=== PATIENT | male | born 1955 | race Caucasian/White ===

== ENCOUNTER 2023-10-21 16:23 | Emergency (ER) | payer OTHER, SELFPAY ==
--- NOTE | ~2023-10-21 | CT_ITS ---
EXAMINATION: CT lumbar spine wo con DATE: 10/21/2023 17:58 INDICATION: Low back pain TECHNIQUE: Computed tomography (CT) of the lumbar spine was performed without intravenous contrast. A utomated exposure control and iterative reconstruction technique were employed. The dose-length produ ct was 1575.73 mGy-cm. COMPARISON: None FINDINGS: Chronic appearing likely physiologic mild anterior wedging at T11 and T12. Remaining vertebral body h eights are normal. No acute fracture. Moderate disc height loss with right-sided degenerative endplat e changes at L4-L5. Mild to moderate left-sided predominant disc height loss with left-sided degenera tive endplate changes at L5-S1. Moderate disc height loss at T10-T11 through T12-L1 and mild disc hei ght loss at T12-L1 and L3-L4. Mild bilateral sacroiliac osteoarthritis. Paravertebral soft tissues ar e unremarkable. The following disc levels are specifically discussed: T11-T12: The disc does not extend beyond the endplate margin. There is mild bilateral facet joint ost eoarthritis. There is no neural foraminal stenosis. There is no central canal stenosis. T12-L1: Disc is mildly bulging. There is mild bilateral facet joint osteoarthritis. There is no neura l foraminal stenosis. There is mild central canal stenosis. L1-L2: Disc is mildly bulging. There is mild bilateral facet joint osteoarthritis. There is no neural foraminal stenosis. There is mild central canal stenosis. L2-L3: Disc is bulging. There is mild right and moderate left facet joint osteoarthritis. There is mi ld bilateral neural foraminal stenosis. There is mild central canal stenosis. L3-L4: Disc is bulging. There is mild left and moderate right facet joint osteoarthritis. There is mi ld bilateral neural foraminal stenosis. There is mild central canal stenosis. L4-L5: Disc is bulging. There is mild right and moderate left facet joint osteoarthritis. There is mo derate bilateral neural foraminal stenosis. There is mild to moderate central canal stenosis. L5-S1: Disc is bulging. There is mild right and moderate left facet joint osteoarthritis. And small f ocus of vacuum phenomena at the medial side of the left facet joint, unclear whether this is within a synovial cyst arising from the facet joint or more likely vacuum phenomena within a disc extrusion w hich narrows the left lateral recess and appears to exert mass effect upon the left S1 nerve root. Th ere is mild bilateral neural foraminal stenosis. Endplate osteophytes result in more prominent modera te narrowing of the left extraforaminal space along the course of the exiting left L5 nerve root. The re is mild central canal stenosis. IMPRESSION: 1. Moderate lumbar predominant spondylosis. No acute osseous abnormalities. Reviewed, dictated and finalized at location A.
--- NOTE | ~2023-10-21 | XR_ITS ---
EXAMINATION: XR hip BI 2V w AP pelvis DATE: 10/21/2023 18:05 INDICATION: Increasing low back pain post fall one week prior TECHNIQUE: Anteroposterior view of the pelvis and anteroposterior and frog-leg lateral views of the l eft hip and anteroposterior and frog-leg lateral views of the right hip and were obtained. COMPARISON: None. FINDINGS: Alignment is normal. No fracture. Mild bilateral hip and sacroiliac osteoarthritis. Moderate lower bob mbar spondylosis. Several phleboliths in the pelvis. IMPRESSION: 1. Mild bilateral hip and sacroiliac osteoarthritis. No acute osseous abnormality. Reviewed, dictated and finalized at location A. IMPRESSION: 1. Mild bilateral hip and sacroiliac osteoarthritis. No acute osseous abnormali ty.
[2023-10-21 16:24] VITALS: BP 156/68; PULSE 79; RESP 20; TEMP 36.4; O2SAT 100
--- NOTE | 2023-10-21 17:35 | ED.GENADULT ---
HPI - General Adult General Chief complaint: Back Pain/Injury <Elva Ruiz November, CORPORATE SALES TRAINER - Last Filed: 10/21/23 17:40> Stated complaint: back problems <Elva Ruiz November, CORPORATE SALES TRAINER - Last Filed: 10/21/23 17:40> Time Seen by Provider: 10/21/23 17:35 <Elva Ruiz November, CORPORATE SALES TRAINER - Last Filed: 10/21/23 17:40> Focused HPI: Portillo Lynch is a 68 y/o male who presents with reports of hx of CVA with some residual weakness to his right lower extremity. He states that he constantly rolls his ankle on the right leg and rolled it about a week ago and has been walking different for the past week and now having increased pain to his right hip down his leg that started yesterday He also states that he has numbness down his right leg which is new He states that he tried an oxycodone for pain at home that seemed to help states sitting and walking makes the pain worse. GENERAL: Well-appearing, well-nourished, and in no acute distress. HEAD: Normocephalic, atraumatic. CHEST: Clear to auscultation. ?No respiratory distress. HEART: Regular rate and rhythm.? NEURO: ?Alert and oriented x3. Patient screened in triage and initial orders placed.? ?Additional care and disposition to be based upon?diagnostic testing and treatment. <Elva Ruiz November, - Last Filed: 10/21/23 17:40> Related Data Home medications: Home Medications Medication Instructions Recorded Confirmed tadalafil 5 mg tablet (Cialis) 5 mg PO DAILY 07/18/19 <Elva Ruiz November, CORPORATE SALES TRAINER - Last Filed: 10/21/23 17:40> Allergies/adverse reactions: Allergies Allergy/AdvReac Type Severity Reaction Status Date / Time No Known Allergies Allergy Unverified 02/03/20 09:25 <Elva Ruiz November, - Last Filed: 10/21/23 17:40> Review of Systems Review of Systems: CONSTITUTIONAL: Denies fever SKIN: Denies rash MUSCULOSKELETAL: Reports back pain, joint pain, and myalgia. NEUROLOGIC: Denies new numbness, or weakness. <Heavenly Corona PA-C - Last Filed: 10/21/23 19:04> All systems reviewed & are unremarkable except as noted in HPI and below <Heavenly Corona PA-C - Last Filed: 10/21/23 19:04> PMFSH Past Medical History Medical History: Medical History (Updated 10/21/23 @ 18:57 by Heavenly Corona PA-C) Cerebrovascular disease <Elva BrianaRuth November, CORPORATE SALES TRAINER - Last Filed: 10/21/23 17:40> Family History Family History: Family History (System 02/03/20 @ 09:25 by Roxi Trejo) Other No problems noted. Father No problems noted. Mother Diabetes mellitus Other No problems noted. Father Patient's father is in good health Sibling Patient's sister is in good health Patient's brother is in good health Mother Family history of diabetes mellitus in first degree relative Diabetes mellitus Other Hypertension <Elva Ruiz November, - Last Filed: 10/21/23 17:40> Social History Social History: Social History (System 02/03/20 @ 09:25 by Roxi Trejo) Smoking status: Never smoker Alcohol intake: never <Elva Ruiz November, - Last Filed: 10/21/23 17:40> Exam Narrative: GENERAL: Well-appearing, well-nourished, and in no acute distress. HEAD: Normocephalic, atraumatic. EYES: EOMI. CHEST: Clear to auscultation. No respiratory distress. No wheezes rales or rhonchi HEART: Regular rate and rhythm. No murmur heard. Normal peripheral pulses. BACK: No midline spinal tenderness EXTREMITIES: Normal range of motion. No edema. Strength 5/5 LLE, 4/5 RLE SKIN: Warm, dry, no rash. NEURO: No focal deficits. Alert and oriented x3. PSYCH: Normal mood and affect <Heavenly Corona PA-C - Last Filed: 10/21/23 19:04> Course Course Emergency Course: Patient was updated on his workup and agrees with plan of care. <Heavenly Corona PA-C - Last Filed: 10/21/23 19:04> Vital Signs Vital signs: Vital Signs Temperature 97.6 F 10/21/23 16:24 Pulse Rate 79 10/21/23 16:24 Respiratory Rate 20 10/21/23 16:24 Blood
--- NOTE | 2023-10-21 18:53 | ED.BACK ---
HPI - Back Pain/Injury General Chief Complaint: Back Pain/Injury Stated Complaint: back problems Time Seen by Provider: 10/21/23 17:35 Source: patient Mode of arrival: ambulatory Limitations: no limitations Related Data Home Medications Medication Instructions Recorded Confirmed tadalafil 5 mg tablet (Cialis) 5 mg PO DAILY 07/18/19 Allergies Allergy/AdvReac Type Severity Reaction Status Date / Time No Known Allergies Allergy Unverified 02/03/20 09:25 [facility] Past Medical History Medical History (System 02/03/20 @ 09:25 by Roxi Trejo) Cerebrovascular disease Family History Family History (System 02/03/20 @ 09:25 by Roxi Trejo) Other No problems noted. Father No problems noted. Mother Diabetes mellitus Other No problems noted. Father Patient's father is in good health Sibling Patient's sister is in good health Patient's brother is in good health Mother Family history of diabetes mellitus in first degree relative Diabetes mellitus Other Hypertension Social History Social History (System 02/03/20 @ 09:25 by Roxi Trejo) Smoking status: Never smoker Alcohol intake: never Course Vital Signs Vital signs: Vital Signs Temperature 97.6 F 10/21/23 16:24 Pulse Rate 79 10/21/23 16:24 Respiratory Rate 20 10/21/23 16:24 Blood Pressure 156/68 H 10/21/23 16:24 Pulse Oximetry 100 10/21/23 16:24 Oxygen Delivery Room Air 10/21/23 16:24 Temperature 97.6 F 10/21/23 16:24 Pulse Rate 79 10/21/23 16:24 Respiratory Rate 20 10/21/23 16:24 Blood Pressure 156/68 H 10/21/23 16:24 Pulse Oximetry 100 10/21/23 16:24 Oxygen Delivery Room Air 10/21/23 16:24 Discharge Plan Discharge Prescriptions: No Action tadalafil [Cialis] 5 mg tablet 5 mg PO DAILY Eliquis 5 mg tablet 5 mg PO BID Qty: 60 0RF apixaban [Eliquis] 5 mg tablet See Rx Instructions .ROUTE .COMPLEX Qty: 180 0RF Dose Instruction: TAKE 1 TABLET BY MOUTH TWICE DAILY Rx Instructions: TAKE 1 TABLET BY MOUTH TWICE DAILY atorvastatin 40 mg tablet 40 mg PO DAILY Qty: 90 1RF Eliquis 5 mg tablet 5 mg PO BID Qty: 180 1RF ramipril 1.25 mg capsule See Rx Instructions .ROUTE .COMPLEX Qty: 90 1RF Dose Instruction: TAKE 1 CAPSULE BY MOUTH DAILY Rx Instructions: TAKE 1 CAPSULE BY MOUTH DAILY sertraline 50 mg tablet See Rx Instructions .ROUTE .COMPLEX Qty: 90 1RF Dose Instruction: TAKE 1 TABLET BY MOUTH DAILY Rx Instructions: TAKE 1 TABLET BY MOUTH DAILY Follow-up/Referrals: Da Walls DO [Primary Care Provider] -
== END 2023-10-21 19:22 | disposition home or self-care (01) ==
LOC: ANHED 19:08
PROVIDERS: Emergency Provider Physician Assistant; PCP Family Medicine Sports Medicine
DX: M54.31 Sciatica, right side (principal); I69.841 Monoplegia of lower limb following other cerebrovascular disease affecting right dominant side
CPT/HCPCS: 72131; 73521; 99284

== ENCOUNTER 2023-11-10 13:27 | Outpatient (CLI) | payer OTHER, SELFPAY ==
--- NOTE | ~2023-11-10 | PE_ITS ---
EXAMINATION: PET_PETPSMAST_PT DATE: 11/10/2023 15:39 INDICATION: Malignant neoplasm of the prostate TECHNIQUE: 5.482 mCi of Locametz Ga-68([id number]) was administered i.v. Low dose computed claire ography (CT) images were acquired from the base of the brain to the base of the brain to the proximal thighs for attenuation correction and anatomic localization. Positron emission tomography (PET) imag es were acquired in the same distribution beginning 90 minutes after injection. Images including fuse d PET/CT images were reconstructed in axial, coronal, and sagittal planes. Automated exposure control technique was employed. The dose-length product was 1307.59mGy-cm. COMPARISON: None FINDINGS: Head/neck: Typical pattern of symmetric physiologic increased activity in the lacrimal, parotid and submandibula r glands as well as along the mucosa of the nasal and oral cavities in the glottis. No pathologically enlarged cervical lymphadenopathy or suspicious foci of increased uptake in the visualized head or n eddie. Chest: Calcified nodules in the right middle and left lower lobes along with calcified mediastinal lymph nod es consistent with old granulomatous disease. Mild dependent atelectasis in the bilateral lower lobes . No pleural effusion. Heart size is normal. Atherosclerotic coronary artery calcification is. No per icardial effusion. Thoracic aorta is normal in caliber. No pathologically enlarged or PSMA avid thora cic lymphadenopathy. Abdomen/pelvis/proximal thighs: Physiologic renal accumulation and excretion of activity in the kidneys, bladder and along portions o f ureters. Status post prostatectomy. There are bilateral photopenic low-attenuation cysts at both ki dneys larger on the left measuring 4.5 cm maximal diameter. Normal degree and slightly heterogenous p attern of increased uptake throughout the liver and spleen without radiologic correlate or dominant P SMA avid lesion. The gallbladder, pancreas and bilateral adrenal glands are normal. Moderate uptake s cattered throughout the bowels with typical duodenal and proximal jejunal predominance and without ra diologic correlate, also likely physiologic. There is mild scattered colonic diverticulosis without a djacent comparison to suggest diverticular colitis. Normal appendix. No other abnormal foci of increa sed uptake or pathologically enlarged lymphadenopathy in the abdomen, pelvis or proximal thighs. Musculoskeletal: There are a couple small foci of mild uptake without evident radiologic correlate on CT imaging at th e lesser trochanter with maximal SUV of 2.4 and at the lateral right fifth rib. No other suspicious l ytic, blastic or PSMA avid bone lesions. IMPRESSION: 1. Minimal uptake associated with a couple bone lesions without radiologic correlate at the right les ser trochanter and at the lateral right fifth rib which does raise some suspicion for early osseous m etastatic disease. No other lesions suspicious for recurrent or metastatic disease. Would recommend c ontinued follow-up of PSA levels with repeat imaging as clinically indicated. Reviewed, dictated and finalized at location A. IMPRESSION: 1. Minimal uptake associated with a couple bone lesions without radiologic maddi elate at the right lesser trochanter and at the lateral right fifth rib which d oes raise some suspicion for early osseous metastatic disease. No other lesions suspicious for recurrent or metastatic disease. Would recommend continued foll ow-up of PSA levels with repeat imaging as clinically indicated.
== END 2023-11-10 13:28 | disposition home or self-care (01) ==
PROVIDERS: PCP Family Medicine Sports Medicine; Visit Provider Urology
DX: C61 Malignant neoplasm of prostate (principal)
CPT/HCPCS: 78815; A9596

== ENCOUNTER 2024-08-18 12:50 | Outpatient (CLI) | payer OTHER, SELFPAY ==
--- NOTE | ~2024-08-18 | CT_ITS ---
CLINICAL INDICATION: 69-year-old gentleman with a history of prostate cancer presents with hematuria for CT evaluation.. COMPARISON: Reference is made to a PET/CT dated 11/10/2023. TECHNIQUE: Multiple contiguous axial images of the abdomen and pelvis were performed both prior to an d following the administration of with 100 mL Omnipaque-350 intravenous contrast The dose-length product (DLP) was 1310.26 mGy-cm. Automated exposure control and iterative reconstruction technique were employed. FINDINGS/OBSERVATIONS: Visualized lower thorax: The bilateral lung bases are clear. The heart is of normal size, without pericardial effusion. Liver: The liver is enlarged measuring 20 cm in longitudinal dimension. No abnormal contrast enhancement is appreciated. Gallbladder and biliary system: The gallbladder is decompressed, and otherwise unremarkable. Pancreas: The pancreas enhances homogeneously without ductal dilatation. Spleen: The spleen enhances homogeneously and is not enlarged measuring 8 cm in longitudinal dimension. Kidneys: No renal calculi are identified. Multiple areas of decreased attenuation within the bilateral kidneys (2 on the right and one on the l eft) which do not enhance with intravenous contrast and are most consistent with simple cysts. Within the right kidney, this focus is located within the lateral interpolar region. Within the right kidney, an additional cystic focus is located within the medial portion of the inter polar region. Within the left kidney, an additional cystic focus is located along the medial margin of the lower po le. The remainder of the bilateral kidneys otherwise enhance symmetrically, without hydronephrosis. No large filling defect is identified within the visualized portions of the opacified bilateral urete rs, although examination is limited as the bilateral ureters are not completely opacified in their en tirety. Adrenal glands: Unremarkable. Gastrointestinal tract: Colonic diverticulosis without surrounding inflammatory change. Trace fecal stasis. Appendix: The air-filled appendix is of normal caliber (axial series, images 131 through 154) Vasculature: Unremarkable. No aneurysmal dilatation or significant stenosis. Lymph nodes: No pathologically enlarged or morphologically suspicious lymph nodes within the retroperitoneum or at the root of the mesentery. Pelvic structures: Excreted contrast is opacifying the posterior wall of the bladder, without a posterior abnormality. Inflammatory change is identified within the anterior wall of the bladder, for which cystitis is susp ected. The prostate gland is surgically absent. Body wall and musculoskeletal: Small fat-containing umbilical hernia. Trace degenerative disease within the lower lumbar spine. No acute compression fracture. No lytic or blastic lesions identified. IMPRESSION: Findings within the bladder for which cystitis is suspected. No renal calculi. No bladder calculi. Simple cysts within the bilateral kidneys. Reviewed, dictated and finalized at location A. R HOTEL MANAGER
--- NOTE | ~2024-08-18 | XR_ITS ---
XR abdomen/kub 1V 08/18/2024 13:18 INDICATION: Hematuria TECHNIQUE: KUB COMPARISON: None FINDINGS: Bowel gas pattern is normal. Moderate colonic fecal loading. There is no evidence of free a ir, mass, organomegaly, ascites or obstruction. No abnormal calculi are seen. There are multiple pel vy phleboliths. The bones appear intact. IMPRESSION: 1: No acute abdominal abnormality identified. Reviewed, dictated and finalized at location A. CAL ARTIST
[2024-08-18 13:34] LABS: Estimated Glomerular Filt Rate 55
--- OUTSIDE RECORDS SUMMARY | 2024-08-18 13:38 | XMS_ITS | Encounter Summary ---
Author Organization [facility] Address [address] [place] [address] Care Team Providers Care Oracle Technical Architect Name Role Phone Basilio Mao MD Primary Care Provider [phone] Encounter Details Date Type Department Care Team (Late st Contact Info) Description 05/06/2023 Lab Requisition [facility] [address] [address] Donnie Dyson MD [facility] [address] [place] [id number] Neoplasm of uncertain behavior of skin Social History Tobacco Use Types Packs/Day Years Used Date Smoking Tobacco: Never Alcohol Use Standard Drinks/Week Comments No 0 (1 standard drink = 0.6 oz pur e alcohol) Sex and Gender Information Value Date Recorded Sex Assigned at Not on file Gender Identity Not on file Sexual Orientation Not on file documented as of this encounter Plan of Treatment Not on file documented as of this encounter Procedures Procedure Name Priority Date/Time Associated Diagnosis Comments DERMATOPATHOLOGY Routine 05/06/2023 3:33 AM CDT Neoplasm of uncertain behavior of skin documented in this encounter Results * DERMATOPATHOLOGY (05/06/2023 3:33 AM CDT) Case Report Dermatopathology Report ? Case: [id number] ? Authorizing Provider: ??Donnie Dyson MD ? Collected: ? 05/06/2023 03:33 AM ? Ordering Location: ? [facility] ? Received: ?05/07/2023 11:07 AM ? Pathologist: ? Lorena Vee MD ? Specimen: ?Skin, right cheek ? 3 1:46 PM CDT DERMATOPATHOLOGY LABORATORY Final Diagnosis Specimen A. SKIN, right cheek: ACTINIC KERATOSIS WITH FOLLICULAR EXTENSION (L57.0) 3 1:46 PM T DERMATOPATHOLOGY LABORATORY Clinical History Squamous Cell Carcinoma 3 1:46 PM CDT DERMATOPATHOLOGY LABORATORY Gross Description Specimen A: Received is one formalin filled container labeled with the patient's name and designated right cheek. The specimen consists of a shave biopsy measuring 5x5x1 mm. Jar 0. 3 1:46 PM CDT DERMATOPATHOLOGY LABORATORY Microscopic Description Specimen A. SKIN, right cheek: There is focal parakeratosis. The lower half of the epidermis shows disorderly maturation of keratinocytes with nuclear pleomorphism. 3 1:46 PM CDT DERMATOPATHOLOGY LABORATORY Disclaimer An external and internal positive and negative controls are appropriate for the histochemical, immunohistochemical and immunofluorescence stain(s) in this case (if any), except where stated explicitly. The performance characteristics of the stain(s) cited in this report were developed and its performance characteristic determined by the Dermatopathology Laboratory at [facility], directed by Dr. Lore Vee. These tests need not be, and therefore are not, approved by the [place] Food and Drug Administration. The tests are used for clinical purposes. Billing Codes Specimen Charges Stain Charges 31740 1 3 1:46 PM CDT DERMATOPATHOLOGY LABORATORY Embedded Images 3 1:46 PM CDT DERMATOPATHOLOGY LABORATORY Pathology/Cytolo gy TISSUE SPECIMEN FROM SKIN / Unknown 05/06/2023 3:33 AM CDT 05/07/2023 11:07 AM CDT Donnie Dyson MD LAB - PATHOLOGY/CYTO LOGY ORDERABLES DERMATOPATHOLOGY LABORATORY [facility] - Department of Dermatology [facility] [address] [place] [address], [address] [phone] documented in this encounter Visit Diagnoses Diagnosis Neoplasm of uncertain behavior of skin documented in this encounter Care Teams Oracle Technical Architect Relationship Specialty Start Date End Date Basilio Mao MD [address] [facility] [address] [place] [phone] PCP - General 08/25/16 documented as of this encounter
--- OUTSIDE RECORDS SUMMARY | 2024-08-18 13:39 | XMS_ITS | Clinical Summary ---
Author Organization [facility] Address [address] [place] [address] Phone Care Team Providers Care Dressmaker Garment Fitter Name Role Phone Ilene Paul MD Primary Care Provider [phone] Allergies No known active allergies Medications atorvastatin (LIPITOR) 40 MG Tablet TAKE 1 TABLET BY MOUTH NIGHTLY AT BEDTIME 3 Active omeprazole (PriLOSEC) 20 MG CAPSULE DELAYED RELEASE Take 20 mg by mouth 2 times daily. 3 Active metFORMIN (GLUCOPHAGE) 500 MG Tablet Take 1 tablet by mouth once daily with evening meal to control of diabetes 3 Active Dapagliflozin Propanediol (Farxiga) 10 MG Tablet Take 10 mg by mouth. 3 Active lisinopril-hydro CHLOROthiazide (PRINZIDE, ZESTORETIC) 10-12.5 MG Tablet Take 1 Tablet by mouth 2 times daily. 4 Active Cholecalciferol (Vitamin D3) 1.25 MG (88672 UT) Capsule TAKE 1 CAPSULE BY MOUTH ONCE A WEEK 3 Active Vilazodone HCl 10 MG Tablet TAKE 1 TABLET BY MOUTH ONCE DAILY WITH FOOD 4 Active Ferrous Sulfate (Iron) 325 (65 Fe) MG Tablet Take 325 mg by mouth. 4 Active Active Problems Problem Noted Date Diagnosed Date Spinal stenosis of lumbar re 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 06/19/2023 08/05/2023 HTN (hypertension) 09/22/2022 CVA (cerebral vascular accident) 09/22/2022 DVT (deep venous thrombosis) 09/22/2022 HLD (hyperlipidemia) 09/22/2022 Hemiplegia and hemiparesis f 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 07/28/2022 Malignant neoplasm of prostate 04/12/2021 Gastroesophageal reflux disease without esophagi tis 11/14/2020 Overview (09/26/2022): No date...40 years now Immunizations Immunization Administration Dates Next Due DTAP VACCINE, UNSPECIFIED FORMULATION 11/14/2020 Influenza Vaccine 08/10/2015 Influenza, Seasonal, Injectable, Undefined 07/28 Family History Medical History Relation Name Comments Diabetes Brother Relation Name Status Comments Brother Alive Father Mother Sister Alive Social History Tobacco Use Types Packs/Day Years Used Date Smoking Tobacco: Never Smokeless Tobacco: Never Tobacco Cessation:Counseling Given: Not Answered Alcohol Use Standard Drinks/Week Comments Yes 7 (1 standard drink = 0.6 oz pur e alcohol) Sex and Gender Information Value Date Recorded Sex Assigned at Not on file Legal Sex Male 1:34 PM 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 P[employer]ER Gender Identity Not on file Sexual Orientation Not on file Last Filed Vital Signs Vital Sign Reading Time Taken Comments Blood Pressure 134/68 02/17/2024 7:56 AM CDT Pulse 80 02/17/2024 7:56 AM CDT Temperature 36.6 ??C (97.8 ??F) 02/17/2024 7:56 AM CD T Respiratory Rate 18 02/17/2024 7:56 AM CDT Oxygen Saturation 96% 02/17/2024 7:56 AM CDT Inhaled Oxygen Concentration - - Weight 115.2 kg (253 lb 14.4 oz) 02/17/2024 7:56 AM CDT Height 188 cm (6' 2 ) 02/17/2024 7:56 AM CDT Body Mass Index 32.6 02/17/2024 7:56 AM CDT Plan of Treatment Health Maintenance Due Date Last Done Comments SARS-COV-2 Immunization (#1) 1961 Pneumococcal Immunization (5 0+ years) (1 of 2 - PCV) 1975 Zoster Immunization (1 of 2) 1975 Cologuard 2006 Immunochemical Fecal Occult Blood 2006 PSA Discussion 2011 Respiratory Syncytial Virus (RSV) Immunization (Adult) (1 - Risk 60-74 years 1-dose series) 2016 Influenza Immunization (#1) 2024 08/10/2015 Colonoscopy 08/21/2026 08/21/2016 Colorectal Cancer Screening 08/21/2026 08/21/2016 DTaP/Tdap/Td Immunization Discontinued 11/14/2020 Hepatitis C Virus (HCV) Screening Completed 023 Hepatitis B Immunization Aged Out No longer eligible based on patient's age to complete this topic Meningococcal Immunization (ACWY) Aged Out No longer eligible based on patient's age to complete this topic Rotavirus Immunization Aged Out No lo nger eligible based on patient's age to complete this topic Insurance MEDICARE C [employer] Care Teams Dressmaker Garment Fitter Relationship Specialty Start Date End Date Ilene Paul MD [phone] [address] PCP - General Family Medicine 09/05/22
--- OUTSIDE RECORDS SUMMARY | 2024-08-18 13:39 | XMS_ITS | Clinical Summary ---
Author Organization [facility] Address [address] [place] [address] Care Team Providers Care Food Safety Scientist Name Role Phone Basilio Mao MD Primary Care Provider [phone] Source Comments [facility],non-owned Affiliates and Associated Physician Practices is amultiple site organization consisting of ambulatory clinics and hospital sitesin [place], [place], [place] and [place]. This disclosure is being madepursuant to the Care Everywhere program and may not contain all information available regarding this patient. Last updated 18.[facility] Active Problems Problem Noted Date Diagnosed Date Cerebral infarction 08/10/2015 Immunizations Name Administration Dates Next Due FLU VACCINE TRI IIV3 SPLIT PF IM (FLUVIRIN) 07/21 Family History Medical History Relation Name Comments Diabetes Brother Diabetes Mother Heart Disease Mother Relation Name Status Comments Brother Mother Social History Tobacco Use Types Packs/Day Years Used Date Smoking Tobacco: Never Alcohol Use Standard Drinks/Week Comments No 0 (1 standard drink = 0.6 oz pur e alcohol) Sex and Gender Information Value Date Recorded Sex Assigned at Not on file Gender Identity Not on file Sexual Orientation Not on file Last Filed Vital Signs Vital Sign Reading Time Taken Comments Blood Pressure 142/84 08/15/2015 12:00 PM [facility] Pulse 98 08/15/2015 12:00 PM [facility] Temperature 36.6 ??C (97.8 ??F) 08/15/2015 1 2:00 PM [facility] Respiratory Rate 16 08/15/2015 12:0 0 PM [facility] [employer] Oxygen Saturation 96% 08/15/2015 12: 00 PM [facility] Inhaled Oxygen Concentration - - Weight 106.5 kg (234 lb 11.2 oz) 08/13/2015 9:00 PM [facility] [employer] Height 188 cm (6' 2 ) 08/13/2015 9:00 PM [facility] Body Mass Index 30.13 08/13/2015 9:00 PM [facility] Plan of Treatment Health Maintenance Due Date Last Done Comments COLOGUARD (AGES 45-75) - COL ON CA SCREENING 1956 COLON MONITORING 1956 COLONOSCOPY - COLON CA SCREENING 1956 CT COLONOGRAPHY - COLON CA SCREENING 1956 Colorectal Cancer Screening 1956 FIT - COLON CA SCREENING 1956 FLEX SIG - COLON CA SCREENING 1956 HEPATITIS C SCREENING 08/02/1974 DTAP/TDAP/TD VACCINES (1 - Tdap) 1975 PNEUMOCOCCAL VACCINE 50+ (1 of 1 - PCV) 2006 ZOSTER VACCINE (1 of 2) 2006 LIPID TESTING 08/10/2020 08/10/2015 COVID-19 VACCINE (1 - 2023-2 5 season) 2024 INFLUENZA VACCINE (#1) 2024 08/10/2015 DEPRESSION SCREENING 07/20/2024 MEDICARE AWV ? CALENDAR YEAR 2024 Respiratory Syncytial Virus (RSV) Vaccine Pt: or over 60 yrs (1 - 1-dose 75+ series) 2031 HEPATITIS B VACCINE Aged Out No longe r eligible based on patient's age to complete this topic HIB VACCINE Aged Out No longer eligi ble based on patient's age to complete this topic HPV VACCINE Aged Out No longer eligi ble based on patient's age to complete this topic MENINGOCOCCAL (Group B) VACCINE Aged Out No longer eligible based on patient's age to complete this topic MENINGOCOCCAL VACCINE Aged Out No hina geronimo eligible based on patient's age to complete this topic Procedures Procedure Name Priority Date/Time Associated Diagnosis Comments LIPID PROFILE Routine 08/10/2015 2:39 PM [facility] [employer] from Last 3 Months or Most Recently Relevant to Health Maintenance Results * (ABNORMAL) LIPID PROFILE (08/10/2015 2:39 PM [facility] [employer]) Cholesterol Total 193 <200 mg/dL [facility] HDL 37(L) >40 mg/dL [facility] Comment: ATP III Classification of HDL Cholesterol: ? <40 mg/dL: ??Considered a major risk factor. ? >60 mg/dL: ??Considered a negative risk factor. ? LDL Calculated 86 <100 mg/dL [facility] Comment: ATP III Classification of LDL Cholesterol: ?<100 mg/dL: ??Optimal ? 100 - 129 mg/dL: ??Near Optimal/Above Optimal ? 130 - 159 mg/dL: ??Borderline High ? 160 - 189 mg/dL: ??High ?>190 mg/dL: ??Very High ? Triglycerides 350(H) <150 mg/dL [facility] Comment: ATP III Classification of Triglycerides: ?<150 mg/dL: ??Normal ? 150 - 199 mg/dL: ??Borderline High ? 200 - 400 mg/dL: ??High ?>500 mg/dL: ??Very High Blood specimen (specimen) BLOOD SPECIMEN / Unknown 08/10/2015 2:39 PM [facility] [employer] 08/10/2015 2:42 PM [facility] Ciera Arias MD LAB - CHEMISTRY [facility] Organization Address City/State/ZIP Co de Phone Number [facility] [address] [phone] from Last 3 Months or Most Recently Relevant to Health Maintenance Care Teams Food Safety Scientist Relationship Specialty Start Date End Date Basilio Mao MD [address] [facility] [address] [place] [address] PCP - General 08/25/16
--- OUTSIDE RECORDS SUMMARY | 2024-08-18 13:39 | XMS_ITS | Patient Health Summary ---
Author Organization [facility] Address [address] [place] [id number] Care Team Providers Care Slurry Worker Name Role Phone Basilio Mao MD Primary Care Provider [phone] Note from [facility],non-owned Affiliates and Associated Physician Practices is amultiple site organization consisting of ambulatory clinics and hospital sitesin [place], [place], [place]. This disclosure is being madepursuant to the Care Everywhere program and may not contain all information available regarding this patient. Last updated 18.[facility] Active Problems Problem Noted Date Diagnosed Date Cerebral infarction 08/10/2015 Immunizations * FLU VACCINE TRI IIV3 SPLIT PF IM (FLUVIRIN)(Given 08/10/2015) Social History Tobacco Use Types Packs/Day Years [...] Comments Blood Pressure 142/84 08/15/2015 12:00 PM MANAGER ASSESSMENT Pulse 98 08/15/2015 12:00 PM MANAGER ASSESSMENT Temperature 36.6 ??C (97.8 ??F) 08/15/2015 1 2:00 PM MANAGER ASSESSMENT Respiratory Rate 16 08/15/2015 12:0 0 PM MANAGER ASSESSMENT Oxygen Saturation 96% 08/15/2015 12: 00 PM MANAGER ASSESSMENT Inhaled Oxygen Concentration - - Weight 106.5 kg (234 lb 11.2 oz) 08/13/2015 9:00 PM MANAGER ASSESSMENT Height 188 cm (6' 2 ) 08/13/2015 9:00 PM MANAGER ASSESSMENT Body Mass Index 30.13 08/13/2015 9:00 PM MANAGER ASSESSMENT Procedures * DERMATOPATHOLOGY(Performed 05/06/2023) Performed for Neoplasm of uncertain behavior of skin * PHOSPHORUS BLOOD(Performed 08/15/2015) * MAGNESIUM BLOOD(Performed 08/15/2015) * BASIC METABOLIC PANEL (CALCIUM TOTAL)(Performed 08/15/2015) * CBC W AUTO DIFFERENTIAL(Performed 08/15/2015) * CBC W AUTO DIFFERENTIAL(Performed 08/15/2015) * BASIC METABOLIC PANEL (CALCIUM TOTAL)(Performed 08/14/2015) * MAGNESIUM BLOOD(Performed 08/14/2015) * PHOSPHORUS BLOOD(Performed 08/14/2015) * PHOSPHORUS BLOOD(Performed 08/14/2015) * CBC W AUTO DIFFERENTIAL(Performed 08/14/2015) * CBC W AUTO DIFFERENTIAL(Performed 08/14/2015) * PHOSPHORUS BLOOD(Performed 08/13/2015) * MAGNESIUM BLOOD(Performed 08/13/2015) * PHOSPHORUS BLOOD(Performed 08/13/2015) * MAGNESIUM BLOOD(Performed 08/13/2015) * BASIC METABOLIC PANEL (CALCIUM TOTAL)(Performed 08/13/2015) * CBC W AUTO DIFFERENTIAL(Performed 08/13/2015) * CBC W AUTO DIFFERENTIAL(Performed 08/13/2015) * MRI BRAIN WO CONTRAST(Performed 08/12/2015) * HEMOGLOBIN A1C(Performed 08/12/2015) * BASIC METABOLIC PANEL (CALCIUM TOTAL)(Performed 08/12/2015) * PHOSPHORUS BLOOD(Performed 08/12/2015) * MAGNESIUM BLOOD(Performed 08/12/2015) * CBC W AUTO DIFFERENTIAL(Performed 08/12/2015) * CBC W AUTO DIFFERENTIAL(Performed 08/12/2015) * CT HEAD WO CONTRAST(Performed 08/11/2015) * CT ANGIO BRAIN AND NECK(Performed 08/11/2015) * CT HEAD WO CONTRAST(Performed 08/11/2015) * CK + CKMB PANEL(Performed 08/11/2015) * TROPONIN I(Performed 08/11/2015) * PHOSPHORUS BLOOD(Performed 08/11/2015) * MAGNESIUM BLOOD(Performed 08/11/2015) * BASIC METABOLIC PANEL (CALCIUM TOTAL)(Performed 08/11/2015) * CBC W AUTO DIFFERENTIAL(Performed 08/11/2015) * CBC W AUTO DIFFERENTIAL(Performed 08/11/2015) * DRUG ABUSE PANEL 10-20+ETHANOL URINE NO CONFIRM(Performed 08/10/2015) * URINALYSIS W/MICROSCOPIC NO CULTURE(Performed 08/10/2015) * VAS BILATERAL VENOUS DUPLEX LE(Performed 08/10/2015) * HEMOGLOBIN A1C(Performed 08/10/2015) * CK + CKMB PANEL(Performed 08/10/2015) * TROPONIN I(Performed 08/10/2015) * LIPID PROFILE(Performed 08/10/2015) * HEPATIC FUNCTION PANEL(Performed 08/10/2015) * PHOSPHORUS BLOOD(Performed 08/10/2015) * ECHO COMPLETE(Performed 08/10/2015) * EKG 12-LEAD(Performed 08/10/2015) Results * DERMATOPATHOLOGY (05/06/2023 3:33 AM CDT) Case Report Dermatopathology Report ? Case: [id number] ? Authorizing Provider: ??Donnie Dyson MD ? Collected: ? 05/06/2023 03:33 AM ? [facility] ? Received: ?05/07/2023 11:07 AM ? Pathologist: ? Lorena Vee MD ? Specimen: ?Skin, right cheek ? 3 1:46 PM CDT DERMATOPATHOLOGY LABORATORY Final Diagnosis Specimen A. SKIN, right cheek: ACTINIC KERATOSIS WITH FOLLICULAR EXTENSION (L57.0) 3 1:46 PM CDT DERMATOPATHOLOGY LABORATORY Clinical History Squamous Cell Carcinoma 3 1:46 PM CDT DERMATOPATHOLOGY LABORATORY Gross Description Specimen A: Received is one formalin filled container labeled with the patient's name and designated right cheek. The specimen consists of a shave biopsy measuring 5x5x1 mm. Jar 0. 1:46 PM CDT DERMATOPATHOLOGY LABORATORY Microscopic Description [...] characteristic determined by the Dermatopathology Laboratory at [facility], directed by Dr. Lore Vee. These tests need not be, and therefore are not, approved by the [place] Food and Drug Administration. The tests are used for clinical purposes. Billing Codes Specimen Charges Stain Charges 50352 1 3 1:46 PM CDT DERMATOPATHOLOGY LABORATORY Embedded Images 3 1:46 PM CDT DERMATOPATHOLOGY LABORATORY Pathology/Cytolo gy TISSUE SPECIMEN FROM SKIN / Unknown 05/06/2023 3:33 AM CDT 05/07/2023 11:07 AM CDT Donnie Dyson MD LAB - PATHOLOGY/CYTO LOGY ORDERABLES DERMATOPATHOLOGY LABORATORY [facility] - Department of Dermatology [facility] Medicine [address] [place] [address], [address] [phone] * CBC W AUTO DIFFERENTIAL (08/15/2015 3:28 AM MANAGER ASSESSMENT) Only the most recent of10 resultswithin the time period is included. Blood specimen (specimen) BLOOD SPECIMEN / Unknown 08/15/2015 3:28 AM MANAGER ASSESSMENT Narrative [facility] - 08/15/2015 4:08 AM MANAGER ASSESSMENT The following orders were created for panel order CBC w Differential. Procedure ? Abnormality ? Status ? --------- ? ------ ? CBC WITH DIFFERENTIAL[[id number]] ? Abnormal ?Final result ? Please view results for these tests on the individual orders. Ciera Arias MD LAB - HEMATOLOGY ORD ERABLES Performing Organization Address City/State/[facility] Co de Phone Number [facility] [address] * (ABNORMAL) BASIC METABOLIC PANEL (CALCIUM TOTAL) (08/15/2015 3:28 AM MANAGER ASSESSMENT) Only the most recent of5 resultswithin the time period is included. BUN 19 7 - 26 mg/dL [facility] Creatinine 0.9 0.6 - 1.2 mg/dL [facility] Sodium 142 136 - 145 mmol/L [facility] Potassium 3.9 3.5 - 4.5 mmol/L [facility] Chloride 109(H) 98 - 107 mmol/L [facility] CO2 22 22 - 29 mmol/L [facility] Glucose 109 70 - 115 mg/dL [facility] Calcium 9.0 8.4 - 10.2 mg/dL [facility] Anion Gap 15 8 - 18 [facility] BUN/Creatinine Ratio 21 7 - 23 [facility] Osmolality Calculated 282 270 - 300 mOsm/kg [facility] eGFR >60 >60 mL/min/1.7 3 m2 [facility] Blood specimen (specimen) BLOOD SPECIMEN / Unknown 08/15/2015 3:28 AM MANAGER ASSESSMENT 08/15/2015 4:02 AM MANAGER ASSESSMENT Ciera Arias MD LAB - CHEMISTRY ANGELA CHAVIRA Performing Organization Address [facility] de Phone Number [address] [phone] * PHOSPHORUS BLOOD (08/15/2015 3:28 AM MANAGER ASSESSMENT) Only the most recent of8 resultswithin the time period is included. Phosphorus 4.3 2.3 - 4.7 mg/dL [facility] Blood specimen (specimen) BLOOD SPECIMEN / Unknown 08/15/2015 3:28 AM MANAGER ASSESSMENT 08/15/2015 4:02 AM MANAGER ASSESSMENT Ciera Arias MD LAB - CHEMISTRY ANGELA CHAVIRA Performing Organization Address [facility] de Phone Number [address] [phone] * MAGNESIUM BLOOD (08/15/2015 3:28 AM MANAGER ASSESSMENT) Only the most recent of6 resultswithin the time period is included. Magnesium 2.2 1.6 - 2.6 mg/dL [facility] Blood specimen (specimen) BLOOD SPECIMEN / Unknown 08/15/2015 3:28 AM MANAGER ASSESSMENT 08/15/2015 4:02 AM MANAGER ASSESSMENT Ciera Arias MD LAB - CHEMISTRY ANGELA CHAVIRA Performing Organization Address [facility] de Phone Number [address] [phone] * MRI BRAIN WO CONTRAST (08/12/2015 11:13 AM MANAGER ASSESSMENT) Anatomical Region Laterality Modality Head Other Impressions 08/13/2015 9:26 AM MANAGER ASSESSMENT IMPRESSION: 1. Small volume acute ischemic stroke in the left basis pontis without evidence of hemorrhagic conversion. This report was approved ??by Peter Armstrong ?? on 08/13/2015 7:47 AM . IDr. EDWIN M.D. have personally reviewed and interpreted this examination/study. This report was electronically signed by EDWIN FLYNN M.D. ??on 08/13/2015 9:26 AM . Narrative 08/13/2015 9:26 AM MANAGER ASSESSMENT EXAMINATION: Magnetic resonance imaging (MRI) of the brain without contrast HISTORY: Right-sided weakness TECHNIQUE: MRI of the brain was performed without contrast according to standard protocol. FINDINGS: No prior study is available for comparison. No evidence of acute or chronic hemorrhage is identified. There is a small volume of diffusion restriction in the left aspect of the basis pontis with matching FLAIR hyperintensity, consistent with an acute ischemic stroke. The ventricles are of normal size, shape, and morphology. No mass effect or midline shift is seen. The corpus callosum and sella appear normal. The posterior fossa and craniocervical junction appear normal. Other than mild bilateral maxillary sinus mucosal thickening, the visualized portions of the orbits, paranasal sinuses, and mastoids appear normal. Normal flow voids are demonstrated in the carotid arteries and basilar artery. The calvarium and visualized cervical spine appear normal. Procedure Note Edwin Flynn MD - 10/17/2017 EXAMINATION: Magnetic resonance imaging (MRI) of the brain withoutcontrast HISTORY: Right-sided weakness TECHNIQUE: MRI of the brain was performed without contrast according tostandard protocol. FINDINGS: No prior study is available for comparison. No evidence of acute or chronic hemorrhage is identified. There is a smallvolume of diffusion restriction in the left aspect of the basis pontiswith matching FLAIR hyperintensity, consistent with an acute ischemicstroke. The ventricles are of normal size, shape, and morphology. No mass effect or midline shift is seen. Thecorpus callosum and sella appear normal. The posterior fossa andcraniocervical junction appear normal. Other than mild bilateral maxillary sinus mucosal thickening, thevisualized portions of the orbits, paranasal sinuses, and mastoids appearnormal. Normal flow voids are demonstrated in the carotid arteries andbasilar artery. The calvarium and visualized cervical spine appear normal. IMPRESSION IMPRESSION: 1. Small volume acute ischemic stroke in the left basis pontis withoutevidence of hemorrhagic conversion. This report was approved by Peter Armstrong on 08/13/2015 7:47 AM . I, Dr. YIHUA FLYNN, M.D. have personally reviewed and interpreted thisexamination/study. This report was electronically signed by EDWIN FLYNN M.D. on 08/13/20159:26 AM . Ciera Arias MD MR ORDERABLES * HEMOGLOBIN A1C (08/12/2015 6:30 AM MANAGER ASSESSMENT) Only the most recent of2 resultswithin the time period is included. Hemoglobin A1c 5.7 4.4 - 6.3 % [facility] Estimated Average Glucose 117 mg/dL [facility] Comment: HbA1c Interpretation: Treatment target values recommended by ADA and other clinical organizations should be used to evaluate metabolic control in patients. Treatment Target Values: Normal : < 5.7% Pre-diabetes: 5.7-6.4% Diabetes: Equal to or greater than 6.5% Reference: [place] Diabetes Association Standards of Care in Diabetes -2014 In patients 70 years and older consider HbA1c target range of 7.0-7.5% Reference: ??Diabetes Mellitus in Older People: Position Statement on behalf of the International Association of Gerontology and Geriatrics (IAGG), the Diabetes Working Republican for Older People (EDWPOP), and the International Task Force of Experts in Diabetes. ??Segun Ramsey, et al. J [place] [employer] Association. 2012 Test results diagnostic of diabetes should be repeated for confirmation. The Tosoh G8 assay for the measurement of HbA1c is a National Glycohemoglobin Standardization Program (NGSP)certified method. Results for patients with HbE disease should be interpreted with caution as this hemoglobinopathy has been shown to interfere with the Tosoh G8 assay. Blood specimen (specimen) BLOOD SPECIMEN / Unknown 08/12/2015 6:30 AM MANAGER ASSESSMENT 08/12/2015 6:34 AM MANAGER ASSESSMENT Ciera Arias MD LAB - CHEMISTRY ANGELA [facility] Organization Address City/State/ZIP Co de Phone Number [facility] [address] [phone] * CT HEAD WO CONTRAST (08/11/2015 5:31 PM MANAGER ASSESSMENT) Only the most recent of2 resultswithin the time period is included. Anatomical Region Laterality Modality Head Other Impressions 08/12/2015 6:54 AM MANAGER ASSESSMENT IMPRESSION: 1. No acute intracranial hemorrhage, significant mass effect, or midline shift. Preliminary results reported by Dr. Guardado on at 5:53 PM. This report was electronically signed by MARTÍN ZULUAGA M.D. ??on 08/12/2015 6:54 AM . Narrative 08/12/2015 6:54 AM MANAGER ASSESSMENT EXAMINATION: Computed tomography (CT) of the head without contrast HISTORY: Worsening right-sided weakness and speech difficulty. TECHNIQUE: CT of the head was performed without contrast according to standard protocol. FINDINGS: Comparison is made to prior head CT from 08/11/2015. No acute intra- or extra-axial fluid collections are identified. The ventricles are of normal size, shape, and morphology. The basal cisterns are patent. No mass effect or midline shift is seen. The osorio-white matter differentiation is normal. Mild mucosal thickening in the paranasal sinuses. Otherwise, the visualized portions of the orbits, paranasal sinuses, and mastoids appear normal. No acute fracture is identified. Procedure Note Martín Zuluaga MD - 10/17/2017 EXAMINATION: Computed tomography (CT) of the head without contrast HISTORY: Worsening right-sided weakness and speech difficulty. TECHNIQUE: CT of the head was performed without contrast according tostandard protocol. FINDINGS: Comparison is made to prior head CT from 08/11/2015. No acute intra- or extra-axial fluid collections are identified. Theventricles are of normal size, shape, and morphology. The basal cisternsare patent. No mass effect or midline shift is seen. The osorio-white matterdifferentiation is normal. Mild mucosal thickening in the paranasal sinuses. Otherwise, the visualizedportions of the orbits, paranasal sinuses, and mastoids appear normal. Noacute fracture is identified. IMPRESSION IMPRESSION: 1. No acute intracranial hemorrhage, significant mass effect, or midlineshift. Preliminary results reported by Dr. Guardado on at 5:53 PM. This report was electronically signed by MARTÍN ZULUAGA M.D. on 08/12/20156:54 AM . Ciera Arias MD CT ORDERABLES * CT ANGIO BRAIN AND NECK (08/11/2015 11:25 AM MANAGER ASSESSMENT) Anatomical Region Laterality Modality Head Other Impressions 08/11/2015 12:47 PM MANAGER ASSESSMENT IMPRESSION: 1. No acute intracranial hemorrhage, significant mass effect, or midline shift. 2. No large arterial occlusions or significant stenoses identified in the head or neck. Mild atherosclerosis in the carotid bifurcations and in the cavernous carotid arteries. I, Dr. MARTÍN ZULUAGA M.D. have personally reviewed and interpreted this examination/study. This report was electronically signed by MARTÍN ZULUAGA M.D. ??on 08/11/2015 12:47 PM . Narrative 08/11/2015 12:47 PM MANAGER ASSESSMENT EXAMINATION: Computed tomography (CT) of the head and neck without and with contrast HISTORY: Right-sided weakness, slurred speech, and facial droop. Post TPA administration. TECHNIQUE: CT of the head was performed without contrast according to standard protocol. Then CT angiography of the head and neck was obtained after the uneventful administration of 100 mL Omnipaque 350 intravenous contrast. Three dimensional postprocessing was performed by the technologist and sent to the workstation for review. FINDINGS: Comparison is made with a outside institution head CT 08/10/2015. Non-angiographic findings: No acute intra- or extra-axial fluid collections are identified. The ventricles are of normal size, shape, and morphology. The basilar cisterns are patent. No mass effect or midline shift is seen. The osorio-white matter differentiation is normal. Periventricular white matter hypoattenuation is indicative of chronic small vessel ischemic disease. There is vascular calcification of the carotid siphons. Other than mild mucosal thickening of the bilateral maxillary sinuses, the visualized portions of the orbits, paranasal sinuses, and mastoids appear normal. No acute fracture is identified. Scattered subcentimeter lymph nodes are noted in the neck and upper mediastinum. Calcified lymph nodes noted in the mediastinum suggest prior granulomatous disease. There are moderate degenerative changes of the cervical spine with intervertebral disc space narrowing and uncovertebral arthropathy at C5-C6 and C6-7 levels. Angiographic findings: The visualized aortic arch appears mildly atherosclerotic and coronary artery calcifications are seen. The configuration of the brachiocephalic vessels is typical. The innominate artery and both subclavian arteries appear normal. The common carotid arteries and carotid bifurcations appear mildly atherosclerotic with no significant stenosis. The cervical internal carotid arteries appear normal. The left vertebral artery is dominant. Mild atherosclerosis of the intracranial portion of the left vertebral artery without significant stenosis. Mild streak artifacts limit the evaluation of the left vertebral artery at C5-C6 and C6-7 level. The distal internal carotid arteries appear atherosclerotic and mildly irregular in their cavernous segments with up to mild stenosis. The anterior and middle cerebral arteries appear normal. The basilar artery and posterior cerebral arteries appear normal. No aneurysms or vascular occlusions are identified. Procedure Note Martín Zuluaga MD - 10/17/2017 EXAMINATION: Computed tomography (CT) of the head and neck without andwith contrast HISTORY: Right-sided weakness, slurred speech, and facial droop. Post TPAadministration. TECHNIQUE: CT of the head was performed without contrast according tostandard protocol. Then CT angiography of the head and neck was obtainedafter the uneventful administration of 100 mL Omnipaque 350 intravenouscontrast. Three dimensional postprocessing was performed by the technologist and sent to theworkstation for review. FINDINGS: Comparison is made with a outside institution head CT08/10/2015. Non-angiographic findings: No acute intra- or extra-axial fluid collections are identified. Theventricles are of normal size, shape, and morphology. The basilar cisternsare patent. No mass effect or midline shift is seen. The osorio-white matterdifferentiation is normal. Periventricular white matter hypoattenuation is indicative of chronicsmall vessel ischemic disease. There is vascular calcification of thecarotid siphons. Other than mild mucosal thickening of the bilateralmaxillary sinuses, the visualized portions of the orbits, paranasal sinuses, and mastoids appear normal. No acutefracture is identified. Scattered subcentimeter lymph nodes are noted in the neck and uppermediastinum. Calcified lymph nodes noted in the mediastinum suggest priorgranulomatous disease. There are moderate degenerative changes of thecervical spine with intervertebral disc space narrowing and uncovertebral arthropathy at C5-C6 and C6-7 levels. Angiographic findings: The visualized aortic arch appears mildly atherosclerotic and coronaryartery calcifications are seen. The configuration of the brachiocephalicvessels is typical. The innominate artery and both subclavian arteriesappear normal. The common carotid arteries and carotid bifurcations appear mildly atherosclerotic with nosignificant stenosis. The cervical internal carotid arteries appearnormal. The left vertebral artery is dominant. Mild atherosclerosis of theintracranial portion of the left vertebral artery without significant stenosis. Mild streak artifacts limitthe evaluation of the left vertebral artery at C5-C6 and C6-7 level. The distal internal carotid arteries appear atherosclerotic and mildlyirregular in their cavernous segments with up to mild stenosis. Theanterior and middle cerebral arteries appear normal. The basilar arteryand posterior cerebral arteries appear normal. No aneurysms or vascular occlusions are identified. IMPRESSION IMPRESSION: 1. No acute intracranial hemorrhage, significant mass effect, or midlineshift. 2. No large arterial occlusions or significant stenoses identified in thehead or neck. Mild atherosclerosis in the carotid bifurcations and in thecavernous carotid arteries. I, Dr. MARTÍN ZULUAGA M.D. have personally reviewed and interpreted thisexamination/study. This report was electronically signed by MARTÍN ZULUAGA M.D. on 08/11/201512:47 PM . Ciera Arias MD CT ORDERABLES * TROPONIN I (08/11/2015 12:24 AM MANAGER ASSESSMENT) Only the most recent of2 resultswithin the time period is included. Pathologist [facility] Troponin I <0.010 <0.032 ng/mL [facility] Blood specimen (specimen) BLOOD SPECIMEN / Unknown 08/11/2015 12:24 AM MANAGER ASSESSMENT 08/11/2015 12:27 AM MANAGER ASSESSMENT Ciera Arias MD LAB - CHEMISTRY ANGELA CHAVIRA [facility] Organization Address City/State/ZIP Co de Phone Number [address] [phone] * CK + CKMB PANEL (08/11/2015 12:24 AM MANAGER ASSESSMENT) Only the most recent of2 resultswithin the time period is included. CK Total 51 30 - 200 Units/L [facility] CK-MB 0.8 0.0 - 6.6 ng/mL [facility] Blood specimen (specimen) BLOOD SPECIMEN / Unknown 08/11/2015 12:24 AM MANAGER ASSESSMENT 08/11/2015 12:27 AM MANAGER ASSESSMENT Ciera Arias MD LAB - CHEMISTRY ORDE FAN Performing Organization Address [facility]/ZIP Co de Phone Number [address] [phone] * (ABNORMAL) URINALYSIS W/MICROSCOPIC NO CULTURE (08/10/2015 6:30 PM MANAGER ASSESSMENT) Color UA Yellow Straw, Yellow, Colorless, Light Yellow [facility] Clarity UA Clear Clear [facility] Specific [place] UA 1.012 1.001 - 1.030 [facility] pH UA 6.0 5.0 - 8.0 [facility] Protein UA 70(A) <=20 mg/dL [facility] Glucose UA Negative Negative mg/dL [facility] Ketone UA Negative Negative mg/dL [facility] Bilirubin UA Negative Negative mg/dL [facility] Blood UA Negative Negative [facility] Nitrite UA Negative Negative [facility] Leukocyte Esterase Negative Negative [facility] Urobilinogen UA <2.0 <2.0 mg/dL [facility] RBC UA 14(H) 0 - 8 /HPF [facility] WBC UA 4(H) 0 - 2 /HPF [facility] Squamous Epithelial Cells UA <1 0 - 1 /HPF [facility] Mucus UA Many(A) None /LPF [facility] Urine specimen (specimen) 08/10/2015 6:30 PM MANAGER ASSESSMENT 08/10/2015 6:39 PM MANAGER ASSESSMENT Ciera Arias MD LAB - URINALYSIS ORD ERABLES [address] [phone] * DRUG ABUSE PANEL 10-20+ETHANOL URINE NO CONFIRM (08/10/2015 6:30 PM MANAGER ASSESSMENT) Amphetamines Screen Urine Negative Negative: < 1000 ng/mL [facility] Barbiturates Screen Urine Negative Negative: < 200 ng/mL [facility] Benzodiazepine Screen Urine Negative Negative: < 200 ng/mL [facility] Opiates Urine Negative Negative: < 300 ng/mL [facility] Cocaine Metabolites Urine Negative Negative: < 300 ng/mL [facility] Phencyclidine Screen Urine Negative Negative: < 25 ng/ml [facility] Cannabinoids Screen Urine Negative Negative: <50 ng/mL [facility] Methadone Screen Urine Negative Negative: < 300 ng/mL [facility] Urine specimen (specimen) URINE / Unknown 08/10/2015 6:30 PM MANAGER ASSESSMENT 08/10/2015 6:39 PM MANAGER ASSESSMENT Narrative [facility] - 08/10/2015 6:53 PM MANAGER ASSESSMENT The Urine Toxicology Screening Panel does not screen for Propoxyphene, Meprobamate, Carisoprodol, Trazodone, eiyc-ghv-iiwrtwm medications and/or volatiles (Acetone, Isopropanol, Methanol or Ethylene Glycol). Ethanol, Salicylate, Acetaminophen, Tricyclic Antidepressants and several therapeutic drugs may be individually assayed in serum or plasma specimen. Toxicology testing by the [facility] is an aid to medical diagnosis and treatment of patients. No documented chain of custody was maintained. Results are intended to be used for clinical purposes only. ? Ciera Arias MD LAB - URINE CHEMISTR Y ORDERABLES Performing Organization Address [facility]/State/ZIP Co de Phone Number [facility] [address] [place] [address], [facility] [phone] * VAS BILATERAL VENOUS DUPLEX LE (08/10/2015 3:36 PM MANAGER ASSESSMENT) Anatomical Region Laterality Modality Other Ciera Arias MD VASCULAR LAB ORDERAB LES * HEPATIC FUNCTION PANEL (08/10/2015 2:39 PM MANAGER ASSESSMENT) Protein Total 6.8 6.0 - 8.3 g/dL [facility] Albumin 3.6 3.4 - 5.0 g/dL [facility] Bilirubin Total 0.4 0.2 - 1.2 mg/dL [facility] Bilirubin Conjugated 0.1 0.0 - 0.5 mg/dL [facility] Bilirubin Unconjugated 0.3 Unconjugated Bilirubin is a calculated value: Reference ranges have not been established. mg/dL [facility] Alkaline Phosphatase 100 40 - 150 Units/L [facility] ALT 23 0 - 55 Units/L [facility] AST 16 5 - 34 Units/L [facility] Albumin/Globulin Ratio 1.1 1.1 - 2.3 [facility] Blood specimen (specimen) BLOOD SPECIMEN / Unknown 08/10/2015 2:39 PM MANAGER ASSESSMENT 08/10/2015 2:42 PM MANAGER ASSESSMENT Ciera Arias MD LAB - CHEMISTRY [place] [facility] Organization Address City/State/[facility] Co de Phone Number [address] [phone] * (ABNORMAL) LIPID PROFILE (08/10/2015 2:39 PM MANAGER ASSESSMENT) Pathologist [facility] Cholesterol Total 193 <200 mg/dL [facility] HDL 37(L) >40 mg/dL [facility] Comment: ATP III Classification of HDL Cholesterol: ? <40 mg/dL: ??Considered a major risk factor. ? >60 mg/dL: ??Considered a negative risk factor. ? LDL Calculated 86 <100 mg/dL [facility] Comment: ATP III Classification of LDL Cholesterol: ?<100 mg/dL: ??Optimal ? 100 - 129 mg/dL: ??Near Optimal/Above Optimal ? 130 - 159 mg/dL: ??Borderline High ? 160 - 189 mg/dL: ??High ?>190 mg/dL: ??Very High ? Triglycerides 350(H) <150 mg/dL [facility] Comment: ATP III Classification of Triglycerides: ?<150 mg/dL: ??Normal ? 150 - 199 mg/dL: ??Borderline High ? 200 - 400 mg/dL: ??High ?>500 mg/dL: ??Very High Blood specimen (specimen) BLOOD SPECIMEN / Unknown 08/10/2015 2:39 PM MANAGER ASSESSMENT 08/10/2015 2:42 PM MANAGER ASSESSMENT Ciera Arias MD LAB - CHEMISTRY ANGELA CHAVIRA [facility] Organization Address City/State/[facility] Co de Phone Number [address] [phone] * ECHO W DOPPLER AND COLOR FLOW (08/10/2015 12:00 AM MANAGER ASSESSMENT) Anatomical Region Laterality Modality Other 08/10/2015 Ciera Arias MD ECHOCARDIOGRAPHY RAD IANT * EKG 12-LEAD (08/10/2015 12:00 AM MANAGER ASSESSMENT) EKG [facility] Comment: Exam Date/Time: ?? Aug 10 2015 14:07:32 Test Reason : acute ischemic stroke Blood Pressure : / mmHG Vent. Rate : 092 BPM ? Atrial Rate : 092 BPM ?? P-R Int : 154 ms ?QRS Dur : 082 ms ?QT Int : 358 ms ? P-R-T Axes : 050 028 047 degrees ?? QTc Int : 442 ms Normal sinus rhythm Cannot rule out , old Inferior infarct No previous ECGs available Confirmed by Susan Musa, Jena ([id number]), publications editor MIGUEL FRANCOIS ([id number]) on 08/20/2015 1:43:34 PM Referred By: REFERRING NO ? Confirmed By:Jena Musa M.D. 08/10/2015 Ciera Arias MD ECG ORDERABLES Performing Organization Address City/State/[facility] Co de Phone Number [facility] Care Teams Slurry Worker Relationship Specialty Start Date End Date Basilio Mao MD [address] [facility] [address] [place] [address] PCP - General 08/25/16
--- OUTSIDE RECORDS SUMMARY | 2024-08-18 13:39 | XMS_ITS | Referral Summary ---
Author Organization [facility] Address [address] [facility] [place] [address] Care Team Providers Care Hr Systems Analyst Name Role Phone Basilio Mao MD Primary Care Provider [phone] Source Comments [facility] [employer],non-owned Affiliates and Associated Physician Practices is amultiple site organization consisting of ambulatory clinics and hospital sitesin [place], [place], [place] and [place]. This disclosure is being madepursuant to the Care Everywhere program and may not contain all information available regarding this patient. Last updated 18.[facility] [employer] Active Problems Problem Noted Date Diagnosed Date Cerebral infarction 08/10/2015 Immunizations Name Administration Dates Next Due FLU VACCINE TRI IIV3 SPLIT PF IM (FLUVIRIN) 07/21 Social History Tobacco Use Types Packs/Day Years [...] Comments Blood Pressure 142/84 08/15/2015 12:00 PM BIOMASS PRODUCTION MANAGER Pulse 98 08/15/2015 12:00 PM BIOMASS PRODUCTION MANAGER Temperature 36.6 ??C (97.8 ??F) 08/15/2015 1 2:00 PM BIOMASS PRODUCTION MANAGER Respiratory Rate 16 08/15/2015 12:0 0 PM BIOMASS PRODUCTION MANAGER Oxygen Saturation 96% 08/15/2015 12: 00 PM BIOMASS PRODUCTION MANAGER Inhaled Oxygen Concentration - - Weight 106.5 kg (234 lb 11.2 oz) 08/13/2015 9:00 PM BIOMASS PRODUCTION MANAGER Height 188 cm (6' 2 ) 08/13/2015 9:00 PM BIOMASS PRODUCTION MANAGER Body Mass Index 30.13 08/13/2015 9:00 PM BIOMASS PRODUCTION MANAGER Plan of Treatment Not on file Procedures Procedure Name Priority Date/Time Associated Diagnosis Comments LIPID PROFILE Routine 08/10/2015 2:39 PM BIOMASS PRODUCTION MANAGER from Last 3 Months or Most Recently Relevant to Health Maintenance Results * (ABNORMAL) LIPID PROFILE (08/10/2015 2:39 PM BIOMASS PRODUCTION MANAGER) Cholesterol Total 193 <200 mg/dL [facility] HDL 37(L) >40 mg/dL [facility] Comment: ATP III Classification of HDL Cholesterol: ? <40 mg/dL: ??Considered a major risk factor. ? >60 mg/dL: ??Considered a negative risk factor. ? LDL Calculated 86 <100 mg/dL [facility] Comment: ATP III Classification of LDL Cholesterol: ?<100 mg/dL: ??Optimal ? 100 - 129 mg/dL: ??Near Optimal/Above Optimal ? 130 - 159 mg/dL: ??Borderline High ? 160 - 189 mg/dL: ??High ?>190 mg/dL: ??Very High ? Triglycerides 350(H) <150 mg/dL [facility] Comment: ATP III Classification of Triglycerides: ?<150 mg/dL: ??Normal ? 150 - 199 mg/dL: ??Borderline High ? 200 - 400 mg/dL: ??High ?>500 mg/dL: ??Very High Blood specimen (specimen) BLOOD SPECIMEN / Unknown 08/10/2015 2:39 PM BIOMASS PRODUCTION MANAGER 08/10/2015 2:42 PM BIOMASS PRODUCTION MANAGER Ciera Arias MD LAB - CHEMISTRY ANGELA CHAVIRA [address] [phone] from Last 3 Months or Most Recently Relevant to Health Maintenance Care Teams Hr Systems Analyst Relationship Specialty Start Date End Date Basilio Mao MD [address] [facility] [address] [place] [address] PCP - General 08/25/16
== END 2024-08-18 12:51 | disposition home or self-care (01) ==
PROVIDERS: PCP Family Medicine Sports Medicine; Visit Provider Urology
DX: R31.0 Gross hematuria (principal); N28.1 Cyst of kidney, acquired
CPT/HCPCS: 74018; 74178; Q9967

== ENCOUNTER 2024-08-24 13:28 | Outpatient (CLI) | payer OTHER, SELFPAY ==
--- NOTE | 2024-08-24 13:30 | ECG_ITS ---
Test Date: 2024-08-24 13:55:55 Measurements Intervals [place] Rate: 79 P: 39 MT: 155 QRS: 9 QRSD: 86 T: 69 QT: 351 QTc: 403 Interpretive Statements SINUS RHYTHM CONSIDER INFERIOR INFARCT, AGE INDETERMINATE BASELINE ARTIFACT- I, III, AVR, AVL, AVF ABNORMAL ECG No previous ECG available for comparison Electronically Signed On 08-24-2024 14:01:04 MASTER BREWER by Zain Allen D.O.
--- OUTSIDE RECORDS SUMMARY | 2024-08-24 14:32 | XMS_ITS | Encounter Summary ---
Author Organization [facility] Address [facility] access hospital[address] [place] [address] Care Team Providers Care Group Sales Representative Name Role Phone Ilene Paul MD Primary Care Provider [phone] Encounter Details Date Type Department Care Team (Late st Contact Info) Description 04/12/2024 [employer] Message Enc [facility] Multispecialty Care - [facility] [address], [address] [place] [id number] [employer], [facility] Provider Appt Social History Tobacco Use Types Packs/Day Years Used Date Smoking Tobacco: Never Passive Smoke Exposure: Never Smokeless Tobacco: Never Alcohol Use Standard Drinks/Week Comments Not Currently 0 (1 standard drink = 0.6 oz pur e alcohol) occasionally AUDIT-C Answer Date Recorded Q1: How often do you have a drink containing alc ohol? 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 Answer Date of Assessment Author Status No 04/30/2021 1:30 AM CDT Activ e * Do you have serious difficulty walking or climbing stairs? Answer Date of Assessment Author Status No 04/30/2021 1:30 AM CDT Renetta Lopez R N Active * Do you have difficulty dressing or bathing? Answer Date of Assessment Author Status No 04/30/2021 1:30 AM CDT Renetta Lopez R N Active * Because of a physical, mental, or emotional condition, do you have difficulty doing errands alone such as visiting a doctor's office or shopping? Answer Date of Assessment Author Status No 04/30/2021 1:30 AM CDT Renetta Lopez R N Active documented as of this encounter Mental Status * Because of a physical, mental, or emotional condition, do you have serious difficulty concentrating, remembering, or making decisions? Answer Entry Date Author Status No 04/30/2021 1:30 AM CDT Renetta Lopez R N Active documented in this encounter Plan of Treatment Upcoming Encounters Date Type Department Care Team (Late st Contact Info) Description 12/21/2024 8:20 AM CDT Office Visit [facility] - [place] [address] [place] [address] Ilene Paul MD [address] [facility] [address] [place] [address] 03/29/2025 8:00 AM CDT Office Visit [facility] Multispecialty Care - [facility] [address] [place] [phone] Jorge Israel MD [address] [place] [address] documented as of this encounter Goals Goal Patient Goal Type Associated Problems Recent Progress Patient-Stated? Author Patient will return to prior living situation and remain independent in ADLs upon discharge from hospital General Bettina Ramirez RN documented as of this encounter Visit Diagnoses Not on filedocumented in this encounter Additional Health Concerns Assessment Noted Time PHQ-9 Depression Total Score: 0 01/01/20 23 9:18 AM CDT documented as of this encounter Care Teams Group Sales Representative Relationship Specialty Start Date End Date Ilene Paul MD [address] [id number] PCP - General FAMILY PRACTICE 11/12/20 documented as of this encounter
--- OUTSIDE RECORDS SUMMARY | 2024-08-24 14:33 | XMS_ITS | Encounter Summary ---
Author Organization [facility] Address [address] [place] [address] Care Team Providers Care Checker And Packer Name Role Phone Ilene Paul MD Primary Care Provider [phone] Encounter Details Date Type Department Care Team (Late st Contact Info) Description 08/29/2022 [employer] Message [facility] Patient Accounts [address] [place] [address] [facility] Provider Monthly Payment Plan Social History Tobacco Use Types Packs/Day Years Used Date Smoking Tobacco: Never Smokeless Tobacco: Never Alcohol Use Standard Drinks/Week Comments Yes 0 (1 standard drink = 0.6 oz pur e alcohol) occasionally AUDIT-C Answer Date Recorded Q1: How often do you have a drink containing alc ohol? 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 Not on file Not [...] Description 12/21/2024 8:20 AM CDT Office Visit [facility] - [place] [address] [place] [address] Ilene Paul MD [address] [place] [address] 03/29/2025 8:00 AM CDT Office Visit [facility] Multispecialty Care - [facility] [address] [place] [address] Jorge Israel MD [address] [place] [address] documented as of this encounter Goals Goal Patient Goal Type Associated Problems Recent Progress Patient-Stated? Author Patient will return to prior living situation and remain independent in ADLs upon discharge from [facility] General Bettina Ramirez RN documented as of this encounter Visit Diagnoses Not on filedocumented in this encounter Additional Health Concerns Assessment Noted Time PHQ-9 Depression Total Score: 0 09/09/19 22 7:39 AM WHIPPED TOPPING FINISHER documented as of this encounter Care Teams Checker And Packer Relationship Specialty Start Date End Date Ilene Paul MD [address] [address] PCP - General FAMILY PRACTICE 11/12/20 documented as of this encounter
--- OUTSIDE RECORDS SUMMARY | 2024-08-24 14:33 | XMS_ITS | Clinical Summary ---
Author Organization [facility] Address [address] [place] [address] Care Team Providers Care Subsystems Engineer Name Role Phone Ilene Paul MD Primary Care Provider [phone] Allergies No known active allergies Medications dapagliflozin (FARXIGA) 10 MG tabletIndication s:Mixed hyperlipidemia,T ype 2 diabetes mellitus without complication, without long-term current use of insulin ([facility]) Take 1 tablet (10 mg total) by mouth daily. 90 tablet 3 01/01/20 23 Active Ferrous Sulfate (IRON) 325 (65 Fe) MG tabletIndication s:Microcytic anemia Take 325 mg by mouth daily with breakfast. 90 tablet 3 09/23/19 24 Active metFORMIN (GLUCOPHAGE) 500 MG tabletIndication s:Mixed hyperlipidemia,T ype 2 diabetes mellitus without complication, without long-term current use of insulin ([facility]) Take 1 tablet by mouth once daily with evening meal to control of diabetes 90 tablet 3 01/27/20 24 Active omeprazole (PRILOSEC) 20 MG capsuleIndicatio ns:Gastroesophag eal reflux disease without esophagitis Take 1 capsule by mouth twice daily 180 capsule 05/24/20 24 Active sertraline (ZOLOFT) 25 MG tabletIndication s:Anxiety and depression Take 1 tablet (25 mg total) by mouth daily. 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) TAKE 1 TABLET BY MOUTH NIGHTLY AT BEDTIME 90 tablet 05/30/20 24 025 Discontinued vitamin D3 (CHOLECALCIFEROL ) 1.25 mg capsuleIndicatio ns:Annual physical exam Take 1 capsule by mouth once a week 12 capsule 06/01/20 24 025 Discontinued lisinopril-hydro CHLOROthiazide (ZESTORETIC) 10-12.5 MG tabletIndication s:Primary hypertension Take 1 tablet by mouth twice daily 60 tablet 07/14/20 24 025 Discontinued Active Problems Problem Noted Date Diagnosed Date Muscle spasticity 04/07/2024 Hypercoagulable state ([facility]) 09/23/19 24 Type 2 diabetes mellitus wit hout complication, without long-term current use of insulin (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 ([facility]) 07/28/2022 Status post prostatectomy 04/30/2021 Gastroesophageal reflux disease without esophagi tis 11/14/2020 Hypertension Hyperlipidemia GERD (gastroesophageal reflux disease) Overview (05/02/2021): No date...40 years now Obesity Resolved Problems Problem Noted Date Diagnosed Date Resolved Date DVT (deep venous thrombosis) ([facility]) 09/22/2022 04/01/2023 Primary prostate malignancy ([facility]) 04/12/20 21 09/23/2023 Annual physical exam 11/14/2020 021 Cerebrovascular accident (CV A) due to thrombosis ([facility]) 11/14/2020 04/01/2023 Encounters Date Type Department Care Team Description 08/18/2024 Scan [facility] Scanned, Doc Med Group CT (SCAN); Image (SCAN) 08/10/2024 Orders Only [facility] - [place] [address] [place] [address] Ilene Paul MD 06/22/2024 8:20 AM FUEL CELL BATTERY TECHNICIAN Office Visit [facility] [address] [place] [address] Ilene Paul MD Follow Up 06/22/2024 Travel 06/14/2024 Orders Only [facility] [address] [place] [address] Ilene Paul MD 06/07/2024 Scan [facility] Scanned, [facility] 05/31/2024 Therapy Plan [facility] [address] [place] [address] Christin Miles, PT from Last 3 Months Immunizations Name Administration Dates Next Due Dtap (Generic) 11/14/2020 Influenza Adult (Generic) 09/26/2022(Deferred: P atient Refused),07/28/2012 Family History Medical History Relation Comments Diabetes Brother 1 Juvenile Diabete s age 8 Early Hearing Loss Father Hypertension Father Diabetes Mother Heart Attack Mother Hypertension Mother Relation Status Comments Brother 1 Alive Brother 2 Alive Father Maternal Grandfather Maternal Grandmother Mother Paternal Grandfather Paternal Grandmother Sister Alive Social History Tobacco Use Types Packs/Day Years Used Date Smoking Tobacco: Never Passive Smoke Exposure: Never Smokeless Tobacco: Never Tobacco Cessation:Counseling Given: No Alcohol Use Standard Drinks/Week Comments Not Currently 0 (1 standard drink = 0.6 oz pur e alcohol) occasionally AUDIT-C Answer Date Recorded Q1: How often do you have a drink containing alc ohol? 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 Not on file Not on file Not on file Last Filed Vital Signs Vital Sign Reading Time Taken Comments Blood Pressure 124/64 06/22/2024 8:33 AM FUEL CELL BATTERY TECHNICIAN Pulse 70 06/22/2024 8:33 AM FUEL CELL BATTERY TECHNICIAN Temperature 36.7 C (98.1 F) 06/22/2024 8:33 AM FUEL CELL BATTERY TECHNICIAN Respiratory Rate 16 06/22/2024 8:33 AM FUEL CELL BATTERY TECHNICIAN Oxygen Saturation 98% 06/22/2024 8:33 AM FUEL CELL BATTERY TECHNICIAN Inhaled Oxygen Concentration - - Weight 112.5 kg (248 lb) 06/22/2024 8:33 AM FUEL CELL BATTERY TECHNICIAN Height 188 cm (6' 2 ) 06/22/2024 8:33 AM FUEL CELL BATTERY TECHNICIAN Body Mass Index 31.84 06/22/2024 8:33 AM FUEL CELL BATTERY TECHNICIAN Plan of Treatment Upcoming Encounters Date Type Department Care Team (Late st Contact Info) Description 12/21/2024 8:20 AM CDT Office Visit [facility] - [place] [place] [address] Ilene Paul MD [address] [place] [address] 03/29/2025 8:00 AM CDT Office Visit [facility] Multispecialty Care - [address] [place] [phone] Jorge Israel MD [address] [facility] [address] [place] [address] Health Maintenance Due Date Last Done Comments Pneumococcal Vaccine: 65+ Years (1 of 2 - PCV) 1962 Diabetes: Retinopathy Eye Exam 1974 RSV Immunization or 60+ Years (1 - Risk 60-74 years 1-dose series) 2016 PHQ-2 (Physician [place]) 07/20/2024 06/22/2024 Hemoglobin A1C 09/12/2024 06/14/2024, 11/18, 09/15/2023, Additional history exists Annual Medicare Wellness Visit 09/22/2024 Postponed from 2021 (Patient Refused) Kidney Health Evaluation 06/14/2025 06/14/2024 Lipid Panel 06/14/2025 06/14/2024, 11/18, 07/01/2023, Additional history exists COVID-19 Vaccine ( season) 2025 Postponed from 03/20/2024 (Patient Refused) Influenza Adult (#1) 2025 08/10/2015, 07/28/19 13 Postponed from 04/19/2024 (Patient Refused) Zoster Vaccines (1 of 2) 06/22/2025 Pos tponed from 2006 (Going to Outside Clinic) Colorectal Cancer Screening Colonoscopy (10 Years) 08/21/2026 08/21/2016 DTaP, Tdap and Td Vaccines (2 - Tdap) 11/14/2030 11/14/2020 AAA SCREENING Completed 05/01/2021, 04/29/2021 Hepatitis C Completed 07/01/2023 Meningococcal B Vaccine Aged Out No l onger eligible based on patient's age to complete this topic Meningococcal Vaccine Aged Out No hina geronimo eligible based on patient's age to complete this topic RSV Immunizations Under 20 Months Aged Out No longer eligible based on patient's age to complete this topic Goals Goal Patient Goal Type Associated Problems Recent Progress Patient-Stated? Author Patient will return to prior living situation and remain independent in ADLs upon discharge from hospital [facility] Bettina Ramirez RN Procedures Procedure Name Priority Date/Time Associated Diagnosis Comments CT GENERIC 08/18/2024 IMAGE GENERIC 08/18/2024 HEMOGLOBIN, GLYCOSYLATED Routine 10:34 AM FUEL CELL BATTERY TECHNICIAN THYROID STIM HORMONE TSH Routine 10:34 AM FUEL CELL BATTERY TECHNICIAN THYROXINE, FREE (FT4) Routine 06/14/2024 10:34 AM FUEL CELL BATTERY TECHNICIAN TRIIODOTHYRONINE TOTAL , TT-3 Routine 06/14/2024 10:34 AM FUEL CELL BATTERY TECHNICIAN C-REACTIVE PROTEIN Routine 06/14/2024 10 :34 AM FUEL CELL BATTERY TECHNICIAN CBC W/DIFF AUTOMATED Routine 06/14/2024 10:34 AM FUEL CELL BATTERY TECHNICIAN ALBUMIN URINE RANDOM W/CREATININE Routine 06/14/2024 10:34 AM FUEL CELL BATTERY TECHNICIAN COMPREHENSIVE METABOLIC PANEL Routine 06/14/2024 10:34 AM FUEL CELL BATTERY TECHNICIAN LIPID PANEL Routine 06/14/2024 10:34 AM FUEL CELL BATTERY TECHNICIAN PTH INTACT W/ CALCIUM Routine 06/14/2024 10:34 AM FUEL CELL BATTERY TECHNICIAN HEPATITIS C ANTIBODY Routine 07/01/2023 9:28 AM FUEL CELL BATTERY TECHNICIAN Primary hypertension History of CVA (cerebrovascular accident) History of prostate cancer CT ABD+PEL W CON STAT 05/01/2021 6:52 PM CDT COLONOSCOPY GENERIC (SCAN ORDER) Routine 08/21/2016 12:00 AM FUEL CELL BATTERY TECHNICIAN from Last 3 Months or Most Recently Relevant to Health Maintenance Results * CT GENERIC (08/18/2024) Anatomical Region Laterality Modality Other 08/18/2024 us Doc [facility] Scanned SCANNING Final Resu lt * IMAGE GENERIC (08/18/2024) Anatomical Region Laterality Modality Other 08/18/2024 us proVITAL Med Group Scanned SCANNING Final Resu lt * PTH INTACT W/ CALCIUM (06/14/2024 10:34 AM FUEL CELL BATTERY TECHNICIAN) PTH INTACT 41 16 - 77 pg/mL [employer] [facility] Comment: Interpretive Guide Intact PTH Calcium ------- Normal Parathyroid Normal Normal Hypoparathyroidism Low or Low Normal Low Hyperparathyroidism Primary Normal or High High Secondary High Normal or Low Tertiary High High Non-Parathyroid Hypercalcemia Low or Low Normal High CALCIUM S/P/B 9.6 8.6 - 10.3 mg/dL [facility] 06/14/2024 10:3 4 AM FUEL CELL BATTERY TECHNICIAN 06/14/2024 10:39 AM FUEL CELL BATTERY TECHNICIAN Narrative Resulting Agency Comment Performing Organization Information: Site ID: [place] Name: [facility] Address: [address] [place] [address] Director: Joselyn Tyson MD Ilene Paul MD LABORATORY Final Result JOÃO MENCHACA [employer] [facility] [id number] [place] [id number], [place] * (ABNORMAL) HEMOGLOBIN, GLYCOSYLATED (06/14/2024 10:34 AM FUEL CELL BATTERY TECHNICIAN) HGB A1C 6.5(H) <5.7 % of total Hgb [facility] [place] Comment: For someone without known diabetes, a hemoglobin A1c value of 6.5% or greater indicates that they may have diabetes and this should be confirmed with a follow-up test. For someone with known diabetes, a value <7% indicates that their diabetes is well controlled and a value greater than or equal to 7% indicates suboptimal control. A1c targets should be individualized based on duration of diabetes, age, comorbid conditions, and other considerations. Currently, no consensus exists regarding use of hemoglobin A1c for diagnosis of diabetes for children. 06/14/2024 10:3 4 AM FUEL CELL BATTERY TECHNICIAN 06/14/2024 10:39 AM FUEL CELL BATTERY TECHNICIAN Narrative Resulting Agency Comment Performing Organization Information: Site ID: Name: [facility] Address: [address] [place] [address] Director: Joselyn Tyson Ilene Paul MD LABORATORY Final Result Performing Organization Address City/[facility] Co de Phone Number [employer] [facility] [employer] [address], [place] * TRIIODOTHYRONINE TOTAL , TT-3 (06/14/2024 10:34 AM FUEL CELL BATTERY TECHNICIAN) T3 TOTAL 112 76 - 181 ng/dL [facility] 06/14/2024 10:3 4 AM FUEL CELL BATTERY TECHNICIAN 06/14/2024 10:39 AM FUEL CELL BATTERY TECHNICIAN Narrative Resulting Agency Comment Performing Organization Information: Site ID: [place] Name: [facility] Address: [address] [place] [address] Director: Joselyn Tyson MD Ilene Paul MD LABORATORY Final Result Performing Organization Address City/[facility]/ZIP Co de Phone Number [employer] [address] [address], * (ABNORMAL) ALBUMIN URINE RANDOM W/CREATININE (06/14/2024 10:34 AM FUEL CELL BATTERY TECHNICIAN) CREATININE RANDOM (U) 173 20 - 320 mg/dL [employer] [facility] MICROALBUMIN (U) 28.9 See Note: mg/dL [employer] [facility] Comment: Reference Range: Reference Range Not established Results verified by repeat analysis on dilution. MICROALB/CREAT 167(H) <30 mg/g creat [employer] [facility] Comment: The ADA defines abnormalities in albumin excretion as follows: Albuminuria Category Result (mg/g creatinine) Normal to Mildly increased <30 Moderately increased 30-299 Severely increased > OR = 300 The ADA recommends that at least two of three specimens collected within a 3-6 month period be abnormal before considering a patient to be within a diagnostic category. 06/14/2024 10:3 4 AM FUEL CELL BATTERY TECHNICIAN 06/14/2024 10:39 AM FUEL CELL BATTERY TECHNICIAN Narrative Resulting Agency Comment Performing Organization Information: Site ID: [id number] Name: João Padron Address: [address] [place] [address] Director: Joselyn Tyson MD Ilene Paul MD URINE ORDERABLES Final Result JOÃO MENCHACA [facility] [address] [place] [address] * COMPREHENSIVE METABOLIC PANEL (06/14/2024 10:34 AM FUEL CELL BATTERY TECHNICIAN) GLUCOSE 99 65 - 99 mg/dL [facility] Comment: Fasting reference interval BUN 15 7 - 25 mg/dL [facility] CREATININE S/P/B 1.00 0.70 - 1.35 mg/dL [employer] [facility] GFR ESTIMATE 82 > OR = 60 mL/min/1. 73m2 [employer] [facility] BUN CREATININE RATIO SEE NOTE: (calc) [employer] [facility] Comment: Not Reported: BUN and Creatinine are within reference range. SODIUM S/P/B 140 135 - 146 mmol/L [employer] [facility] POTASSIUM S/P/B 4.7 3.5 - 5.3 mmol/L [employer] [facility] CHLORIDE S/P/B 103 98 - 110 mmol/L [employer] [facility] CO2 29 20 - 32 mmol/L [employer] [facility] CALCIUM S/P/B 9.6 8.6 - 10.3 mg/dL [employer] [facility] TOTAL PROTEIN S/P/B 7.0 6.1 - 8.1 g/dL [facility] ALBUMIN S/P/B 4.2 3.6 - 5.1 g/dL [facility] GLOBULIN 2.8 1.9 - 3.7 g/dL (calc) [facility] ALBUMIN/GLOBULI N RATIO 1.5 1.0 - 2.5 (calc) [employer] [facility] BILIRUBIN TOTAL S/P/B 0.8 0.2 - 1.2 mg/dL [facility] ALKALINE PHOSPHATASE S/P/B 98 35 - 144 U/L [facility] AST 15 10 - 35 U/L [employer] [facility] ALT 19 9 - 46 U/L [employer] [facility] 06/14/2024 10:3 4 AM FUEL CELL BATTERY TECHNICIAN 06/14/2024 10:39 AM FUEL CELL BATTERY TECHNICIAN Narrative Resulting Agency Comment Performing Organization Information: Site ID: [place] Name: [facility] Address: [facility] [place] [address] Director: Joselyn Tyson MD us Ilene Paul MD LABORATORY Final Result [facility] JON[facility] [address] [place], [place] [address] * (ABNORMAL) LIPID PANEL (06/14/2024 10:34 AM FUEL CELL BATTERY TECHNICIAN) CHOLESTEROL 108 <200 mg/dL [facility] HDL 40 > OR = 40 mg/dL [facility] TRIGLYCERIDES 175(H) <150 mg/dL [facility] LDL (CALCULATED) 43 mg/dL (calc) [facility] Comment: Reference range: <100 Desirable range <100 mg/dL for primary prevention; <70 mg/dL for patients with CHD or diabetic patients with > or = 2 CHD risk factors. LDL-C is now calculated using the Zaida calculation, which is a validated novel method providing better accuracy than the Friedewald equation in the estimation of LDL-C. Martín PRASAD et al. PANCHITO. 2013;310(19): 7005-5395 (http://education.In[employer].Facio/faq/YHD627) CHOL/HDL RATIO 2.7 <5.0 (calc) [employer] [facility] NON HDL CHOLESTEROL 68 <130 mg/dL (calc) [employer] [facility] Comment: For patients with diabetes plus 1 major ASCVD risk factor, treating to a non-HDL-C goal of <100 mg/dL (LDL-C of <70 mg/dL) is considered a therapeutic option. 06/14/2024 10:3 4 AM FUEL CELL BATTERY TECHNICIAN 06/14/2024 10:39 AM FUEL CELL BATTERY TECHNICIAN Narrative Resulting Agency Comment Performing Organization Information: Site ID: [id number] Name: [facility] Address: [address] [place] [address] Director: Joselyn Tyson MD Ilene Paul MD LABORATORY Final Result Performing Organization Address [facility] Co de Phone Number [employer] [facility] [employer] [address] [address], * C-REACTIVE PROTEIN (06/14/2024 10:34 AM FUEL CELL BATTERY TECHNICIAN) Pathologist [facility] C-REACTIVE PROTEIN 3.6 <8.0 mg/L [employer] [facility] 06/14/2024 10:3 4 AM FUEL CELL BATTERY TECHNICIAN 06/14/2024 10:39 AM FUEL CELL BATTERY TECHNICIAN Narrative Resulting Agency Comment Performing Organization Information: Site ID: [id number] Name: [facility] Address: [address] [place] [address] Director: Joselyn Tyson MD Ilene Paul MD LABORATORY Final Result Performing Organization Address City/[facility] Co de Phone Number [employer] [facility] [employer] [facility] [id number] [place] [address], * CBC W/DIFF AUTOMATED (06/14/2024 10:34 AM FUEL CELL BATTERY TECHNICIAN) WBC 7.9 3.8 - 10.8 Thousand/u L [employer] [facility] RBC 4.80 4.20 - 5.80 Million/uL [employer] [facility] HGB 13.8 13.2 - 17.1 g/dL [employer] [facility] HCT 42.5 38.5 - 50.0 % [employer] [facility] MCV 88.5 80.0 - 100.0 fL [employer] [facility] MCH 28.8 27.0 - 33.0 pg [employer] [facility] MCHC 32.5 32.0 - 36.0 g/dL [employer] [facility] Comment: For adults, a slight decrease in the calculated MCHC value (in the range of 30 to 32 g/dL) is most likely not clinically significant; however, it should be interpreted with caution in correlation with other red cell parameters and the patient's clinical condition. RDW 13.9 11.0 - 15.0 % [employer] [facility] PLT 364 140 - 400 Thousand/u L [employer] [facility] MPV 10.3 7.5 - 12.5 fL [employer] [facility] ABS. NEUTROPHILS 4,938 1,500 - 7,800 cells/uL [employer] [facility] ABS. LYMPHOCYTES 2,038 850 - 3,900 cells/uL [employer] [facility] ABS. MONOCYTES 695 200 - 950 cells/uL [employer] [facility] ABS. EOSINOPHILS 190 15 - 500 cells/uL [employer] [facility] ABS. BASOPHILS 40 0 - 200 cells/uL [facility] [employer] [facility] SEG NEUTROPHILS 62.5 % [facility] LYMPHOCYTES 25.8 % [employer] [facility] MONOCYTES 8.8 % [employer] [facility] EOSINOPHILS 2.4 % [employer] [facility] BASOPHILS 0.5 % [employer] [facility] 06/14/2024 10:3 4 AM FUEL CELL BATTERY TECHNICIAN 06/14/2024 10:39 AM FUEL CELL BATTERY TECHNICIAN Narrative Resulting Agency Comment Performing Organization Information: Site ID: [place] Name: [facility] Address: [address] [place] [address] Director: Joselyn Tyson MD us Ilene Paul MD LABORATORY Final Result [employer] [facility]ON[facility] MAGDY MENCHACA [employer] [facility] [address] [place] [address], [place] * THYROXINE, FREE (FT4) (06/14/2024 10:34 AM FUEL CELL BATTERY TECHNICIAN) FREE T4 1.2 0.8 - 1.8 ng/dL [employer] [facility] 06/14/2024 10:3 4 AM FUEL CELL BATTERY TECHNICIAN 06/14/2024 10:39 AM FUEL CELL BATTERY TECHNICIAN Narrative Resulting Agency Comment Performing Organization Information: Site ID: [id number] Name: [facility] Address: [address] [place] [address] Director: Joselyn Tyson MD Ilene Paul MD LABORATORY Final Result Performing Organization Address City/[facility]/ZIP Co de Phone Number [employer] [place] [address], * THYROID STIM HORMONE TSH (06/14/2024 10:34 AM FUEL CELL BATTERY TECHNICIAN) TSH 1.77 0.40 - 4.50 mIU/L [facility] [employer] [facility] 06/14/2024 10:3 4 AM FUEL CELL BATTERY TECHNICIAN 06/14/2024 10:39 AM FUEL CELL BATTERY TECHNICIAN Narrative Resulting Agency Comment Performing Organization Information: Site ID: [id number] Name: [facility] Address: [address] [place] [phone] Director: Joselyn Tyson MD us Ilene Paul MD LABORATORY Final Result Performing Organization Address [facility] de Phone Number [employer] [place] [address], * HEPATITIS C ANTIBODY (07/01/2023 9:28 AM FUEL CELL BATTERY TECHNICIAN) HEPATITIS C AB NON-REACTI VE NON-REACT SHAZIA 07/01/2023 7:43 PM FUEL CELL BATTERY TECHNICIAN [facility] Comment: ANTIBODIES TO HCV NOT DETECTED. DOES NOT EXCLUDE THE POSSIBILITY OF EXPOSURE TO HCV. 07/01/2023 9:28 AM FUEL CELL BATTERY TECHNICIAN us Ilene Paul MD LABORATORY Final Result Performing Organization Address City/[facility]/ZIP Co de Phone Number [facility] [address] [place] [address], [id number] * CT ABD+PEL W CON (05/01/2021 6:52 PM CDT) Anatomical Region Laterality Modality Abdomen Computed Tomogra phy 05/01/2021 7:14 PM CDT Impressions 05/01/2021 7:27 PM CDT IMPRESSION: 1. New left lower quadrant fluid collection adjacent to the left gonadal vessels measuring about 5.2 x 2.4 x 3.4 cm. There is no significant peripheral enhancement and this is favored to represent a postoperative seroma, however phlegmon/developing abscess cannot be entirely excluded. 2. There has been interval retraction of the right lower quadrant drain, which was previously within the resection bed. This is now sitting within the right lower quadrant intraperitoneal fat. 3. Significant stranding and postoperative changes throughout the pelvis with a thickened but decompressed urinary bladder with a Torres catheter in place. 4. Extensive subcutaneous and free intraperitoneal air, similar to the prior examination and likely postoperative. Referred By: Interpreted By: Palmer Potter MD, 05/01/2021 7:14 PM Narrative 05/01/2021 7:27 PM CDT EXAMINATION: CT ABDOMEN/PELVIS WITH CONTRAST INDICATION: Leukocytosis and increased pain. Status post prostatectomy postoperative day 2. COMPARISON: 04/29/2021. TECHNIQUE: Computed tomography of the abdomen, and pelvis was performed after administration of intravenous contrast, 100 mL of Isovue-370, without immediate complication, according to routine protocol. A dose lowering technique was used for this procedure, which may include, but is not limited to, dose reduction technique, automated exposure control, the use of iterative reconstruction, and ALARA (As Low As Reasonably Achievable) / Image Gently techniques. FINDINGS: Lower Chest: There is atelectasis in the lung bases. No cardiomegaly or pericardial effusion. Upper abdominal organs: The liver is normal in size and configuration. There is an os acromiale. No peripancreatic infiltration. No definite cholelithiasis. No biliary duct dilatation. No adrenal nodules. There are multifocal hypoattenuating lesions in the bilateral kidneys which measure water attenuation and likely represent simple renal cysts. No hydronephrosis. Vascular: The abdominal aorta is normal in caliber. Lymph nodes: There are mildly prominent external iliac and aortocaval lymph nodes, not meeting size criteria for lymphadenopathy. These are likely reactive. Gastrointestinal: No bowel obstruction or definite bowel wall thickening. The appendix is normal. Miscellaneous: There is extensive free intraperitoneal air, likely postoperative. The right lower quadrant catheter which was previously in the prostate resection bed has been retracted and is now in the right lower quadrant peritoneal fat. There is a new collection in the left lower quadrant adjacent to the left gonadal vessels measuring about 2.4 x 5.2 cm in greatest transverse dimension and 3.4 cm in craniocaudal dimension. There is no significant peripheral enhancement and this is favored to represent a postoperative seroma, however phlegmon/developing abscess cannot be entirely excluded. Pelvis: Significant stranding and postoperative changes are seen throughout the pelvis. The urinary bladder is thickened but decompressed with a Torres catheter in place. Postoperative changes of prostatectomy. There are small bilateral hydroceles. MSK: No acute osseous abnormality or destructive bone lesion. There is extensive subcutaneous emphysema throughout the upper abdominal wall and throughout the visualized pelvis. Procedure Note Palmer Potter MD - 05/01/2021 EXAMINATION: CT ABDOMEN/PELVIS WITH CONTRAST INDICATION: Leukocytosis and increased pain. Status post prostatectomypostoperative day 2. COMPARISON: 04/29/2021. TECHNIQUE: Computed tomography of the abdomen, and pelvis was performedafter administration of intravenous contrast, 100 mL of Isovue-370,without immediate complication, according to routine protocol. A doselowering technique was used for this procedure, which may include, but isnot limited to, dose reduction technique, automated exposure control, theuse of iterative reconstruction, and ALARA (As Low As ReasonablyAchievable) / Image Gently techniques. FINDINGS: Lower Chest: There is atelectasis in the lung bases. No cardiomegaly orpericardial effusion. Upper abdominal organs: The liver is normal in size and configuration.There is an os acromiale. No peripancreatic infiltration. No definitecholelithiasis. No biliary duct dilatation. No adrenal nodules. Thereare multifocal hypoattenuating lesions in the bilateral kidneys whichmeasure water attenuation and likely represent simple renal cysts. Nohydronephrosis. Vascular: The abdominal aorta is normal in caliber. Lymph nodes: There are mildly prominent external iliac and aortocavallymph nodes, not meeting size criteria for lymphadenopathy. These arelikely reactive. Gastrointestinal: No bowel obstruction or definite bowel wall thickening.The appendix is normal. Miscellaneous: There is extensive free intraperitoneal air, likelypostoperative. The right lower quadrant catheter which was previously inthe prostate resection bed has been retracted and is now in the rightlower quadrant peritoneal fat. There is a new collection in the leftlower quadrant adjacent to the left gonadal vessels measuring about 2.4 x5.2 cm in greatest transverse dimension and 3.4 cm in craniocaudaldimension. There is no significant peripheral enhancement and this isfavored to represent a postoperative seroma, however phlegmon/developingabscess cannot be entirely excluded. Pelvis: Significant stranding and postoperative changes are seenthroughout the pelvis. The urinary bladder is thickened but decompressedwith a Torres catheter in place. Postoperative changes of prostatectomy.There are small bilateral hydroceles. MSK: No acute osseous abnormality or destructive bone lesion. There isextensive subcutaneous emphysema throughout the upper abdominal wall andthroughout the visualized pelvis. IMPRESSION: 1. New left lower quadrant fluid collection adjacent to the left gonadalvessels measuring about 5.2 x 2.4 x 3.4 cm. There is no significantperipheral enhancement and this is favored to represent a postoperativeseroma, however phlegmon/developing abscess cannot be entirely excluded. 2. There has been interval retraction of the right lower quadrant drain,which was previously within the resection bed. This is now sitting withinthe right lower quadrant intraperitoneal fat. 3. Significant stranding and postoperative changes throughout the pelviswith a thickened but decompressed urinary bladder with a Torres catheter inplace. 4. Extensive subcutaneous and free intraperitoneal air, similar to theprior examination and likely postoperative. Referred By: Interpreted By: Palmer Potter MD, 05/01/2021 7:14 PM Chacho Herman MD CT Final Result * COLONOSCOPY (08/21/2016 12:00 AM FUEL CELL BATTERY TECHNICIAN) 08/21/2016 [facility] Scanned SCANNING Final Resul t HS-AHSLEY MENDOZA from Last 3 Months or Most Recently Relevant to Health Maintenance Insurance [employer] Advance Directives * Full Code (Latest Code Status on File) Date Activated Date Inactivated Comments 04/29/2021 10:08 PM 05/03/2021 2:58 PM Care Teams Subsystems Engineer Relationship Specialty Start Date End Date Ilene Paul MD [address] [address] PCP - General FAMILY PRACTICE 11/12/20
--- OUTSIDE RECORDS SUMMARY | 2024-08-24 14:33 | XMS_ITS | Encounter Summary ---
Author Organization [facility] Address [facility] [place] [address] Care Team Providers Care Sport Internship Name Role Phone Ilene Paul MD Primary Care Provider [phone] Encounter Details Date Type Department Care Team (Late st Contact Info) Description 03/18/2021 Mira Dxt Message Enc [facility] Medical Group Multispecialty Care - [facility] [address], [address] [place] [phone] Chacho Herman MD Other Social History Tobacco Use Types Packs/Day Years Used Date Smoking Tobacco: Never Smokeless Tobacco: Never Alcohol Use Standard Drinks/Week Comments Never 0 (1 standard drink = 0.6 oz pur e alcohol) AUDIT-C Answer Date Recorded Q1: How often do you have a drink containing alc ohol? 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 No / Unsure 02/19/2021 12:28 PM CDT documented as of this encounter Plan of Treatment Upcoming Encounters Date Type Department Care Team (Late st Contact Info) Description 12/21/2024 8:20 AM CDT Office Visit [facility] Family and Sports Medicine - [place] [address] [place] [address] Ilene Paul MD [address] [facility] [address] [place] [address] 03/29/2025 8:00 AM CDT Office Visit [facility] Multispecialty Care - [facility] [address] [facility] [facility] [place] [address] Jorge Israel MD [address] [facility] [address] [place] [address] documented as of this encounter Visit Diagnoses Not on filedocumented in this encounter Additional Health Concerns Infection Onset Date Last Indicated Resolved Time COVID-19 Rule Out 04/26/2021 04/26/2021 04/26/2021 7:39 PM CDT Assessment Noted Time PHQ-9 Depression Total Score: 0 02/21/20 10:42 AM CDT documented as of this encounter Care Teams Sport Internship Relationship Specialty Start Date End Date Ilene Paul MD [address] [facility] [address] [place] [address] PCP - General FAMILY PRACTICE 11/12/20 documented as of this encounter
--- OUTSIDE RECORDS SUMMARY | 2024-08-24 14:33 | XMS_ITS | Encounter Summary ---
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 on file Not [...] Description 12/21/2024 8:20 AM CDT Office Visit [facility] Family and Sports Medicine - [place] [address] [place] [address] Ilene Paul MD [address] [facility] [address] [place] [address] 03/29/2025 8:00 AM CDT Office Visit [facility] Multispecialty Care - [facility] [address] [place] [address] Jorge Israel MD [address] [place] [address] documented as of this encounter Goals Goal Patient Goal Type Associated Problems Recent Progress Patient-Stated? Author Patient will return to prior living situation and remain independent in ADLs upon [facility] General Bettina Ramirez RN documented as of this encounter Procedures Procedure Name Priority Date/Time Associated Diagnosis Comments CT GENERIC 08/18/2024 IMAGE GENERIC 08/18/2024 documented in this encounter Results * IMAGE GENERIC (08/18/2024) Anatomical Region Laterality Modality Other 08/18/2024 [facility] Scanned SCANNING Final Resu lt * CT GENERIC (08/18/2024) Anatomical Region Laterality Modality Other 08/18/2024 [facility] Scanned SCANNING Final Resu lt documented in this encounter Visit Diagnoses Not on filedocumented in this encounter Additional Health Concerns Assessment Noted Time PHQ-9 Depression Total Score: 0 06/22/20 24 8:35 AM CLUB CAR ATTENDANT documented as of this encounter Care Teams Surgery Consultant Relationship Specialty Start Date End Date Ilene Paul MD [address] [address] PCP - General FAMILY PRACTICE 11/12/20 documented as of this encounter
--- OUTSIDE RECORDS SUMMARY | 2024-08-24 14:33 | XMS_ITS | Encounter Summary ---
Author Organization [facility] Address [facility] [place] [address] Care Team Providers Care Project Intern Name Role Phone Ilene Paul MD Primary Care Provider [phone] Encounter Details Date Type Department Care Team (Late st Contact Info) Description 05/26/2022 Yuenimei Message Enc [facility] [address] [place] [address] Johnny Hardin MD,PHD Eliquis? 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 Let me know if we will need to go to coumadin ETS AND BUILDINGS DECORATOR documented in this encounter Plan of Treatment Upcoming Encounters Date Type Department Care Team (Late st Contact Info) Description 12/21/2024 8:20 AM CDT Office Visit [facility] Medical Group Family and Sports Medicine - [place] [address] [place] [phone] Ilene Paul MD [address] [facility] [address] [place] [address] 03/29/2025 8:00 AM CDT Office Visit [facility] Multispecialty Care - [facility] [address] [facility] [place] [phone] Jorge Israel MD [address] [facility] [address] [place], [place] [address] documented as of this encounter Goals Goal Patient Goal Type Associated Problems Recent Progress Patient-Stated? Author Patient will return to prior living situation and remain independent in ADLs upon discharge from hospital General No Bettina Sanchez RN documented as of this encounter Visit Diagnoses Not on filedocumented in this encounter Additional Health Concerns Assessment Noted Time PHQ-9 Depression Total Score: 0 09/09/19 22 7:[address]RE[address] AND BUILDINGS DECORATOR documented as of this encounter Care Teams Project Intern Relationship Specialty Start Date End Date Ilene Paul MD [address] [facility] [address] [place] [address] PCP - General FAMILY PRACTICE 11/12/20 documented as of this encounter
--- OUTSIDE RECORDS SUMMARY | 2024-08-24 14:33 | XMS_ITS | Clinical Summary ---
Author Organization [facility] Address [address] [facility] [place] [id number] Care Team Providers Care Administrative Services Specialist Name Role Phone Basilio Mao MD Primary Care Provider [phone] Source Comments [facility],non-owned Affiliates and Associated Physician Practices is amultiple site organization consisting of ambulatory clinics and hospital sitesin [place], [place], [place] and [place]. This disclosure is being madepursuant to the Care Everywhere program and may not contain all information available regarding this patient. Last updated 18.[facility] Active Problems Problem Noted Date Diagnosed Date [...] Comments Blood Pressure 142/84 08/15/2015 12:00 PM METER/RELAY TECHNICIAN Pulse 98 08/15/2015 12:00 PM METER/RELAY TECHNICIAN Temperature 36.6 C (97.8 F) 08/15/2015 12:00 PM METER/RELAY TECHNICIAN Respiratory Rate 16 08/15/2015 12:0 0 PM METER/RELAY TECHNICIAN Oxygen Saturation 96% 08/15/2015 12: 00 PM METER/RELAY TECHNICIAN Inhaled Oxygen Concentration - - Weight 106.5 kg (234 lb 11.2 oz) 08/13/2015 9:00 PM METER/RELAY TECHNICIAN Height 188 cm (6' 2 ) 08/13/2015 9:00 PM METER/RELAY TECHNICIAN Body Mass Index 30.13 08/13/2015 9:00 PM METER/RELAY TECHNICIAN Plan of Treatment Health Maintenance Due Date Last Done Comments YUNIER (AGES 45-75) - COL ON CA SCREENING [...] 2024 08/10/2015 DEPRESSION SCREENING 07/20/2024 MEDICARE AWV CALENDAR YEAR 2024 Respiratory Syncytial Virus (RSV) [...] Comments LIPID PROFILE Routine 08/10/2015 2:39 PM METER/RELAY TECHNICIAN from Last 3 Months or Most Recently Relevant to Health Maintenance Results * (ABNORMAL) LIPID PROFILE (08/10/2015 2:39 PM METER/RELAY TECHNICIAN) Cholesterol Total 193 <200 mg/dL [facility] HDL 37(L) >40 mg/dL [facility] Comment: ATP III Classification of HDL Cholesterol: <40 mg/dL: Considered a major risk factor. >60 mg/dL: Considered a negative risk factor. LDL Calculated 86 <100 mg/dL [facility] Comment: ATP III Classification of LDL Cholesterol: <100 mg/dL: Optimal 100 - 129 mg/dL: Near Optimal/Above Optimal 130 - 159 mg/dL: Borderline High 160 - 189 mg/dL: High >190 mg/dL: Very High Triglycerides 350(H) <150 mg/dL [facility] Comment: ATP III Classification of Triglycerides: <150 mg/dL: Normal 150 - 199 mg/dL: Borderline High 200 - 400 mg/dL: High >500 mg/dL: Very High Blood specimen (specimen) BLOOD SPECIMEN / Unknown 08/10/2015 2:39 PM METER/RELAY TECHNICIAN 08/10/2015 2:42 PM METER/RELAY TECHNICIAN Ciera Arias MD LAB - CHEMISTRY ANGELA [facility]AVIR[facility] [place] Organization Address City/State/ZIP Co de Phone Number [address] [phone] from Last 3 Months or Most Recently Relevant to Health Maintenance Care Teams Administrative Services Specialist Relationship Specialty Start Date End Date Basilio Mao MD [address] [facility] [address] [place] [address] PCP - General 08/25/16
--- OUTSIDE RECORDS SUMMARY | 2024-08-24 14:33 | XMS_ITS | Patient Health Summary ---
Author Organization [facility] Address [address] [place] [id number] Care Team Providers Care Day Care Teacher Name Role Phone Basilio Mao MD Primary Care Provider [phone] Note from [facility],non-owned Affiliates and Associated Physician Practices is amultiple site organization consisting of ambulatory clinics and hospital sitesin [place], [place], [place] and [place]. This disclosure is being madepursuant to the Care Everywhere program and may not contain all information available regarding this patient. Last updated 18.[facility] Active Problems Problem Noted Date Diagnosed Date [...] Comments Blood Pressure 142/84 08/15/2015 12:00 PM OUTBOUND SALES CONSULTANT Pulse 98 08/15/2015 12:00 PM OUTBOUND SALES CONSULTANT Temperature 36.6 C (97.8 F) 08/15/2015 12:00 PM OUTBOUND SALES CONSULTANT Respiratory Rate 16 08/15/2015 12:0 0 PM OUTBOUND SALES CONSULTANT Oxygen Saturation 96% 08/15/2015 12: 00 PM OUTBOUND SALES CONSULTANT Inhaled Oxygen Concentration - - Weight 106.5 kg (234 lb 11.2 oz) 08/13/2015 9:00 PM OUTBOUND SALES CONSULTANT Height 188 cm (6' 2 ) 08/13/2015 9:00 PM OUTBOUND SALES CONSULTANT Body Mass Index 30.13 08/13/2015 9:00 PM OUTBOUND SALES CONSULTANT Procedures * DERMATOPATHOLOGY(Performed 05/06/2023) Performed for Neoplasm [...] 3:33 AM CDT) Case Report Dermatopathology Report Case: [id number] Authorizing Provider: Donnie Dyson MD Collected: 05/06/2023 03:33 AM Ordering Location: [facility] Lab Received: 05/07/2023 11:07 AM Pathologist: Lorena Vee MD Specimen: Skin, right cheek 1:46 PM CDT DERMATOPATHOLOGY LABORATORY Final Diagnosis Specimen A. SKIN, right cheek: ACTINIC KERATOSIS WITH FOLLICULAR EXTENSION (L57.0) 1:46 PM CDT DERMATOPATHOLOGY LABORATORY Clinical History Squamous Cell Carcinoma 1:46 PM CDT DERMATOPATHOLOGY LABORATORY Gross Description [...] disorderly maturation of keratinocytes with nuclear pleomorphism. 1:46 PM CDT DERMATOPATHOLOGY LABORATORY Disclaimer An external and internal positive and negative controls are appropriate for the histochemical, immunohistochemical and immunofluorescence stain(s) in this case (if any), except where stated explicitly. The performance characteristics of the stain(s) cited in this report were developed and its performance characteristic determined by the Dermatopathology Laboratory at [facility], directed by Dr. Lore Vee. These tests need not be, and therefore are not, approved by the [place] Food and Drug Administration. The tests are used for clinical purposes. Billing Codes Specimen Charges Stain Charges 28217 1 3 1:46 PM CDT DERMATOPATHOLOGY LABORATORY Embedded Images 3 1:46 PM CDT DERMATOPATHOLOGY LABORATORY Pathology/Cytolo gy TISSUE SPECIMEN FROM SKIN / Unknown 05/06/2023 3:33 AM CDT 05/07/2023 11:07 AM CDT Donnie Dyson MD LAB - PATHOLOGY/CYTO LOGY ORDERABLES Performing Organization Address [facility]/ZIP Co de Phone Number DERMATOPATHOLOGY LABORATORY [facility] Department of Dermatology [facility] [address] [facility], [address]rd Floor [address] [phone] * CBC W AUTO DIFFERENTIAL (08/15/2015 3:28 AM OUTBOUND SALES CONSULTANT) Only the most recent of10 resultswithin the time period is included. Blood specimen (specimen) BLOOD SPECIMEN / Unknown 08/15/2015 3:28 AM OUTBOUND SALES CONSULTANT Narrative [facility] - 08/15/2015 4:08 AM OUTBOUND SALES CONSULTANT The following orders were created for panel order CBC w Differential. Procedure Abnormality Status --------- ------ CBC WITH DIFFERENTIAL[[id number]] Abnormal Final result Please view results for these tests on the individual orders. Ciera Arias MD LAB - HEMATOLOGY ORD ERABLES Performing Organization Address [facility] Co de Phone Number [facility] [address] * (ABNORMAL) BASIC METABOLIC PANEL (CALCIUM TOTAL) (08/15/2015 3:28 AM OUTBOUND SALES CONSULTANT) Only the most recent of5 resultswithin the time period is included. BUN 19 7 - 26 mg/dL [facility] Creatinine 0.9 0.6 - 1.2 mg/dL [facility] Sodium 142 136 - 145 mmol/L [facility] Potassium 3.9 3.5 - 4.5 mmol/L [facility] Chloride 109(H) 98 - 107 mmol/L [facility] CO2 22 22 - 29 mmol/L [facility] Glucose 109 70 - 115 mg/dL [facility] Calcium 9.0 8.4 - 10.2 mg/dL [facility] Anion Gap 15 8 - 18 [facility] BUN/Creatinine Ratio 21 7 - 23 [facility] Osmolality Calculated 282 270 - 300 mOsm/kg [facility] eGFR >60 >60 mL/min/1.7 3 m2 [facility] Blood specimen (specimen) BLOOD SPECIMEN / Unknown 08/15/2015 3:28 AM OUTBOUND SALES CONSULTANT 08/15/2015 4:02 AM OUTBOUND SALES CONSULTANT Ciera Arias MD LAB - CHEMISTRY ANGELA CHAVIRA [address] [phone] * PHOSPHORUS BLOOD (08/15/2015 3:28 AM OUTBOUND SALES CONSULTANT) Only the most recent of8 resultswithin the time period is included. Phosphorus 4.3 2.3 - 4.7 mg/dL [facility] Blood specimen (specimen) BLOOD SPECIMEN / Unknown 08/15/2015 3:28 AM OUTBOUND SALES CONSULTANT 08/15/2015 4:02 AM OUTBOUND SALES CONSULTANT Ciera Arias MD LAB - CHEMISTRY ANGELA CHAVIRA [address] [phone] * MAGNESIUM BLOOD (08/15/2015 3:28 AM OUTBOUND SALES CONSULTANT) Only the most recent of6 resultswithin the time period is included. Magnesium 2.2 1.6 - 2.6 mg/dL [facility] Blood specimen (specimen) BLOOD SPECIMEN / Unknown 08/15/2015 3:28 AM OUTBOUND SALES CONSULTANT 08/15/2015 4:02 AM OUTBOUND SALES CONSULTANT Ciera Arias MD LAB - CHEMISTRY ANGELA CHAVIRA [address] [phone] * MRI BRAIN WO CONTRAST (08/12/2015 11:13 AM OUTBOUND SALES CONSULTANT) Anatomical Region Laterality Modality Head Other Impressions 08/13/2015 9:26 AM OUTBOUND SALES CONSULTANT IMPRESSION: 1. Small volume acute ischemic stroke in the left basis pontis without evidence of hemorrhagic conversion. This report was approved by Peter Armstrong on 08/13/2015 7:47 AM . I, Dr. EDWIN FLYNN M.D. have personally reviewed and interpreted this examination/study. This report was electronically signed by EDWIN FLYNN M.D. on 08/13/2015 9:26 AM . Narrative 08/13/2015 9:26 AM OUTBOUND SALES CONSULTANT EXAMINATION: Magnetic resonance imaging (MRI) of the [...] on 08/13/2015 7:47 AM . I, Dr. EDWIN FLYNN M.D. have personally reviewed and interpreted thisexamination/study. This report was electronically signed by EDWIN FLYNN M.D. on 08/13/20159:26 AM . Ciera Arias MD MR ORDERABLES * HEMOGLOBIN A1C (08/12/2015 6:30 AM OUTBOUND SALES CONSULTANT) Only the most recent of2 resultswithin the time period is included. Hemoglobin A1c 5.7 4.4 - 6.3 % [facility] Estimated Average Glucose 117 mg/dL [facility] Comment: HbA1c Interpretation: Treatment target values recommended by ADA and other clinical organizations should be used to evaluate metabolic control in patients. Treatment Target Values: Normal : < 5.7% Pre-diabetes: 5.7-6.4% Diabetes: Equal to or greater than 6.5% Reference: [place] [employer] Standards of Care in Diabetes -2014 In patients 70 years and older consider HbA1c target range of 7.0-7.5% Reference: Diabetes Mellitus in Older People: Position Statement on behalf of the International Association of Gerontology and Geriatrics (IAGG), the Diabetes Working Constitution Party for Older People (EDWPOP), and the International Task Force of Experts in Diabetes. Segun Ramsey, et al. J [place] [employer]. 2012 Test results diagnostic [...] BLOOD SPECIMEN / Unknown 08/12/2015 6:30 AM OUTBOUND SALES CONSULTANT 08/12/2015 6:34 AM OUTBOUND SALES CONSULTANT Ciera Arias MD LAB - CHEMISTRY ANGELA CHAVIRA [facility] Organization Address City/State/ZIP Co de Phone Number [address] [phone] * CT HEAD WO CONTRAST (08/11/2015 5:31 PM OUTBOUND SALES CONSULTANT) Only the most recent of2 resultswithin the time period is included. Anatomical Region Laterality Modality Head Other Impressions 08/12/2015 6:54 AM OUTBOUND SALES CONSULTANT IMPRESSION: 1. No acute intracranial hemorrhage, significant mass effect, or midline shift. Preliminary results reported by Dr. Guardado on at 5:53 PM. This report was electronically signed by MARTNÍ ZULUAGA M.D. on 08/12/2015 6:54 AM . Narrative 08/12/2015 6:54 AM OUTBOUND SALES CONSULTANT EXAMINATION: Computed tomography (CT) of the head [...] ANGIO BRAIN AND NECK (08/11/2015 11:25 AM OUTBOUND SALES CONSULTANT) Anatomical Region Laterality Modality Head Other Impressions 08/11/2015 12:47 PM OUTBOUND SALES CONSULTANT IMPRESSION: 1. No acute intracranial hemorrhage, significant mass effect, or midline shift. 2. No large arterial occlusions or significant stenoses identified in the head or neck. Mild atherosclerosis in the carotid bifurcations and in the cavernous carotid arteries. I, Dr. MARTÍN ZULUAGA M.D. have personally reviewed and interpreted this examination/study. This report was electronically signed by MARTÍN ZULUAGA M.D. on 08/11/2015 12:47 PM . Narrative 08/11/2015 12:47 PM OUTBOUND SALES CONSULTANT EXAMINATION: Computed tomography (CT) of the head [...] ORDERABLES * TROPONIN I (08/11/2015 12:24 AM OUTBOUND SALES CONSULTANT) Only the most recent of2 resultswithin the time period is included. Troponin I <0.010 <0.032 ng/mL [facility] Blood specimen (specimen) BLOOD SPECIMEN / Unknown 08/11/2015 12:24 AM OUTBOUND SALES CONSULTANT 08/11/2015 12:27 AM OUTBOUND SALES CONSULTANT Ciera Arias MD LAB - CHEMISTRY ANGELA CHAVIRA [facility] Organization Address City/State/ZIP Co de Phone Number [address] [phone] * CK + CKMB PANEL (08/11/2015 12:24 AM OUTBOUND SALES CONSULTANT) Only the most recent of2 resultswithin the time period is included. CK Total 51 30 - 200 Units/L [facility] CK-MB 0.8 0.0 - 6.6 ng/mL [facility] Blood specimen (specimen) BLOOD SPECIMEN / Unknown 08/11/2015 12:24 AM OUTBOUND SALES CONSULTANT 08/11/2015 12:27 AM OUTBOUND SALES CONSULTANT Ciera Arias MD LAB - CHEMISTRY ORDE RABLES Performing Organization Address City/[facility]/ZIP Co de Phone Number [address] [phone] * (ABNORMAL) URINALYSIS W/MICROSCOPIC NO CULTURE (08/10/2015 6:30 PM OUTBOUND SALES CONSULTANT) Color UA Yellow Straw, Yellow, Colorless, Light Yellow [facility] Clarity UA Clear Clear [facility] Specific [place] UA 1.012 1.001 - 1.030 [facility] pH UA 6.0 5.0 - 8.0 [facility] Protein UA 70(A) <=20 mg/dL [facility] Glucose UA Negative Negative mg/dL [facility] Ketone UA Negative Negative mg/dL [facility] Bilirubin UA Negative Negative mg/dL [facility] Blood UA Negative Negative [facility] Nitrite UA Negative Negative [facility] Leukocyte Esterase Negative Negative [facility] Urobilinogen UA <2.0 <2.0 mg/dL [facility] RBC UA 14(H) 0 - 8 /HPF [facility] WBC UA 4(H) 0 - 2 /HPF [facility] Squamous Epithelial Cells UA <1 0 - 1 /HPF [facility] Mucus UA Many(A) None /LPF [facility] Urine specimen (specimen) 08/10/2015 6:30 PM OUTBOUND SALES CONSULTANT 08/10/2015 6:39 PM OUTBOUND SALES CONSULTANT Ciera Arias MD LAB - URINALYSIS ORD ERABLES Performing Organization Address City/[facility]/ZIP Co de Phone Number [address] [phone] * DRUG ABUSE PANEL 10-20+ETHANOL URINE NO CONFIRM (08/10/2015 6:30 PM OUTBOUND SALES CONSULTANT) Amphetamines Screen Urine Negative Negative: < 1000 ng/mL [facility] Barbiturates Screen Urine Negative Negative: < 200 ng/mL [facility] Benzodiazepine Screen Urine Negative Negative: < 200 ng/mL [facility] Opiates Urine Negative Negative: < 300 ng/mL [facility] Cocaine Metabolites Urine Negative Negative: < 300 ng/mL [facility] Phencyclidine Screen Urine Negative Negative: < 25 ng/ml [facility] Cannabinoids Screen Urine Negative Negative: <50 ng/mL [facility] Methadone Screen Urine Negative Negative: < 300 ng/mL [facility] Urine specimen (specimen) URINE / Unknown 08/10/2015 6:30 PM OUTBOUND SALES CONSULTANT 08/10/2015 6:39 PM OUTBOUND SALES CONSULTANT Narrative [facility] - 08/10/2015 6:53 PM OUTBOUND SALES CONSULTANT The Urine Toxicology Screening Panel does not screen for Propoxyphene, Meprobamate, Carisoprodol, Trazodone, [id number] medications and/or volatiles (Acetone, Isopropanol, Methanol or Ethylene Glycol). Ethanol, Salicylate, Acetaminophen, Tricyclic Antidepressants and several therapeutic drugs may be individually assayed in serum or plasma specimen. Toxicology testing by the [facility] is an aid to medical diagnosis and treatment of patients. No documented chain of custody was maintained. Results are intended to be used for clinical purposes only. Ciera Arias MD LAB - URINE CHEMISTR Y ORDERABLES [facility] [address] [place] [address] * VAS BILATERAL VENOUS DUPLEX LE (08/10/2015 3:36 PM OUTBOUND SALES CONSULTANT) Anatomical Region Laterality Modality Other Ciera Arias MD VASCULAR LAB ORDERAB LES * HEPATIC FUNCTION PANEL (08/10/2015 2:39 PM OUTBOUND SALES CONSULTANT) [facility] Protein Total 6.8 6.0 - 8.3 g/dL [facility] Albumin 3.6 3.4 - 5.0 g/dL [facility] Bilirubin Total 0.4 0.2 - 1.2 mg/dL [facility] Bilirubin Conjugated 0.1 0.0 - 0.5 mg/dL [facility] Bilirubin Unconjugated 0.3 Unconjugated Bilirubin is a calculated value: Reference ranges have not been established. mg/dL [facility] Alkaline Phosphatase 100 40 - 150 Units/L [facility] ALT 23 0 - 55 Units/L [facility] AST 16 5 - 34 Units/L [facility] Albumin/Globulin Ratio 1.1 1.1 - 2.3 [facility] Blood specimen (specimen) BLOOD SPECIMEN / Unknown 08/10/2015 2:39 PM OUTBOUND SALES CONSULTANT 08/10/2015 2:42 PM OUTBOUND SALES CONSULTANT Ciera Arias MD LAB - CHEMISTRY ANGELA CHAVIRA [facility] Organization Address City/State/[facility] Co de Phone Number [address] [phone] * (ABNORMAL) LIPID PROFILE (08/10/2015 2:39 PM OUTBOUND SALES CONSULTANT) Cholesterol Total 193 <200 mg/dL [facility] HDL 37(L) >40 mg/dL [facility] Comment: ATP III Classification of HDL Cholesterol: <40 mg/dL: Considered a major risk factor. >60 mg/dL: Considered a negative risk factor. LDL Calculated 86 <100 mg/dL [facility] Comment: ATP III Classification of LDL Cholesterol: <100 mg/dL: Optimal 100 - 129 mg/dL: Near Optimal/Above Optimal 130 - 159 mg/dL: Borderline High 160 - 189 mg/dL: High >190 mg/dL: Very High Triglycerides 350(H) <150 mg/dL [facility] Comment: ATP III Classification of Triglycerides: <150 mg/dL: Normal 150 - 199 mg/dL: Borderline High 200 - 400 mg/dL: High >500 mg/dL: Very High Blood specimen (specimen) BLOOD SPECIMEN / Unknown 08/10/2015 2:39 PM OUTBOUND SALES CONSULTANT 08/10/2015 2:42 PM OUTBOUND SALES CONSULTANT Ciera Arias MD LAB - CHEMISTRY ANGELA CHAVIRA [facility] [address] [phone] * ECHO W DOPPLER AND COLOR FLOW (08/10/2015 12:00 AM OUTBOUND SALES CONSULTANT) Anatomical Region Laterality Modality Other 08/10/2015 Ciera Arias MD ECHOCARDIOGRAPHY RAD IANT * EKG 12-LEAD (08/10/2015 12:00 AM OUTBOUND SALES CONSULTANT) EKG [facility] Comment: Exam Date/Time: Aug 10 2015 14:07:32 Test Reason : acute ischemic stroke Blood Pressure : / mmHG Vent. Rate : 092 BPM Atrial Rate : 092 BPM P-R Int : 154 ms QRS Dur : 082 ms QT Int : 358 ms P-R-T Axes : 050 028 047 degrees QTc Int : 442 ms Normal sinus rhythm Cannot rule out , old Inferior infarct No previous ECGs available Confirmed by Susan Musa, Jena ([id number]), continuity editor MIGUEL FRANCOIS ([id number]) on 08/20/2015 1:43:34 PM Referred By: REFERRING NO Confirmed By:Jena Musa M.D. 08/10/2015 Ciera Arias MD ECG ORDERABLES [facility] Care Teams Day Care Teacher Relationship Specialty Start Date End Date Basilio Mao MD [address] [facility] [[email or web address]] [address] [place] [id number] PCP - General 08/25/16
--- OUTSIDE RECORDS SUMMARY | 2024-08-24 14:33 | XMS_ITS | Encounter Summary ---
Author Organization [facility] Address [facility] [place] [address] Care Team Providers Care Minute Clerk For Basic Traffic Name Role Phone Ilene Paul MD Primary Care Provider [phone] Encounter Details Date Type Department Care Team (Late st Contact Info) Description 05/07/2021 Hospital Follow-up Call [facility] Telemetry Unit A [address] [facility] [place] [address] [place] [address] Jena Nassar RN Social History Tobacco Use Types Packs/Day Years [...] please move on to questions 3-9 0 04/04/2021 Sex and Gender Information Value Date Recorded Sex Assigned at Not on file Legal Sex Male 3:58 PM CDT Gender Identity Not on file Sexual Orientation Not on file 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 No / Unsure 04/29/2021 5:24 AM CDT documented as of this encounter Functional Status [...] Description 12/21/2024 8:20 AM CDT Office Visit [facility] - [place] [address] [place] [phone] Ilene Paul MD [address] [facility] [address] [place] [address] 03/29/2025 8:00 AM CDT Office Visit [facility]ispecialty Care - [facility] [address] [place] [address] Jorge Israel MD [address] [facility] [address] [place] [address] documented as of this encounter Goals Goal Patient Goal Type Associated Problems Recent Progress Patient-Stated? Author Patient will return to prior living situation and remain independent in ADLs upon discharge from hospital General Bettina Ramirez RN documented as of this encounter Visit Diagnoses Not on filedocumented in this encounter Additional Health Concerns Assessment Noted Time PHQ-9 Depression Total Score: 0 04/04/20 7:54 AM CDT documented as of this encounter Care Teams Minute Clerk For Basic Traffic Relationship Specialty Start Date End Date Ilene Paul MD [address] [address] PCP - General FAMILY PRACTICE 11/12/20 documented as of this encounter
--- OUTSIDE RECORDS SUMMARY | 2024-08-24 14:33 | XMS_ITS | Referral Summary ---
Author Organization [facility] Address [address] [place] [address] Care Team Providers Care Scooping Machine Tender Name Role Phone Basilio Mao MD Primary Care Provider [phone] Source Comments [facility],non-owned Affiliates and Associated Physician Practices is amultiple site organization consisting of ambulatory clinics and hospital sitesin [place], [place], [place] and [place]. This disclosure is being madepursuant to the Care Everywhere program and may not contain all information available regarding this patient. Last updated 18.[facility] Active Problems Problem Noted Date Diagnosed Date [...] Comments Blood Pressure 142/84 08/15/2015 12:00 PM CARE WORKER Pulse 98 08/15/2015 12:00 PM CARE WORKER Temperature 36.6 C (97.8 F) 08/15/2015 12:00 PM CARE WORKER Respiratory Rate 16 08/15/2015 12:0 0 PM CARE WORKER Oxygen Saturation 96% 08/15/2015 12: 00 PM CARE WORKER Inhaled Oxygen Concentration - - Weight 106.5 kg (234 lb 11.2 oz) 08/13/2015 9:00 PM CARE WORKER Height 188 cm (6' 2 ) 08/13/2015 9:00 PM CARE WORKER Body Mass Index 30.13 08/13/2015 9:00 PM CARE WORKER Plan of Treatment Not on file Procedures Procedure Name Priority Date/Time Associated Diagnosis Comments LIPID PROFILE Routine 08/10/2015 2:39 PM CARE WORKER from Last 3 Months or Most Recently Relevant to Health Maintenance Results * (ABNORMAL) LIPID PROFILE (08/10/2015 2:39 PM CARE WORKER) Cholesterol Total 193 <200 mg/dL [facility] HDL 37(L) >40 mg/dL [facility] Comment: ATP III Classification of HDL Cholesterol: <40 mg/dL: Considered a major risk factor. >60 mg/dL: Considered a negative risk factor. LDL Calculated 86 <100 mg/dL [facility] Comment: ATP III Classification of LDL Cholesterol: <100 mg/dL: Optimal 100 - 129 mg/dL: Near Optimal/Above Optimal 130 - 159 mg/dL: Borderline High 160 - 189 mg/dL: High >190 mg/dL: Very High Triglycerides 350(H) <150 mg/dL [facility] Comment: ATP III Classification of Triglycerides: <150 mg/dL: Normal 150 - 199 mg/dL: Borderline High 200 - 400 mg/dL: High >500 mg/dL: Very High Blood specimen (specimen) BLOOD SPECIMEN / Unknown 08/10/2015 2:39 PM CARE WORKER 08/10/2015 2:42 PM CARE WORKER Ciera Arias MD LAB - CHEMISTRY ANGELA CHAVIRA [facility] Organization Address City/State/ZIP Co de Phone Number [address] [phone] from Last 3 Months or Most Recently Relevant to Health Maintenance Care Teams Scooping Machine Tender Relationship Specialty Start Date End Date Basilio Mao MD [address] [place] [address] [facility] - General 08/25/16
--- OUTSIDE RECORDS SUMMARY | 2024-08-24 14:33 | XMS_ITS | Encounter Summary ---
Author Organization [facility] Address [address] [place] [address] Care Team Providers Care Tetryl Wringer Operator Name Role Phone Basilio Mao MD Primary Care Provider [phone] Encounter Details Date Type Department Care Team (Late st Contact Info) Description 05/06/2023 Lab Requisition [facility] - DermPath Lab [address] [place] [address] Donnie Dyson MD [facility] DERMATOLOGY [address] [place] [phone] Neoplasm of uncertain behavior of skin [...] AM CDT) Case Report Dermatopathology Report Case: [id number] Authorizing Provider: Donnie Dyson MD Collected: 05/06/2023 03:33 AM Ordering Location: [facility] DermPath Lab Received: 05/07/2023 11:07 AM Pathologist: [...] characteristic determined by the Dermatopathology Laboratory at [facility], directed by Dr. Lore Vee. These tests need not be, and therefore are not, approved by the [place] Food and Drug Administration. The tests are used for clinical purposes. Billing Codes Specimen Charges Stain Charges 19270 1 1:46 PM CDT DERMATOPATHOLOGY LABORATORY Embedded Images 1:46 PM CDT DERMATOPATHOLOGY LABORATORY Pathology/Cytolo gy TISSUE SPECIMEN FROM SKIN / Unknown 05/06/2023 3:33 AM CDT 05/07/2023 11:07 AM CDT Donnie Dyson MD LAB - PATHOLOGY/CYTO LOGY ORDERABLES DERMATOPATHOLOGY LABORATORY [facility] - Department of Dermatology [address], [address] Floor [address] [phone] documented in this encounter Visit Diagnoses Diagnosis Neoplasm of uncertain behavior of skin documented in this encounter Care Teams Tetryl Wringer Operator Relationship Specialty Start Date End Date Basilio Mao MD [address] [place] [address] PCP - General 08/25/16 documented as of this encounter
--- OUTSIDE RECORDS SUMMARY | 2024-08-24 14:33 | XMS_ITS ---
Author Organization [facility] Address Replaced by [facility] [place] [address] Care Team Providers Care Mechanic General Operational Test Name Role Phone Ilene Paul MD Primary Care Provider [phone] Problems Problem Noted Date Diagnosed Date Muscle spasticity 04/07/2024 Hypercoagulable state ([facility]) 09/23/19 24 Type 2 diabetes mellitus wit hout complication, without long-term current use of insulin (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) 10/09/2022 Hemiplegia and hemiparesis f 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 ([facility]) 07/28/2022 Status post prostatectomy 04/30/2021 Gastroesophageal reflux disease without esophagi tis 11/14/2020 Hypertension Hyperlipidemia GERD (gastroesophageal reflux disease) Overview (05/02/2021): No date...40 years now Obesity Current Oncology Plans No current plan information found. Other Current Plans [employer] [facility] In-Clinic Injections* Plan Start Date:05/06/2023 Plan Provider:Dex Carbajal MD Linked Problems Hemiplegia and hemiparesis f 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 (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) Treatment Medications No medications scheduled. [employer] [facility] In-Clinic Injections* Plan Start Date:04/07/2024 Plan Provider:Dex Carbajal MD Linked Problems Muscle spasticity Treatment Medications No medications scheduled. Past Plans Radiation Treatments * No radiation treatments are documented for this patient in [facility]. Treatments may have been administered in another system. Resolved Problems Problem Noted Date Diagnosed Date Resolved Date DVT (deep venous thrombosis) ([facility]) 09/22/2022 04/01/2023 Primary prostate malignancy ([facility]) 04/12/2009/23/2023 Annual physical exam 11/14/2020 021 Cerebrovascular accident (CV A) due to thrombosis ([facility]) 11/14/2020 04/01/2023
--- OUTSIDE RECORDS SUMMARY | 2024-08-24 14:33 | XMS_ITS | Encounter Summary ---
Author Organization [facility] Address [address] [place] [address] Care Team Providers Care Drill Operator Name Role Phone Ilene Paul MD Primary Care Provider [phone] Encounter Details Date Type Department Care Team (Late st Contact Info) Description 01/29/2023 [employer] Message Enc [facility] BUSINESS [facility] Provider Action Needed Social History Tobacco Use Types Packs/Day Years [...] Date Recorded Patient Health Questionnaire-2 Score 0 01/29/2023 Sex and Gender Information Value Date Recorded Sex Assigned at Not on file Legal Sex Male 3:58 PM CDT Gender Identity Not on file Sexual Orientation Not on file 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 No / Unsure 12/31/2022 9:09 AM CDT documented as of this encounter [...] Description 12/21/2024 8:20 AM CDT Office Visit [facility] and [facility] Medicine - [place] [address] [place] [address] Ilene Paul MD [address] [place] [address] 03/29/2025 8:00 AM CDT Office Visit [facility]pecialty Care - [facility] [address] [place] [phone] Jorge Israel MD [address] [place] [address] documented as of this encounter Goals Goal [...] documented as of this encounter Care Teams Drill Operator Relationship Specialty Start Date End Date Ilene Paul MD [address] [address] PCP - General FAMILY PRACTICE 11/12/20 documented as of this encounter
--- OUTSIDE RECORDS SUMMARY | 2024-08-24 14:33 | XMS_ITS | Encounter Summary ---
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 on file Not [...] Date Type Department Care Team (Late st [facility] Info) Description 12/21/2024 8:20 AM CDT Office Visit [facility] Family and Sports Medicine - [place] [address] [place] [address] Ilene Paul MD [address] [place] [address] 03/29/2025 8:00 AM CDT Office Visit [facility] Care - [facility] [address] [place] [address] Jorge Israel MD [address] [place] [address] documented as of this encounter Goals Goal Patient Goal Type Associated Problems Recent Progress Patient-Stated? Author Patient will return to prior living situation and remain independent in ADLs upon discharge from [facility] General Bettina Ramirez RN documented as of this encounter Visit Diagnoses Not on filedocumented in this encounter Additional Health Concerns Assessment Noted Time PHQ-9 Depression Total Score: 0 01/01/20 23 9:18 AM CDT documented as of this encounter Care Teams Spinner Cap Frame Relationship Specialty Start Date End Date Ilene Paul MD [address] [address] PCP - General FAMILY PRACTICE 11/12/20 documented as of this encounter
--- OUTSIDE RECORDS SUMMARY | 2024-08-24 14:33 | XMS_ITS | Encounter Summary ---
Author Organization [facility] Address [facility] [place] [address] Care Team Providers Care Furniture Stainer Name Role Phone Ilene Paul MD Primary Care Provider [phone] Encounter Details Date Type Department Care Team (Late st Contact Info) Description 04/26/2021 Prep for Procedure [facility] Pre-Ad[facility] 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 No / Unsure 04/29/2021 5:24 AM CDT documented as of this encounter Plan of Treatment Upcoming Encounters Date Type Department Care Team (Late st Contact Info) Description 12/21/2024 8:20 AM CDT Office Visit [facility] Family and Sports Medicine - [place] [address] [place] [address] Ilene Paul MD [address] [place] [address] 03/29/2025 8:00 AM CDT Office Visit [facility] Care - [facility] [address] [place] [address] Jorge Israel MD [address] [place] [address] documented as of this encounter Results * CORONAVIRUS (COVID 19) (04/26/2021 9:30 AM CDT) SPEC DESCRIPTION NASAL 04/26/20 11:36 AM CDT [facility] CORONAVIRUS SARS COV 2 PCR (RESP) NEGATIVE NEGATIVE 04/26/2021 7:38 PM CDT [facility] Comment: THE SARS-CoV-2 TEST HAS BEEN AUTHORIZED BY THE FDA UNDER AN EUA FOR USE BY AUTHORIZED LABORATORIES. PERFORMED BY NUCLEIC ACID AMPLIFICATION PCR FIRST TEST NO 04/26/2021 11:36 AM CDT [facility] EMPLOYED IN HEALTHCARE NO 04/26/2021 11:36 AM CDT [facility] SYMPTOMATIC DEFINED BY CDC NO 04/26/2021 11:36 AM CDT [facility] HOSPITALIZATION STATUS NO 04/26/2021 11:36 AM CDT [facility] PATIENT IN ICU NO 04/26/2021 11:36 AM CDT [facility] RESIDENT OF CONGREGATE CARE NO 04/26/2021 11:36 AM CDT [facility] NASAL STRUCTURE / Unknown 04/26/2021 9:30 AM CDT Chacho Herman MD MICROBIOLOGY - GENERAL ORDERABLE S Final Result [facility] [address] [place] [address], [place] [phone] [facility] [address] [place] [address], [place] [phone] documented in this encounter Visit Diagnoses Diagnosis Preop examination- Primary Preoperative examination, unspecified documented in this encounter Additional Health Concerns Infection Onset Date Last Indicated Resolved Time COVID-19 Rule Out 04/26/2021 04/26/2021 04/26/2021 7:39 PM CDT Assessment Noted Time PHQ-9 Depression Total Score: 0 04/04/20 7:54 AM CDT documented as of this encounter Care Teams Furniture Stainer Relationship Specialty Start Date End Date Ilene Paul MD [address] [facility] [address] [place] [address] PCP - General FAMILY PRACTICE 11/12/20 documented as of this encounter
--- OUTSIDE RECORDS SUMMARY | 2024-08-24 14:33 | XMS_ITS | Encounter Summary ---
Author Organization [facility] Address [address] [place] [address] Care Team Providers Care Press Brake Operator Name Role Phone Ilene Paul MD Primary Care Provider [phone] Encounter Details Date Type Department Care Team (Late st Contact Info) Description 10/23/2021 [employer]* Message [facility] Patient Accounts [address] [place] [address] [facility] Provider Financial Assistance Social History Tobacco Use Types Packs/Day Years [...] please move on to questions 3-9 0 09/09/2021 Sex and Gender Information Value Date Recorded Sex Assigned at Not on file Legal Sex Male 3:58 PM CDT Gender Identity Not on file Sexual Orientation Not on file 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 file [...] Description 12/21/2024 8:20 AM CDT Office Visit [facility] Family and Sports Medicine - [place] [address] [place] [address] Ilene Paul MD [address] [place] [address] 03/29/2025 8:00 AM CDT Office Visit [facility] Multispecialty Care - [facility] [address] [place] [address] Jorge Israel MD [address] [place] [address] documented as of this encounter Goals Goal Patient Goal Type Associated Problems Recent Progress Patient-Stated? Author Patient will return to prior living situation and remain independent in ADLs upon discharge from [facility] General Bettina Ramirez, RN documented as of this encounter Visit Diagnoses Not on filedocumented in this encounter Additional Health Concerns Assessment Noted Time PHQ-9 Depression Total Score: 0 09/09/19 22 7:39 AM COMPOSITION WORKER documented as of this encounter Care Teams Press Brake Operator Relationship Specialty Start Date End Date Ilene Paul MD [address] [phone] PCP - General FAMILY PRACTICE 11/12/20 documented as of this encounter
--- OUTSIDE RECORDS SUMMARY | 2024-08-24 14:33 | XMS_ITS | Clinical Summary ---
Author Organization [facility] Address [address] [place] [address] Phone Care Team Providers Care Custom Clothier Name Role Phone Ilene Paul MD Primary Care Provider [phone] Allergies No known active allergies Medications atorvastatin [...] 4 Active Cholecalciferol (Vitamin D3) 1.25 MG (14942 UT) Capsule TAKE 1 CAPSULE BY MOUTH [...] on file Legal Sex Male 1:34 PM YARD CLEANER Gender Identity Not on file Sexual Orientation Not on file Last Filed Vital Signs Vital Sign Reading Time Taken Comments Blood Pressure 134/68 02/17/2024 7:56 AM CDT Pulse 80 02/17/2024 7:56 AM CDT Temperature 36.6 C (97.8 F) 02/17/2024 7:56 AM CDT Respiratory Rate 18 02/17/2024 7:56 AM CDT [...] topic Insurance MEDICARE C ESSENCE Care Teams Custom Clothier Relationship Specialty Start Date End Date Ilene Paul MD [address] [address] PCP - General Family Medicine 09/05/22
[2024-08-24 14:34] LABS: Partial Thromboplastin Time 27.9 Seconds (22.3-36.8); Prothrombin Time 13.8 Seconds (11.1-14.7)
--- OUTSIDE RECORDS SUMMARY | 2024-08-24 14:34 | XMS_ITS | Encounter Summary ---
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 No / Unsure 10/01/2022 9:36 AM CDT documented as of this encounter [...] Description 12/21/2024 8:20 AM CDT Office Visit [facility] Family and Sports Medicine - [place] [address] [place] [address] Ilene Paul MD [address] [place] [address] 03/29/2025 8:00 AM CDT Office Visit [facility]ty Care [facility] [address] [place] [address] Jorge Israel MD [address] [place] [address] documented as of this encounter Goals Goal Patient Goal Type Associated Problems Recent Progress Patient-Stated? Author Patient will return to prior living situation and remain independent in ADLs upon discharge from [facility] Bettina Ramirez RN documented as of this encounter Procedures Procedure Name Priority Date/Time Associated Diagnosis Comments PROTIME (OUTSIDE LAB) Routine 02/17/2023 PROTIME (OUTSIDE LAB) Routine 11/12/2022 PROTIME (OUTSIDE LAB) Routine 10/29/2022 PROTIME (OUTSIDE LAB) Routine 10/22/2022 PROTIME (OUTSIDE LAB) Routine 10/09/2022 documented in this encounter Results * PROTIME (OUTSIDE LAB) (02/17/2023) PROTIME 21.5 INR 2.1 02/17/2023 us Default History Genericprovider LAB-OUTSIDE/ABST RACTED Final Result * PROTIME (OUTSIDE LAB) (11/12/2022) PROTIME 31.9 INR 3.5 11/12/2022 us Default History Genericprovider LAB-OUTSIDE/ABST RACTED Final Result * PROTIME (OUTSIDE LAB) (10/29/2022) PROTIME 14.0 INR 1.4 10/29/2022 us Default History Genericprovider LAB-OUTSIDE/ABST RACTED Final Result * PROTIME (OUTSIDE LAB) (10/22/2022) PROTIME 17.3 INR 1.8 10/22/2022 us Default History Genericprovider LAB-OUTSIDE/ABST RACTED Final Result * PROTIME (OUTSIDE LAB) (10/09/2022) PROTIME 11.9 INR 1.2 10/09/2022 us Default History Genericprovider LAB-OUTSIDE/ABST RACTED Final Result documented in this encounter Visit Diagnoses Not on filedocumented in this encounter Additional Health Concerns Assessment Noted Time PHQ-9 Depression Total Score: 0 09/09/19 22 7:39 AM HIGH SCHOOL DIRECTOR documented as of this encounter Care Teams Steel Post Installer Supervisor Relationship Specialty Start Date End Date Ilene Paul MD [address] [place] [address] PCP - General FAMILY PRACTICE 11/12/20 documented as of this encounter
--- OUTSIDE RECORDS SUMMARY | 2024-08-24 14:34 | XMS_ITS | Encounter Summary ---
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 No / Unsure 10/27/2021 12:42 PM CDT documented as of this encounter Functional [...] Description 12/21/2024 8:20 AM CDT Office Visit [facility] Family and Sports Medicine - [place] [address] [place] [address] Ilene Paul MD [address] [facility] [address] [place] [address] 03/29/2025 8:00 AM CDT Office Visit [facility] Multispecialty Care - [facility] [address] [facility] [place] [address] Jorge Israel MD [address] [place] [address] documented as of this encounter Goals Goal Patient Goal Type Associated Problems Recent Progress Patient-Stated? Author Patient will return to prior living situation and remain independent in ADLs upon discharge from hospital General Bettian Ramirez RN documented as of this encounter Visit Diagnoses Not on filedocumented in this encounter Additional Health Concerns Assessment Noted Time PHQ-9 Depression Total Score: 0 09/09/19 22 7:39 AM SUPERVISOR CONCRETE STONE FINISHING documented as of this encounter Care Teams Grain Operations Manager Relationship Specialty Start Date End Date Ilene Paul MD [address] [address] PCP - General FAMILY PRACTICE 11/12/20 documented as of this encounter
[2024-08-24 14:41] LABS: Basophils Absolute Auto 0.1 K/mm3 (0.0-0.1); Basophils Percent Auto 0.9 % (0.2-1.2); Eosinophils Absolute Auto 0.2 K/mm3 (0-0.3); Eosinophils Percent Auto 2.4 % (0-4.4); Hematocrit 44.7 % (42.0-52.0); Hemoglobin 14.3 g/dL (14.0-18.0); Immature Granulocyte Absolute 0.04 K/mm3 (0.00-0.031); Immature Granulocyte Percent A 0.4 % (0-0.5); Lymphocytes Absolute Auto 1.92 K/mm3 (0.9-3.2); Lymphocytes Percent Auto 21.1 % (18.3-44.2); Mean Corpuscular Hemoglobin 28.5 pg (26-34); Mean Platelet Volume 9.6 fl (7.4-10.4); Monocytes Absolute Auto 0.7 K/mm3 (0.1-0.6); Monocytes Percent Auto 8.1 % (2.6-8.5); Neutrophils Absolute Auto 6.1 K/mm3 (1.3-6.7); Neutrophils Percent Auto 67.1 % (45.5-73.1); Platelet Count Result 359 k/mm3 (150-375); Red Blood Count 5.02 M/mm3 (4.6-6.20); Red Cell Distribution Width 14.2 % (11.5-14.5); White Blood Count 9.1 K/mm3 (4.5-10.0)
[2024-08-24 16:39] LABS: Anion Gap 11 mmol/L (4-12); Blood Urea Nitrogen 18 mg/dL (9-20); Calcium 9.6 mg/dL (8.4-10.2); Carbon Dioxide 25 mmol/L (22-30); Chloride 102 mmol/L (98-107); Estimated Glomerular Filt Rate > 60; Glucose 100 mg/dL (65-110); Potassium 3.9 mmol/L (3.4-5.0); Sodium 138 mmol/L (137-145)
== END 2024-08-24 13:29 | disposition home or self-care (01) ==
LOC: ANHSURGERY 13:35
PROVIDERS: PCP Family Medicine Sports Medicine; Visit Provider Urology
DX: R31.0 Gross hematuria (principal); I10 Essential (primary) hypertension
CPT/HCPCS: 36415; 80048; 85025; 85610; 85730; 87086; 93005

== ENCOUNTER 2024-08-30 00:59 | Day surgery (SDC) | payer OTHER, SELFPAY ==
[2024-08-22 16:03] VITALS: BMI 31.4
--- NOTE | 2024-08-22 16:30 | PC.NURSE ---
Report to the Outpatient Waiting Room, entrance under the green pavilion located off [facility], at time ___7:30AM____ on date ___08/30/24____. Planned Procedure Time: ___9:30AM .? Time changes happen often and if your time is changed the preop area will call you the afternoon before. - You and your visitor will be asked to self-screen and do not enter if you have any COVID symptoms. Please call surgeon if you need to reschedule. - A mask is optional within the hospital at this time. Patients may have clear liquids (water, carbonated beverages, clear teas, apple juice) until 3 hours prior to surgery (6:30AM) with a maximum of 20 ounces. - No food from midnight until time of surgery and no smoking. This includes no chewing gum, candy or mints. Take only the following medications with a SIP of water on the morning of surgery: VILAZODONE DO NOT STOP ANY OF YOUR OTHER PRESCRIPTION MEDICATIONS PRIOR TO SURGERY EXCEPT THE FOLLOWING Medications to discontinue per physician ____HOLD ASPIRIN & ALL VITAMINS/SUPPLEMENTS 7 DAYS PRE-OP PER DR LACEY Date to take last dose 08/22/24 Please no make-up, nail angolan, hairspray, perfume, deodorant, or body powder the day of surgery.? No jewelry (including any body piercings) or valuables the day of surgery, leave them at home.? Please take a shower or bath the night before, or the morning of, surgery with an antibacterial soap.? Wear comfortable, loose fitting clothing.? - Jewelry must be removed prior to entering the operating room.? Rings and piercings that are not removed may be cut off. - The hospital will not accept responsibility for valuables.? - Please leave all valuables, including medications, at home the day of surgery. If you are going home after surgery, a licensed route delivery service driver must drive you home.? - NO public transportation without another adult if you receive anesthesia. - We recommend that an adult stay with you for 24 hours following discharge. - We also recommend that you do not drive, make important decision, drink alcoholic beverages, or take any drugs that were not prescribed by your health care provider for at least 24 hours after your discharge time. Hold all vitamins and supplements for 3 days per anesthesiologist. Follow any additional instructions given to you from your surgeon. Telephone instructions given to ____PATIENT and asked if any additional questions and then verbalized understanding. Patient advised to call surgeon office or pre surgery nurse liaison [phone] if any additional questions.
[2024-08-30] VITALS (10 sets, daily range): BP systolic 84–120; BP diastolic 56–88; PULSE 54–82; RESP 14–20; TEMP 36.2–36.7; O2SAT 96–100
--- OUTSIDE RECORDS SUMMARY | 2024-08-30 01:02 | XMS_ITS | Encounter Summary ---
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 [...] Date Type Department Care Team (Late st [facility] Info) Description 12/21/2024 8:20 AM CDT Office Visit [facility] Family and Sports Medicine - [place] [address] [place] [address] Ilene Paul MD [address] [place] [address] 03/29/2025 8:00 AM CDT Office Visit [facility] Multispecialty Care - [facility] [address] [place] [address] Jorge Israel MD [address] [place] [address] documented as of this encounter Goals Goal Patient Goal Type Associated Problems Recent Progress Patient-Stated? Author Patient will return to prior living situation and remain independent in ADLs upon discharge from [facility] General Bettina Ramirez RN documented as of this encounter Visit Diagnoses Not on filedocumented in this encounter Additional Health Concerns Assessment Noted Time PHQ-9 Depression Total Score: 0 01/01/20 23 9:18 AM CDT documented as of this encounter Care Teams Wheel Worker Relationship Specialty Start Date End Date Ilene Paul MD [address] [address] PCP - General FAMILY PRACTICE 11/12/20 documented as of this encounter
--- OUTSIDE RECORDS SUMMARY | 2024-08-30 01:02 | XMS_ITS | Clinical Summary ---
Author Organization [facility] Address [address] [facility] [place] [id number] Care Team Providers Care Vfx Artist Name Role Phone Basilio Mao MD Primary Care Provider [phone] Source Comments [facility],non-owned Affiliates and Associated Physician Practices is amultiple site organization consisting of ambulatory clinics and hospital sitesin [place], [place], [place] and [place]. This disclosure is being madepursuant to the Care Everywhere program and may not contain all information available regarding this patient. Last updated 18.[facility] Active Problems Problem Noted Date Diagnosed Date [...] Comments Blood Pressure 142/84 08/15/2015 12:00 PM ELECTRICAL PROSPECTOR Pulse 98 08/15/2015 12:00 PM ELECTRICAL PROSPECTOR Temperature 36.6 C (97.8 F) 08/15/2015 12:00 PM ELECTRICAL PROSPECTOR Respiratory Rate 16 08/15/2015 12:0 0 PM ELECTRICAL PROSPECTOR Oxygen Saturation 96% 08/15/2015 12: 00 PM ELECTRICAL PROSPECTOR Inhaled Oxygen Concentration - - Weight 106.5 kg (234 lb 11.2 oz) 08/13/2015 9:00 PM ELECTRICAL PROSPECTOR Height 188 cm (6' 2 ) 08/13/2015 9:00 PM ELECTRICAL PROSPECTOR Body Mass Index 30.13 08/13/2015 9:00 PM ELECTRICAL PROSPECTOR Plan of Treatment Health Maintenance Due Date [...] Comments LIPID PROFILE Routine 08/10/2015 2:39 PM ELECTRICAL PROSPECTOR from Last 3 Months or Most Recently Relevant to Health Maintenance Results * (ABNORMAL) LIPID PROFILE (08/10/2015 2:39 PM ELECTRICAL PROSPECTOR) Cholesterol Total 193 <200 mg/dL [facility] HDL 37(L) >40 mg/dL [facility] Comment: ATP III Classification of HDL Cholesterol: <40 mg/dL: Considered a major risk factor. >60 mg/dL: Considered a negative risk factor. LDL Calculated 86 <100 mg/dL [facility] Comment: ATP III Classification of LDL Cholesterol: <100 mg/dL: Optimal 100 - 129 mg/dL: Near Optimal/Above Optimal 130 - 159 mg/dL: Borderline High 160 - 189 mg/dL: High >190 mg/dL: Very High Triglycerides 350(H) <150 mg/dL [facility] Comment: ATP III Classification of Triglycerides: <150 mg/dL: Normal 150 - 199 mg/dL: Borderline High 200 - 400 mg/dL: High >500 mg/dL: Very High Blood specimen (specimen) BLOOD SPECIMEN / Unknown 08/10/2015 2:39 PM ELECTRICAL PROSPECTOR 08/10/2015 2:42 PM ELECTRICAL PROSPECTOR Ciera Arias MD LAB - CHEMISTRY ANGELA CHAVIRA [facility] Organization Address City/State/ZIP Co de Phone Number [address] [phone] from Last 3 Months or Most Recently Relevant to Health Maintenance Care Teams Vfx Artist Relationship Specialty Start Date End Date Basilio Mao MD [address] [facility] [address] [place] [address] PCP - General 08/25/16
--- OUTSIDE RECORDS SUMMARY | 2024-08-30 01:02 | XMS_ITS ---
Author Organization [facility] Address [facility] [place] [address] Care Team Providers Care Maintenance Supervisor 2Nd Shift Name Role Phone Ilene Paul MD Primary Care Provider [phone] Problems Problem Noted Date Diagnosed Date Muscle spasticity 04/07/2024 Hypercoagulable state ([facility]) 09/23/19 24 Type 2 diabetes mellitus wit hout complication, without long-term current use of insulin ([facility]) 09/23/2023 Spinal stenosis of lumbar re 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 06/19/2023 Other intervertebral disc displacement, lumbar r egion 06/19/2023 History of CVA (cerebrovascular accident) 2022 History of prostate cancer 04/01/2023 History of DVT (deep vein thrombosis) 04/01/2023 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 [employer] [facility] In-Clinic Injections* Plan Start Date:04/07/2024 Plan Provider:Dex Carbajal MD Linked Problems Muscle spasticity Treatment Medications No medications scheduled. Past Plans Radiation Treatments * No radiation treatments are documented for this patient in [facility]. Treatments may have been administered in another system. Resolved Problems Problem Noted Date Diagnosed Date Resolved Date DVT (deep venous thrombosis) ([facility]) 09/22/2022 04/01/2023 Primary prostate malignancy ([facility]) 04/12/2009/23/2023 Annual physical exam 11/14/2020 021 Cerebrovascular accident (CV A) due to thrombosis ([facility]) 11/14/2020 04/01/2023
--- OUTSIDE RECORDS SUMMARY | 2024-08-30 01:02 | XMS_ITS | Encounter Summary ---
Author Organization [facility] Address On license of [facility] [place] [address] Care Team Providers Care Grinder Operator External Tool Name Role Phone Ilene Paul MD Primary Care Provider [phone] Encounter Details Date Type Department Care Team (Late st Contact Info) Description 05/07/2021 Hospital Follow-up Call 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 Not [...] Description 12/21/2024 8:20 AM CDT Office Visit [facility] Family and Sports Medicine - [place] [address] [place] [phone] Ilene Paul MD [address] [facility] [address] [place] [address] 03/29/2025 8:00 AM CDT Office Visit [facility] Multispecialty Care - [facility] [address] [facility] [place] [address] Jorge Israel MD [address] [facility] [address] [place] [address] documented as of this encounter Goals Goal [...] documented as of this encounter Care Teams Grinder Operator External Tool Relationship Specialty Start Date End Date Ilene Paul MD [address] [address] PCP - General FAMILY PRACTICE 11/12/20 documented as of this encounter
--- OUTSIDE RECORDS SUMMARY | 2024-08-30 01:02 | XMS_ITS | Clinical Summary ---
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
--- OUTSIDE RECORDS SUMMARY | 2024-08-30 01:02 | XMS_ITS | Encounter Summary ---
Author Organization 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 [address] [facility] [place] [address] 03/29/2025 8:00 AM CDT Office Visit [facility] Multispecialty Care - [facility] [address] [facility] [place] [phone] Jorge Israel MD [address] [facility] [address] [place] [address] documented as of this encounter Goals Goal [...] documented as of this encounter Care Teams Sccm Administrator Relationship Specialty Start Date End Date Ilene Paul MD [address] [id number] PCP - General FAMILY PRACTICE 11/12/20 documented as of this encounter
--- OUTSIDE RECORDS SUMMARY | 2024-08-30 01:02 | XMS_ITS | Encounter Summary ---
Author Organization [facility] Address [address] [facility] [address] [place] [address] Care Team Providers Care Client Care Representative Name Role Phone Basilio Mao MD Primary Care Provider [phone] Encounter Details Date Type Department Care Team (Late st Contact Info) Description 05/06/2023 Lab Requisition [facility] - DermPath Lab [address] [place] [address] Donnie Dyson MD [facility] DERMATOLOGY [address] [place] [phone] Neoplasm of uncertain behavior of skin [...] AM CDT) Case Report Dermatopathology Report Case: [id number] Authorizing Provider: Donnie Dyson MD Collected: 05/06/2023 03:33 AM Ordering Location: [facility] DermPath Lab Received: 05/07/2023 11:07 AM Pathologist: [...] characteristic determined by the Dermatopathology Laboratory at [facility], directed by Dr. Lore Vee. These tests need not be, and therefore are not, approved by the [place] Food and Drug Administration. The tests are used for clinical purposes. Billing Codes Specimen Charges Stain Charges 95241 1 1:46 PM CDT DERMATOPATHOLOGY LABORATORY Embedded Images 1:46 PM CDT DERMATOPATHOLOGY LABORATORY Pathology/Cytolo gy TISSUE SPECIMEN FROM SKIN / Unknown 05/06/2023 3:33 AM CDT 05/07/2023 11:07 AM CDT Donnie Dyson MD LAB - PATHOLOGY/CYTO LOGY ORDERABLES DERMATOPATHOLOGY LABORATORY [facility] - Department of Dermatology [address], [address] [phone] documented in this encounter Visit Diagnoses Diagnosis Neoplasm of uncertain behavior of skin documented in this encounter Care Teams Client Care Representative Relationship Specialty Start Date End Date Basilio Mao MD [address] [place] [address] PCP - General 08/25/16 documented as of this encounter
--- OUTSIDE RECORDS SUMMARY | 2024-08-30 01:02 | XMS_ITS | Referral Summary ---
Author Organization [facility] Address [address] [facility] [place] [address] Care Team Providers Care Nurse Practitioner Physician Assistant Name Role Phone Basilio Mao MD Primary Care Provider [phone] Source Comments [facility],non-owned Affiliates and Associated Physician Practices is amultiple site organization consisting of ambulatory clinics and hospital sitesin [place], [place], [place] and [place]. This disclosure is being madepursuant to the Care Everywhere program and may not contain all information available regarding this patient. Last updated 18.[facility] Active Problems Problem Noted Date Diagnosed Date [...] Comments Blood Pressure 142/84 08/15/2015 12:00 PM TITLE I TEACHER Pulse 98 08/15/2015 12:00 PM TITLE I TEACHER Temperature 36.6 C (97.8 F) 08/15/2015 12:00 PM TITLE I TEACHER Respiratory Rate 16 08/15/2015 12:0 0 PM TITLE I TEACHER Oxygen Saturation 96% 08/15/2015 12: 00 PM TITLE I TEACHER Inhaled Oxygen Concentration - - Weight 106.5 kg (234 lb 11.2 oz) 08/13/2015 9:00 PM TITLE I TEACHER Height 188 cm (6' 2 ) 08/13/2015 9:00 PM TITLE I TEACHER Body Mass Index 30.13 08/13/2015 9:00 PM TITLE I TEACHER Plan of Treatment Not on file Procedures Procedure Name Priority Date/Time Associated Diagnosis Comments LIPID PROFILE Routine 08/10/2015 2:39 PM TITLE I TEACHER from Last 3 Months or Most Recently Relevant to Health Maintenance Results * (ABNORMAL) LIPID PROFILE (08/10/2015 2:39 PM TITLE I TEACHER) Cholesterol Total 193 <200 mg/dL [facility] HDL 37(L) >40 mg/dL [facility] Comment: ATP III Classification of HDL Cholesterol: <40 mg/dL: Considered a major risk factor. >60 mg/dL: Considered a negative risk factor. LDL Calculated 86 <100 mg/dL [facility] Comment: ATP III Classification of LDL Cholesterol: <100 mg/dL: Optimal 100 - 129 mg/dL: Near Optimal/Above Optimal 130 - 159 mg/dL: Borderline High 160 - 189 mg/dL: High >190 mg/dL: Very High Triglycerides 350(H) <150 mg/dL [facility] Comment: ATP III Classification of Triglycerides: <150 mg/dL: Normal 150 - 199 mg/dL: Borderline High 200 - 400 mg/dL: High >500 mg/dL: Very High Blood specimen (specimen) BLOOD SPECIMEN / Unknown 08/10/2015 2:39 PM TITLE I TEACHER 08/10/2015 2:42 PM TITLE I TEACHER Ciera Arias MD LAB - CHEMISTRY ANGELA CHAVIRA [facility] Organization Address City/State/ZIP Co de Phone Number [address] [phone] from Last 3 Months or Most Recently Relevant to Health Maintenance Care Teams Nurse Practitioner Physician Assistant Relationship Specialty Start Date End Date Basilio Mao MD [address] [place] [address] [facility] - General 08/25/16
--- OUTSIDE RECORDS SUMMARY | 2024-08-30 01:02 | XMS_ITS | Patient Health Summary ---
Author Organization [facility] Address [address] [facility] [place] [id number] Care Team Providers Care Hydraulics Engineer Name Role Phone Basilio Mao MD Primary Care Provider Note from [facility],non-owned Affiliates and Associated Physician Practices is amultiple site organization consisting of ambulatory clinics and hospital sitesin [place], [place], [place] and [place]. This disclosure is being madepursuant to the Care Everywhere program and may not contain all information available regarding this patient. Last updated 18.[facility] Active Problems Problem Noted Date Diagnosed Date [...] Comments Blood Pressure 142/84 08/15/2015 12:00 PM ASSISTANT PASTRY CHEF Pulse 98 08/15/2015 12:00 PM ASSISTANT PASTRY CHEF Temperature 36.6 C (97.8 F) 08/15/2015 12:00 PM ASSISTANT PASTRY CHEF Respiratory Rate 16 08/15/2015 12:0 0 PM ASSISTANT PASTRY CHEF Oxygen Saturation 96% 08/15/2015 12: 00 PM ASSISTANT PASTRY CHEF Inhaled Oxygen Concentration - - Weight 106.5 kg (234 lb 11.2 oz) 08/13/2015 9:00 PM ASSISTANT PASTRY CHEF Height 188 cm (6' 2 ) 08/13/2015 9:00 PM ASSISTANT PASTRY CHEF Body Mass Index 30.13 08/13/2015 9:00 PM ASSISTANT PASTRY CHEF Procedures * DERMATOPATHOLOGY(Performed 05/06/2023) Performed for Neoplasm [...] AM CDT) Case Report Dermatopathology Report Case: [id number] Authorizing Provider: Donnie Dyson MD Collected: 05/06/2023 03:33 AM Ordering Location: [facility] DermPath Lab Received: 05/07/2023 11:07 AM [...] characteristic determined by the Dermatopathology Laboratory at [facility], directed by Dr. Lore Vee. These tests need not be, and therefore are not, approved by the [place] Food and Drug Administration. The tests are used for clinical purposes. Billing Codes Specimen Charges Stain Charges 30585 1 3 1:46 PM CDT DERMATOPATHOLOGY LABORATORY Embedded Images 3 1:46 PM CDT DERMATOPATHOLOGY LABORATORY Pathology/Cytolo gy TISSUE SPECIMEN FROM SKIN / Unknown 05/06/2023 3:33 AM CDT 05/07/2023 11:07 AM CDT Donnie Dyson MD LAB - PATHOLOGY/CYTO LOGY ORDERABLES Performing Organization Address [facility]/ZIP Co de Phone Number DERMATOPATHOLOGY LABORATORY [facility] Department of Dermatology [facility] [address] [facility], [address]rd Floor [address] [phone] * CBC W AUTO DIFFERENTIAL (08/15/2015 3:28 AM ASSISTANT PASTRY CHEF) Only the most recent of10 resultswithin the time period is included. Blood specimen (specimen) BLOOD SPECIMEN / Unknown 08/15/2015 3:28 AM ASSISTANT PASTRY CHEF Narrative [facility] - 08/15/2015 4:08 AM ASSISTANT PASTRY CHEF The following orders were created for panel order CBC w Differential. Procedure Abnormality Status --------- ------ CBC WITH DIFFERENTIAL[[id number]] Abnormal Final result Please view results for these tests on the individual orders. Ciera Arias MD LAB - HEMATOLOGY ORD ERABLES Performing Organization Address [facility] Co de Phone Number [facility] [address] * (ABNORMAL) BASIC METABOLIC PANEL (CALCIUM TOTAL) (08/15/2015 3:28 AM ASSISTANT PASTRY CHEF) Only the most recent of5 resultswithin the time period is included. BUN 19 7 - 26 mg/dL [facility] Creatinine 0.9 0.6 - 1.2 mg/dL [facility] Sodium 142 136 - 145 mmol/L [facility] Potassium 3.9 3.5 - 4.5 mmol/L [facility] Chloride 109(H) 98 - 107 mmol/L [facility] CO2 22 22 - 29 mmol/L [facility] Glucose 109 70 - 115 mg/dL [facility] Calcium 9.0 8.4 - 10.2 mg/dL [facility] Anion Gap 15 8 - 18 [facility] BUN/Creatinine Ratio 21 7 - 23 [facility] Osmolality Calculated 282 270 - 300 mOsm/kg [facility] eGFR >60 >60 mL/min/1.7 3 m2 [facility] Blood specimen (specimen) BLOOD SPECIMEN / Unknown 08/15/2015 3:28 AM ASSISTANT PASTRY CHEF 08/15/2015 4:02 AM ASSISTANT PASTRY CHEF Ciera Arias MD LAB - CHEMISTRY ANGELA CHAVIRA [address] [phone] * PHOSPHORUS BLOOD (08/15/2015 3:28 AM ASSISTANT PASTRY CHEF) Only the most recent of8 resultswithin the time period is included. Phosphorus 4.3 2.3 - 4.7 mg/dL [facility] Blood specimen (specimen) BLOOD SPECIMEN / Unknown 08/15/2015 3:28 AM ASSISTANT PASTRY CHEF 08/15/2015 4:02 AM ASSISTANT PASTRY CHEF iCera Arias MD LAB - CHEMISTRY ANGELA CHAVIRA [address] [phone] * MAGNESIUM BLOOD (08/15/2015 3:28 AM ASSISTANT PASTRY CHEF) Only the most recent of6 resultswithin the time period is included. Magnesium 2.2 1.6 - 2.6 mg/dL [facility] Blood specimen (specimen) BLOOD SPECIMEN / Unknown 08/15/2015 3:28 AM ASSISTANT PASTRY CHEF 08/15/2015 4:02 AM ASSISTANT PASTRY CHEF Ciera Arias MD LAB - CHEMISTRY ANGELA CHAVIRA [address] [phone] * MRI BRAIN WO CONTRAST (08/12/2015 11:13 AM ASSISTANT PASTRY CHEF) Anatomical Region Laterality Modality Head Other Impressions 08/13/2015 9:26 AM ASSISTANT PASTRY CHEF IMPRESSION: 1. Small volume acute ischemic stroke in the left basis pontis without evidence of hemorrhagic conversion. This report was approved by Peter Armstrong on 08/13/2015 7:47 AM . I, Dr. EDWIN FLYNN M.D. have personally reviewed and interpreted this examination/study. This report was electronically signed by EDWIN FLYNN M.D. on 08/13/2015 9:26 AM . Narrative 08/13/2015 9:26 AM ASSISTANT PASTRY CHEF EXAMINATION: Magnetic resonance imaging (MRI) of the [...] ORDERABLES * HEMOGLOBIN A1C (08/12/2015 6:30 AM ASSISTANT PASTRY CHEF) Only the most recent of2 resultswithin the time period is included. Hemoglobin A1c 5.7 4.4 - 6.3 % [facility] Estimated Average Glucose 117 mg/dL [facility] Comment: HbA1c Interpretation: Treatment target values recommended by ADA and other clinical organizations should be used to evaluate metabolic control in patients. Treatment Target Values: Normal : < 5.7% Pre-diabetes: 5.7-6.4% Diabetes: Equal to or greater than 6.5% Reference: [place] [employer] Standards of Care in Diabetes -2014 In patients 70 years and older consider HbA1c target range of 7.0-7.5% Reference: Diabetes Mellitus in Older People: Position Statement on behalf of the International Association of Gerontology and Geriatrics (IAGG), the Diabetes Working Libertarian for Older People (EDWPOP), and the International Task Force of Experts in Diabetes. Segun Ramsey, et al. J [place] [employer] Association. 2012 Test results diagnostic [...] BLOOD SPECIMEN / Unknown 08/12/2015 6:30 AM ASSISTANT PASTRY CHEF 08/12/2015 6:34 AM ASSISTANT PASTRY CHEF Ciera Arias MD LAB - CHEMISTRY ANGELA CHAVIRA [facility] Organization Address City/State/ZIP Co de Phone Number [address] [phone] * CT HEAD WO CONTRAST (08/11/2015 5:31 PM ASSISTANT PASTRY CHEF) Only the most recent of2 resultswithin the time period is included. Anatomical Region Laterality Modality Head Other Impressions 08/12/2015 6:54 AM ASSISTANT PASTRY CHEF IMPRESSION: 1. No acute intracranial hemorrhage, significant mass effect, or midline shift. Preliminary results reported by Dr. Guardado on at 5:53 PM. This report was electronically signed by MARTÍN ZULUAGA M.D. on 08/12/2015 6:54 AM . Narrative 08/12/2015 6:54 AM ASSISTANT PASTRY CHEF EXAMINATION: Computed tomography (CT) of the head [...] electronically signed by MARTNÍ ZULUAGA M.D. on 08/12/20156:54 AM . Ciera Arias MD CT ORDERABLES * CT ANGIO BRAIN AND NECK (08/11/2015 11:25 AM ASSISTANT PASTRY CHEF) Anatomical Region Laterality Modality Head Other Impressions 08/11/2015 12:47 PM ASSISTANT PASTRY CHEF IMPRESSION: 1. No acute intracranial hemorrhage, significant [...] 12:47 PM . Narrative 08/11/2015 12:47 PM ASSISTANT PASTRY CHEF EXAMINATION: Computed tomography (CT) of the head [...] ORDERABLES * TROPONIN I (08/11/2015 12:24 AM ASSISTANT PASTRY CHEF) Only the most recent of2 resultswithin the time period is included. Troponin I <0.010 <0.032 ng/mL [facility] Blood specimen (specimen) BLOOD SPECIMEN / Unknown 08/11/2015 12:24 AM ASSISTANT PASTRY CHEF 08/11/2015 12:27 AM ASSISTANT PASTRY CHEF Ciera Arias MD LAB - CHEMISTRY ANGELA CHAVIRA [facility] Organization Address City/State/ZIP Co de Phone Number [address] [phone] * CK + CKMB PANEL (08/11/2015 12:24 AM ASSISTANT PASTRY CHEF) Only the most recent of2 resultswithin the time period is included. CK Total 51 30 - 200 Units/L [facility] CK-MB 0.8 0.0 - 6.6 ng/mL [facility] Blood specimen (specimen) BLOOD SPECIMEN / Unknown 08/11/2015 12:24 AM ASSISTANT PASTRY CHEF 08/11/2015 12:27 AM ASSISTANT PASTRY CHEF Ciera Arias MD LAB - CHEMISTRY ORDE RABLES Performing Organization Address City/[facility]/ZIP Co de Phone Number [address] [phone] * (ABNORMAL) URINALYSIS W/MICROSCOPIC NO CULTURE (08/10/2015 6:30 PM ASSISTANT PASTRY CHEF) Color UA Yellow Straw, Yellow, Colorless, Light Yellow [facility] Clarity UA Clear Clear [facility] Specific [place] UA 1.012 1.001 - 1.030 [facility] pH UA 6.0 5.0 - 8.0 [facility] Protein UA 70(A) <=20 mg/dL [facility] Glucose UA Negative Negative mg/dL [facility] Ketone UA Negative Negative mg/dL [facility] Bilirubin UA Negative Negative mg/dL [facility] Blood UA Negative Negative [facility] Nitrite UA Negative Negative [facility] Leukocyte Esterase Negative Negative [facility] Urobilinogen UA <2.0 <2.0 mg/dL [facility] RBC UA 14(H) 0 - 8 /HPF [facility] WBC UA 4(H) 0 - 2 /HPF [facility] Squamous Epithelial Cells UA <1 0 - 1 /HPF [facility] Mucus UA Many(A) None /LPF [facility] Urine specimen (specimen) 08/10/2015 6:30 PM ASSISTANT PASTRY CHEF 08/10/2015 6:39 PM ASSISTANT PASTRY CHEF Ciera Arias MD LAB - URINALYSIS ORD ERABLES Performing Organization Address City/[facility]/ZIP Co de Phone Number [address] [phone] * DRUG ABUSE PANEL 10-20+ETHANOL URINE NO CONFIRM (08/10/2015 6:30 PM ASSISTANT PASTRY CHEF) Amphetamines Screen Urine Negative Negative: < 1000 ng/mL [facility] Barbiturates Screen Urine Negative Negative: < 200 ng/mL [facility] Benzodiazepine Screen Urine Negative Negative: < 200 ng/mL [facility] Opiates Urine Negative Negative: < 300 ng/mL [facility] Cocaine Metabolites Urine Negative Negative: < 300 ng/mL [facility] Phencyclidine Screen Urine Negative Negative: < 25 ng/ml [facility] Cannabinoids Screen Urine Negative Negative: <50 ng/mL [facility] Methadone Screen Urine Negative Negative: < 300 ng/mL [facility] Urine specimen (specimen) URINE / Unknown 08/10/2015 6:30 PM ASSISTANT PASTRY CHEF 08/10/2015 6:39 PM ASSISTANT PASTRY CHEF Narrative [facility] - 08/10/2015 6:53 PM ASSISTANT PASTRY CHEF The Urine Toxicology Screening Panel does not screen for Propoxyphene, Meprobamate, Carisoprodol, Trazodone, ebyo-wjm-zsuadwr medications and/or volatiles (Acetone, Isopropanol, Methanol or Ethylene Glycol). Ethanol, Salicylate, Acetaminophen, Tricyclic Antidepressants and several therapeutic drugs may be individually assayed in serum or plasma specimen. Toxicology testing by the [facility] is an aid to medical diagnosis and treatment of patients. No documented chain of custody was maintained. Results are intended to be used for clinical purposes only. Ciera Arias MD LAB - URINE CHEMISTR Y ORDERABLES [facility] [address] [place] [address] * VAS BILATERAL VENOUS DUPLEX LE (08/10/2015 3:36 PM ASSISTANT PASTRY CHEF) Anatomical Region Laterality Modality Other Ciera Arias MD VASCULAR LAB ORDERAB LES * HEPATIC FUNCTION PANEL (08/10/2015 2:39 PM ASSISTANT PASTRY CHEF) [facility] Protein Total 6.8 6.0 - 8.3 g/dL [facility] Albumin 3.6 3.4 - 5.0 g/dL [facility] Bilirubin Total 0.4 0.2 - 1.2 mg/dL [facility] Bilirubin Conjugated 0.1 0.0 - 0.5 mg/dL [facility] Bilirubin Unconjugated 0.3 Unconjugated Bilirubin is a calculated value: Reference ranges have not been established. mg/dL [facility] Alkaline Phosphatase 100 40 - 150 Units/L [facility] ALT 23 0 - 55 Units/L [facility] AST 16 5 - 34 Units/L [facility] Albumin/Globulin Ratio 1.1 1.1 - 2.3 [facility] Blood specimen (specimen) BLOOD SPECIMEN / Unknown 08/10/2015 2:39 PM ASSISTANT PASTRY CHEF 08/10/2015 2:42 PM ASSISTANT PASTRY CHEF Ciera Arias MD LAB - CHEMISTRY ANGELA CHAVIRA [facility] Organization Address City/State/[facility] Co de Phone Number [address] [phone] * (ABNORMAL) LIPID PROFILE (08/10/2015 2:39 PM ASSISTANT PASTRY CHEF) Cholesterol Total 193 <200 mg/dL [facility] HDL 37(L) >40 mg/dL [facility] Comment: ATP III Classification of HDL [...] mg/dL: Very High Triglycerides 350(H) <150 mg/dL [facility] Comment: ATP III Classification of Triglycerides: <150 mg/dL: Normal 150 - 199 mg/dL: Borderline High 200 - 400 mg/dL: High >500 mg/dL: Very High Blood specimen (specimen) BLOOD SPECIMEN / Unknown 08/10/2015 2:39 PM ASSISTANT PASTRY CHEF 08/10/2015 2:42 PM ASSISTANT PASTRY CHEF Ciera Arias MD LAB - CHEMISTRY ANGELA CHAVIRA [facility] [address] [phone] * ECHO W DOPPLER AND COLOR FLOW (08/10/2015 12:00 AM ASSISTANT PASTRY CHEF) Anatomical Region Laterality Modality Other 08/10/2015 Ciera Arias MD ECHOCARDIOGRAPHY RAD IANT * EKG 12-LEAD (08/10/2015 12:00 AM ASSISTANT PASTRY CHEF) EKG [facility] Comment: Exam Date/Time: Aug 10 2015 [...] ECGs available Confirmed by Susan Musa, Jena ([id number]), supervising editor trailer MIGUEL FRANCOIS ([id number]) on 08/20/2015 1:43:34 PM Referred By: REFERRING NO Confirmed By:Jena Musa M.D. 08/10/2015 Ciera Arias MD ECG ORDERABLES [facility] Care Teams Hydraulics Engineer Relationship Specialty Start Date End Date Basilio Mao MD [address] [facility] [address] [place] [phone] PCP - General 08/25/16
--- OUTSIDE RECORDS SUMMARY | 2024-08-30 01:02 | XMS_ITS | Encounter Summary ---
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 [...] [facility] [place] [address] [place] [address] Ilene Paul MD [address] [place] [address] 03/29/2025 8:00 AM CDT Office Visit [facility] - [facility] [address] [place] [phone] Jorge Israel MD [address] [place] [address] documented as of this encounter Goals Goal [...] documented as of this encounter Care Teams Skilled Nursing Facilities Professional Relationship Specialty Start Date End Date Ilene Paul MD [address] [address] PCP - General FAMILY PRACTICE 11/12/20 documented as of this encounter
--- OUTSIDE RECORDS SUMMARY | 2024-08-30 01:02 | XMS_ITS | Encounter Summary ---
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 [address] [place] [address] Jorge Israel MD [address] [place] [address] documented as of this encounter Goals Goal Patient Goal Type Associated Problems Recent Progress Patient-Stated? Author Patient will return to prior living situation and remain independent in ADLs upon discharge from [facility] General Bettina Ramirez, RN documented as of this encounter Visit Diagnoses Not on filedocumented in this encounter Additional Health Concerns Assessment Noted Time PHQ-9 Depression Total Score: 0 09/09/19 22 7:39 AM MOLDING TECHNICIAN documented as of this encounter Care Teams Belt Loop Maker Relationship Specialty Start Date End Date Ilene Paul MD [address] [phone] PCP - General FAMILY PRACTICE 11/12/20 documented as of this encounter
--- OUTSIDE RECORDS SUMMARY | 2024-08-30 01:02 | XMS_ITS | Encounter Summary ---
Author Organization [facility] Address [facility] [place] [address] Care Team Providers Care Advertising Designer Name Role Phone Ilene Paul MD Primary Care Provider [phone] Encounter Details Date Type Department Care Team (Late st Contact Info) Description 05/26/2022 [employer] Message Enc [facility] [address] [place] [address] Johnny Hardin MD,PHD Eliquis? 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 [...] we will need to go to coumadin [facility] documented in this encounter Plan of Treatment Upcoming Encounters Date Type Department Care Team (Late st Contact Info) Description 12/21/2024 8:20 AM CDT Office Visit [facility] Family [facility] Medicine - [place] [address] [place] [phone] Ilene Paul MD [address] [facility] [address] [place] [address] 03/29/2025 8:00 AM CDT Office Visit [facility] Mult[facility] - [facility] [address] [facility] [place] [phone] Jorge Israel MD [address] [place], [place] [phone] documented as of this encounter Goals Goal [...] Total Score: 0 09/09/19 22 7:39 AM DIRECTOR REHABILITATION PROGRAM documented as of this encounter Care Teams Advertising Designer Relationship Specialty Start Date End Date Ilene Paul MD [address] [facility] [address] [facility] [place] [address] PCP - General FAMILY PRACTICE 11/12/20 documented as of this encounter
--- OUTSIDE RECORDS SUMMARY | 2024-08-30 01:02 | XMS_ITS | Clinical Summary ---
Author Organization [facility] Address [address] [place] [address] Care Team Providers Care Program Services Assistant Name Role Phone Ilene Paul MD Primary Care Provider Allergies No known active allergies Medications dapagliflozin (FARXIGA) 10 MG tabletIndication s:Mixed hyperlipidemia,T ype 2 diabetes mellitus without complication, without long-term current use of insulin ([facility]) Take 1 tablet (10 mg total) by mouth daily. 90 tablet 3 01/01/20 23 Active Ferrous Sulfate (IRON) 325 (65 Fe) MG tabletIndication s:Microcytic anemia Take 325 mg by mouth daily with breakfast. 90 tablet 3 09/23/19 24 Active metFORMIN (GLUCOPHAGE) 500 MG tabletIndication s:Mixed hyperlipidemia,T ype 2 diabetes mellitus without complication, without long-term current use of insulin ([facility]) Take 1 tablet by mouth once daily [...] of vertebral artery, unspecified blood vessel laterality ([facility]) TAKE 1 TABLET BY MOUTH NIGHTLY AT BEDTIME 90 tablet 08/23/19 25 Active atorvastatin (LIPITOR) 40 MG tabletIndication s:Gastroesophage al reflux disease without esophagitis,Ingrid al physical exam,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, unspecified blood vessel laterality ([facility]) TAKE 1 TABLET BY MOUTH NIGHTLY AT [...] Diagnosed Date Muscle spasticity 04/07/2024 Hypercoagulable state ([facility]) 09/23/19 24 Type 2 diabetes mellitus wit hout complication, without long-term current use of insulin ([facility]) 09/23/2023 Spinal stenosis of lumbar re 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 06/19/2023 Other intervertebral disc displacement, lumbar r egion 06/19/2023 History of CVA (cerebrovascular accident) 2022 History of prostate cancer 04/01/2023 History of DVT (deep vein thrombosis) 04/01/2023 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 ([facility]) 10/09/2022 Hemiplegia and hemiparesis f 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 ([facility]) 07/28/2022 Status post prostatectomy 04/30/2021 Gastroesophageal reflux disease without esophagi tis 11/14/2020 Hypertension Hyperlipidemia GERD (gastroesophageal reflux disease) Overview (05/02/2021): No date...40 years now Obesity Resolved Problems Problem Noted Date Diagnosed Date Resolved Date DVT (deep venous thrombosis) ([facility]) 09/22/2022 04/01/2023 Primary prostate malignancy ([facility]) 04/12/20 21 09/23/2023 Annual physical exam 11/14/2020 021 Cerebrovascular accident (CV A) due to thrombosis ([facility]) 11/14/2020 04/01/2023 Encounters Date Type Department Care Team Description 08/18/2024 Scan [facility] [employer] Scanned, Doc Med Group CT (SCAN); Image (SCAN) 08/10/2024 Orders Only [facility] Family and Sports Medicine - [place] [address] [place] [address] Ilene Paul MD 06/22/2024 8:20 AM PHLEBOTOMY LAB ASSISTANT Office Visit [facility] Family [facility] Sports [facility] [address] [place] [address] Ilene Paul MD Follow Up 06/22/2024 Travel 06/14/2024 Orders Only [facility] Family [facility] Sports [facility] [address] [place] [address] Ilene Paul MD 06/07/2024 Scan [facility] [employer] Scanned, [facility] 05/31/2024 Therapy Plan [facility] Physical Therapy 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 file Not on file Last Filed Vital Signs Vital Sign Reading Time Taken Comments Blood Pressure 124/64 06/22/2024 8:33 AM PHLEBOTOMY LAB ASSISTANT Pulse 70 06/22/2024 8:33 AM PHLEBOTOMY LAB ASSISTANT Temperature 36.7 C (98.1 F) 06/22/2024 8:33 AM PHLEBOTOMY LAB ASSISTANT Respiratory Rate 16 06/22/2024 8:33 AM PHLEBOTOMY LAB ASSISTANT Oxygen Saturation 98% 06/22/2024 8:33 AM PHLEBOTOMY LAB ASSISTANT Inhaled Oxygen Concentration - - Weight 112.5 kg (248 lb) 06/22/2024 8:33 AM PHLEBOTOMY LAB ASSISTANT Height 188 cm (6' 2 ) 06/22/2024 8:33 AM PHLEBOTOMY LAB ASSISTANT Body Mass Index 31.84 06/22/2024 8:33 AM PHLEBOTOMY LAB ASSISTANT Plan of Treatment Upcoming Encounters Date Type Department Care Team (Late st Contact Info) Description 12/21/2024 8:20 AM CDT Office Visit [facility] Family and Sports Medicine - [place] [place] [address] Ilene Paul MD [address] [place] [address] 03/29/2025 8:00 AM CDT Office Visit [facility] Multispecialty Care - [address] [place] [phone] Jorge Israel MD 3 [facility] [address] [place] [address] Health Maintenance Due Date Last Done Comments Pneumococcal Vaccine: 65+ Years (1 of 2 - PCV) 1962 Diabetes: Retinopathy Eye Exam 1974 RSV Immunization or 60+ Years (1 - Risk 60-74 years 1-dose series) 2016 PHQ-2 (Physician [place]) 07/20/2024 06/22/2024 Hemoglobin A1C 09/12/2024 06/14/2024, 11/18, [...] independent in ADLs upon discharge from hospital [facility] Bettina Ramirez RN Procedures Procedure Name Priority Date/Time Associated Diagnosis Comments CT GENERIC 08/18/2024 IMAGE GENERIC 08/18/2024 HEMOGLOBIN, GLYCOSYLATED Routine 10:34 AM PHLEBOTOMY LAB ASSISTANT THYROID STIM HORMONE TSH Routine 10:34 AM PHLEBOTOMY LAB ASSISTANT THYROXINE, FREE (FT4) Routine 06/14/2024 10:34 AM PHLEBOTOMY LAB ASSISTANT TRIIODOTHYRONINE TOTAL , TT-3 Routine 06/14/2024 10:34 AM PHLEBOTOMY LAB ASSISTANT C-REACTIVE PROTEIN Routine 06/14/2024 10 :34 AM PHLEBOTOMY LAB ASSISTANT CBC W/DIFF AUTOMATED Routine 06/14/2024 10:34 AM PHLEBOTOMY LAB ASSISTANT ALBUMIN URINE RANDOM W/CREATININE Routine 06/14/2024 10:34 AM PHLEBOTOMY LAB ASSISTANT COMPREHENSIVE METABOLIC PANEL Routine 06/14/2024 10:34 AM PHLEBOTOMY LAB ASSISTANT LIPID PANEL Routine 06/14/2024 10:34 AM PHLEBOTOMY LAB ASSISTANT PTH INTACT W/ CALCIUM Routine 06/14/2024 10:34 AM PHLEBOTOMY LAB ASSISTANT HEPATITIS C ANTIBODY Routine 07/01/2023 9:28 AM PHLEBOTOMY LAB ASSISTANT Primary hypertension History of CVA (cerebrovascular accident) History of prostate cancer CT ABD+PEL W CON STAT 05/01/2021 6:52 PM CDT COLONOSCOPY GENERIC (SCAN ORDER) Routine 08/21/2016 12:00 AM PHLEBOTOMY LAB ASSISTANT from Last 3 Months or Most Recently Relevant to Health Maintenance Results * CT GENERIC (08/18/2024) Anatomical Region Laterality Modality Other 08/18/2024 us [facility] Scanned SCANNING Final Resu lt * IMAGE GENERIC (08/18/2024) Anatomical Region Laterality Modality Other 08/18/2024 us [facility] Scanned SCANNING Final Resu lt * PTH INTACT W/ CALCIUM (06/14/2024 10:34 AM PHLEBOTOMY LAB ASSISTANT) PTH INTACT 41 16 - 77 pg/mL [facility] Comment: Interpretive Guide Intact PTH Calcium ------- Normal Parathyroid Normal Normal Hypoparathyroidism Low or Low Normal Low Hyperparathyroidism Primary Normal or High High Secondary High Normal or Low Tertiary High High Non-Parathyroid Hypercalcemia Low or Low Normal High CALCIUM S/P/B 9.6 8.6 - 10.3 mg/dL [facility] 06/14/2024 10:3 4 AM PHLEBOTOMY LAB ASSISTANT 06/14/2024 10:39 AM PHLEBOTOMY LAB ASSISTANT Narrative Resulting Agency Comment Performing Organization Information: Site ID: [place] Name: [facility] Address: [address] [place] [address] Director: Joselyn Tyson MD Ilene Paul MD LABORATORY Final Result JOÃO M[facility] [employer] [facility] [id number] [place] [address], MW * (ABNORMAL) HEMOGLOBIN, GLYCOSYLATED (06/14/2024 10:34 AM PHLEBOTOMY LAB ASSISTANT) HGB A1C 6.5(H) <5.7 % of total Hgb [facility] [place] Comment: For someone without known diabetes, [...] diabetes for children. 06/14/2024 10:3 4 AM PHLEBOTOMY LAB ASSISTANT 06/14/2024 10:39 AM PHLEBOTOMY LAB ASSISTANT Narrative Resulting Agency Comment Performing Organization Information: Site ID: Name: [facility] Address: [address] [place] [address] Director: Joselyn Tyson Ilene Paul MD LABORATORY Final Result Performing Organization Address City/[facility] Co de Phone Number [employer] [facility] [employer] [address], [place] * TRIIODOTHYRONINE TOTAL , TT-3 (06/14/2024 10:34 AM PHLEBOTOMY LAB ASSISTANT) T3 TOTAL 112 76 - 181 ng/dL [facility] 06/14/2024 10:3 4 AM PHLEBOTOMY LAB ASSISTANT 06/14/2024 10:39 AM PHLEBOTOMY LAB ASSISTANT Narrative Resulting Agency Comment Performing Organization Information: Site ID: [place] Name: [facility] Address: [address] [place] [address] Director: Joselyn Tyson MD Ilene Paul MD LABORATORY Final Result Performing Organization Address City/[facility]/ZIP Co de Phone Number [employer] [address] [address], * (ABNORMAL) ALBUMIN URINE RANDOM W/CREATININE (06/14/2024 10:34 AM PHLEBOTOMY LAB ASSISTANT) CREATININE RANDOM (U) 173 20 - 320 mg/dL [facility] MICROALBUMIN (U) 28.9 See Note: mg/dL [employer] Comment: Reference Range: Reference Range Not established Results verified by repeat analysis on dilution. MICROALB/CREAT 167(H) <30 mg/g creat [employer] Comment: The ADA defines abnormalities in albumin excretion as follows: Albuminuria Category Result (mg/g creatinine) Normal to Mildly increased <30 Moderately increased 30-299 Severely increased > OR = 300 The ADA recommends that at least two of three specimens collected within a 3-6 month period be abnormal before considering a patient to be within a diagnostic category. 06/14/2024 10:3 4 AM PHLEBOTOMY LAB ASSISTANT 06/14/2024 10:39 AM PHLEBOTOMY LAB ASSISTANT Narrative Resulting Agency Comment Performing Organization Information: Site ID: [id number] Name: [facility] Address: [address] [place] [id number] Director: Joselyn Tyson MD Ilene Paul MD URINE ORDERABLES Final Result JOÃO MENCHACA [facility] [address] [place], [place] [address] * COMPREHENSIVE METABOLIC PANEL (06/14/2024 10:34 AM PHLEBOTOMY LAB ASSISTANT) GLUCOSE 99 65 - 99 mg/dL [facility] Comment: Fasting reference interval BUN 15 7 - 25 mg/dL [employer] CREATININE S/P/B 1.00 0.70 - 1.35 mg/dL [facility] GFR ESTIMATE 82 > OR = 60 mL/min/1. 73m2 [employer] BUN CREATININE RATIO SEE NOTE: (calc) [facility] Comment: Not Reported: BUN and Creatinine are within reference range. SODIUM S/P/B 140 135 - 146 mmol/L [employer] POTASSIUM S/P/B 4.7 3.5 - 5.3 mmol/L [facility] CHLORIDE S/P/B 103 98 - 110 mmol/L [facility] CO2 29 20 - 32 mmol/L [facility] CALCIUM S/P/B 9.6 8.6 - 10.3 mg/dL [facility] TOTAL PROTEIN S/P/B 7.0 6.1 - 8.1 g/dL [facility] ALBUMIN S/P/B 4.2 3.6 - 5.1 g/dL [employer] GLOBULIN 2.8 1.9 - 3.7 g/dL (calc) [employer] ALBUMIN/GLOBULI N RATIO 1.5 1.0 - 2.5 (calc) [facility] BILIRUBIN TOTAL S/P/B 0.8 0.2 - 1.2 mg/dL [facility] ALKALINE PHOSPHATASE S/P/B 98 35 - 144 U/L [facility] AST 15 10 - 35 U/L [employer] ALT 19 9 - 46 U/L [employer] 06/14/2024 10:3 4 AM PHLEBOTOMY LAB ASSISTANT 06/14/2024 10:39 AM PHLEBOTOMY LAB ASSISTANT Narrative Resulting Agency Comment Performing Organization Information: Site ID: ID Name: [facility] Address: [facility] [place] [address] Director: Joselyn Tyson MD us Ilene Paul MD LABORATORY Final Result [facility] JONAS [address] [place] [address] * (ABNORMAL) LIPID PANEL (06/14/2024 10:34 AM PHLEBOTOMY LAB ASSISTANT) CHOLESTEROL 108 <200 mg/dL [facility] HDL 40 > OR = 40 mg/dL [facility] TRIGLYCERIDES 175(H) <150 mg/dL [facility] LDL (CALCULATED) 43 mg/dL (calc) [facility] Comment: Reference range: <100 Desirable range <100 mg/dL for primary prevention; <70 mg/dL for patients with CHD or diabetic patients with > or = 2 CHD risk factors. LDL-C is now calculated using the Zaida calculation, which is a validated novel method providing better accuracy than the Friedewald equation in the estimation of LDL-C. Martín PRASAD et al. PANCHITO. 2013;310(19): 1014-9504 (http://education.[employer].Qwiki/faq/BFO115) CHOL/HDL RATIO 2.7 <5.0 (calc) [facility] NON HDL CHOLESTEROL 68 <130 mg/dL (calc) [facility] Comment: For patients with diabetes plus 1 major ASCVD risk factor, treating to a non-HDL-C goal of <100 mg/dL (LDL-C of <70 mg/dL) is considered a therapeutic option. 06/14/2024 10:3 4 AM PHLEBOTOMY LAB ASSISTANT 06/14/2024 10:39 AM PHLEBOTOMY LAB ASSISTANT Narrative Resulting Agency Comment Performing Organization Information: Site ID: [id number] Name: [facility] Address: [address] [place] [address] Director: Joselyn Tyson MD Ilene Paul MD LABORATORY Final Result Performing Organization Address [facility] Co de Phone Number [employer] [facility] [employer] [address] [address], * C-REACTIVE PROTEIN (06/14/2024 10:34 AM PHLEBOTOMY LAB ASSISTANT) Pathologist [facility] C-REACTIVE PROTEIN 3.6 <8.0 mg/L [facility] 06/14/2024 10:3 4 AM PHLEBOTOMY LAB ASSISTANT 06/14/2024 10:39 AM PHLEBOTOMY LAB ASSISTANT Narrative Resulting Agency Comment Performing Organization Information: Site ID: [id number] Name: [facility] Address: [address] [place] [address] Director: Joselyn Tyson MD Ilene Paul MD LABORATORY Final Result Performing Organization Address City/[facility] Co de Phone Number [employer] [facility] [employer] [facility] [id number] [place] [address], * CBC W/DIFF AUTOMATED (06/14/2024 10:34 AM PHLEBOTOMY LAB ASSISTANT) WBC 7.9 3.8 - 10.8 Thousand/u L [facility] RBC 4.80 4.20 - 5.80 Million/uL [facility] HGB 13.8 13.2 - 17.1 g/dL [employer] HCT 42.5 38.5 - 50.0 % [employer] MCV 88.5 80.0 - 100.0 fL [facility] MCH 28.8 27.0 - 33.0 pg [facility] MCHC 32.5 32.0 - 36.0 g/dL [facility] Comment: For adults, a slight decrease in the calculated MCHC value (in the range of 30 to 32 g/dL) is most likely not clinically significant; however, it should be interpreted with caution in correlation with other red cell parameters and the patient's clinical condition. RDW 13.9 11.0 - 15.0 % [employer] PLT 364 140 - 400 Thousand/u L [employer] MPV 10.3 7.5 - 12.5 fL [employer] ABS. NEUTROPHILS 4,938 1,500 - 7,800 cells/uL [employer] ABS. LYMPHOCYTES 2,038 850 - 3,900 cells/uL [employer] [facility] ABS. MONOCYTES 695 200 - 950 cells/uL [employer] ABS. EOSINOPHILS 190 15 - 500 cells/uL [employer] ABS. BASOPHILS 40 0 - 200 cells/uL [facility] SEG NEUTROPHILS 62.5 % QUES AVST [facility] LYMPHOCYTES 25.8 % [employer] [facility] MONOCYTES 8.8 % [facility] EOSINOPHILS 2.4 % [facility] BASOPHILS 0.5 % [facility] 06/14/2024 10:3 4 AM PHLEBOTOMY LAB ASSISTANT 06/14/2024 10:39 AM PHLEBOTOMY LAB ASSISTANT Narrative Resulting Agency Comment Performing Organization Information: Site ID: ID Name: [facility] Address: [address] [place] [address] Director: Joselyn Tyson MD us Ilene Paul MD LABORATORY Final Result [employer] JONAS MAGDY MENCHACA [employer] JONAS [facility] [address] [place] [address], QP * THYROXINE, FREE (FT4) (06/14/2024 10:34 AM PHLEBOTOMY LAB ASSISTANT) FREE T4 1.2 0.8 - 1.8 ng/dL [employer] 06/14/2024 10:3 4 AM PHLEBOTOMY LAB ASSISTANT 06/14/2024 10:39 AM PHLEBOTOMY LAB ASSISTANT Narrative Resulting Agency Comment Performing Organization Information: Site ID: [id number] Name: [facility] Address: [address] [place] [address] Director: Joselyn Tyson MD Ilene Paul MD LABORATORY Final Result Performing Organization Address City/[facility]/ZIP Co de Phone Number [employer] [facility] [address], * THYROID STIM HORMONE TSH (06/14/2024 10:34 AM PHLEBOTOMY LAB ASSISTANT) TSH 1.77 0.40 - 4.50 mIU/L [facility] 06/14/2024 10:3 4 AM PHLEBOTOMY LAB ASSISTANT 06/14/2024 10:39 AM PHLEBOTOMY LAB ASSISTANT Narrative Resulting Agency Comment Performing Organization Information: Site ID: [id number] Name: [facility] Address: [address] [place] [phone] Director: Joselyn Tyson MD us Ilene Paul MD LABORATORY Final Result Performing Organization Address [facility] de Phone Number [employer] [place] [address], * HEPATITIS C ANTIBODY (07/01/2023 9:28 AM PHLEBOTOMY LAB ASSISTANT) HEPATITIS C AB NON-REACTI VE NON-REACT SHAZIA 07/01/2023 7:43 PM PHLEBOTOMY LAB ASSISTANT [facility] Comment: ANTIBODIES TO HCV NOT DETECTED. DOES NOT EXCLUDE THE POSSIBILITY OF EXPOSURE TO HCV. 07/01/2023 9:28 AM PHLEBOTOMY LAB ASSISTANT us Ilene Paul MD LABORATORY Final Result Performing Organization Address City/[facility]/ZIP Co de Phone Number [facility] [address] [place] [address], [id number] * CT ABD+PEL W CON (05/01/2021 6:52 [...] Final Result * COLONOSCOPY (08/21/2016 12:00 AM PHLEBOTOMY LAB ASSISTANT) 08/21/2016 [facility] Scanned SCANNING Final Resul t [facility]-ASHLEY MENDOZA from Last 3 Months or Most Recently Relevant to Health Maintenance Insurance [employer] Advance Directives * Full Code (Latest Code Status on File) Date Activated Date Inactivated Comments 04/29/2021 10:08 PM 05/03/2021 2:58 PM Care Teams Program Services Assistant Relationship Specialty Start Date End Date Ilene Paul MD [address] [address] PCP - General FAMILY PRACTICE 11/12/20
--- OUTSIDE RECORDS SUMMARY | 2024-08-30 01:02 | XMS_ITS | Encounter Summary ---
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 Not [...] [facility] - [place] [address] [place] [address] Ilene Paul MD [address] [facility] [address] [place] [address] 03/29/2025 8:00 AM CDT Office Visit [facility] Multispecialty Care - [facility] [address] [facility] [place] [address] Jorge Israel MD [address] [place] [address] documented as of this encounter Visit Diagnoses Not on filedocumented in this encounter Additional Health Concerns Infection Onset Date Last Indicated Resolved Time COVID-19 Rule Out 04/26/2021 04/26/2021 04/26/2021 7:39 PM CDT Assessment Noted Time PHQ-9 Depression Total Score: 0 02/21/20 10:42 AM CDT documented as of this encounter Care Teams Stockroom Attendant Relationship Specialty Start Date End Date Ilene Paul MD [address] [facility] [address] [place] [address] PCP - General FAMILY PRACTICE 11/12/20 documented as of this encounter
--- OUTSIDE RECORDS SUMMARY | 2024-08-30 01:02 | XMS_ITS | Encounter Summary ---
Author Organization [facility] - [facility] Address [address] [place] [address] Care Team Providers Care Client Engagement Specialist Name Role Phone Ilene Paul MD Primary Care Provider [phone] Encounter Details Date Type Department Care Team (Late st Contact Info) Description 08/29/2022 [employer] Message [facility] Patient Accounts [address] [place] [address] 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 Author Patient will return to prior living situation and remain independent in ADLs upon [facility] General Bettina Ramirez RN documented as of this encounter Visit Diagnoses Not on filedocumented in this encounter Additional Health Concerns Assessment Noted Time PHQ-9 Depression Total Score: 0 09/09/19 22 7:39 AM SPECTROSCOPIST documented as of this encounter Care Teams Client Engagement Specialist Relationship Specialty Start Date End Date Ilene Paul MD [address] [address] PCP - General FAMILY PRACTICE 11/12/20 documented as of this encounter
--- OUTSIDE RECORDS SUMMARY | 2024-08-30 01:02 | XMS_ITS | Encounter Summary ---
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 Not [...] Description 12/21/2024 8:20 AM CDT Office Visit [facility] Family [facility] - [place] [address] [place] [address] Ilene Paul MD [address] [facility] [address] [facility] [place] [address] 03/29/2025 8:00 AM CDT Office Visit [facility] [address] [place] [address] Jorge Israel MD [address] [facility] [address] [place] [address] documented as of this encounter Goals Goal Patient Goal Type Associated Problems Recent Progress Patient-Stated? 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
--- OUTSIDE RECORDS SUMMARY | 2024-08-30 01:02 | XMS_ITS | Encounter Summary ---
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 Not [...] Description 12/21/2024 8:20 AM CDT Office Visit [facility] Family [facility] - [place] [address] [place] [address] Ilene Paul MD [address] [facility] [address] [place] [address] 03/29/2025 8:00 AM CDT Office Visit [facility] - [facility] [address] [place] [address] Jorge Israel MD [address] [facility] [address] [place] [address] documented as of this encounter Goals Goal [...] Total Score: 0 09/09/19 22 7:39 AM REGULATORY AFFAIRS ASSOCIATE documented as of this encounter Care Teams Volunteer Assistant Relationship Specialty Start Date End Date Ilene Paul MD [address] [address] PCP - General FAMILY PRACTICE 11/12/20 documented as of this encounter
--- OUTSIDE RECORDS SUMMARY | 2024-08-30 01:02 | XMS_ITS | Encounter Summary ---
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 [address] [place] [phone] Jorge Israel MD [address] [facility] [address] [place] [address] documented as of this encounter Results * CORONAVIRUS (COVID 19) (04/26/2021 9:30 AM CDT) SPEC DESCRIPTION NASAL 04/26/20 11:36 AM CDT [facility] CORONAVIRUS SARS COV 2 PCR (RESP) NEGATIVE NEGATIVE 04/26/2021 7:38 PM CDT [facility] Comment: THE SARS-CoV-2 TEST HAS BEEN AUTHORIZED BY THE FDA UNDER AN EUA FOR USE BY AUTHORIZED LABORATORIES. PERFORMED BY NUCLEIC ACID AMPLIFICATION PCR FIRST TEST NO 04/26/2021 11:36 AM CDT [facility] EMPLOYED IN HEALTHCARE NO 04/26/2021 11:36 AM CDT [facility] SYMPTOMATIC DEFINED BY CDC NO 04/26/2021 11:36 AM CDT [facility] HOSPITALIZATION STATUS NO 04/26/2021 11:36 AM CDT [facility] PATIENT IN ICU NO 04/26/2021 11:36 AM CDT [facility] RESIDENT OF CONGREGATE CARE NO 04/26/2021 11:36 AM CDT [facility] NASAL STRUCTURE / Unknown 04/26/2021 9:30 AM CDT Chacho Herman MD MICROBIOLOGY - GENERAL ORDERABLE S Final Result [facility] [address] [place] [address], [place] [phone] [facility] [address] [place] [address], [place] [phone] documented in this encounter Visit Diagnoses Diagnosis Preop examination- Primary Preoperative examination, unspecified documented in this encounter Additional Health Concerns Infection Onset Date Last Indicated Resolved Time COVID-19 Rule Out 04/26/2021 04/26/2021 04/26/2021 7:39 PM CDT Assessment Noted Time PHQ-9 Depression Total Score: 0 04/04/20 7:54 AM CDT documented as of this encounter Care Teams Waste And Batting Waste Chopper Relationship Specialty Start Date End Date Ilene Paul MD [address] [facility] [address] [place] [address] PCP - General FAMILY PRACTICE 11/12/20 documented as of this encounter
--- NOTE | 2024-08-30 08:22 | WPDHPUPDATE1 ---
History and Physical Update Update Date/Time: 08/30/24 08:22 History and Physical has been reviewed, including an updated exam of the patient. There are NO changes in the patient's condition. Risks, benefits, and alternatives have been discussed and questions answered. Patient agrees to proceed with procedure.
[2024-08-30] MEDS: LACTATED RINGERS 1,000 ML 30 ML IV CONT (09:05)
--- NOTE | 2024-08-30 09:49 | P.PNAN_ITS ---
Anes - Initial Pre Proc Eval Procedure: Operation Date: 08/30/24 10:30 Proposed Procedures p Transurethral Resection of Bladder Tumor - Pradeep Zamora MD Date/Time: 08/30/24 09:49 Surgeon: Pradeep Zamora MD Pre Op Diagnosis: gross hematuria Patient Data Age: 69 Gender: M Height: 1.88 m Weight: 110.6 kg Last Vital Signs Temp 36.2 C L 08/30/24 08:45 Pulse 82 08/30/24 08:45 Resp 20 08/30/24 08:45 BP 120/88 08/30/24 08:45 Pulse Ox 98 08/30/24 08:45 O2 Del Method Room Air 08/30/24 08:45 Allergies Allergy/AdvReac Type Severity Reaction Status Date / Time No Known Allergies Allergy Unverified 08/30/24 08:53 Home Medications ?Medication ?Instructions ?Recorded ?Confirmed ?Type atorvastatin 40 mg tablet 40 mg PO DAILY #90 tabs 02/16/20 08/30/24 Rx aspirin 81 mg tablet,delayed 81 mg PO DAILY 08/22/24 08/30/24 History release (Adult Aspirin Regimen) cholecalciferol (vitamin D3) 1,250 1,250 mcg PO WEEKLY 08/22/24 08/30/24 History mcg (50,000 unit) capsule dapagliflozin propanediol 10 mg 10 mg PO DAILY 08/22/24 08/30/24 History tablet (Farxiga) ferrous sulfate 325 mg (65 mg 325 mg PO DAILY 08/22/24 08/30/24 History iron) tablet (FeroSul) lisinopril 10 1 tablet PO BID 08/22/24 08/30/24 History mg-hydrochlorothiazide 12.5 mg tablet metformin 500 mg tablet 500 mg PO HS 08/22/24 08/30/24 History omeprazole 20 mg capsule,delayed 20 mg PO BID 08/22/24 08/30/24 History release sulfamethoxazole 800 1 tablet PO Q12H 08/22/24 08/30/24 History mg-trimethoprim 160 mg tablet vilazodone 10 mg tablet 10 mg PO QAM 08/22/24 08/30/24 History Patient hx anesthesia problems: none Family hx anesthesia problems: none Results Review: All pre-operative results and documents have been reviewed as part of the pre- operative evaluation. PMFSH Past Medical History Medical History Cerebrovascular disease Family History Family History Other No problems noted. Father No problems noted. Mother Diabetes mellitus Other No problems noted. Father Patient's father is in good health Sibling Patient's sister is in good health Patient's brother is in good health Mother Family history of diabetes mellitus in first degree relative Diabetes mellitus Other Hypertension Social History Social History (System 02/03/20 @ 09:25 by Roxi Trejo) Smoking status: Never smoker Alcohol intake: never Living arrangements: with family Additional living arrangements comments: Spiritual care concerns: No Anes - Eval Final PreProcedure Day of Procedure 08/30/24 09:49 Patient weight: obese Heart: regular rate and rhythm Lungs: clear to auscultation Airway: Mallampati scale class II Neurological: alert and oriented Last oral intake: >/= 8 hours ASA classification: III Emergent: no Anesthetic plan: proceed Anesthesia type and monitoring: general LMA and standard monitoring Results Review: All pre-operative results and documents have been reviewed as part of the pre- operative evaluation. Informed Consent: The patient's anesthetic plan and its attendant risks and benefits were discussed with the patient/family/POA. Questions were solicited and answers provided to the satisfaction of the patient/family/POA.
[2024-08-30] MEDS: ceFAZolin 2 GM/D5W 50 ML 2 GM/50 ML BAG IVPB (10:00)
[2024-08-30 10:10] LABS: Glucose Point of Care 96 mg/dl (65-105)
[2024-08-30] MEDS: LIDOCAINE 2% GEL UROJET 10 ML PKG MUCOUS MEM (10:16)
--- NOTE | 2024-08-30 10:42 | P.OP_ITS ---
Procedure Note - Detailed Date of Procedure 08/30/24 Pre-op Diagnosis gross hematuria Bladder tumor Post-op Diagnosis Same Procedure Performed Cystoscopy, transurethral resection of large bladder tumor 5 cm area, complex Torres catheter placement Surgeon Pradeep Zamora MD Anesthesia General Findings Entire surface area encompasses 5 cm. Location is at dome of bladder Description of Procedure Patient was taken to the operative suite correctly identified. Once anesthesia was obtained was placed in dorsal lithotomy position prepped draped sterile. Twenty-four Slovenian sheath was inserted bladder. He has a tumor located at the dome of the bladder. The entire surface area with the erythema around it is about 5 cm. This was resected with the base sent separately. We fulgurated the edges in the base. There appeared to be fairly good hemostasis. Given the size of the tumor I did place an [address] with 15 cc in the balloon. This will CBI will be weaned to off in recovery room. He will be discharged home with Torres catheter and have it removed on . He will call for path results in 1 week. This completes dictation. Please send a copy of op note to my office. Estimated Blood Loss 10 Drains No Packing No Pathology Yes Complications No immediate complications Condition Stable Disposition PACU
--- NOTE | 2024-08-30 13:01 | SUR.PHASEII ---
DR. LACEY NOTIFIED RE: URINE NOW DARK PINK; NO CLOTS. DR. LACEY INSTRUCTED TO RESUME CBI FOR 15 MINUTES.
== END 2024-08-30 13:35 | disposition home or self-care (01) ==
PROVIDERS: PCP Family Medicine Sports Medicine; Visit Provider Urology
PROC: 0TBB8ZZ Excision of Bladder, Via Natural or Artificial Opening Endoscopic (ICD-10-PCS; CPT 52235; principal; 2024-08-30 10:30)
DX: C67.1 Malignant neoplasm of dome of bladder (principal); R31.0 Gross hematuria; I10 Essential (primary) hypertension; G47.30 Sleep apnea, unspecified; Z79.82 Long term (current) use of aspirin; Z79.84 Long term (current) use of oral hypoglycemic drugs; Z79.891 Long term (current) use of opiate analgesic; Z98.890 Other specified postprocedural states; Z86.79 Personal history of other diseases of the circulatory system; Z85.46 Personal history of malignant neoplasm of prostate; Z82.49 Family history of ischemic heart disease and other diseases of the circulatory system
CPT/HCPCS: 52235; 82948; 88305; 88342; J0690; J2250; J2270; J2371; J2704; J7120

== ENCOUNTER 2024-08-31 02:43 | Observation (INO) | payer OTHER, SELFPAY ==
[2024-08-31] VITALS (18 sets, daily range): BP systolic 109–150; BP diastolic 60–89; PULSE 72–122; RESP 13–24; TEMP 36.7–37; O2SAT 91–97; BMI 31.6
--- NOTE | ~2024-08-31 | CT_ITS ---
Non-contrast CT scan of the Abdomen and Pelvis Clinical indication: Bladder distention Technique: 2.5 mm axial scans were obtained through the abdomen and pelvis without intravenous or or al contrast. Dose reduction technique was used on this scan by utilizing automated exposure control a nd iterative reconstruction technique. The dose-length product (DLP) was 1497.99 mGy-cm. COMPARISON: 08/18/2024 Findings: Images through the lung bases reveal no abnormalities. There is no evidence of renal or ureteral calculi. The kidneys and the ureters are nondilated. Bilate ral renal cysts are present. The liver, spleen, pancreas, gallbladder, and adrenals appear normal. There are atherosclerotic calci fications of the aorta. There is no evidence of bowel obstruction. Images through the pelvis were performed. There is no evidence of ascites or lymphadenopathy. Urinary bladder is collapsed runner Torres catheter. Suspected wall thickening and perivesical inflammatory c hange despite decompression. No pelvic mass seen otherwise. No ascites. Impression: Urinary bladder is decompressed with Torres catheter in place. Suspected cystitis. Correlate clinicall y and with urinalysis. Reviewed, dictated and finalized at location M. LING MACHINE OPERATOR Impression: Urinary bladder is decompressed with Torres catheter in place. Suspected cystiti s. Correlate clinically and with urinalysis.
--- OUTSIDE RECORDS SUMMARY | 2024-08-31 02:46 | XMS_ITS | Clinical Summary ---
Author Organization [facility] Address [address] [place] [address] Care Team Providers Care Casting Carrier Name Role Phone Ilene Paul MD Primary Care Provider [phone] Allergies No known active allergies Medications dapagliflozin (FARXIGA) 10 MG tabletIndication s:Mixed hyperlipidemia,T ype 2 diabetes mellitus without complication, without long-term current use of insulin ([facility]) Take 1 tablet (10 mg total) by mouth daily. 90 tablet 3 01/01/20 23 Active Ferrous Sulfate (IRON) 325 (65 Fe) MG tabletIndication s:Microcytic anemia Take 325 mg by mouth daily with breakfast. 90 tablet 3 09/23/19 24 Active metFORMIN (GLUCOPHAGE) 500 MG tabletIndication s:Mixed hyperlipidemia,T ype 2 diabetes mellitus without complication, without long-term current use of insulin ([facility]) Take 1 tablet by mouth once [...] of vertebral artery, unspecified blood vessel laterality ([facility]) TAKE 1 TABLET BY MOUTH NIGHTLY AT BEDTIME 90 tablet 08/23/19 25 Active atorvastatin (LIPITOR) 40 MG tabletIndication s:Gastroesophage al reflux disease without esophagitis,Ingrid al physical exam,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, unspecified blood vessel laterality ([facility]) TAKE 1 TABLET BY MOUTH NIGHTLY [...] Diagnosed Date Muscle spasticity 04/07/2024 Hypercoagulable state ([facility]) 09/23/19 24 Type 2 diabetes mellitus wit hout complication, without long-term current use of insulin ([facility]) 09/23/2023 Spinal stenosis of lumbar re 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 06/19/2023 Other intervertebral disc displacement, lumbar r egion 06/19/2023 History of CVA (cerebrovascular accident) 2022 History of prostate cancer 04/01/2023 History of DVT (deep vein thrombosis) 04/01/2023 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 ([facility]) 10/09/2022 Hemiplegia and hemiparesis f 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 ([facility]) 07/28/2022 Status post prostatectomy 04/30/2021 Gastroesophageal reflux disease without esophagi tis 11/14/2020 Hypertension Hyperlipidemia GERD (gastroesophageal reflux disease) Overview (05/02/2021): No date...40 years now Obesity Resolved Problems Problem Noted Date Diagnosed Date Resolved Date DVT (deep venous thrombosis) ([facility]) 09/22/2022 04/01/2023 Primary prostate malignancy ([facility]) 04/12/20 21 09/23/2023 Annual physical exam 11/14/2020 021 Cerebrovascular accident (CV A) due to thrombosis ([facility]) 11/14/2020 04/01/2023 Encounters Date Type Department Care Team Description 08/18/2024 Scan [facility] Scanned, Doc Med Group CT (SCAN); Image (SCAN) 08/10/2024 Orders Only [facility] Family and Sports Medicine - [place] [address] [place] [address] Ilene Paul MD 06/22/2024 8:20 AM FINANCIAL COORDINATOR Office Visit [facility] Family [facility] Sports [facility] [address] [place] [address] Ilene Paul MD Follow Up 06/22/2024 Travel 06/14/2024 Orders Only [facility] Family [facility] Sports [facility] [address] [place] [address] Ilene Paul MD 06/07/2024 Scan [facility] Scanned, [facility] 05/31/2024 Therapy Plan [facility] Physical Therapy 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 Not on file Last Filed Vital Signs Vital Sign Reading Time Taken Comments Blood Pressure 124/64 06/22/2024 8:33 AM FINANCIAL COORDINATOR Pulse 70 06/22/2024 8:33 AM FINANCIAL COORDINATOR Temperature 36.7 C (98.1 F) 06/22/2024 8:33 AM FINANCIAL COORDINATOR Respiratory Rate 16 06/22/2024 8:33 AM FINANCIAL COORDINATOR Oxygen Saturation 98% 06/22/2024 8:33 AM FINANCIAL COORDINATOR Inhaled Oxygen Concentration - - Weight 112.5 kg (248 lb) 06/22/2024 8:33 AM FINANCIAL COORDINATOR Height 188 cm (6' 2 ) 06/22/2024 8:33 AM FINANCIAL COORDINATOR Body Mass Index 31.84 06/22/2024 8:33 AM FINANCIAL COORDINATOR Plan of Treatment Upcoming Encounters Date Type Department Care Team (Late st Contact Info) Description 12/21/2024 8:20 AM CDT Office Visit [facility] Family and [place] Medicine [place] [place] [address] Ilene Paul MD [address] [place] [address] 03/29/2025 8:00 AM CDT Office Visit [facility] Medical Group Multispecialty Care - [address] [place] [phone] Jorge Israel MD 3 [facility] [address] [place] [address] Health Maintenance Due Date Last Done Comments Pneumococcal Vaccine: 65+ Years (1 of 2 - PCV) 1962 Diabetes: Retinopathy Eye Exam 1974 RSV Immunization or 60+ Years (1 - Risk 60-74 years 1-dose series) 2016 PHQ-2 (Physician [place]) 07/20/2024 06/22/2024 Hemoglobin A1C 09/12/2024 06/14/2024, 11/18, [...] independent in ADLs upon discharge from hospital [facility] Bettina Ramirez RN Procedures Procedure Name Priority Date/Time Associated Diagnosis Comments CT GENERIC 08/18/2024 IMAGE GENERIC 08/18/2024 HEMOGLOBIN, GLYCOSYLATED Routine 10:34 AM FINANCIAL COORDINATOR THYROID STIM HORMONE TSH Routine 10:34 AM FINANCIAL COORDINATOR THYROXINE, FREE (FT4) Routine 06/14/2024 10:34 AM FINANCIAL COORDINATOR TRIIODOTHYRONINE TOTAL , TT-3 Routine 06/14/2024 10:34 AM FINANCIAL COORDINATOR C-REACTIVE PROTEIN Routine 06/14/2024 10 :34 AM FINANCIAL COORDINATOR CBC W/DIFF AUTOMATED Routine 06/14/2024 10:34 AM FINANCIAL COORDINATOR ALBUMIN URINE RANDOM W/CREATININE Routine 06/14/2024 10:34 AM FINANCIAL COORDINATOR COMPREHENSIVE METABOLIC PANEL Routine 06/14/2024 10:34 AM FINANCIAL COORDINATOR LIPID PANEL Routine 06/14/2024 10:34 AM FINANCIAL COORDINATOR PTH INTACT W/ CALCIUM Routine 06/14/2024 10:34 AM FINANCIAL COORDINATOR HEPATITIS C ANTIBODY Routine 07/01/2023 9:28 AM FINANCIAL COORDINATOR Primary hypertension History of CVA (cerebrovascular accident) History of prostate cancer CT ABD+PEL W CON STAT 05/01/2021 6:52 PM CDT COLONOSCOPY GENERIC (SCAN ORDER) Routine 08/21/2016 12:00 AM FINANCIAL COORDINATOR from Last 3 Months or Most Recently Relevant to Health Maintenance Results * CT GENERIC (08/18/2024) Anatomical Region Laterality Modality Other 08/18/2024 us [facility] Scanned SCANNING Final Resu lt * IMAGE GENERIC (08/18/2024) Anatomical Region Laterality Modality Other 08/18/2024 us [facility] Scanned SCANNING Final Resu lt * PTH INTACT W/ CALCIUM (06/14/2024 10:34 AM FINANCIAL COORDINATOR) PTH INTACT 41 16 - 77 pg/mL [facility] Comment: Interpretive Guide Intact PTH Calcium ------- Normal Parathyroid Normal Normal Hypoparathyroidism Low or Low Normal Low Hyperparathyroidism Primary Normal or High High Secondary High Normal or Low Tertiary High High Non-Parathyroid Hypercalcemia Low or Low Normal High CALCIUM S/P/B 9.6 8.6 - 10.3 mg/dL [facility] 06/14/2024 10:3 4 AM FINANCIAL COORDINATOR 06/14/2024 10:39 AM FINANCIAL COORDINATOR Narrative Resulting Agency Comment Performing Organization Information: Site ID: [place] Name: [facility] Address: [address] [place] [address] Director: Joselyn Tyson MD Ilene Paul MD LABORATORY Final Result JOÃO MENCHACA [facility] [address] [place] [address], FZ * (ABNORMAL) HEMOGLOBIN, GLYCOSYLATED (06/14/2024 10:34 AM FINANCIAL COORDINATOR) HGB A1C 6.5(H) <5.7 % of total Hgb [facility] [place] Comment: For someone without known diabetes, [...] diabetes for children. 06/14/2024 10:3 4 AM FINANCIAL COORDINATOR 06/14/2024 10:39 AM FINANCIAL COORDINATOR Narrative Resulting Agency Comment Performing Organization Information: Site ID: Name: [facility] Address: [address] [place] [address] Director: Joselyn Tyson Ilene Paul MD LABORATORY Final Result Performing Organization Address City/[facility] Co de Phone Number [facility] [facility] [employer] [address], [place] * TRIIODOTHYRONINE TOTAL , TT-3 (06/14/2024 10:34 AM FINANCIAL COORDINATOR) T3 TOTAL 112 76 - 181 ng/dL [facility] 06/14/2024 10:3 4 AM FINANCIAL COORDINATOR 06/14/2024 10:39 AM FINANCIAL COORDINATOR Narrative Resulting Agency Comment Performing Organization Information: Site ID: [place] Name: [facility] Address: [address] [place] [address] Director: Joselyn Tyson MD Ilene Paul MD LABORATORY Final Result Performing Organization Address City/[facility]/ZIP Co de Phone Number [facility] [address] [address], * (ABNORMAL) ALBUMIN URINE RANDOM W/CREATININE (06/14/2024 10:34 AM FINANCIAL COORDINATOR) CREATININE RANDOM (U) 173 20 - 320 mg/dL [facility] MICROALBUMIN (U) 28.9 See Note: mg/dL [facility] Comment: Reference Range: Reference Range Not established Results verified by repeat analysis on dilution. MICROALB/CREAT 167(H) <30 mg/g creat [facility] Comment: The ADA defines abnormalities in albumin excretion as follows: Albuminuria Category Result (mg/g creatinine) Normal to Mildly increased <30 Moderately increased 30-299 Severely increased > OR = 300 The ADA recommends that at least two of three specimens collected within a 3-6 month period be abnormal before considering a patient to be within a diagnostic category. 06/14/2024 10:3 4 AM FINANCIAL COORDINATOR 06/14/2024 10:39 AM FINANCIAL COORDINATOR Narrative Resulting Agency Comment Performing Organization Information: Site ID: [id number] Name: João Padron Address: [address] [place] [address] Director: Joselyn Tyson MD Ilene Paul MD URINE ORDERABLES Final Result JOÃO MENCHACA [facility] [address] [place], [place] [address] * COMPREHENSIVE METABOLIC PANEL (06/14/2024 10:34 AM FINANCIAL COORDINATOR) GLUCOSE 99 65 - 99 mg/dL [facility] Comment: Fasting reference interval BUN 15 7 - 25 mg/dL [facility] CREATININE S/P/B 1.00 0.70 - 1.35 mg/dL [facility] GFR ESTIMATE 82 > OR = 60 mL/min/1. 73m2 [facility] BUN CREATININE RATIO SEE NOTE: (calc) [facility] Comment: Not Reported: BUN and Creatinine are within reference range. SODIUM S/P/B 140 135 - 146 mmol/L [facility] POTASSIUM S/P/B 4.7 3.5 - 5.3 mmol/L [facility] CHLORIDE S/P/B 103 98 - 110 mmol/L [facility] CO2 29 20 - 32 mmol/L [facility] CALCIUM S/P/B 9.6 8.6 - 10.3 mg/dL [facility] TOTAL PROTEIN S/P/B 7.0 6.1 - 8.1 g/dL [facility] ALBUMIN S/P/B 4.2 3.6 - 5.1 g/dL [facility] GLOBULIN 2.8 1.9 - 3.7 g/dL (calc) [facility] ALBUMIN/GLOBULI N RATIO 1.5 1.0 - 2.5 (calc) [facility] BILIRUBIN TOTAL S/P/B 0.8 0.2 - 1.2 mg/dL [facility] ALKALINE PHOSPHATASE S/P/B 98 35 - 144 U/L [facility] AST 15 10 - 35 U/L [facility] ALT 19 9 - 46 U/L [facility] 06/14/2024 10:3 4 AM FINANCIAL COORDINATOR 06/14/2024 10:39 AM FINANCIAL COORDINATOR Narrative Resulting Agency Comment Performing Organization Information: Site ID: [place] Name: [facility] Address: [facility] [address] [facility] [place] [address] Director: Joselyn Tyson MD us Ilene Paul MD LABORATORY Final Result [facility] JONAS [address] [place], [place] [address] * (ABNORMAL) LIPID PANEL (06/14/2024 10:34 AM FINANCIAL COORDINATOR) CHOLESTEROL 108 <200 mg/dL [facility] HDL 40 > OR = 40 mg/dL [facility] TRIGLYCERIDES 175(H) <150 mg/dL [facility] LDL (CALCULATED) 43 mg/dL (calc) [facility] Comment: Reference range: <100 Desirable range <100 mg/dL for primary prevention; <70 mg/dL for patients with CHD or diabetic patients with > or = 2 CHD risk factors. LDL-C is now calculated using the Zaida calculation, which is a validated novel method providing better accuracy than the Friedewald equation in the estimation of LDL-C. Martín PRASAD et al. PANCHITO. 2013;310(19): 1562-8021 (http://education.Peecho.Socius/faq/AKB344) CHOL/HDL RATIO 2.7 <5.0 (calc) [facility] NON HDL CHOLESTEROL 68 <130 mg/dL (calc) [facility] Comment: For patients with diabetes plus 1 major ASCVD risk factor, treating to a non-HDL-C goal of <100 mg/dL (LDL-C of <70 mg/dL) is considered a therapeutic option. 06/14/2024 10:3 4 AM FINANCIAL COORDINATOR 06/14/2024 10:39 AM FINANCIAL COORDINATOR Narrative Resulting Agency Comment Performing Organization Information: Site ID: [id number] Name: [facility] Address: [address] [place] [address] Director: Joselyn Tyson MD Ilene Paul MD LABORATORY Final Result Performing Organization Address [facility] Co de Phone Number [employer] [facility] [employer] [address] [address], * C-REACTIVE PROTEIN (06/14/2024 10:34 AM FINANCIAL COORDINATOR) Pathologist [facility] C-REACTIVE PROTEIN 3.6 <8.0 mg/L [facility] 06/14/2024 10:3 4 AM FINANCIAL COORDINATOR 06/14/2024 10:39 AM FINANCIAL COORDINATOR Narrative Resulting Agency Comment Performing Organization Information: Site ID: [id number] Name: [facility] Address: [address] [place] [address] Director: Joselyn Tyson MD Ilene Paul MD LABORATORY Final Result Performing Organization Address City/[facility] Co de Phone Number [employer] [facility] [employer] [id number] [place] [address], * CBC W/DIFF AUTOMATED (06/14/2024 10:34 AM FINANCIAL COORDINATOR) WBC 7.9 3.8 - 10.8 Thousand/u L [facility] RBC 4.80 4.20 - 5.80 Million/uL [facility] HGB 13.8 13.2 - 17.1 g/dL [facility] HCT 42.5 38.5 - 50.0 % [facility] MCV 88.5 80.0 - 100.0 fL [facility] MCH 28.8 27.0 - 33.0 pg [facility] MCHC 32.5 32.0 - 36.0 g/dL [facility] Comment: For adults, a slight decrease in the calculated MCHC value (in the range of 30 to 32 g/dL) is most likely not clinically significant; however, it should be interpreted with caution in correlation with other red cell parameters and the patient's clinical condition. RDW 13.9 11.0 - 15.0 % [facility] PLT 364 140 - 400 Thousand/u L [facility] MPV 10.3 7.5 - 12.5 fL [facility] ABS. NEUTROPHILS 4,938 1,500 - 7,800 cells/uL [facility] ABS. LYMPHOCYTES 2,038 850 - 3,900 cells/uL [facility] ABS. MONOCYTES 695 200 - 950 cells/uL [facility] ABS. EOSINOPHILS 190 15 - 500 cells/uL [facility] ABS. BASOPHILS 40 0 - 200 cells/uL [facility] SEG NEUTROPHILS 62.5 % [employer]UES [employer] [facility] LYMPHOCYTES 25.8 % [facility] MONOCYTES 8.8 % [facility] EOSINOPHILS 2.4 % [facility] BASOPHILS 0.5 % [facility] 06/14/2024 10:3 4 AM FINANCIAL COORDINATOR 06/14/2024 10:39 AM FINANCIAL COORDINATOR Narrative Resulting Agency Comment Performing Organization Information: Site ID: [place] Name: [employer] [facility] Address: [address] [place] [address] Director: Joselyn Tyson MD us Ilene Paul MD LABORATORY Final Result [facility] JONAS MAGDY MENCHACA [facility] [address] [place] [address], YF * THYROXINE, FREE (FT4) (06/14/2024 10:34 AM FINANCIAL COORDINATOR) FREE T4 1.2 0.8 - 1.8 ng/dL [facility] 06/14/2024 10:3 4 AM FINANCIAL COORDINATOR 06/14/2024 10:39 AM FINANCIAL COORDINATOR Narrative Resulting Agency Comment Performing Organization Information: Site ID: [id number] Name: [facility] Address: [address] [place] [phone] Director: Joselyn Tyson MD Ilene Paul MD LABORATORY Final Result Performing Organization Address City/[facility]/ZIP Co de Phone Number [facility] [place] [address], * THYROID STIM HORMONE TSH (06/14/2024 10:34 AM FINANCIAL COORDINATOR) TSH 1.77 0.40 - 4.50 mIU/L [facility] [employer] 06/14/2024 10:3 4 AM FINANCIAL COORDINATOR 06/14/2024 10:39 AM FINANCIAL COORDINATOR Narrative Resulting Agency Comment Performing Organization Information: Site ID: [id number] Name: [employer] [place] Address: [address] [place] [address] Director: Joselyn Tyson MD us Ileen Paul MD LABORATORY Final Result Performing Organization Address [facility] de Phone Number [facility] [place] [address], * HEPATITIS C ANTIBODY (07/01/2023 9:28 AM FINANCIAL COORDINATOR) HEPATITIS C AB NON-REACTI VE NON-REACT SHAZIA 07/01/2023 7:43 PM FINANCIAL COORDINATOR [facility] Comment: ANTIBODIES TO HCV NOT DETECTED. DOES NOT EXCLUDE THE POSSIBILITY OF EXPOSURE TO HCV. 07/01/2023 9:28 AM FINANCIAL COORDINATOR us Ilene Paul MD LABORATORY Final Result Performing Organization Address City/[facility]/ZIP Co de Phone Number [facility] [address] [place] [address], [phone] * CT ABD+PEL W CON (05/01/2021 6:52 [...] Final Result * COLONOSCOPY (08/21/2016 12:00 AM FINANCIAL COORDINATOR) 08/21/2016 [facility] Scanned SCANNING Final Resul t [facility] MENDO[facility] from Last 3 Months or Most Recently Relevant to Health Maintenance Insurance [employer] Advance Directives * Full Code (Latest Code Status on File) Date Activated Date Inactivated Comments 04/29/2021 10:08 PM 05/03/2021 2:58 PM Care Teams Casting Carrier Relationship Specialty Start Date End Date Ilene Paul MD [address] [address] PCP - General FAMILY PRACTICE 11/12/20
--- OUTSIDE RECORDS SUMMARY | 2024-08-31 02:46 | XMS_ITS | Encounter Summary ---
Author Organization [facility] Address [facility]ly [facility] [place] [address] Care Team Providers Care Account Technician Name Role Phone Ilene Paul MD Primary Care Provider [phone] Encounter Details Date Type Department Care Team (Late st Contact Info) Description 04/12/2024 [employer] Message Enc [facility] Medical Group Multispecialty Care - [facility] [address] [facility], [address] [place] [phone] Common Curriculum, [facility] Provider Appt Social History Tobacco Use Types [...] 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 [address] [place] [address] 03/29/2025 8:00 AM CDT Office Visit [facility] Multispecialty Care - [facility] [address] [facility] [place] [phone] Jorge Israel MD [address] [place] [address] documented as of this encounter Goals Goal [...] documented as of this encounter Care Teams Account Technician Relationship Specialty Start Date End Date Ilene Paul MD [address] [phone] PCP - General FAMILY PRACTICE 11/12/20 documented as of this encounter
--- OUTSIDE RECORDS SUMMARY | 2024-08-31 02:46 | XMS_ITS | Encounter Summary ---
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 Not [...] Description 12/21/2024 8:20 AM CDT Office Visit [facility] Family and Sports Medicine - [place] [address] [place] [address] Ilene Paul MD [address] [place] [address] 03/29/2025 8:00 AM CDT Office Visit [facility] Multispecialty Care - [facility] [address] [facility] [place] [phone] Jorge Israel MD [address] [place] [address] documented as of this encounter Goals Goal [...] documented as of this encounter Care Teams Clinic Physician Director Relationship Specialty Start Date End Date Ilene Paul MD [address] [address] PCP - General FAMILY PRACTICE 11/12/20 documented as of this encounter
--- OUTSIDE RECORDS SUMMARY | 2024-08-31 02:46 | XMS_ITS | Encounter Summary ---
Author Organization [facility] Address [address] [place] [address] Care Team Providers Care Carpenter Prototype Name Role Phone Basilio Mao MD Primary Care Provider [phone] Encounter Details Date Type Department Care Team (Late st Contact Info) Description 05/06/2023 Lab Requisition [facility] - DermPath Lab [address] [place] [address] Donnie Dyson MD [facility] DERMATOLOGY [address] [place] [phone] Neoplasm of uncertain behavior of skin [...] AM CDT) Case Report Dermatopathology Report Case: [id number] Authorizing Provider: Donnie Dyson MD Collected: 05/06/2023 03:33 AM Ordering Location: [facility] DermPath Lab Received: 05/07/2023 11:07 AM Pathologist: [...] characteristic determined by the Dermatopathology Laboratory at [facility], directed by Dr. Lore Vee. These tests need not be, and therefore are not, approved by the [place] Food and Drug Administration. The tests are used for clinical purposes. Billing Codes Specimen Charges Stain Charges 62875 1 1:46 PM CDT DERMATOPATHOLOGY LABORATORY Embedded Images 1:46 PM CDT DERMATOPATHOLOGY LABORATORY Pathology/Cytolo gy TISSUE SPECIMEN FROM SKIN / Unknown 05/06/2023 3:33 AM CDT 05/07/2023 11:07 AM CDT Donnie Dyson MD LAB - PATHOLOGY/CYTO LOGY ORDERABLES DERMATOPATHOLOGY LABORATORY [facility] - Department of Dermatology [address], [address] [phone] documented in this encounter Visit Diagnoses Diagnosis Neoplasm of uncertain behavior of skin documented in this encounter Care Teams Carpenter Prototype Relationship Specialty Start Date End Date Basilio Mao MD [address] [place] [address] PCP - General 08/25/16 documented as of this encounter
--- OUTSIDE RECORDS SUMMARY | 2024-08-31 02:46 | XMS_ITS ---
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 06/19/2023 Other intervertebral disc displacement, lumbar r egion 06/19/2023 History of CVA (cerebrovascular accident) 2022 History of prostate cancer 04/01/2023 History of DVT (deep vein thrombosis) 04/01/2023 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 Past Plans Radiation Treatments * No radiation treatments are documented for this patient in [facility]. Treatments may have been administered in another system. Resolved Problems Problem Noted Date Diagnosed Date Resolved Date DVT (deep venous thrombosis) ([facility]) 09/22/2022 04/01/2023 Primary prostate malignancy ([facility]) 04/12/2009/23/2023 Annual physical exam 11/14/2020 021 Cerebrovascular accident (CV A) due to thrombosis ([facility]) 11/14/2020 04/01/2023
--- OUTSIDE RECORDS SUMMARY | 2024-08-31 02:47 | XMS_ITS | Encounter Summary ---
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 [address] [place] [address] 03/29/2025 8:00 AM CDT Office Visit [facility] - [facility] [address] [facility] [place] [address] Jorge Israel MD [address] [facility] [address] [place] [address] documented as of this encounter Goals Goal [...] documented as of this encounter Care Teams Balance Staff Inspector Relationship Specialty Start Date End Date Ilene Paul MD [address] [address] PCP - General FAMILY PRACTICE 11/12/20 documented as of this encounter
--- OUTSIDE RECORDS SUMMARY | 2024-08-31 02:47 | XMS_ITS | Referral Summary ---
Author Organization [facility] Address [address] [place] [address] Care Team Providers Care Welder Apprentice Combination Name Role Phone Basilio Mao MD Primary Care Provider [phone] [facility] Eyewitness Surveillance,non-owned Affiliates and Associated Physician Practices is amultiple site organization consisting of ambulatory clinics and hospital sitesin [place], [place], [place] and [place]. This disclosure is being madepursuant to the Care Everywhere program and may not contain all information available regarding this patient. Last updated 18.[facility] Eyewitness Surveillance Active Problems Problem Noted Date Diagnosed Date [...] Comments Blood Pressure 142/84 08/15/2015 12:00 PM SNOW SHOVELER Pulse 98 08/15/2015 12:00 PM SNOW SHOVELER Temperature 36.6 C (97.8 F) 08/15/2015 12:00 PM SNOW SHOVELER Respiratory Rate 16 08/15/2015 12:0 0 PM SNOW SHOVELER Oxygen Saturation 96% 08/15/2015 12: 00 PM SNOW SHOVELER Inhaled Oxygen Concentration - - Weight 106.5 kg (234 lb 11.2 oz) 08/13/2015 9:00 PM SNOW SHOVELER Height 188 cm (6' 2 ) 08/13/2015 9:00 PM SNOW SHOVELER Body Mass Index 30.13 08/13/2015 9:00 PM SNOW SHOVELER Plan of Treatment Not on file Procedures Procedure Name Priority Date/Time Associated Diagnosis Comments LIPID PROFILE Routine 08/10/2015 2:39 PM SNOW SHOVELER from Last 3 Months or Most Recently Relevant to Health Maintenance Results * (ABNORMAL) LIPID PROFILE (08/10/2015 2:39 PM SNOW SHOVELER) Cholesterol Total 193 <200 mg/dL [facility] HDL 37(L) >40 mg/dL [facility] Comment: ATP III Classification of HDL Cholesterol: <40 mg/dL: Considered a major risk factor. >60 mg/dL: Considered a negative risk factor. LDL Calculated 86 <100 mg/dL [facility] Comment: ATP III Classification of LDL Cholesterol: <100 mg/dL: Optimal 100 - 129 mg/dL: Near Optimal/Above Optimal 130 - 159 mg/dL: Borderline High 160 - 189 mg/dL: High >190 mg/dL: Very High Triglycerides 350(H) <150 mg/dL [facility] Comment: ATP III Classification of Triglycerides: <150 mg/dL: Normal 150 - 199 mg/dL: Borderline High 200 - 400 mg/dL: High >500 mg/dL: Very High Blood specimen (specimen) BLOOD SPECIMEN / Unknown 08/10/2015 2:39 PM SNOW SHOVELER 08/10/2015 2:42 PM SNOW SHOVELER Ciera Arias MD LAB - CHEMISTRY [facility] Organization Address City/State/ZIP Co de Phone Number [address] [phone] from Last 3 Months or Most Recently Relevant to Health Maintenance Care Teams Welder Apprentice Combination Relationship Specialty Start Date End Date Basilio Mao MD [address] [place] [address] [facility] - General 08/25/16
--- OUTSIDE RECORDS SUMMARY | 2024-08-31 02:47 | XMS_ITS | Encounter Summary ---
Author Organization [facility] Address [facility] [place] [address] Care Team Providers Care Assistant Director Of Financial Aid Name Role Phone Ilene Paul MD Primary Care Provider [phone] Encounter Details Date Type Department Care Team (Late st Contact Info) Description 05/26/2022 [email or web address] Message [facility] [place] [facility] [address] [place] [address] Johnny Hardin MD,PHD Eliquis? 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 documented in this encounter Plan of Treatment Upcoming Encounters Date Type Department Care Team (Late st Contact Info) Description 12/21/2024 8:20 AM CDT Office Visit [facility] Family and Sports Medicine - [place] [address] [place] [phone] Ilene Paul MD [address] [facility] [address] [place] [address] 03/29/2025 8:00 AM CDT Office Visit [facility] - [facility] [address] [facility] [place] [phone] Jorge Israel MD [address] [facility] [place], [place] [address] documented as of this encounter Goals Goal [...] Total Score: 0 09/09/19 22 7:39 AM SHEET METAL PRODUCTION WORKER documented as of this encounter Care Teams Assistant Director Of Financial Aid Relationship Specialty Start Date End Date Ilene Paul MD [address] [facility] [address] [facility] [address] PCP - General FAMILY PRACTICE 11/12/20 documented as of this encounter
--- OUTSIDE RECORDS SUMMARY | 2024-08-31 02:47 | XMS_ITS | Encounter Summary ---
Author Organization [facility] Address [address] [place] [address] Care Team Providers Care Game Bird Farmer Name Role Phone Ilene Paul MD Primary Care Provider [phone] Encounter Details Date Type Department Care Team (Late st Contact Info) Description 10/23/2021 [email or web address] Message [facility] Patient Accounts [address] [place] [address] 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 [...] 12/21/2024 8:20 AM CDT Office Visit [facility] - [place] [address] [facility] [place] [address] Ilene Paul MD [address] [facility] [address] [facility] [place] [address] 03/29/2025 8:00 AM CDT Office Visit [facility] Care - [facility] [address] [place] [address] Jorge Israel MD [address] [place] [address] documented as of this encounter Goals Goal Patient Goal Type Associated Problems Recent Progress Patient-Stated? Author Patient will return to prior living situation and remain independent in ADLs upon discharge from [facility] General Bettina Ramirez, RN documented as of this encounter Visit Diagnoses Not on filedocumented in this encounter Additional Health Concerns Assessment Noted Time PHQ-9 Depression Total Score: 0 09/09/19 22 7:39 AM TEACHING ARTIST documented as of this encounter Care Teams Game Bird Farmer Relationship Specialty Start Date End Date Ilene Paul MD [address] [phone] PCP - General FAMILY PRACTICE 11/12/20 documented as of this encounter
--- OUTSIDE RECORDS SUMMARY | 2024-08-31 02:47 | XMS_ITS | Encounter Summary ---
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 Not [...] Date Type Department Care Team (Late st [facility] Info) Description 12/21/2024 8:20 AM CDT Office Visit [facility] [place] [address] [place] [address] Ilene Paul MD [address] [place] [address] 03/29/2025 8:00 AM CDT Office Visit [facility] - [facility] [address] [place] [address] Jorge Israel MD [address] [facility] [address] [place] [address] documented as of this encounter Goals Goal Patient Goal Type Associated Problems Recent Progress Patient-Stated? Author Patient will return to prior living situation and remain independent in ADLs upon discharge from [facility] General Bettina Ramirez RN documented as of this encounter Visit Diagnoses Not on filedocumented in this encounter Additional Health Concerns Assessment Noted Time PHQ-9 Depression Total Score: 0 01/01/20 23 9:18 AM CDT documented as of this encounter Care Teams Residential Builder Relationship Specialty Start Date End Date Ilene Paul MD [address] [address] PCP - General FAMILY PRACTICE 11/12/20 documented as of this encounter
--- OUTSIDE RECORDS SUMMARY | 2024-08-31 02:47 | XMS_ITS | Encounter Summary ---
Author Organization 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 Author Patient will return to prior living situation and remain independent in ADLs upon discharge from [facility] General Bettina Ramirez RN documented as of this encounter Visit Diagnoses Not on filedocumented in this encounter Additional Health Concerns Assessment Noted Time PHQ-9 Depression Total Score: 0 09/09/19 22 7:39 AM WATER LEAK REPAIRER documented as of this encounter Care Teams Drone Pilot Relationship Specialty Start Date End Date Ilene Paul MD [address] [address] PCP - General FAMILY PRACTICE 11/12/20 documented as of this encounter
--- OUTSIDE RECORDS SUMMARY | 2024-08-31 02:47 | XMS_ITS | Encounter Summary ---
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 Not [...] Description 12/21/2024 8:20 AM CDT Office Visit [facility] Medical Group Family and Sports Medicine - [place] [address] [place] [address] Ilene Paul MD [address] [facility] [address] [facility] [place] [address] 03/29/2025 8:00 AM CDT Office Visit [facility] Care - [facility] [address] [place] [address] Jorge Israel MD [address] [facility] [place] [address] documented as of this encounter Goals Goal [...] Total Score: 0 09/09/19 22 7:39 AM MIDDLE SCHOOL SCIENCE TEACHER documented as of this encounter Care Teams Dewer Relationship Specialty Start Date End Date Ilene Paul MD [address] [address] PCP - General FAMILY PRACTICE 11/12/20 documented as of this encounter
--- OUTSIDE RECORDS SUMMARY | 2024-08-31 02:47 | XMS_ITS | Encounter Summary ---
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 [address] [place] [address] documented as of this encounter Visit Diagnoses Not on filedocumented in this encounter Additional Health Concerns Infection Onset Date Last Indicated Resolved Time COVID-19 Rule Out 04/26/2021 04/26/2021 04/26/2021 7:39 PM CDT Assessment Noted Time PHQ-9 Depression Total Score: 0 02/21/20 10:42 AM CDT documented as of this encounter Care Teams Crankshaft Straightener Relationship Specialty Start Date End Date Ilene Paul MD [address] [facility] [address] [place] [address] PCP - General FAMILY PRACTICE 11/12/20 documented as of this encounter
--- OUTSIDE RECORDS SUMMARY | 2024-08-31 02:47 | XMS_ITS | Patient Health Summary ---
Author Organization [facility] Address [address] [facility] [place] [id number] Care Team Providers Care Framing Mill Supervisor Name Role Phone Basilio Mao MD Primary Care Provider [phone] Note from [facility],non-owned Affiliates and Associated Physician Practices is amultiple site organization consisting of ambulatory clinics and hospital sitesin [place], [place], [place] and [place]. This disclosure is being madepursuant to the Care Everywhere program and may not contain all information available regarding this patient. Last updated 18.[facility] Active Problems Problem Noted Date Diagnosed Date [...] Comments Blood Pressure 142/84 08/15/2015 12:00 PM MID LEVEL GAME DESIGNER Pulse 98 08/15/2015 12:00 PM MID LEVEL GAME DESIGNER Temperature 36.6 C (97.8 F) 08/15/2015 12:00 PM MID LEVEL GAME DESIGNER Respiratory Rate 16 08/15/2015 12:0 0 PM MID LEVEL GAME DESIGNER Oxygen Saturation 96% 08/15/2015 12: 00 PM MID LEVEL GAME DESIGNER Inhaled Oxygen Concentration - - Weight 106.5 kg (234 lb 11.2 oz) 08/13/2015 9:00 PM MID LEVEL GAME DESIGNER Height 188 cm (6' 2 ) 08/13/2015 9:00 PM MID LEVEL GAME DESIGNER Body Mass Index 30.13 08/13/2015 9:00 PM MID LEVEL GAME DESIGNER Procedures * DERMATOPATHOLOGY(Performed 05/06/2023) Performed for Neoplasm [...] AM CDT) Case Report Dermatopathology Report Case: [id number] Authorizing Provider: Donnie Dyson MD Collected: 05/06/2023 03:33 AM Ordering Location: [facility] DermPath Lab Received: 05/07/2023 11:07 AM [...] characteristic determined by the Dermatopathology Laboratory at [facility], directed by Dr. Lore Vee. These tests need not be, and therefore are not, approved by the [place] Food and Drug Administration. The tests are used for clinical purposes. Billing Codes Specimen Charges Stain Charges 30021 1 3 1:46 PM CDT DERMATOPATHOLOGY LABORATORY Embedded Images 3 1:46 PM CDT DERMATOPATHOLOGY LABORATORY Pathology/Cytolo gy TISSUE SPECIMEN FROM SKIN / Unknown 05/06/2023 3:33 AM CDT 05/07/2023 11:07 AM CDT Donnie Dyson MD LAB - PATHOLOGY/CYTO LOGY ORDERABLES Performing Organization Address [facility]/ZIP Co de Phone Number DERMATOPATHOLOGY LABORATORY [facility] Department of Dermatology [facility] [address] [facility], 3rd Floor [address] [phone] * CBC W AUTO DIFFERENTIAL (08/15/2015 3:28 AM MID LEVEL GAME DESIGNER) Only the most recent of10 resultswithin the time period is included. Blood specimen (specimen) BLOOD SPECIMEN / Unknown 08/15/2015 3:28 AM MID LEVEL GAME DESIGNER Narrative [facility] - 08/15/2015 4:08 AM MID LEVEL GAME DESIGNER The following orders were created for panel order CBC w Differential. Procedure Abnormality Status --------- ------ CBC WITH DIFFERENTIAL[[id number]] Abnormal Final result Please view results for these tests on the individual orders. Ciera Arias MD LAB - HEMATOLOGY ORD ERABLES Performing Organization Address [facility] Co de Phone Number [facility] [address] * (ABNORMAL) BASIC METABOLIC PANEL (CALCIUM TOTAL) (08/15/2015 3:28 AM MID LEVEL GAME DESIGNER) Only the most recent of5 resultswithin the time period is included. BUN 19 7 - 26 mg/dL [facility] Creatinine 0.9 0.6 - 1.2 mg/dL [facility] Sodium 142 136 - 145 mmol/L [facility] Potassium 3.9 3.5 - 4.5 mmol/L [facility] Chloride 109(H) 98 - 107 mmol/L [facility] CO2 22 22 - 29 mmol/L [facility] Glucose 109 70 - 115 mg/dL [facility] Calcium 9.0 8.4 - 10.2 mg/dL [facility] Anion Gap 15 8 - 18 [facility] BUN/Creatinine Ratio 21 7 - 23 [facility] Osmolality Calculated 282 270 - 300 mOsm/kg [facility] eGFR >60 >60 mL/min/1.[address] [facility] Blood specimen (specimen) BLOOD SPECIMEN / Unknown 08/15/2015 3:28 AM MID LEVEL GAME DESIGNER 08/15/2015 4:02 AM MID LEVEL GAME DESIGNER Ciera Arias MD LAB - CHEMISTRY ANGELA CHAVIRA [address] [phone] * PHOSPHORUS BLOOD (08/15/2015 3:28 AM MID LEVEL GAME DESIGNER) Only the most recent of8 resultswithin the time period is included. Phosphorus 4.3 2.3 - 4.7 mg/dL [facility] Blood specimen (specimen) BLOOD SPECIMEN / Unknown 08/15/2015 3:28 AM MID LEVEL GAME DESIGNER 08/15/2015 4:02 AM MID LEVEL GAME DESIGNER Ciera Arias MD LAB - CHEMISTRY ANGELA CHAVIRA [address] [phone] * MAGNESIUM BLOOD (08/15/2015 3:28 AM MID LEVEL GAME DESIGNER) Only the most recent of6 resultswithin the time period is included. Magnesium 2.2 1.6 - 2.6 mg/dL [facility] Blood specimen (specimen) BLOOD SPECIMEN / Unknown 08/15/2015 3:28 AM MID LEVEL GAME DESIGNER 08/15/2015 4:02 AM MID LEVEL GAME DESIGNER Ciera Arias MD LAB - CHEMISTRY ANGELA CHAVIRA [address] [phone] * MRI BRAIN WO CONTRAST (08/12/2015 11:13 AM MID LEVEL GAME DESIGNER) Anatomical Region Laterality Modality Head Other Impressions 08/13/2015 9:26 AM MID LEVEL GAME DESIGNER IMPRESSION: 1. Small volume acute ischemic stroke in the left basis pontis without evidence of hemorrhagic conversion. This report was approved by Peter Armstrong on 08/13/2015 7:47 AM . I, Dr. EDWIN FLYNN M.D. have personally reviewed and interpreted this examination/study. This report was electronically signed by EDWIN FLYNN M.D. on 08/13/2015 9:26 AM . Narrative 08/13/2015 9:26 AM MID LEVEL GAME DESIGNER EXAMINATION: Magnetic resonance imaging (MRI) of the [...] ORDERABLES * HEMOGLOBIN A1C (08/12/2015 6:30 AM MID LEVEL GAME DESIGNER) Only the most recent of2 resultswithin the time period is included. Hemoglobin A1c 5.7 4.4 - 6.3 % [facility] Estimated Average Glucose 117 mg/dL [facility] Comment: HbA1c Interpretation: Treatment target values recommended by ADA and other clinical organizations should be used to evaluate metabolic control in patients. Treatment Target Values: Normal : < 5.7% Pre-diabetes: 5.7-6.4% Diabetes: Equal to or greater than 6.5% Reference: [place] [employer] Standards of Care in Diabetes -2014 In patients 70 years and older consider HbA1c target range of 7.0-7.5% Reference: Diabetes Mellitus in Older People: Position Statement on behalf of the International Association of Gerontology and Geriatrics (IAGG), the Diabetes Working Democrat for Older People (EDWPOP), and the International Task Force of Experts in Diabetes. Segun Ramsey, et al. J [place] [employer]. 2012 Test results diagnostic [...] BLOOD SPECIMEN / Unknown 08/12/2015 6:30 AM MID LEVEL GAME DESIGNER 08/12/2015 6:34 AM MID LEVEL GAME DESIGNER Ciera Arias MD LAB - CHEMISTRY ANGELA CHAVIRA [facility] Organization Address City/State/ZIP Co de Phone Number [address] [phone] * CT HEAD WO CONTRAST (08/11/2015 5:31 PM MID LEVEL GAME DESIGNER) Only the most recent of2 resultswithin the time period is included. Anatomical Region Laterality Modality Head Other Impressions 08/12/2015 6:54 AM MID LEVEL GAME DESIGNER IMPRESSION: 1. No acute intracranial hemorrhage, significant mass effect, or midline shift. Preliminary results reported by Dr. Guardado on at 5:53 PM. This report was electronically signed by AMRTÍN ZULUAGA M.D. on 08/12/2015 6:54 AM . Narrative 08/12/2015 6:54 AM MID LEVEL GAME DESIGNER EXAMINATION: Computed tomography (CT) of the head [...] ANGIO BRAIN AND NECK (08/11/2015 11:25 AM MID LEVEL GAME DESIGNER) Anatomical Region Laterality Modality Head Other Impressions 08/11/2015 12:47 PM MID LEVEL GAME DESIGNER IMPRESSION: 1. No acute intracranial hemorrhage, significant [...] 12:47 PM . Narrative 08/11/2015 12:47 PM MID LEVEL GAME DESIGNER EXAMINATION: Computed tomography (CT) of the head [...] ORDERABLES * TROPONIN I (08/11/2015 12:24 AM MID LEVEL GAME DESIGNER) Only the most recent of2 resultswithin the time period is included. Troponin I <0.010 <0.032 ng/mL [facility] Blood specimen (specimen) BLOOD SPECIMEN / Unknown 08/11/2015 12:24 AM MID LEVEL GAME DESIGNER 08/11/2015 12:27 AM MID LEVEL GAME DESIGNER Ciera Arias MD LAB - CHEMISTRY ANGELA CHAVIRA [facility] Organization Address City/State/ZIP Co de Phone Number [address] [phone] * CK + CKMB PANEL (08/11/2015 12:24 AM MID LEVEL GAME DESIGNER) Only the most recent of2 resultswithin the time period is included. CK Total 51 30 - 200 Units/L [facility] CK-MB 0.8 0.0 - 6.6 ng/mL [facility] Blood specimen (specimen) BLOOD SPECIMEN / Unknown 08/11/2015 12:24 AM MID LEVEL GAME DESIGNER 08/11/2015 12:27 AM MID LEVEL GAME DESIGNER Ciera Arias MD LAB - CHEMISTRY ORDE RABLES Performing Organization Address City/[facility]/ZIP Co de Phone Number [address] [phone] * (ABNORMAL) URINALYSIS W/MICROSCOPIC NO CULTURE (08/10/2015 6:30 PM MID LEVEL GAME DESIGNER) Color UA Yellow Straw, Yellow, Colorless, Light Yellow [facility] Clarity UA Clear Clear [facility] Specific Stigler UA 1.012 1.001 - 1.030 [facility] pH UA 6.0 5.0 - 8.0 [facility] Protein UA 70(A) <=20 mg/dL [facility] Glucose UA Negative Negative mg/dL [facility] Ketone UA Negative Negative mg/dL [facility] Bilirubin UA Negative Negative mg/dL [facility] Blood UA Negative Negative [facility] Nitrite UA Negative Negative [facility] Leukocyte Esterase Negative Negative [facility] Urobilinogen UA <2.0 <2.0 mg/dL [facility] RBC UA 14(H) 0 - 8 /HPF [facility] WBC UA 4(H) 0 - 2 /HPF [facility] Squamous Epithelial Cells UA <1 0 - 1 /HPF [facility] Mucus UA Many(A) None /LPF [facility] Urine specimen (specimen) 08/10/2015 6:30 PM MID LEVEL GAME DESIGNER 08/10/2015 6:39 PM MID LEVEL GAME DESIGNER Ciera Arias MD LAB - URINALYSIS ORD ERABLES Performing Organization Address City/[facility]/ZIP Co de Phone Number [address] [phone] * DRUG ABUSE PANEL 10-20+ETHANOL URINE NO CONFIRM (08/10/2015 6:30 PM MID LEVEL GAME DESIGNER) Amphetamines Screen Urine Negative Negative: < 1000 ng/mL [facility] Barbiturates Screen Urine Negative Negative: < 200 ng/mL [facility] Benzodiazepine Screen Urine Negative Negative: < 200 ng/mL [facility] Opiates Urine Negative Negative: < 300 ng/mL [facility] Cocaine Metabolites Urine Negative Negative: < 300 ng/mL [facility] Phencyclidine Screen Urine Negative Negative: < 25 ng/ml [facility] Cannabinoids Screen Urine Negative Negative: <50 ng/mL [facility] Methadone Screen Urine Negative Negative: < 300 ng/mL [facility] Urine specimen (specimen) URINE / Unknown 08/10/2015 6:30 PM MID LEVEL GAME DESIGNER 08/10/2015 6:39 PM MID LEVEL GAME DESIGNER Narrative [facility] - 08/10/2015 6:53 PM MID LEVEL GAME DESIGNER The Urine Toxicology Screening Panel does not screen for Propoxyphene, Meprobamate, Carisoprodol, Trazodone, [id number] medications and/or volatiles (Acetone, Isopropanol, Methanol or Ethylene Glycol). Ethanol, Salicylate, Acetaminophen, Tricyclic Antidepressants and several therapeutic drugs may be individually assayed in serum or plasma specimen. Toxicology testing by the [facility] is an aid to medical diagnosis and treatment of patients. No documented chain of custody was maintained. Results are intended to be used for clinical purposes only. Ciera Arias MD LAB - URINE CHEMISTR Y ORDERABLES [facility] [address] [place] [address] * VAS BILATERAL VENOUS DUPLEX LE (08/10/2015 3:36 PM MID LEVEL GAME DESIGNER) Anatomical Region Laterality Modality Other Ciera Arias MD VASCULAR LAB ORDERAB LES * HEPATIC FUNCTION PANEL (08/10/2015 2:39 PM MID LEVEL GAME DESIGNER) [facility] Protein Total 6.8 6.0 - 8.3 g/dL [facility] Albumin 3.6 3.4 - 5.0 g/dL [facility] Bilirubin Total 0.4 0.2 - 1.2 mg/dL [facility] Bilirubin Conjugated 0.1 0.0 - 0.5 mg/dL [facility] Bilirubin Unconjugated 0.3 Unconjugated Bilirubin is a calculated value: Reference ranges have not been established. mg/dL [facility] Alkaline Phosphatase 100 40 - 150 Units/L [facility] ALT 23 0 - 55 Units/L [facility] AST 16 5 - 34 Units/L [facility] Albumin/Globulin Ratio 1.1 1.1 - 2.3 [facility] Blood specimen (specimen) BLOOD SPECIMEN / Unknown 08/10/2015 2:39 PM MID LEVEL GAME DESIGNER 08/10/2015 2:42 PM MID LEVEL GAME DESIGNER Ciera Arias MD LAB - CHEMISTRY ANGELA CHAVIRA [facility] Organization Address City/State/[facility] Co de Phone Number [address] [phone] * (ABNORMAL) LIPID PROFILE (08/10/2015 2:39 PM MID LEVEL GAME DESIGNER) Cholesterol Total 193 <200 mg/dL [facility] HDL 37(L) >40 mg/dL [facility] Comment: ATP III Classification of HDL Cholesterol: <40 mg/dL: Considered a major risk factor. >60 mg/dL: Considered a negative risk factor. LDL Calculated 86 <100 mg/dL [facility] Comment: ATP III Classification of LDL Cholesterol: <100 mg/dL: Optimal 100 - 129 mg/dL: Near Optimal/Above Optimal 130 - 159 mg/dL: Borderline High 160 - 189 mg/dL: High >190 mg/dL: Very High Triglycerides 350(H) <150 mg/dL [facility] Comment: ATP III Classification of Triglycerides: <150 mg/dL: Normal 150 - 199 mg/dL: Borderline High 200 - 400 mg/dL: High >500 mg/dL: Very High Blood specimen (specimen) BLOOD SPECIMEN / Unknown 08/10/2015 2:39 PM MID LEVEL GAME DESIGNER 08/10/2015 2:42 PM MID LEVEL GAME DESIGNER Ciera Arias MD LAB - CHEMISTRY ANGELA CHAVIRA [facility] [address] [phone] * ECHO W DOPPLER AND COLOR FLOW (08/10/2015 12:00 AM MID LEVEL GAME DESIGNER) Anatomical Region Laterality Modality Other 08/10/2015 Ciera Arias MD ECHOCARDIOGRAPHY RAD IANT * EKG 12-LEAD (08/10/2015 12:00 AM MID LEVEL GAME DESIGNER) EKG [facility] Comment: Exam Date/Time: Aug 10 [...] ECGs available Confirmed by Susan Musa, Jena ([id number]), videotape editor MIGUEL RFANCOIS ([id number]) on 08/20/2015 1:43:34 PM Referred By: REFERRING NO Confirmed By:Jena Musa M.D. 08/10/2015 Ciera Arias MD ECG ORDERABLES [facility] Care Teams Framing Mill Supervisor Relationship Specialty Start Date End Date Basilio Mao MD [address] [facility] [address] [place] [address] PCP - General 08/25/16
--- OUTSIDE RECORDS SUMMARY | 2024-08-31 02:47 | XMS_ITS | Encounter Summary ---
Author Organization [facility] Address [address] [place] [address] Care Team Providers Care Furniture Sales Consultant Name Role Phone Ilene Paul MD Primary Care Provider [phone] Encounter Details Date Type Department Care Team (Late st Contact Info) Description 10/09/2022 Therapy Plan [facility] Multispecialty Care - [facility] [address] 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 Not on file COVID-19 Exposure Response Date Recorded In the last 10 days, have elvin fan been in contact with someone who was [...] documented in this encounter Progress Notes * Nilda Prather RN - 10/09/2022 11:42 AM CDTAddended by: NILDA PRATHER on: 04/24/2023 08:53 AM Modules accepted: Orders * Clemencia Brown RN - 10/09/2022 11:42 AM CDTAddended by: CLEMENCIA BROWN on: 08/30/2024 08:56 AM Modules accepted: Orders CTION NURSE documented in this encounter Plan of Treatment Upcoming Encounters Date Type Department Care Team (Sue Contact Info) Description 12/21/2024 8:20 AM CDT Office Visit [facility] [place] [address] [place] [address] Ilene Paul MD [address] [place] [address] 03/29/2025 8:00 AM CDT Office Visit [facility] Mult[facility]ty [facility] - [facility] [address] [facility] [facility] [address] [place] [address] Joreg Israel MD [address] [place] [address] documented as of this encounter Goals Goal [...] Total Score: 0 09/09/19 22 7:39 AM ADDICTION NURSE documented as of this encounter Care Teams Furniture Sales Consultant Relationship Specialty Start Date End Date Ilene Paul MD [address] [place] [address] PCP - General FAMILY PRACTICE 11/12/20 documented as of this encounter
--- OUTSIDE RECORDS SUMMARY | 2024-08-31 02:47 | XMS_ITS | Encounter Summary ---
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 [...] Description 12/21/2024 8:20 AM CDT Office Visit [facility] - [place] [address] [place] [address] Ilene Paul MD [address] [place] [address] 03/29/2025 8:00 AM CDT Office Visit [facility] Multispecialty Care - [facility] [address] [place] [id number] Jorge Israel MD [address] [place] [address] documented as of this encounter Results * CORONAVIRUS (COVID 19) (04/26/2021 9:30 AM CDT) SPEC DESCRIPTION NASAL 04/26/20 11:36 AM CDT [facility] CORONAVIRUS SARS COV 2 PCR (RESP) NEGATIVE NEGATIVE 04/26/2021 7:38 PM CDT [facility] Comment: THE SARS-CoV-2 TEST HAS BEEN AUTHORIZED BY THE FDA UNDER AN EUA FOR USE BY AUTHORIZED LABORATORIES. PERFORMED BY NUCLEIC ACID AMPLIFICATION PCR FIRST TEST NO 04/26/2021 11:36 AM CDT [facility] EMPLOYED IN HEALTHCARE NO 04/26/2021 11:36 AM CDT [facility] SYMPTOMATIC DEFINED BY CDC NO 04/26/2021 11:36 AM CDT [facility] HOSPITALIZATION STATUS NO 04/26/2021 11:36 AM CDT [facility] PATIENT IN ICU NO 04/26/2021 11:36 AM CDT [facility] RESIDENT OF CONG[place]ATE CARE NO 04/26/2021 11:36 AM CDT [facility] NASAL STRUCTURE / Unknown 04/26/2021 9:30 AM CDT Chacho Herman MD MICROBIOLOGY - GENERAL ORDERABLE S Final Result [facility] [address] [place] [address], [place] [phone] [facility] [address] [place] [address], [place] [phone] documented in this encounter Visit Diagnoses Diagnosis Preop examination- Primary Preoperative examination, unspecified documented in this encounter Additional Health Concerns Infection Onset Date Last Indicated Resolved Time COVID-19 Rule Out 04/26/2021 04/26/2021 04/26/2021 7:39 PM CDT Assessment Noted Time PHQ-9 Depression Total Score: 0 04/04/20 7:54 AM CDT documented as of this encounter Care Teams Automation Technologist Relationship Specialty Start Date End Date Ilene Paul MD [address] [facility] [address] [place] [address] PCP - General FAMILY PRACTICE 11/12/20 documented as of this encounter
--- OUTSIDE RECORDS SUMMARY | 2024-08-31 02:47 | XMS_ITS | Clinical Summary ---
Author Organization [facility] Address [address] [facility] [place] [id number] Care Team Providers Care Cushion Cover Inspector Name Role Phone Basilio Mao MD Primary Care Provider [phone] Source Comments [facility] [employer],non-owned Affiliates and Associated Physician Practices is amultiple site organization consisting of ambulatory clinics and hospital sitesin [place], [place], [place] and [place]. This disclosure is being madepursuant to the Care Everywhere program and may not contain all information available regarding this patient. Last updated 18.[facility] [employer] Active Problems Problem Noted Date Diagnosed Date [...] Comments Blood Pressure 142/84 08/15/2015 12:00 PM HOUSE BUILDER Pulse 98 08/15/2015 12:00 PM HOUSE BUILDER Temperature 36.6 C (97.8 F) 08/15/2015 12:00 PM HOUSE BUILDER Respiratory Rate 16 08/15/2015 12:0 0 PM HOUSE BUILDER Oxygen Saturation 96% 08/15/2015 12: 00 PM HOUSE BUILDER Inhaled Oxygen Concentration - - Weight 106.5 kg (234 lb 11.2 oz) 08/13/2015 9:00 PM HOUSE BUILDER Height 188 cm (6' 2 ) 08/13/2015 9:00 PM HOUSE BUILDER Body Mass Index 30.13 08/13/2015 9:00 PM HOUSE BUILDER Plan of Treatment Health Maintenance Due Date [...] Comments LIPID PROFILE Routine 08/10/2015 2:39 PM HOUSE BUILDER from Last 3 Months or Most Recently Relevant to Health Maintenance Results * (ABNORMAL) LIPID PROFILE (08/10/2015 2:39 PM HOUSE BUILDER) Cholesterol Total 193 <200 mg/dL [facility] HDL 37(L) >40 mg/dL [facility] Comment: ATP III Classification of HDL Cholesterol: <40 mg/dL: Considered a major risk factor. >60 mg/dL: Considered a negative risk factor. LDL Calculated 86 <100 mg/dL [facility] Comment: ATP III Classification of LDL Cholesterol: <100 mg/dL: Optimal 100 - 129 mg/dL: Near Optimal/Above Optimal 130 - 159 mg/dL: Borderline High 160 - 189 mg/dL: High >190 mg/dL: Very High Triglycerides 350(H) <150 mg/dL [facility] Comment: ATP III Classification of Triglycerides: <150 mg/dL: Normal 150 - 199 mg/dL: Borderline High 200 - 400 mg/dL: High >500 mg/dL: Very High Blood specimen (specimen) BLOOD SPECIMEN / Unknown 08/10/2015 2:39 PM HOUSE BUILDER 08/10/2015 2:42 PM HOUSE BUILDER Ciera Arias MD LAB - CHEMISTRY ANGELA CHAVIRA [facility] Organization Address City/State/ZIP Co de Phone Number [address] [phone] from Last 3 Months or Most Recently Relevant to Health Maintenance Care Teams Cushion Cover Inspector Relationship Specialty Start Date End Date Basilio Mao MD [address] [facility] [address] [place] [address] PCP - General 08/25/16
--- OUTSIDE RECORDS SUMMARY | 2024-08-31 02:47 | XMS_ITS | Encounter Summary ---
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 Not [...] Description 12/21/2024 8:20 AM CDT Office Visit [facility] Family and Sports Medicine - [place] [address] [place] [address] Ilene Paul MD [address] [facility] [address] [place] [address] 03/29/2025 8:00 AM CDT Office Visit [facility] - [facility] [address] [place] [address] Jorge Israel MD [address] [place] [address] documented as of this encounter Goals Goal Patient Goal Type Associated Problems Recent Progress Patient-Stated? Author Patient will return to prior living situation and remain independent in ADLs upon discharge from [facility] Bettina Ramirez RN documented as of [...] Total Score: 0 09/09/19 22 7:39 AM LOAN AND CREDIT MANAGER documented as of this encounter Care Teams Supervisor Painting Department Relationship Specialty Start Date End Date Ilene Paul MD [address] [place] [address] PCP - General FAMILY PRACTICE 11/12/20 documented as of this encounter
--- OUTSIDE RECORDS SUMMARY | 2024-08-31 03:09 | XMS_ITS | Clinical Summary ---
Author Organization [facility] Address [address] [place] [id number] Care Team Providers Care Business Proposal Rep Name Role Phone Basilio Mao MD Primary Care Provider [phone] Source Comments [facility] [employer],non-owned Affiliates and Associated Physician Practices is amultiple site organization consisting of ambulatory clinics and hospital sitesin [place], [place], [place] and [place]. This disclosure is being madepursuant to the Care Everywhere program and may not contain all information available regarding this patient. Last updated 18.[facility] [employer] Active Problems Problem Noted Date Diagnosed Date [...] Comments Blood Pressure 142/84 08/15/2015 12:00 PM CNC PROGRAMMER Pulse 98 08/15/2015 12:00 PM CNC PROGRAMMER Temperature 36.6 C (97.8 F) 08/15/2015 12:00 PM CNC PROGRAMMER Respiratory Rate 16 08/15/2015 12:0 0 PM CNC PROGRAMMER Oxygen Saturation 96% 08/15/2015 12: 00 PM CNC PROGRAMMER Inhaled Oxygen Concentration - - Weight 106.5 kg (234 lb 11.2 oz) 08/13/2015 9:00 PM CNC PROGRAMMER Height 188 cm (6' 2 ) 08/13/2015 9:00 PM CNC PROGRAMMER Body Mass Index 30.13 08/13/2015 9:00 PM CNC PROGRAMMER Plan of Treatment Health Maintenance Due Date [...] Comments LIPID PROFILE Routine 08/10/2015 2:39 PM CNC PROGRAMMER from Last 3 Months or Most Recently Relevant to Health Maintenance Results * (ABNORMAL) LIPID PROFILE (08/10/2015 2:39 PM CNC PROGRAMMER) Cholesterol Total 193 <200 mg/dL [facility] HDL 37(L) >40 mg/dL [facility] Comment: ATP III Classification of HDL Cholesterol: <40 mg/dL: Considered a major risk factor. >60 mg/dL: Considered a negative risk factor. LDL Calculated 86 <100 mg/dL [facility] Comment: ATP III Classification of LDL Cholesterol: <100 mg/dL: Optimal 100 - 129 mg/dL: Near Optimal/Above Optimal 130 - 159 mg/dL: Borderline High 160 - 189 mg/dL: High >190 mg/dL: Very High Triglycerides 350(H) <150 mg/dL [facility] Comment: ATP III Classification of Triglycerides: <150 mg/dL: Normal 150 - 199 mg/dL: Borderline High 200 - 400 mg/dL: High >500 mg/dL: Very High Blood specimen (specimen) BLOOD SPECIMEN / Unknown 08/10/2015 2:39 PM CNC PROGRAMMER 08/10/2015 2:42 PM CNC PROGRAMMER Ciera Arias MD LAB - CHEMISTRY ANGELA CHAVIRA [facility] Organization Address City/State/ZIP Co de Phone Number [address] [phone] from Last 3 Months or Most Recently Relevant to Health Maintenance Care Teams Business Proposal Rep Relationship Specialty Start Date End Date Basilio Mao MD [address] [facility] [address] [place] [address] PCP - General 08/25/16
--- OUTSIDE RECORDS SUMMARY | 2024-08-31 03:09 | XMS_ITS | Encounter Summary ---
Author Organization [facility] Address [facility] access hospital[address] [place] [address] Care Team Providers Care Lime Plant Operator Name Role Phone Ilene Paul MD Primary Care Provider [phone] Encounter Details Date Type Department Care Team (Late st Contact Info) Description 04/12/2024 [employer]ue Technology Message Enc [facility] Multispecialty Care - 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 [address] [place] [phone] Jorge Israel MD [address] [place] [address] documented as of this encounter Goals Goal [...] documented as of this encounter Care Teams Lime Plant Operator Relationship Specialty Start Date End Date Ilene Paul MD [address] [phone] PCP - General FAMILY PRACTICE 11/12/20 documented as of this encounter
--- OUTSIDE RECORDS SUMMARY | 2024-08-31 03:09 | XMS_ITS | Encounter Summary ---
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 [facility] [facility] [address] [place] [address] 03/29/2025 8:00 AM CDT Office Visit [facility] - [facility] [address] [place] [phone] Jorge Israel MD [address] [place] [address] documented as of this encounter Goals Goal [...] documented as of this encounter Care Teams Hospice Educator Relationship Specialty Start Date End Date Ilene Paul MD [address] [address] PCP - General FAMILY PRACTICE 11/12/20 documented as of this encounter
--- OUTSIDE RECORDS SUMMARY | 2024-08-31 03:09 | XMS_ITS | Clinical Summary ---
Author Organization 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
--- OUTSIDE RECORDS SUMMARY | 2024-08-31 03:09 | XMS_ITS | Referral Summary ---
Author Organization [facility] Address [address] [facility] [place] [address] Care Team Providers Care Toxicology Supervisor Name Role Phone Basilio Mao MD Primary Care Provider [phone] Source Comments [facility],non-owned Affiliates and Associated Physician Practices is amultiple site organization consisting of ambulatory clinics and hospital sitesin [place], [place], [place] and [place]. This disclosure is being madepursuant to the Care Everywhere program and may not contain all information available regarding this patient. Last updated 18.[facility] Active Problems Problem Noted Date Diagnosed Date [...] Blood Pressure 142/84 08/15/2015 12:00 PM MANAGER OPERATIONAL Pulse 98 08/15/2015 12:00 PM MANAGER OPERATIONAL Temperature 36.6 C (97.8 F) 08/15/2015 12:00 PM MANAGER OPERATIONAL Respiratory Rate 16 08/15/2015 12:0 0 PM MANAGER OPERATIONAL Oxygen Saturation 96% 08/15/2015 12: 00 PM MANAGER OPERATIONAL Inhaled Oxygen Concentration - - Weight 106.5 kg (234 lb 11.2 oz) 08/13/2015 9:00 PM MANAGER OPERATIONAL Height 188 cm (6' 2 ) 08/13/2015 9:00 PM MANAGER OPERATIONAL Body Mass Index 30.13 08/13/2015 9:00 PM MANAGER OPERATIONAL Plan of Treatment Not on file Procedures Procedure Name Priority Date/Time Associated Diagnosis Comments LIPID PROFILE Routine 08/10/2015 2:39 PM MANAGER OPERATIONAL from Last 3 Months or Most Recently Relevant to Health Maintenance Results * (ABNORMAL) LIPID PROFILE (08/10/2015 2:39 PM MANAGER OPERATIONAL) Cholesterol Total 193 <200 mg/dL [facility] HDL 37(L) >40 mg/dL [facility] Comment: ATP III Classification of HDL Cholesterol: <40 mg/dL: Considered a major risk factor. >60 mg/dL: Considered a negative risk factor. LDL Calculated 86 <100 mg/dL [facility] Comment: ATP III Classification of LDL Cholesterol: <100 mg/dL: Optimal 100 - 129 mg/dL: Near Optimal/Above Optimal 130 - 159 mg/dL: Borderline High 160 - 189 mg/dL: High >190 mg/dL: Very High Triglycerides 350(H) <150 mg/dL [facility] Comment: ATP III Classification of Triglycerides: <150 mg/dL: Normal 150 - 199 mg/dL: Borderline High 200 - 400 mg/dL: High >500 mg/dL: Very High Blood specimen (specimen) BLOOD SPECIMEN / Unknown 08/10/2015 2:39 PM MANAGER OPERATIONAL 08/10/2015 2:42 PM MANAGER OPERATIONAL Ciera Arias MD LAB - CHEMISTRY ANGELA CHAVIRA [facility] Organization Address City/State/ZIP Co de Phone Number [address] [phone] from Last 3 Months or Most Recently Relevant to Health Maintenance Care Teams Toxicology Supervisor Relationship Specialty Start Date End Date Basilio Mao MD [address] [place] [address] [facility] - General 08/25/16
--- OUTSIDE RECORDS SUMMARY | 2024-08-31 03:09 | XMS_ITS | Patient Health Summary ---
Author Organization [facility] Address [address] [place] [id number] Care Team Providers Care Dispensing Optician Name Role Phone Basilio Mao MD Primary Care Provider [phone] Note from [facility],non-owned Affiliates and Associated Physician Practices is amultiple site organization consisting of ambulatory clinics and hospital sitesin [place], [place], [place] and [place]. This disclosure is being madepursuant to the Care Everywhere program and may not contain all information available regarding this patient. Last updated 18.[facility] Active Problems Problem Noted Date Diagnosed Date [...] Comments Blood Pressure 142/84 08/15/2015 12:00 PM [employer] Pulse 98 08/15/2015 12:00 PM [employer] Temperature 36.6 C (97.8 F) 08/15/2015 12:00 PM [employer] Respiratory Rate 16 08/15/2015 12:0 0 PM [employer] Oxygen Saturation 96% 08/15/2015 12: 00 PM [employer] Inhaled Oxygen Concentration - - Weight 106.5 kg (234 lb 11.2 oz) 08/13/2015 9:00 PM [employer] Height 188 cm (6' 2 ) 08/13/2015 9:00 PM [employer] Body Mass Index 30.13 08/13/2015 9:00 PM [employer] Procedures * DERMATOPATHOLOGY(Performed 05/06/2023) Performed for Neoplasm [...] AM CDT) Case Report Dermatopathology Report Case: [id number] Authorizing Provider: Donnie Dyson MD Collected: 05/06/2023 03:33 AM Ordering Location: [facility] DermPath Lab Received: 05/07/2023 11:07 AM Pathologist: [...] characteristic determined by the Dermatopathology Laboratory at [facility], directed by Dr. Lore Vee. These tests need not be, and therefore are not, approved by the [place] Food and Drug Administration. The tests are used for clinical purposes. Billing Codes Specimen Charges Stain Charges 60906 1 3 1:46 PM CDT DERMATOPATHOLOGY LABORATORY Embedded Images 3 1:46 PM CDT DERMATOPATHOLOGY LABORATORY Pathology/Cytolo gy TISSUE SPECIMEN FROM SKIN / Unknown 05/06/2023 3:33 AM CDT 05/07/2023 11:07 AM CDT Donnie Dyson MD LAB - PATHOLOGY/CYTO LOGY ORDERABLES Performing Organization Address [facility]/ZIP Co de Phone Number DERMATOPATHOLOGY LABORATORY [facility] Department of Dermatology [facility] [address] [facility], [address]rd [address] [phone] * CBC W AUTO DIFFERENTIAL (08/15/2015 3:28 AM [employer]) Only the most recent of10 resultswithin the time period is included. Blood specimen (specimen) BLOOD SPECIMEN / Unknown 08/15/2015 3:28 AM [employer]CH[employer] Narrative [facility] - 08/15/2015 4:08 AM [employer] The following orders were created for panel order CBC w Differential. Procedure Abnormality Status --------- ------ CBC WITH DIFFERENTIAL[[id number]] Abnormal Final result Please view results for these tests on the individual orders. Ciera Arias MD LAB - HEMATOLOGY ORD ERABLES Performing Organization Address [facility] Co de Phone Number [facility] [address] * (ABNORMAL) BASIC METABOLIC PANEL (CALCIUM TOTAL) (08/15/2015 3:28 AM [employer]) Only the most recent of5 resultswithin the [...] HOSPITAL Anion Gap 15 8 - 18 [facility] BUN/Creatinine Ratio 21 7 - 23 [facility] Osmolality Calculated 282 270 - 300 mOsm/kg [facility] eGFR >60 >60 mL/min/1.7 3 m2 [facility] Blood specimen (specimen) BLOOD SPECIMEN / Unknown 08/15/2015 3:28 AM [employer] 08/15/2015 4:02 AM [employer] Ciera Arias MD LAB - CHEMISTRY ANGELA CHAVIRA [address] [phone] * PHOSPHORUS BLOOD (08/15/2015 3:28 AM [employer]) Only the most recent of8 resultswithin the time period is included. Phosphorus 4.3 2.3 - 4.7 mg/dL [facility] Blood specimen (specimen) BLOOD SPECIMEN / Unknown 08/15/2015 3:28 AM [employer] 08/15/2015 4:02 AM [employer] Ciera Arias MD LAB - CHEMISTRY ANGELA CHAVIRA [address] [phone] * MAGNESIUM BLOOD (08/15/2015 3:28 AM [employer]) Only the most recent of6 resultswithin the time period is included. Magnesium 2.2 1.6 - 2.6 mg/dL [facility] Blood specimen (specimen) BLOOD SPECIMEN / Unknown 08/15/2015 3:28 AM [employer] 08/15/2015 4:02 AM [employer] Ciera Arias MD LAB - CHEMISTRY ANGELA CHAVIRA [address] [phone] * MRI BRAIN WO CONTRAST (08/12/2015 11:13 AM [employer]) Anatomical Region Laterality Modality Head Other Impressions 08/13/2015 9:26 AM [employer] IMPRESSION: 1. Small volume acute ischemic stroke in the left basis pontis without evidence of hemorrhagic conversion. This report was approved by Peter Armstrong on 08/13/2015 7:47 AM . I, Dr. EDWIN FLYNN M.D. have personally reviewed and interpreted this examination/study. This report was electronically signed by EDWIN FLYNN M.D. on 08/13/2015 9:26 AM . Narrative 08/13/2015 9:26 AM [employer] EXAMINATION: Magnetic resonance imaging (MRI) of the [...] ORDERABLES * HEMOGLOBIN A1C (08/12/2015 6:30 AM [employer]) Only the most recent of2 resultswithin the time period is included. Hemoglobin A1c 5.7 4.4 - 6.3 % [facility] Estimated Average Glucose 117 mg/dL [facility] Comment: HbA1c Interpretation: Treatment target values recommended by ADA and other clinical organizations should be used to evaluate metabolic control in patients. Treatment Target Values: Normal : < 5.7% Pre-diabetes: 5.7-6.4% Diabetes: Equal to or greater than 6.5% Reference: [place] [employer] Standards of Care in Diabetes -2014 In patients 70 years and older consider HbA1c target range of 7.0-7.5% Reference: Diabetes Mellitus in Older People: Position Statement on behalf of the International Association of Gerontology and Geriatrics (IAGG), the Diabetes Working Republican for Older People (EDWPOP), and the International Task Force of Experts in Diabetes. Segun Ramsey, et al. J [place] [employer] Association. 2012 Test results diagnostic [...] BLOOD SPECIMEN / Unknown 08/12/2015 6:30 AM [employer] 08/12/2015 6:34 AM [employer] Ciera Arias MD LAB - CHEMISTRY ANGELA CHAVIRA [facility] Organization Address City/State/ZIP Co de Phone Number [address] [phone] * CT HEAD WO CONTRAST (08/11/2015 5:31 PM [employer]) Only the most recent of2 resultswithin the time period is included. Anatomical Region Laterality Modality Head Other Impressions 08/12/2015 6:54 AM [employer] IMPRESSION: 1. No acute intracranial hemorrhage, significant mass effect, or midline shift. Preliminary results reported by Dr. Guardado on at 5:53 PM. This report was electronically signed by MARTÍN ZULUAGA M.D. on 08/12/2015 6:54 AM . Narrative 08/12/2015 6:54 AM [employer] EXAMINATION: Computed tomography (CT) of the head [...] ANGIO BRAIN AND NECK (08/11/2015 11:25 AM AIRCRAFT MECH[employer]IC [employer]) Anatomical Region Laterality Modality Head Other Impressions 08/11/2015 12:47 PM [employer] IMPRESSION: 1. No acute intracranial hemorrhage, significant [...] 12:47 PM . Narrative 08/11/2015 12:47 PM [employer] EXAMINATION: Computed tomography (CT) of the head [...] ORDERABLES * TROPONIN I (08/11/2015 12:24 AM [employer]CH[employer]) Only the most recent of2 resultswithin the time period is included. Troponin I <0.010 <0.032 ng/mL [facility] Blood specimen (specimen) BLOOD SPECIMEN / Unknown 08/11/2015 12:24 AM [employer] 08/11/2015 12:27 AM [employer] Ciera Arias MD LAB - CHEMISTRY ANGELA CHAVIRA [facility] Organization Address City/State/ZIP Co de Phone Number [address] [phone] * CK + CKMB PANEL (08/11/2015 12:24 AM AIR[employer]FT [employer]CH[employer]) Only the most recent of2 resultswithin the time period is included. CK Total 51 30 - 200 Units/L [facility] CK-MB 0.8 0.0 - 6.6 ng/mL [facility] Blood specimen (specimen) BLOOD SPECIMEN / Unknown 08/11/2015 12:24 AM [employer] 08/11/2015 12:27 AM [employer] Ciera Arias MD LAB - CHEMISTRY ORDE RABLES Performing Organization Address City/[facility]/ZIP Co de Phone Number [address] [phone] * (ABNORMAL) URINALYSIS W/MICROSCOPIC NO CULTURE (08/10/2015 6:30 PM AIR[employer] MECH[employer]) Color UA Yellow Straw, Yellow, Colorless, Light Yellow [facility] Clarity UA Clear Clear [facility] Specific [place] UA 1.012 1.001 - 1.030 [facility] [...] HOSPITAL Urine specimen (specimen) 08/10/2015 6:30 PM [employer] 08/10/2015 6:39 PM [employer] Ciera Arias MD LAB - URINALYSIS ORD ERABLES Performing Organization Address City/[facility]/ZIP Co de Phone Number [address] [phone] * DRUG ABUSE PANEL 10-20+ETHANOL URINE NO CONFIRM (08/10/2015 6:30 PM [employer] ME[employer]) Amphetamines Screen Urine Negative Negative: < 1000 [...] (specimen) URINE / Unknown 08/10/2015 6:30 PM [employer]CH[employer] 08/10/2015 6:39 PM AIRCRAFT MECH[employer]IC [employer] Narrative [facility] - 08/10/2015 6:53 PM [employer]CH[employer] The Urine Toxicology Screening Panel does not screen for Propoxyphene, Meprobamate, Carisoprodol, Trazodone, tody-emr-mrmaoty medications and/or volatiles (Acetone, Isopropanol, Methanol or Ethylene Glycol). Ethanol, Salicylate, Acetaminophen, Tricyclic Antidepressants and several therapeutic drugs may be individually assayed in serum or plasma specimen. Toxicology testing by the [facility] is an aid to medical diagnosis and treatment of patients. No documented chain of custody was maintained. Results are intended to be used for clinical purposes only. Ciera Arias MD LAB - URINE CHEMISTR Y ORDERABLES [facility] [address] [place] [address] * VAS BILATERAL VENOUS DUPLEX LE (08/10/2015 3:36 PM [employer]CRAFT MECH[employer]) Anatomical Region Laterality Modality Other Ciera Arias MD VASCULAR LAB ORDERAB LES * HEPATIC FUNCTION PANEL (08/10/2015 2:39 PM AIRCRAFT MECHANIC [employer]ENT) [facility] Protein Total 6.8 6.0 - 8.3 g/dL [facility] Albumin 3.6 3.4 - 5.0 g/dL [...] BLOOD SPECIMEN / Unknown 08/10/2015 2:39 PM [employer] 08/10/2015 2:42 PM [employer] Ciera Arias MD LAB - CHEMISTRY ANGELA CHAVIRA [facility] Organization Address City/State/[facility] Co de Phone Number [address] [phone] * (ABNORMAL) LIPID PROFILE (08/10/2015 2:39 PM AIRCRAFT MECH[employer]) Cholesterol Total 193 <200 mg/dL [facility] HDL 37(L) >40 mg/dL [facility] Comment: ATP III Classification of HDL Cholesterol: <40 mg/dL: Considered a major risk factor. >60 mg/dL: Considered a negative risk factor. LDL Calculated 86 <100 mg/dL [facility] Comment: ATP III Classification of LDL Cholesterol: <100 mg/dL: Optimal 100 - 129 mg/dL: Near Optimal/Above Optimal 130 - 159 mg/dL: Borderline High 160 - 189 mg/dL: High >190 mg/dL: Very High Triglycerides 350(H) <150 mg/dL [facility] Comment: ATP III Classification of Triglycerides: <150 mg/dL: Normal 150 - 199 mg/dL: Borderline High 200 - 400 mg/dL: High >500 mg/dL: Very High Blood specimen (specimen) BLOOD SPECIMEN / Unknown 08/10/2015 2:39 PM [employer] 08/10/2015 2:42 PM [employer] Ciera Arias MD LAB - CHEMISTRY ANGELA CHAVIRA [facility] [address] [phone] * ECHO W DOPPLER AND COLOR FLOW (08/10/2015 12:00 AM [employer]CRA[employer]) Anatomical Region Laterality Modality Other 08/10/2015 Ciera Arias MD ECHOCARDIOGRAPHY RAD IANT * EKG 12-LEAD (08/10/2015 12:00 AM AIRCRAFT MECH[employer]IC [employer]ENT) EKG [facility] Comment: Exam Date/Time: Aug 10 2015 [...] ECGs available Confirmed by Susan Musa, Jena ([id number]), web editor MIGUEL FRANCOIS ([id number]) on 08/20/2015 1:43:34 PM Referred By: REFERRING NO Confirmed By:Jena Musa M.D. 08/10/2015 Ciera Arias MD ECG ORDERABLES [facility] Care Teams Dispensing Optician Relationship Specialty Start Date End Date Basilio Mao MD [address] [facility] [address] [place] [id number] PCP - General 08/25/16
--- OUTSIDE RECORDS SUMMARY | 2024-08-31 03:09 | XMS_ITS | Encounter Summary ---
Author Organization [facility] Address [facility] [place] [address] Care Team Providers Care General Helper Name Role Phone Ilene Paul MD Primary Care Provider [phone] Encounter Details Date Type Department Care Team (Late st Contact Info) Description 05/26/2022 [employer] Message Enc [place] [facility] [employer] [address] [place] [address] Johnny Hardin MD,PHD Eliquis? 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 [...] we will need to go to coumadin RSTITCH MACHINE OPERATOR documented in this encounter Plan of Treatment Upcoming Encounters Date Type Department Care Team (Late st Contact Info) Description 12/21/2024 8:20 AM CDT Office Visit [facility] - [place] [address] [place] [phone] Ilene Paul MD [address] [facility] [address] [place] [address] 03/29/2025 8:00 AM CDT Office Visit [facility] - [facility] [address] [place] [phone] Jorge Israel MD [address] [facility] [place], [place] [id number] documented as of this encounter Goals Goal [...] Total Score: 0 09/09/19 22 7:39 AM COVERSTITCH MACHINE OPERATOR documented as of this encounter Care Teams General Helper Relationship Specialty Start Date End Date Ilene Paul MD [address] [facility] [address] [facility] [place] [address] PCP - General FAMILY PRACTICE 11/12/20 documented as of this encounter
--- OUTSIDE RECORDS SUMMARY | 2024-08-31 03:09 | XMS_ITS | Encounter Summary ---
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 Not [...] Description 12/21/2024 8:20 AM CDT Office Visit [facility] - [place] [address] [facility] [address] [place] [address] Ilene Paul MD [address] [facility] [address] [place] [address] 03/29/2025 8:00 AM CDT Office Visit [facility] Multispecialty Care - [facility] [address] [facility] [place] [address] Jorge Israel MD [address] [facility] [address] [place] [address] documented as of this encounter Visit Diagnoses Not on filedocumented in this encounter Additional Health Concerns Infection Onset Date Last Indicated Resolved Time COVID-19 Rule Out 04/26/2021 04/26/2021 04/26/2021 7:39 PM CDT Assessment Noted Time PHQ-9 Depression Total Score: 0 02/21/20 10:42 AM CDT documented as of this encounter Care Teams Director Of User Experience Relationship Specialty Start Date End Date Ilene Paul MD [address] [facility] [address] [place] [address] PCP - General FAMILY PRACTICE 11/12/20 documented as of this encounter
--- OUTSIDE RECORDS SUMMARY | 2024-08-31 03:09 | XMS_ITS ---
Author Organization [facility] Address [address] [place] [address] Care Team Providers Care Nurse Rn Bsn Name Role Phone Ilene Paul MD Primary Care Provider [phone] Problems Problem Noted Date Diagnosed Date Muscle spasticity 04/07/2024 Hypercoagulable state ([facility]) 09/23/19 24 Type 2 diabetes mellitus wit hout complication, without long-term current use of insulin ([facility]) 09/23/2023 Spinal stenosis of lumbar re 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 06/19/2023 Other intervertebral disc displacement, lumbar r egion 06/19/2023 History of CVA (cerebrovascular accident) 2022 History of prostate cancer 04/01/2023 History of DVT (deep vein thrombosis) 04/01/2023 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 Past Plans Radiation Treatments * No radiation treatments are documented for this patient in [facility]. Treatments may have been administered in another system. Resolved Problems Problem Noted Date Diagnosed Date Resolved Date DVT (deep venous thrombosis) ([facility]) 09/22/2022 04/01/2023 Primary prostate malignancy ([facility]) 04/12/2009/23/2023 Annual physical exam 11/14/2020 021 Cerebrovascular accident (CV A) due to thrombosis ([facility]) 11/14/2020 04/01/2023
--- OUTSIDE RECORDS SUMMARY | 2024-08-31 03:09 | XMS_ITS | Clinical Summary ---
Author Organization [facility] Address [address] [place] [address] Care Team Providers Care Automation Analyst Name Role Phone Ilene Paul MD Primary Care Provider [phone] Allergies No known active allergies Medications dapagliflozin (FARXIGA) 10 MG tabletIndication s:Mixed hyperlipidemia,T ype 2 diabetes mellitus without complication, without long-term current use of insulin ([facility]) Take 1 tablet (10 mg total) by mouth daily. 90 tablet 3 01/01/20 23 Active Ferrous Sulfate (IRON) 325 (65 Fe) MG tabletIndication s:Microcytic anemia Take 325 mg by mouth daily with breakfast. 90 tablet 3 09/23/19 24 Active metFORMIN (GLUCOPHAGE) 500 MG tabletIndication s:Mixed hyperlipidemia,T ype 2 diabetes mellitus without complication, without long-term current use of insulin ([facility]) Take 1 tablet by mouth once [...] of vertebral artery, unspecified blood vessel laterality ([facility]) TAKE 1 TABLET BY MOUTH NIGHTLY AT BEDTIME 90 tablet 08/23/19 25 Active atorvastatin (LIPITOR) 40 MG tabletIndication s:Gastroesophage al reflux disease without esophagitis,Ingrid al physical exam,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, unspecified blood vessel laterality ([facility]) TAKE 1 TABLET BY MOUTH NIGHTLY [...] Diagnosed Date Muscle spasticity 04/07/2024 Hypercoagulable state ([facility]) 09/23/19 24 Type 2 diabetes mellitus wit hout complication, without long-term current use of insulin ([facility]) 09/23/2023 Spinal stenosis of lumbar re 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 06/19/2023 Other intervertebral disc displacement, lumbar r egion 06/19/2023 History of CVA (cerebrovascular accident) 2022 History of prostate cancer 04/01/2023 History of DVT (deep vein thrombosis) 04/01/2023 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 ([facility]) 10/09/2022 Hemiplegia and hemiparesis f 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 ([facility]) 07/28/2022 Status post prostatectomy 04/30/2021 Gastroesophageal reflux disease without esophagi tis 11/14/2020 Hypertension Hyperlipidemia GERD (gastroesophageal reflux disease) Overview (05/02/2021): No date...40 years now Obesity Resolved Problems Problem Noted Date Diagnosed Date Resolved Date DVT (deep venous thrombosis) ([facility]) 09/22/2022 04/01/2023 Primary prostate malignancy ([facility]) 04/12/20 21 09/23/2023 Annual physical exam 11/14/2020 021 Cerebrovascular accident (CV A) due to thrombosis ([facility]) 11/14/2020 04/01/2023 Encounters Date Type Department Care Team Description 08/18/2024 Scan [facility] Scanned, Doc Med Group CT (SCAN); Image (SCAN) 08/10/2024 Orders Only [facility] Family and Sports Medicine - [place] [address] [place] [address] Ilene Paul MD 06/22/2024 8:20 AM JACKER FEEDER Office Visit [facility] Family [facility] [address] [place] [address] Ilene Paul MD Follow Up 06/22/2024 Travel 06/14/2024 Orders Only [facility] Family [facility] health Sports [facility] [address] [place] [address] Ilene Paul MD 06/07/2024 Scan [facility] Scanned, [facility] 05/31/2024 Therapy Plan [facility] Physical Therapy 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 Not on file Last Filed Vital Signs Vital Sign Reading Time Taken Comments Blood Pressure 124/64 06/22/2024 8:33 AM JACKER FEEDER Pulse 70 06/22/2024 8:33 AM JACKER FEEDER Temperature 36.7 C (98.1 F) 06/22/2024 8:33 AM JACKER FEEDER Respiratory Rate 16 06/22/2024 8:33 AM JACKER FEEDER Oxygen Saturation 98% 06/22/2024 8:33 AM JACKER FEEDER Inhaled Oxygen Concentration - - Weight 112.5 kg (248 lb) 06/22/2024 8:33 AM JACKER FEEDER Height 188 cm (6' 2 ) 06/22/2024 8:33 AM JACKER FEEDER Body Mass Index 31.84 06/22/2024 8:33 AM JACKER FEEDER Plan of Treatment Upcoming Encounters Date Type Department Care Team (Late st Contact Info) Description 12/21/2024 8:20 AM CDT Office Visit [facility] Family and Sports Medicine - [address] [place] [address] Ilene Paul MD [address] [place] [address] 03/29/2025 8:00 AM CDT Office Visit [facility] Multispecialty Care - [address] [place] [phone] Jorge Israel MD 3 [facility] [address] [place] [address] Health Maintenance Due Date Last Done Comments Pneumococcal Vaccine: 65+ Years (1 of 2 - PCV) 1962 Diabetes: Retinopathy Eye Exam 1974 RSV Immunization or 60+ Years (1 - Risk 60-74 years 1-dose series) 2016 PHQ-2 (Physician [place]) 07/20/2024 06/22/2024 Hemoglobin A1C 09/12/2024 06/14/2024, [...] independent in ADLs upon discharge from hospital [facility] Bettina Ramirez RN Procedures Procedure Name Priority Date/Time Associated Diagnosis Comments CT GENERIC 08/18/2024 IMAGE GENERIC 08/18/2024 HEMOGLOBIN, GLYCOSYLATED Routine 10:34 AM JACKER FEEDER THYROID STIM HORMONE TSH Routine 10:34 AM JACKER FEEDER THYROXINE, FREE (FT4) Routine 06/14/2024 10:34 AM JACKER FEEDER TRIIODOTHYRONINE TOTAL , TT-3 Routine 06/14/2024 10:34 AM JACKER FEEDER C-REACTIVE PROTEIN Routine 06/14/2024 10 :34 AM JACKER FEEDER CBC W/DIFF AUTOMATED Routine 06/14/2024 10:34 AM JACKER FEEDER ALBUMIN URINE RANDOM W/CREATININE Routine 06/14/2024 10:34 AM JACKER FEEDER COMPREHENSIVE METABOLIC PANEL Routine 06/14/2024 10:34 AM JACKER FEEDER LIPID PANEL Routine 06/14/2024 10:34 AM JACKER FEEDER PTH INTACT W/ CALCIUM Routine 06/14/2024 10:34 AM JACKER FEEDER HEPATITIS C ANTIBODY Routine 07/01/2023 9:28 AM JACKER FEEDER Primary hypertension History of CVA (cerebrovascular accident) History of prostate cancer CT ABD+PEL W CON STAT 05/01/2021 6:52 PM CDT COLONOSCOPY GENERIC (SCAN ORDER) Routine 08/21/2016 12:00 AM JACKER FEEDER from Last 3 Months or Most Recently Relevant to Health Maintenance Results * CT GENERIC (08/18/2024) Anatomical Region Laterality Modality Other 08/18/2024 us [facility] Scanned SCANNING Final Resu lt * IMAGE GENERIC (08/18/2024) Anatomical Region Laterality Modality Other 08/18/2024 us [facility] Scanned SCANNING Final Resu lt * PTH INTACT W/ CALCIUM (06/14/2024 10:34 AM JACKER FEEDER) PTH INTACT 41 16 - 77 pg/mL [facility] Comment: Interpretive Guide Intact PTH Calcium ------- Normal Parathyroid Normal Normal Hypoparathyroidism Low or Low Normal Low Hyperparathyroidism Primary Normal or High High Secondary High Normal or Low Tertiary High High Non-Parathyroid Hypercalcemia Low or Low Normal High CALCIUM S/P/B 9.6 8.6 - 10.3 mg/dL [facility] 06/14/2024 10:3 4 AM JACKER FEEDER 06/14/2024 10:39 AM JACKER FEEDER Narrative Resulting Agency Comment Performing Organization Information: Site ID: [place] Name: [facility] Address: [address] [place] [address] Director: Joselyn Tyson MD Ilene Paul MD LABORATORY Final Result JOÃO MENCHACA [employer] [facility] [id number] [place] [address], [place] * (ABNORMAL) HEMOGLOBIN, GLYCOSYLATED (06/14/2024 10:34 AM JACKER FEEDER) HGB A1C 6.5(H) <5.7 % of total Hgb [facility] Comment: For someone without known diabetes, [...] diabetes for children. 06/14/2024 10:3 4 AM JACKER FEEDER 06/14/2024 10:39 AM JACKER FEEDER Narrative Resulting Agency Comment Performing Organization Information: Site ID: Name: [facility] Address: [address] [place] [address] Director: Joselyn Tyson Ilene Paul MD LABORATORY Final Result Performing Organization Address City/[facility] Co de Phone Number Ton[facility] [address] [address], [place] * TRIIODOTHYRONINE TOTAL , TT-3 (06/14/2024 10:34 AM JACKER FEEDER) T3 TOTAL 112 76 - 181 ng/dL [facility] 06/14/2024 10:3 4 AM JACKER FEEDER 06/14/2024 10:39 AM JACKER FEEDER Narrative Resulting Agency Comment Performing Organization Information: Site ID: [place] Name: [facility] Address: [address] [place] [address] Director: Joselyn Tyson MD Ilene Paul MD LABORATORY Final Result Performing Organization Address City/[facility]/ZIP Co de Phone Number [facility] [address] [address], * (ABNORMAL) ALBUMIN URINE RANDOM W/CREATININE (06/14/2024 10:34 AM JACKER FEEDER) CREATININE RANDOM (U) 173 20 - 320 mg/dL [facility] MICROALBUMIN (U) 28.9 See Note: mg/dL [facility] Comment: Reference Range: Reference Range Not established Results verified by repeat analysis on dilution. MICROALB/CREAT 167(H) <30 mg/g creat [facility] Comment: The ADA defines abnormalities in albumin excretion as follows: Albuminuria Category Result (mg/g creatinine) Normal to Mildly increased <30 Moderately increased 30-299 Severely increased > OR = 300 The ADA recommends that at least two of three specimens collected within a 3-6 month period be abnormal before considering a patient to be within a diagnostic category. 06/14/2024 10:3 4 AM JACKER FEEDER 06/14/2024 10:39 AM JACKER FEEDER Narrative Resulting Agency Comment Performing Organization Information: Site ID: [id number] Name: João Padron Address: [address] [place] [address] Director: Joselyn Tyson MD Ilene Paul MD URINE ORDERABLES Final Result JOÃO MENCHACA [facility] [address] [place], [place] [address] * COMPREHENSIVE METABOLIC PANEL (06/14/2024 10:34 AM JACKER FEEDER) GLUCOSE 99 65 - 99 mg/dL [facility] Comment: Fasting reference interval BUN 15 7 - 25 mg/dL [employer] [facility] CREATININE S/P/B 1.00 0.70 - 1.35 mg/dL [facility] GFR ESTIMATE 82 > OR = 60 mL/min/1. 73m2 [facility] BUN CREATININE RATIO SEE NOTE: (calc) [facility] Comment: Not Reported: BUN and Creatinine are within reference range. SODIUM S/P/B 140 135 - 146 mmol/L [facility] POTASSIUM S/P/B 4.7 3.5 - 5.3 mmol/L [facility] CHLORIDE S/P/B 103 98 - 110 mmol/L [facility] CO2 29 20 - 32 mmol/L [facility] CALCIUM S/P/B 9.6 8.6 - 10.3 mg/dL [facility] TOTAL PROTEIN S/P/B 7.0 6.1 - 8.1 g/dL [facility] ALBUMIN S/P/B 4.2 3.6 - 5.1 g/dL [employer] [facility] GLOBULIN 2.8 1.9 - 3.7 g/dL (calc) [employer] [facility] ALBUMIN/GLOBULI N RATIO 1.5 1.0 - 2.5 (calc) [facility] BILIRUBIN TOTAL S/P/B 0.8 0.2 - 1.2 mg/dL [facility] ALKALINE PHOSPHATASE S/P/B 98 35 - 144 U/L [employer] [facility] AST 15 10 - 35 U/L [facility] ALT 19 9 - 46 U/L [facility] 06/14/2024 10:3 4 AM JACKER FEEDER 06/14/2024 10:39 AM JACKER FEEDER Narrative Resulting Agency Comment Performing Organization Information: Site ID: [place] Name: [facility] Address: [address] [facility] [place] [address] Director: Joselyn Tyson MD us Ilene Paul MD LABORATORY Final Result [facility] JONAS [address] [place], [place] [address] * (ABNORMAL) LIPID PANEL (06/14/2024 10:34 AM JACKER FEEDER) CHOLESTEROL 108 <200 mg/dL [facility] HDL 40 > OR = 40 mg/dL [facility] TRIGLYCERIDES 175(H) <150 mg/dL [facility] LDL (CALCULATED) 43 mg/dL (calc) [facility] Comment: Reference range: <100 Desirable range <100 mg/dL for primary prevention; <70 mg/dL for patients with CHD or diabetic patients with > or = 2 CHD risk factors. LDL-C is now calculated using the Zaida calculation, which is a validated novel method providing better accuracy than the Friedewald equation in the estimation of LDL-C. Martín PRASAD et al. PANCHITO. 2013;310(19): 4270-3732 (http://education.OpenBuildings.Greenbox/faq/DVX815) CHOL/HDL RATIO 2.7 <5.0 (calc) [facility] NON HDL CHOLESTEROL 68 <130 mg/dL (calc) [facility] Comment: For patients with diabetes plus 1 major ASCVD risk factor, treating to a non-HDL-C goal of <100 mg/dL (LDL-C of <70 mg/dL) is considered a therapeutic option. 06/14/2024 10:3 4 AM JACKER FEEDER 06/14/2024 10:39 AM JACKER FEEDER Narrative Resulting Agency Comment Performing Organization Information: Site ID: [id number] Name: [facility] Address: [address] [place] [phone] Director: Joselyn Tyson MD Ilene Paul MD LABORATORY Final Result Performing Organization Address [facility] Co de Phone Number Ton[facility] [employer] [address] [address], * C-REACTIVE PROTEIN (06/14/2024 10:34 AM JACKER FEEDER) Pathologist [facility] C-REACTIVE PROTEIN 3.6 <8.0 mg/L [facility] 06/14/2024 10:3 4 AM JACKER FEEDER 06/14/2024 10:39 AM JACKER FEEDER Narrative Resulting Agency Comment Performing Organization Information: Site ID: [id number] Name: [facility] Address: [address] [place] [address] Director: Joselyn Tyson MD Ilene Paul MD LABORATORY Final Result Performing Organization Address City/[facility] Co de Phone Number [facility] [employer] [facility] [id number] [place] [address], * CBC W/DIFF AUTOMATED (06/14/2024 10:34 AM JACKER FEEDER) WBC 7.9 3.8 - 10.8 Thousand/u L [facility] RBC 4.80 4.20 - 5.80 Million/uL [facility] HGB 13.8 13.2 - 17.1 g/dL [facility] HCT 42.5 38.5 - 50.0 % [facility] MCV 88.5 80.0 - 100.0 fL [facility] MCH 28.8 27.0 - 33.0 pg [facility] MCHC 32.5 32.0 - 36.0 g/dL [facility] Comment: For adults, a slight decrease in the calculated MCHC value (in the range of 30 to 32 g/dL) is most likely not clinically significant; however, it should be interpreted with caution in correlation with other red cell parameters and the patient's clinical condition. RDW 13.9 11.0 - 15.0 % [facility] PLT 364 140 - 400 Thousand/u L [facility] MPV 10.3 7.5 - 12.5 fL [facility] ABS. NEUTROPHILS 4,938 1,500 - 7,800 cells/uL [facility] ABS. LYMPHOCYTES 2,038 850 - 3,900 cells/uL [facility] ABS. MONOCYTES 695 200 - 950 cells/uL [facility] ABS. EOSINOPHILS 190 15 - 500 cells/uL [facility] ABS. BASOPHILS 40 0 - 200 cells/uL [facility] SEG NEUTROPHILS 62.5 % [employer] [facility] LYMPHOCYTES 25.8 % [facility] MONOCYTES 8.8 % [facility] EOSINOPHILS 2.4 % [facility] BASOPHILS 0.5 % [facility] 06/14/2024 10:3 4 AM JACKER FEEDER 06/14/2024 10:39 AM JACKER FEEDER Narrative Resulting Agency Comment Performing Organization Information: Site ID: [place] Name: [employer] [facility] Address: [address] [place] [address] Director: Joselyn Tyson MD us Ilene Paul MD LABORATORY Final Result [employer] [facility]ONAS MAGDY MENCHACA [employer] J[facility] [address] [place] [address], [place] * THYROXINE, FREE (FT4) (06/14/2024 10:34 AM JACKER FEEDER) FREE T4 1.2 0.8 - 1.8 ng/dL [facility] 06/14/2024 10:3 4 AM JACKER FEEDER 06/14/2024 10:39 AM JACKER FEEDER Narrative Resulting Agency Comment Performing Organization Information: Site ID: [id number] Name: [facility] Address: [address] [place] [phone] Director: Joselyn Tyson MD Ilene Paul MD LABORATORY Final Result Performing Organization Address City/[facility]/ZIP Co de Phone Number [employer] [facility]ONAS [place] [address], * THYROID STIM HORMONE TSH (06/14/2024 10:34 AM JACKER FEEDER) TSH 1.77 0.40 - 4.50 mIU/L [facility] [employer] [facility] 06/14/2024 10:3 4 AM JACKER FEEDER 06/14/2024 10:39 AM JACKER FEEDER Narrative Resulting Agency Comment Performing Organization Information: Site ID: [id number] Name: [employer] [facility] Address: [address] [place] [phone] Director: Joselyn Tyson MD us Ilene Paul MD LABORATORY Final Result Performing Organization Address [facility] de Phone Number [employer] JONAS [place] [address], * HEPATITIS C ANTIBODY (07/01/2023 9:28 AM JACKER FEEDER) HEPATITIS C AB NON-REACTI VE NON-REACT SHAZIA 07/01/2023 7:43 PM JACKER FEEDER [facility] Comment: ANTIBODIES TO HCV NOT DETECTED. DOES NOT EXCLUDE THE POSSIBILITY OF EXPOSURE TO HCV. 07/01/2023 9:28 AM JACKER FEEDER us Ilene Paul MD LABORATORY Final Result Performing Organization Address City/[facility]/ZIP Co de Phone Number [facility] [address] [place] [address], [phone] * CT ABD+PEL W CON (05/01/2021 6:52 [...] Final Result * COLONOSCOPY (08/21/2016 12:00 AM JACKER FEEDER) 08/21/2016 us [facility] Scanned SCANNING Final Resul t [facility]-ASHLEY MENDOZA from Last 3 Months or Most Recently Relevant to Health Maintenance Insurance [employer] Advance Directives * Full Code (Latest Code Status on File) Date Activated Date Inactivated Comments 04/29/2021 10:08 PM 05/03/2021 2:58 PM Care Teams Automation Analyst Relationship Specialty Start Date End Date Ilene Paul MD [address] [address] PCP - General FAMILY PRACTICE 11/12/20
--- OUTSIDE RECORDS SUMMARY | 2024-08-31 03:09 | XMS_ITS | Encounter Summary ---
Author Organization [facility] Address [address] [place] [address] Care Team Providers Care Miller Head Wet Process Name Role Phone Basilio Mao MD Primary Care Provider [phone] Encounter Details Date Type Department Care Team (Late st Contact Info) Description 05/06/2023 Lab Requisition [facility] - DermPath Lab [address] [place] [address] Donnie Dyson MD [facility] [address] [place] [phone] Neoplasm of uncertain behavior of skin [...] AM CDT) Case Report Dermatopathology Report Case: [id number] Authorizing Provider: Donnie Dyson MD Collected: 05/06/2023 03:33 AM Ordering Location: [facility] Lab Received: 05/07/2023 11:07 AM [...] characteristic determined by the Dermatopathology Laboratory at [facility], directed by Dr. Lore Vee. These tests need not be, and therefore are not, approved by the [place] Food and Drug Administration. The tests are used for clinical purposes. Billing Codes Specimen Charges Stain Charges 31230 1 1:46 PM CDT DERMATOPATHOLOGY LABORATORY Embedded Images 1:46 PM CDT DERMATOPATHOLOGY LABORATORY Pathology/Cytolo gy TISSUE SPECIMEN FROM SKIN / Unknown 05/06/2023 3:33 AM CDT 05/07/2023 11:07 AM CDT Donnie Dyson MD LAB - PATHOLOGY/CYTO LOGY ORDERABLES DERMATOPATHOLOGY LABORATORY [facility] - Department of Dermatology [address] [phone] documented in this encounter Visit Diagnoses Diagnosis Neoplasm of uncertain behavior of skin documented in this encounter Care Teams Miller Head Wet Process Relationship Specialty Start Date End Date Basilio Mao MD [address] [place] [address] PCP - General 08/25/16 documented as of this encounter
--- OUTSIDE RECORDS SUMMARY | 2024-08-31 03:09 | XMS_ITS | Encounter Summary ---
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 Not [...] Date Type Department Care Team (Late st [facility] Info) Description 12/21/2024 8:20 AM CDT Office Visit [facility] Family and Sports Medicine - [place] [address] [place] [address] Ilene Paul MD [address] [place] [address] 03/29/2025 8:00 AM CDT Office Visit [facility] Multispecialty Care - [facility] [address] [place] [address] Jorge Israel MD [address] [place] [address] documented as of this encounter Goals Goal Patient Goal Type Associated Problems Recent Progress Patient-Stated? Author Patient will return to prior living situation and remain independent in ADLs upon discharge from [facility] General Bettina Ramirez RN documented as of this encounter Visit Diagnoses Not on filedocumented in this encounter Additional Health Concerns Assessment Noted Time PHQ-9 Depression Total Score: 0 01/01/20 23 9:18 AM CDT documented as of this encounter Care Teams Crm Marketing Executive Relationship Specialty Start Date End Date Ilene Paul MD [address] [address] PCP - General FAMILY PRACTICE 11/12/20 documented as of this encounter
--- OUTSIDE RECORDS SUMMARY | 2024-08-31 03:10 | XMS_ITS | Encounter Summary ---
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 Author Patient will return to prior living situation and remain independent in ADLs [facility] General Bettina Ramirez RN documented as of this encounter Visit Diagnoses Not on filedocumented in this encounter Additional Health Concerns Assessment Noted Time PHQ-9 Depression Total Score: 0 09/09/19 22 7:39 AM KILN CHARGER documented as of this encounter Care Teams Medical Detail Representative Relationship Specialty Start Date End Date Ilene Paul MD [address] [address] PCP - General FAMILY PRACTICE 11/12/20 documented as of this encounter
--- OUTSIDE RECORDS SUMMARY | 2024-08-31 03:10 | XMS_ITS | Encounter Summary ---
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 Not [...] Description 12/21/2024 8:20 AM CDT Office Visit [facility] Medicine - [place] [address] [place] [phone] Ilene Paul MD [address] [facility] [address] [place] [address] 03/29/2025 8:00 AM CDT Office Visit [facility] - [facility] [address] [place] [address] Jorge Israel MD [address] [facility] [address] [place] [address] documented as of this encounter Goals Goal [...] documented as of this encounter Care Teams Set Up Person Relationship Specialty Start Date End Date Ilene Paul MD [address] [address] PCP - General FAMILY PRACTICE 11/12/20 documented as of this encounter
--- OUTSIDE RECORDS SUMMARY | 2024-08-31 03:10 | XMS_ITS | Encounter Summary ---
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 [...] Description 12/21/2024 8:20 AM CDT Office Visit [facility] Family and Sports Medicine - [place] [address] [place] [address] Ilene Paul MD [address] [place] [address] 03/29/2025 8:00 AM CDT Office Visit [facility] - [facility] [address] [place] [address] Jorge Israel MD [address] [place] [address] documented as of this encounter Goals Goal Patient Goal Type Associated Problems Recent Progress Patient-Stated? Author Patient will return to prior living situation and remain independent in ADLs upon discharge from [facility] Bettina Ramirez RN documented as of this [...] Total Score: 0 09/09/19 22 7:39 AM MANUFACTURING PLANT CONTROLLER documented as of this encounter Care Teams Soybean Specialties Cook Relationship Specialty Start Date End Date Ilene Paul MD [address] [place] [address] PCP - General FAMILY PRACTICE 11/12/20 documented as of this encounter
--- OUTSIDE RECORDS SUMMARY | 2024-08-31 03:10 | XMS_ITS | Encounter Summary ---
Author Organization [facility] Address [facility] [place] [address] Care Team Providers Care Glass Technologist Name Role Phone Ilene Paul MD Primary Care Provider [phone] Encounter Details Date Type Department Care Team (Late st Contact Info) Description 04/26/2021 Prep for Procedure [place] Pre-Admission Testing 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 Family and Sports Medicine - [place] [address] [place] [address] Ilene Paul MD [address] [place] [address] 03/29/2025 8:00 AM CDT Office Visit [facility] Multispecialty Care - [facility] [address] [place] [address] Jorge Israel MD [address] [place] [address] documented as of this encounter Results * CORONAVIRUS (COVID 19) (04/26/2021 9:30 AM CDT) SPEC DESCRIPTION NASAL 04/26/20 11:36 AM CDT [facility] CORONAVIRUS SARS COV 2 PCR (RESP) NEGATIVE NEGATIVE 04/26/2021 7:38 PM CDT [facility] Comment: THE SARS-CoV-2 TEST HAS BEEN AUTHORIZED BY THE FDA UNDER AN EUA FOR USE BY AUTHORIZED LABORATORIES. PERFORMED BY NUCLEIC ACID AMPLIFICATION PCR FIRST TEST NO 04/26/2021 11:36 AM CDT [facility] EMPLOYED IN HEALTHCARE NO 04/26/2021 11:36 AM CDT [facility] SYMPTOMATIC DEFINED BY CDC NO 04/26/2021 11:36 AM CDT [facility] HOSPITALIZATION STATUS NO 04/26/2021 11:36 AM CDT [facility] PATIENT IN ICU NO 04/26/2021 11:36 AM CDT [facility] RESIDENT OF CONGREGATE CARE NO 04/26/2021 11:36 AM CDT [facility] NASAL STRUCTURE / Unknown 04/26/2021 9:30 AM CDT Chacho Herman MD MICROBIOLOGY - GENERAL ORDERABLE S Final Result [facility] [address] [place] [address], [place] [phone] [facility] [address] [place] [address], [place] [phone] documented in this encounter Visit Diagnoses Diagnosis Preop examination- Primary Preoperative examination, unspecified documented in this encounter Additional Health Concerns Infection Onset Date Last Indicated Resolved Time COVID-19 Rule Out 04/26/2021 04/26/2021 04/26/2021 7:39 PM CDT Assessment Noted Time PHQ-9 Depression Total Score: 0 04/04/20 7:54 AM CDT documented as of this encounter Care Teams Glass Technologist Relationship Specialty Start Date End Date Ilene Paul MD [address] [facility] [address] [place] [address] PCP - General FAMILY PRACTICE 11/12/20 documented as of this encounter
--- OUTSIDE RECORDS SUMMARY | 2024-08-31 03:10 | XMS_ITS | Encounter Summary ---
Author Organization [facility] - 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 Not [...] Description 12/21/2024 8:20 AM CDT Office Visit [facility] Family [facility] Sports Medicine - [place] [address] [place] [address] Ilene Paul MD [address] [facility] [address] [facility] [place] [address] 03/29/2025 8:00 AM CDT Office Visit [facility] - [facility] [address] [place] [address] Jorge Israel MD [address] [place] [address] documented as of this encounter Goals Goal [...] Total Score: 0 09/09/19 22 7:39 AM CADD OPERATOR documented as of this encounter Care Teams Mineral Industry Teacher Relationship Specialty Start Date End Date Ilene Paul MD [address] [address] PCP - General FAMILY PRACTICE 11/12/20 documented as of this encounter
--- OUTSIDE RECORDS SUMMARY | 2024-08-31 03:10 | XMS_ITS | Encounter Summary ---
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 [address] [place] [address] Jorge Israel MD [address] [place] [address] documented as of this encounter Goals Goal Patient Goal Type Associated Problems Recent Progress Patient-Stated? Author Patient will return to prior living situation and remain independent in ADLs upon discharge from [facility] General Bettina Ramirez, RN documented as of this encounter Visit Diagnoses Not on filedocumented in this encounter Additional Health Concerns Assessment Noted Time PHQ-9 Depression Total Score: 0 09/09/19 22 7:39 AM PUBLIC RECORDS RESEARCHER documented as of this encounter Care Teams Leave Coordinator Relationship Specialty Start Date End Date Ilene Paul MD [address] [phone] PCP - General FAMILY PRACTICE 11/12/20 documented as of this encounter
--- OUTSIDE RECORDS SUMMARY | 2024-08-31 03:10 | XMS_ITS | Encounter Summary ---
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 Not [...] on: 08/30/2024 08:56 AM Modules accepted: Orders WARE CONSULTANT documented in this encounter Plan of Treatment Upcoming Encounters Date Type Department Care Team (Sue Contact Info) Description 12/21/2024 8:20 AM CDT Office Visit [facility] Family and Sports Medicine - [place] [address] [place] [address] Ilene Paul MD [address] [place] [address] 03/29/2025 8:00 AM CDT Office Visit [facility] Multispecialty Care - [facility] [address] [facility] [address] [facility] [address] [place] [address] Jorge Israel MD [address] [place] [address] documented as of this encounter Goals Goal [...] Total Score: 0 09/09/19 22 7:39 AM SOFTWARE CONSULTANT documented as of this encounter Care Teams Lime Kiln Worker Helper Relationship Specialty Start Date End Date Ilene Paul MD [address] [place] [address] PCP - General FAMILY PRACTICE 11/12/20 documented as of this encounter
--- NOTE | 2024-08-31 03:26 | ED_ITS ---
HPI - Male Genitourinary General Chief complaint: Urogenital-Male Stated complaint: catheter not draining after surgery yesterday Time Seen by Provider: 08/31/24 02:58 Source: patient and family Mode of arrival: ambulatory Limitations: no limitations History of Present Illness HPI Narrative: Patient presents with report of complications with his indwelling catheter. Patient had surgery yesterday, 08/30/[address] Zamora for resection of a bladder tumor. He went home with a CBI [address] in the plan was for to remain in place be removed in clinic on . It stops draining approximately 2129 and he experienced significant abdominal pain is result. Related Data Home Medications ?Medication ?Instructions ?Recorded ?Confirmed ?Last Taken ?Type aspirin 81 mg tablet,delayed 81 mg PO DAILY 08/22/24 08/30/24 08/23/24 History release (Adult Aspirin Regimen) cholecalciferol (vitamin D3) 1,250 1,250 mcg PO WEEKLY 08/22/24 08/30/24 08/29/24 History mcg (50,000 unit) capsule dapagliflozin propanediol 10 mg 10 mg PO DAILY 08/22/24 08/30/24 08/29/24 History tablet (Farxiga) ferrous sulfate 325 mg (65 mg 325 mg PO DAILY 08/22/24 08/30/24 08/29/24 History iron) tablet (FeroSul) lisinopril 10 1 tablet PO BID 08/22/24 08/30/24 08/29/24 History mg-hydrochlorothiazide 12.5 mg tablet metformin 500 mg tablet 500 mg PO HS 08/22/24 08/30/24 08/29/24 History omeprazole 20 mg capsule,delayed 20 mg PO BID 08/22/24 08/30/24 08/29/24 History release sulfamethoxazole 800 1 tablet PO Q12H 08/22/24 08/30/24 08/22/24 History mg-trimethoprim 160 mg tablet vilazodone 10 mg tablet 10 mg PO QAM 08/22/24 08/30/24 08/29/24 History Allergies Allergy/AdvReac Type Severity Reaction Status Date / Time No Known Allergies Allergy Unverified 08/30/24 08:53 [facility] Past Medical History Medical History Bladder tumor Gross hematuria Cerebrovascular disease Family History Family History Other No problems noted. Father No problems noted. Mother Diabetes mellitus Other No problems noted. Father Patient's father is in good health Sibling Patient's sister is in good health Patient's brother is in good health Mother Family history of diabetes mellitus in first degree relative Diabetes mellitus Other Hypertension Social History Social History Smoking status: Never smoker Alcohol intake: never Living arrangements: with family Additional living arrangements comments: Spiritual care concerns: No Exam 2 Narrative: GENERAL: Well-appearing, well-nourished, and in no acute distress. HEAD: Normocephalic, atraumatic. EYES: Non injected, non icteric ENT: Nares clear, no rhinorrhea or epistaxis. NECK: Supple. CHEST: Speaking in full sentences. No respiratory distress. HEART: Tachycardic rate and rhythm. . ABDOMEN: Soft, mild suprapubic distention EXTREMITIES: Normal range of motion. No lower extremity edema. : Normal external male genitalia. Catheter in place with no urine currently draining. SKIN: Warm, dry, no rash. NEURO: No focal deficits. Alert and oriented x3. PSYCH: Normal mood and affect. Course Vital Signs Vital signs: Vital Signs Temperature 98.2 F 08/31/24 02:49 Pulse Rate 122 H 08/31/24 02:49 Respiratory Rate 17 08/31/24 02:49 Blood Pressure 150/89 H 08/31/24 02:49 Pulse Oximetry 96 08/31/24 02:49 Oxygen Delivery Room Air 08/31/24 02:49 Temperature 98.6 F 08/31/24 02:51 Pulse Rate 88 08/31/24 05:30 Respiratory Rate 24 H 08/31/24 05:30 Blood Pressure 110/66 08/31/24 04:55 Pulse Oximetry 92 08/31/24 05:30 Oxygen Delivery Room Air 08/31/24 02:51 MDM - Male Genitourinary MDM Narrative Medical decision making narrative: Patient presents postop day 1 from resection of a bladder tumor with urologist Dr. Zamora. He went home with a [address] after requiring CBI intraoperatively. Catheter stops draining approximately 2130. In the emergency department he is tachycardic with vital signs notable for hypertension initially although both resolved on repeat assessment. Nurses are able with initial CBI to get 250 cc of urine out but then it stops again. They attempted irrigating with 50 cc syringes or only able to get time pieces of clot out. Spoke with on-call urologist Dr. Hagen. He recommends discontinuing CBI and obtaining a CT abdomen pelvis without contrast, making patient NPO, and that he would discuss with Dr. Zamora at 6:00 a.m. sign-out the patient had returned as patient may require returning to the OR for clot evacuation. Advised against attempting to exchange the current CBI given the complicated nature of patient's tumor resection surgery. He has a leukocytosis and normocytic anemia. Lab Data Attestation: I reviewed the patient's lab results. 08/31/24 05:02 08/31/24 05:02 Labs: Lab Results 08/31/24 Range/Units 05:02 WBC 15.2 H (4.5-10.0) K/mm3 RBC 4.67 (4.6-6.20) M/mm3 Hgb 13.4 L (14.0-18.0) g/dL Hct 41.3 L (42.0-52.0) % MCV 88.4 (80-100) fl MCH 28.7 (26-34) pg MCHC 32.4 (32-36) g/dl RDW 14.0 (11.5-14.5) % Plt Count 289 (150-375) k/mm3 MPV 9.8 (7.4-10.4) fl Immature Gran % (Auto) 0.5 (0-0.5) % Neut % (Auto) 84.9 H (45.5-73.1) % Lymph % (Auto) 7.5 L (18.3-44.2) % [place] % (Auto) 6.0 (2.6-8.5) % Eos % (Auto) 0.7 (0-4.4) % Baso % (Auto) 0.4 (0.2-1.2) % Lymph # (Auto) 1.14 (0.9-3.2) K/mm3 [place] # (Auto) 0.9 H (0.1-0.6) K/mm3 Eos # (Auto) 0.1 (0-0.3) K/mm3 Baso # (Auto) 0.1 (0.0-0.1) K/mm3 Abs Immat Gran (auto) 0.08 H (0.00-0.031) K/mm3 Absolute Neuts (auto) 13.0 H (1.3-6.7) K/mm3 Absolute Nucleated RBC 0.000 (0.0-0.012) K/mm3 Nucleated RBC % 0.0 (0.0-0.2) % PT 14.4 (11.1-14.7) Seconds INR 1.1 APTT 27.5 (22.3-36.8) Seconds Sodium 137 (137-145) mmol/L Potassium 4.2 (3.4-5.0) mmol/L Chloride 101 (98-107) mmol/L Carbon Dioxide 24 (22-30) mmol/L Anion Gap 12 (4-12) mmol/L BUN 21 H (9-20) mg/dL Creatinine 1.04 (0.7-1.3) mg/dL Estim Creat Clear Calc 80 ml/min Estimated GFR > 60 (59 - ) Glucose 113 H (65-110) mg/dL Calcium 9.3 (8.4-10.2) mg/dL Total Bilirubin 0.9 (0.2-1.3) mg/dL AST 22 (17-59) U/L ALT 27 (6-50) U/L Alkaline Phosphatase 102 (38-126) U/L Total Protein 7.0 (6.3-8.2) g/dL Albumin 3.8 (3.5-5.1) g/dL Imaging Data Attestation: I personally reviewed and interpreted this imaging study as follows: My impression: Bladder not significantly distended on my independent interpretation of CT scan. Radiologist's impression: CT Abd & Pelvis w/o Contrast Stat Rad: Imaging was obtained to T4-T5. Limited evaluation in the absence of contrast. Limited examination given lack of neoplastic history. No evidence of radiopaque renal calculi or signs of collecting system dilatation. Diffuse bladder wall thickening with adjacent stranding. Findings are favored to relate to cystitis. Gas the bladder dome may be due to Torres placement. Cystitis also possible. Colonic diverticulosis. No evidence of diverticulitis. Normal appendix. No evidence of bowel obstruction. No other acute findings. Discharge Plan Discharge Clinical Impression: Post-operative complication, Leukocytosis, Normocytic anemia Patient Disposition: Still a Patient Condition: Stable
[2024-08-31] MEDS: MORPHINE SULFATE (*CRX) 4 MG/ML INJ IV PUSH ×2 (05:04→20:25)
[2024-08-31 05:13] LABS: Basophils Absolute Auto 0.1 K/mm3 (0.0-0.1); Basophils Percent Auto 0.4 % (0.2-1.2); Eosinophils Absolute Auto 0.1 K/mm3 (0-0.3); Eosinophils Percent Auto 0.7 % (0-4.4); Hematocrit 41.3 % (42.0-52.0); Hemoglobin 13.4 g/dL (14.0-18.0); Immature Granulocyte Absolute 0.08 K/mm3 (0.00-0.031); Immature Granulocyte Percent A 0.5 % (0-0.5); Lymphocytes Absolute Auto 1.14 K/mm3 (0.9-3.2); Lymphocytes Percent Auto 7.5 % (18.3-44.2); Mean Corpuscular HGB Conc 32.4 g/dl (32-36); Mean Corpuscular Hemoglobin 28.7 pg (26-34); Mean Corpuscular Volume 88.4 fl (80-100); Mean Platelet Volume 9.8 fl (7.4-10.4); Monocytes Absolute Auto 0.9 K/mm3 (0.1-0.6); Neutrophils Percent Auto 84.9 % (45.5-73.1); Platelet Count Result 289 k/mm3 (150-375); Red Blood Count 4.67 M/mm3 (4.6-6.20); White Blood Count 15.2 K/mm3 (4.5-10.0)
[2024-08-31 05:24] LABS: Alanine Aminotransferase 27 U/L (6-50); Albumin Level 3.8 g/dL (3.5-5.1); Alkaline Phosphatase 102 U/L (38-126); Anion Gap 12 mmol/L (4-12); Aspartate Amino Transferase 22 U/L (17-59); Bilirubin,Total 0.9 mg/dL (0.2-1.3); Blood Urea Nitrogen 21 mg/dL (9-20); Calcium 9.3 mg/dL (8.4-10.2); Carbon Dioxide 24 mmol/L (22-30); Chloride 101 mmol/L (98-107); Estimated CRCL calculation 80 ml/min; Estimated Glomerular Filt Rate > 60; Glucose 113 mg/dL (65-110); Potassium 4.2 mmol/L (3.4-5.0); Sodium 137 mmol/L (137-145)
[2024-08-31 05:28] LABS: INR 1.1; Prothrombin Time 14.4 Seconds (11.1-14.7)
[2024-08-31 05:29] LABS: Partial Thromboplastin Time 27.5 Seconds (22.3-36.8)
--- OUTSIDE RECORDS SUMMARY | 2024-08-31 06:12 | XMS_ITS | Encounter Summary ---
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 Not [...] Description 12/21/2024 8:20 AM CDT Office Visit [facility] Family and Sports Medicine - [place] [address] [place] [address] Ilene Paul MD [address] [facility] [place] [address] 03/29/2025 8:00 AM CDT Office Visit [facility] Multispecialty Care - [facility] [address] [facility] [place] [address] Jorge Israel MD [address] [place] [address] documented as of this encounter Goals Goal Patient Goal Type Associated Problems Recent Progress Patient-Stated? Author Patient will return to prior living situation and remain independent in ADLs upon [facility] General Bettina Ramirez, RN documented as of this encounter Visit Diagnoses Not on filedocumented in this encounter Additional Health Concerns Assessment Noted Time PHQ-9 Depression Total Score: 0 09/09/19 22 7:39 AM LABORER PIE BAKERY documented as of this encounter Care Teams Environmental Science Technician Relationship Specialty Start Date End Date Ilene Paul MD [address] [id number] PCP - General FAMILY PRACTICE 11/12/20 documented as of this encounter
--- OUTSIDE RECORDS SUMMARY | 2024-08-31 06:12 | XMS_ITS | Encounter Summary ---
Author Organization [facility] Address [address] [place] [address] Care Team Providers Care Executive Asst Name Role Phone Ilene Paul MD Primary Care Provider [phone] Encounter Details Date Type Department Care Team (Late st Contact Info) Description 01/29/2023 bookjam Message Enc 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 Not [...] Description 12/21/2024 8:20 AM CDT Office Visit [facility] Family and Sports Medicine - [place] [address] [place] [address] Ilene Paul MD [address] [place] [address] 03/29/2025 8:00 AM CDT Office Visit [facility] Multispecialty Care - [facility] [address] [place] [address] Jorge Israel MD [address] [place] [address] documented as of this encounter Goals Goal [...] documented as of this encounter Care Teams Executive Asst Relationship Specialty Start Date End Date Ilene Paul MD [address] [address] PCP - General FAMILY PRACTICE 11/12/20 documented as of this encounter
--- OUTSIDE RECORDS SUMMARY | 2024-08-31 06:12 | XMS_ITS | Clinical Summary ---
Author Organization [facility] Address [address] [place] [address] Care Team Providers Care Janitorial Account Manager Name Role Phone Ilene Paul MD Primary Care Provider [phone] Allergies No known active allergies Medications dapagliflozin (FARXIGA) 10 MG tabletIndication s:Mixed hyperlipidemia,T ype 2 diabetes mellitus without complication, without long-term current use of insulin ([facility]) Take 1 tablet (10 mg total) by mouth daily. 90 tablet 3 01/01/20 23 Active Ferrous Sulfate (IRON) 325 (65 Fe) MG tabletIndication s:Microcytic anemia Take 325 mg by mouth daily with breakfast. 90 tablet 3 09/23/19 24 Active metFORMIN (GLUCOPHAGE) 500 MG tabletIndication s:Mixed hyperlipidemia,T ype 2 diabetes mellitus without complication, without long-term current use of insulin ([facility]) Take 1 tablet by mouth [...] of vertebral artery, unspecified blood vessel laterality ([facility]) TAKE 1 TABLET BY MOUTH NIGHTLY AT BEDTIME 90 tablet 08/23/19 25 Active atorvastatin (LIPITOR) 40 MG tabletIndication s:Gastroesophage al reflux disease without esophagitis,Ingrid al physical exam,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, unspecified blood vessel laterality ([facility]) TAKE 1 TABLET BY MOUTH [...] Diagnosed Date Muscle spasticity 04/07/2024 Hypercoagulable state ([facility]) 09/23/19 24 Type 2 diabetes mellitus wit hout complication, without long-term current use of insulin ([facility]) 09/23/2023 Spinal stenosis of lumbar re 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 06/19/2023 Other intervertebral disc displacement, lumbar r egion 06/19/2023 History of CVA (cerebrovascular accident) 2022 History of prostate cancer 04/01/2023 History of DVT (deep vein thrombosis) 04/01/2023 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 ([facility]) 10/09/2022 Hemiplegia and hemiparesis f 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 ([facility]) 07/28/2022 Status post prostatectomy 04/30/2021 Gastroesophageal reflux disease without esophagi tis 11/14/2020 Hypertension Hyperlipidemia GERD (gastroesophageal reflux disease) Overview (05/02/2021): No date...40 years now Obesity Resolved Problems Problem Noted Date Diagnosed Date Resolved Date DVT (deep venous thrombosis) ([facility]) 09/22/2022 04/01/2023 Primary prostate malignancy ([facility]) 04/12/20 21 09/23/2023 Annual physical exam 11/14/2020 021 Cerebrovascular accident (CV A) due to thrombosis ([facility]) 11/14/2020 04/01/2023 Encounters Date Type Department Care Team Description 08/18/2024 Scan [facility] [employer] [facility] Scanned, Doc Med Group CT (SCAN); Image (SCAN) 08/10/2024 Orders Only [facility] Family and Sports Medicine - [address] [place] [address] Ilene Paul MD 06/22/2024 8:20 AM WATER PROJECT ENGINEER Office Visit [facility] Family [facility] Sports [facility] [address] [place] [address] Ilene Paul MD Follow Up 06/22/2024 Travel 06/14/2024 Orders Only [facility] Family [facility] Sports [facility] [address] [place] [address] Ilene Paul MD 06/07/2024 Scan [facility] [employer] [facility] Scanned, [facility] 05/31/2024 Therapy Plan [facility] Physical Therapy 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 Not on file Last Filed Vital Signs Vital Sign Reading Time Taken Comments Blood Pressure 124/64 06/22/2024 8:33 AM WATER PROJECT ENGINEER Pulse 70 06/22/2024 8:33 AM WATER PROJECT ENGINEER Temperature 36.7 C (98.1 F) 06/22/2024 8:33 AM WATER PROJECT ENGINEER Respiratory Rate 16 06/22/2024 8:33 AM WATER PROJECT ENGINEER Oxygen Saturation 98% 06/22/2024 8:33 AM WATER PROJECT ENGINEER Inhaled Oxygen Concentration - - Weight 112.5 kg (248 lb) 06/22/2024 8:33 AM WATER PROJECT ENGINEER Height 188 cm (6' 2 ) 06/22/2024 8:33 AM WATER PROJECT ENGINEER Body Mass Index 31.84 06/22/2024 8:33 AM WATER PROJECT ENGINEER Plan of Treatment Upcoming Encounters Date Type Department Care Team (Late st Contact Info) Description 12/21/2024 8:20 AM CDT Office Visit [facility] Medical Group Family and Sports Medicine - [address] [place] [address] Ilene Paul MD [address] [facility] [address] [place] [address] 03/29/2025 8:00 AM CDT Office Visit [facility] Medical Group Multispecialty Care - [address] [place] [phone] Jorge Israel MD [address] [facility] [address] [place] [address] Health Maintenance Due Date Last Done Comments Pneumococcal Vaccine: 65+ Years (1 of 2 - PCV) 1962 Diabetes: Retinopathy Eye Exam 1974 RSV Immunization or 60+ Years (1 - Risk 60-74 years 1-dose series) 2016 PHQ-2 (Physician [place]) 07/20/2024 06/22/2024 Hemoglobin A1C 09/12/2024 06/14/2024, 11/18, [...] GENERIC 08/18/2024 HEMOGLOBIN, GLYCOSYLATED Routine 10:34 AM WATER PROJECT ENGINEER THYROID STIM HORMONE TSH Routine 10:34 AM WATER PROJECT ENGINEER THYROXINE, FREE (FT4) Routine 06/14/2024 10:34 AM WATER PROJECT ENGINEER TRIIODOTHYRONINE TOTAL , TT-3 Routine 06/14/2024 10:34 AM WATER PROJECT ENGINEER C-REACTIVE PROTEIN Routine 06/14/2024 10 :34 AM WATER PROJECT ENGINEER CBC W/DIFF AUTOMATED Routine 06/14/2024 10:34 AM WATER PROJECT ENGINEER ALBUMIN URINE RANDOM W/CREATININE Routine 06/14/2024 10:34 AM WATER PROJECT ENGINEER COMPREHENSIVE METABOLIC PANEL Routine 06/14/2024 10:34 AM WATER PROJECT ENGINEER LIPID PANEL Routine 06/14/2024 10:34 AM WATER PROJECT ENGINEER PTH INTACT W/ CALCIUM Routine 06/14/2024 10:34 AM WATER PROJECT ENGINEER HEPATITIS C ANTIBODY Routine 07/01/2023 9:28 AM WATER PROJECT ENGINEER Primary hypertension History of CVA (cerebrovascular accident) History of prostate cancer CT ABD+PEL W CON STAT 05/01/2021 6:52 PM CDT COLONOSCOPY GENERIC (SCAN ORDER) Routine 08/21/2016 12:00 AM WATER PROJECT ENGINEER from Last 3 Months or Most Recently Relevant to Health Maintenance Results * CT GENERIC (08/18/2024) Anatomical Region Laterality Modality Other 08/18/2024 us [facility] Scanned SCANNING Final Resu lt * IMAGE GENERIC (08/18/2024) Anatomical Region Laterality Modality Other 08/18/2024 us [facility] Scanned SCANNING Final Resu lt * PTH INTACT W/ CALCIUM (06/14/2024 10:34 AM WATER PROJECT ENGINEER) PTH INTACT 41 16 - 77 pg/mL [facility] Comment: Interpretive Guide Intact PTH Calcium ------- Normal Parathyroid Normal Normal Hypoparathyroidism Low or Low Normal Low Hyperparathyroidism Primary Normal or High High Secondary High Normal or Low Tertiary High High Non-Parathyroid Hypercalcemia Low or Low Normal High CALCIUM S/P/B 9.6 8.6 - 10.3 mg/dL [facility] 06/14/2024 10:3 4 AM WATER PROJECT ENGINEER 06/14/2024 10:39 AM WATER PROJECT ENGINEER Narrative Resulting Agency Comment Performing Organization Information: Site ID: [place] Name: [facility] Address: [address] [place] [address] Director: Joselyn Tyson MD Ilene Paul MD LABORATORY Final Result JOÃO MENCHACA [employer] [facility] [id number] [place] [address], HZ * (ABNORMAL) HEMOGLOBIN, GLYCOSYLATED (06/14/2024 10:34 AM WATER PROJECT ENGINEER) HGB A1C 6.5(H) <5.7 % of total Hgb [facility] [place] Comment: For someone without known diabetes, [...] diabetes for children. 06/14/2024 10:3 4 AM WATER PROJECT ENGINEER 06/14/2024 10:39 AM WATER PROJECT ENGINEER Narrative Resulting Agency Comment Performing Organization Information: Site ID: Name: [facility] Address: [address] [place] [address] Director: Joselyn Tyson Ilene Paul MD LABORATORY Final Result Performing Organization Address City/[facility] Co de Phone Number [facility] [address] [address], [place] * TRIIODOTHYRONINE TOTAL , TT-3 (06/14/2024 10:34 AM WATER PROJECT ENGINEER) T3 TOTAL 112 76 - 181 ng/dL [facility] 06/14/2024 10:3 4 AM WATER PROJECT ENGINEER 06/14/2024 10:39 AM WATER PROJECT ENGINEER Narrative Resulting Agency Comment Performing Organization Information: Site ID: [place] Name: [facility] Address: [address] [place] [address] Director: Joselyn Tyson MD Ilene Paul MD LABORATORY Final Result Performing Organization Address City/[facility]/ZIP Co de Phone Number [facility] [address] [address], * (ABNORMAL) ALBUMIN URINE RANDOM W/CREATININE (06/14/2024 10:34 AM WATER PROJECT ENGINEER) CREATININE RANDOM (U) 173 20 - 320 mg/dL [facility] MICROALBUMIN (U) 28.9 See Note: mg/dL [facility] Comment: Reference Range: Reference Range Not established Results verified by repeat analysis on dilution. MICROALB/CREAT 167(H) <30 mg/g creat [facility] Comment: The ADA defines abnormalities in albumin excretion as follows: Albuminuria Category Result (mg/g creatinine) Normal to Mildly increased <30 Moderately increased 30-299 Severely increased > OR = 300 The ADA recommends that at least two of three specimens collected within a 3-6 month period be abnormal before considering a patient to be within a diagnostic category. 06/14/2024 10:3 4 AM WATER PROJECT ENGINEER 06/14/2024 10:39 AM WATER PROJECT ENGINEER Narrative Resulting Agency Comment Performing Organization Information: Site ID: [id number] Name: João Padron Address: [address] [place] [address] Director: Joselyn Tyson MD Ilene Paul MD URINE ORDERABLES Final Result JOÃO MENCHACA [facility] [address] [place] [address] * COMPREHENSIVE METABOLIC PANEL (06/14/2024 10:34 AM WATER PROJECT ENGINEER) GLUCOSE 99 65 - 99 mg/dL [facility] Comment: Fasting reference interval BUN 15 7 - 25 mg/dL [employer] CREATININE S/P/B 1.00 0.70 - 1.35 mg/dL [facility] GFR ESTIMATE 82 > OR = 60 mL/min/1. 73m2 [facility] BUN CREATININE RATIO SEE NOTE: (calc) [facility] Comment: Not Reported: BUN and Creatinine are within reference range. SODIUM S/P/B 140 135 - 146 mmol/L [facility] POTASSIUM S/P/B 4.7 3.5 - 5.3 mmol/L [facility] CHLORIDE S/P/B 103 98 - 110 mmol/L [facility] CO2 29 20 - 32 mmol/L [facility] CALCIUM S/P/B 9.6 8.6 - 10.3 mg/dL [facility] TOTAL PROTEIN S/P/B 7.0 6.1 - 8.1 g/dL [facility] ALBUMIN S/P/B 4.2 3.6 - 5.1 g/dL [employer] GLOBULIN 2.8 1.9 - 3.7 g/dL (calc) [employer] ALBUMIN/GLOBULI N RATIO 1.5 1.0 - 2.5 (calc) [facility] BILIRUBIN TOTAL S/P/B 0.8 0.2 - 1.2 mg/dL [facility] ALKALINE PHOSPHATASE S/P/B 98 35 - 144 U/L [employer] [facility] AST 15 10 - 35 U/L [facility] ALT 19 9 - 46 U/L [facility] 06/14/2024 10:3 4 AM WATER PROJECT ENGINEER 06/14/2024 10:39 AM WATER PROJECT ENGINEER Narrative Resulting Agency Comment Performing Organization Information: Site ID: [place] Name: [facility] Address: [facility] [address] [facility] [place] [address] Director: Joselyn Tyson MD us Ilene Paul MD LABORATORY Final Result [facility] [address] [place], [place] [address] * (ABNORMAL) LIPID PANEL (06/14/2024 10:34 AM WATER PROJECT ENGINEER) CHOLESTEROL 108 <200 mg/dL [facility] HDL 40 > OR = 40 mg/dL [facility] TRIGLYCERIDES 175(H) <150 mg/dL [facility] LDL (CALCULATED) 43 mg/dL (calc) [facility] Comment: Reference range: <100 Desirable range <100 mg/dL for primary prevention; <70 mg/dL for patients with CHD or diabetic patients with > or = 2 CHD risk factors. LDL-C is now calculated using the Zaida calculation, which is a validated novel method providing better accuracy than the Friedewald equation in the estimation of LDL-C. Martín PRASAD et al. PANCHITO. 2013;310(19): 0720-3090 (http://education.Vsnap.SYSTRAN/faq/DSQ832) CHOL/HDL RATIO 2.7 <5.0 (calc) [facility] NON HDL CHOLESTEROL 68 <130 mg/dL (calc) [facility] Comment: For patients with diabetes plus 1 major ASCVD risk factor, treating to a non-HDL-C goal of <100 mg/dL (LDL-C of <70 mg/dL) is considered a therapeutic option. 06/14/2024 10:3 4 AM WATER PROJECT ENGINEER 06/14/2024 10:39 AM WATER PROJECT ENGINEER Narrative Resulting Agency Comment Performing Organization Information: Site ID: [id number] Name: [facility] Address: [address] [place] [phone] Director: Joselyn Tyson MD Ilene Paul MD LABORATORY Final Result Performing Organization Address [facility] Co de Phone Number [facility] [employer] [address] [address], * C-REACTIVE PROTEIN (06/14/2024 10:34 AM WATER PROJECT ENGINEER) Pathologist [facility] C-REACTIVE PROTEIN 3.6 <8.0 mg/L [facility] 06/14/2024 10:3 4 AM WATER PROJECT ENGINEER 06/14/2024 10:39 AM WATER PROJECT ENGINEER Narrative Resulting Agency Comment Performing Organization Information: Site ID: [id number] Name: [facility] Address: [address] [place] [phone] Director: Joselyn Tyson MD Ilene Paul MD LABORATORY Final Result Performing Organization Address City/[facility] Co de Phone Number [facility] [employer] [facility] [id number] [place] [address], * CBC W/DIFF AUTOMATED (06/14/2024 10:34 AM WATER PROJECT ENGINEER) WBC 7.9 3.8 - 10.8 Thousand/u L [facility] RBC 4.80 4.20 - 5.80 Million/uL [facility] HGB 13.8 13.2 - 17.1 g/dL [facility] HCT 42.5 38.5 - 50.0 % [facility] MCV 88.5 80.0 - 100.0 fL [facility] MCH 28.8 27.0 - 33.0 pg [facility] MCHC 32.5 32.0 - 36.0 g/dL [facility] Comment: For adults, a slight decrease in the calculated MCHC value (in the range of 30 to 32 g/dL) is most likely not clinically significant; however, it should be interpreted with caution in correlation with other red cell parameters and the patient's clinical condition. RDW 13.9 11.0 - 15.0 % [facility] PLT 364 140 - 400 Thousand/u L [facility] MPV 10.3 7.5 - 12.5 fL [facility] ABS. NEUTROPHILS 4,938 1,500 - 7,800 cells/uL [facility] ABS. LYMPHOCYTES 2,038 850 - 3,900 cells/uL [facility] ABS. MONOCYTES 695 200 - 950 cells/uL [facility] ABS. EOSINOPHILS 190 15 - 500 cells/uL [facility] ABS. BASOPHILS 40 0 - 200 cells/uL [facility] SEG NEUTROPHILS 62.5 % QUES [facility] LYMPHOCYTES 25.8 % [facility] MONOCYTES 8.8 % [facility] EOSINOPHILS 2.4 % [facility] BASOPHILS 0.5 % [facility] 06/14/2024 10:3 4 AM WATER PROJECT ENGINEER 06/14/2024 10:39 AM WATER PROJECT ENGINEER Narrative Resulting Agency Comment Performing Organization Information: Site ID: [place] Name: [facility] Address: [address] [place] [address] Director: Joselyn Tyson MD us Ilene Paul MD LABORATORY Final Result [facility] JONAS MAGDY MENCHACA [employer] [facility] [address] [place] [address], TQ * THYROXINE, FREE (FT4) (06/14/2024 10:34 AM WATER PROJECT ENGINEER) FREE T4 1.2 0.8 - 1.8 ng/dL [facility] 06/14/2024 10:3 4 AM WATER PROJECT ENGINEER 06/14/2024 10:39 AM WATER PROJECT ENGINEER Narrative Resulting Agency Comment Performing Organization Information: Site ID: [id number] Name: [facility] Address: [address] [place] [phone] Director: Joselyn Tyson MD Ilene Paul MD LABORATORY Final Result Performing Organization Address City/[facility]/ZIP Co de Phone Number [facility] [place] [address], * THYROID STIM HORMONE TSH (06/14/2024 10:34 AM WATER PROJECT ENGINEER) TSH 1.77 0.40 - 4.50 mIU/L [facility] 06/14/2024 10:3 4 AM WATER PROJECT ENGINEER 06/14/2024 10:39 AM WATER PROJECT ENGINEER Narrative Resulting Agency Comment Performing Organization Information: Site ID: [id number] Name: [facility] Address: [address] [place] [phone] Director: Joselyn Tyson MD us Ilene Paul MD LABORATORY Final Result Performing Organization Address [facility] de Phone Number [employer] [place] [address], * HEPATITIS C ANTIBODY (07/01/2023 9:28 AM WATER PROJECT ENGINEER) HEPATITIS C AB NON-REACTI VE NON-REACT SHAZIA 07/01/2023 7:43 PM WATER PROJECT ENGINEER [facility] Comment: ANTIBODIES TO HCV NOT DETECTED. DOES NOT EXCLUDE THE POSSIBILITY OF EXPOSURE TO HCV. 07/01/2023 9:28 AM WATER PROJECT ENGINEER us Ilene Paul MD LABORATORY Final Result Performing Organization Address City/[facility]/ZIP Co de Phone Number [facility] [address] [place] [address], [phone] * CT ABD+PEL W CON (05/01/2021 6:52 [...] Final Result * COLONOSCOPY (08/21/2016 12:00 AM WATER PROJECT ENGINEER) 08/21/2016 [facility] Scanned SCANNING Final Resul t [facility] from Last 3 Months or Most Recently Relevant to Health Maintenance Insurance [employer] Advance Directives * Full Code (Latest Code Status on File) Date Activated Date Inactivated Comments 04/29/2021 10:08 PM 05/03/2021 2:58 PM Care Teams Janitorial Account Manager Relationship Specialty Start Date End Date Ilene Paul MD [address] [address] PCP - General FAMILY PRACTICE 11/12/20
--- OUTSIDE RECORDS SUMMARY | 2024-08-31 06:12 | XMS_ITS | Encounter Summary ---
Author Organization [facility] Address [address] [place] [address] Care Team Providers Care Director Of Sustainable Design Name Role Phone Ilene Paul MD Primary Care Provider [phone] Encounter Details Date Type Department Care Team (Late st Contact Info) Description 10/28/2021 [email or web address] Message [facility] Patient Accounts [address] [place] [address] [facility] Provider Financial Assistance Social History [...] Description 12/21/2024 8:20 AM CDT Office Visit [facility] Medical Group Family and Sports Medicine - Pr[place] [address] [place] [address] Ilene Paul MD [address] [facility] [address] [place] [address] 03/29/2025 8:00 AM CDT Office Visit [facility] Multispecialty Care - [facility] [address] [place] [address] Jorge Israel MD [address] [place] [address] documented as of this encounter Goals Goal [...] Total Score: 0 09/09/19 22 7:39 AM LIME SLAKER documented as of this encounter Care Teams Director Of Sustainable Design Relationship Specialty Start Date End Date Ilene Paul MD [address] [address] PCP - General FAMILY PRACTICE 11/12/20 documented as of this encounter
--- OUTSIDE RECORDS SUMMARY | 2024-08-31 06:12 | XMS_ITS | Encounter Summary ---
Author Organization [facility] Address [address] [address] Care Team Providers Care Timber Sprinkler Name Role Phone Basilio Mao MD Primary Care Provider [phone] Encounter Details Date Type Department Care Team (Late st Contact Info) Description 05/06/2023 Lab Requisition [facility] - DermPath Lab [address] [place] [address] Donnie Dyson MD [facility] DERMATOLOGY [address] [place] [phone] Neoplasm of uncertain behavior of skin [...] AM CDT) Case Report Dermatopathology Report Case: [id number] Authorizing Provider: Donnie Dyson MD Collected: 05/06/2023 03:33 AM Ordering Location: [facility] DermPath Lab Received: 05/07/2023 11:07 AM [...] characteristic determined by the Dermatopathology Laboratory at [facility], directed by Dr. Lore Vee. These tests need not be, and therefore are not, approved by the [place] Food and Drug Administration. The tests are used for clinical purposes. Billing Codes Specimen Charges Stain Charges 73400 1 1:46 PM CDT DERMATOPATHOLOGY LABORATORY Embedded Images 1:46 PM CDT DERMATOPATHOLOGY LABORATORY Pathology/Cytolo gy TISSUE SPECIMEN FROM SKIN / Unknown 05/06/2023 3:33 AM CDT 05/07/2023 11:07 AM CDT Donnie Dyson MD LAB - PATHOLOGY/CYTO LOGY ORDERABLES DERMATOPATHOLOGY LABORATORY [facility] - Department of Dermatology [address] [phone] documented in this encounter Visit Diagnoses Diagnosis Neoplasm of uncertain behavior of skin documented in this encounter Care Teams Timber Sprinkler Relationship Specialty Start Date End Date Basilio Mao MD [address] [place] [address] PCP - General 08/25/16 documented as of this encounter
--- OUTSIDE RECORDS SUMMARY | 2024-08-31 06:12 | XMS_ITS | Clinical Summary ---
Author Organization [facility] Address [address] [facility] [place] [id number] Care Team Providers Care Documentation Designer Name Role Phone Basilio Mao MD Primary Care Provider [phone] Source Comments [facility],non-owned Affiliates and Associated Physician Practices is amultiple site organization consisting of ambulatory clinics and hospital sitesin [place], [place], [place] and [place]. This disclosure is being madepursuant to the Care Everywhere program and may not contain all information available regarding this patient. Last updated 18.[facility] Active Problems Problem Noted Date Diagnosed Date [...] Comments Blood Pressure 142/84 08/15/2015 12:00 PM DATABASE PROGRAMMER ANALYST Pulse 98 08/15/2015 12:00 PM DATABASE PROGRAMMER ANALYST Temperature 36.6 C (97.8 F) 08/15/2015 12:00 PM DATABASE PROGRAMMER ANALYST Respiratory Rate 16 08/15/2015 12:0 0 PM DATABASE PROGRAMMER ANALYST Oxygen Saturation 96% 08/15/2015 12: 00 PM DATABASE PROGRAMMER ANALYST Inhaled Oxygen Concentration - - Weight 106.5 kg (234 lb 11.2 oz) 08/13/2015 9:00 PM DATABASE PROGRAMMER ANALYST Height 188 cm (6' 2 ) 08/13/2015 9:00 PM DATABASE PROGRAMMER ANALYST Body Mass Index 30.13 08/13/2015 9:00 PM DATABASE PROGRAMMER ANALYST Plan of Treatment Health Maintenance Due Date [...] Comments LIPID PROFILE Routine 08/10/2015 2:39 PM DATABASE PROGRAMMER ANALYST from Last 3 Months or Most Recently Relevant to Health Maintenance Results * (ABNORMAL) LIPID PROFILE (08/10/2015 2:39 PM DATABASE PROGRAMMER ANALYST) Cholesterol Total 193 <200 mg/dL [facility] HDL 37(L) >40 mg/dL [facility] Comment: ATP III Classification of HDL Cholesterol: <40 mg/dL: Considered a major risk factor. >60 mg/dL: Considered a negative risk factor. LDL Calculated 86 <100 mg/dL [facility] Comment: ATP III Classification of LDL Cholesterol: <100 mg/dL: Optimal 100 - 129 mg/dL: Near Optimal/Above Optimal 130 - 159 mg/dL: Borderline High 160 - 189 mg/dL: High >190 mg/dL: Very High Triglycerides 350(H) <150 mg/dL [facility] Comment: ATP III Classification of Triglycerides: <150 mg/dL: Normal 150 - 199 mg/dL: Borderline High 200 - 400 mg/dL: High >500 mg/dL: Very High Blood specimen (specimen) BLOOD SPECIMEN / Unknown 08/10/2015 2:39 PM DATABASE PROGRAMMER ANALYST 08/10/2015 2:42 PM DATABASE PROGRAMMER ANALYST Ciera Arias MD LAB - CHEMISTRY ANGELA CHAVIRA [facility] Organization Address City/State/ZIP Co de Phone Number [address] [phone] from Last 3 Months or Most Recently Relevant to Health Maintenance Care Teams Documentation Designer Relationship Specialty Start Date End Date Basilio Mao MD [address] [facility] [address] [place] [address] PCP - General 08/25/16
--- OUTSIDE RECORDS SUMMARY | 2024-08-31 06:12 | XMS_ITS | Encounter Summary ---
Author Organization [facility] Address [facility] [place] [address] Care Team Providers Care Flue Cleaner Name Role Phone Ilene Paul MD Primary Care Provider [phone] Encounter Details Date Type Department Care Team (Late st Contact Info) Description 04/12/2024 [employer] Message Enc [facility] Multispecialty Care - [facility] [address] [facility], [address] [place] [phone] 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 [address] 03/29/2025 8:00 AM CDT Office Visit [facility] Multispecialty Care - [facility] [address] [facility] [place] [id number] Jorge Israel MD [address] [facility] [address] [place] [address] documented as of this encounter Goals Goal [...] documented as of this encounter Care Teams Flue Cleaner Relationship Specialty Start Date End Date Ilene Paul MD [address] [phone] PCP - General FAMILY PRACTICE 11/12/20 documented as of this encounter
--- OUTSIDE RECORDS SUMMARY | 2024-08-31 06:12 | XMS_ITS | Encounter Summary ---
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 [address] [place] [address] Jorge Israel MD 3 [facility] [address] [place] [address] documented as of this encounter Goals Goal [...] documented as of this encounter Care Teams Planning Engineer Relationship Specialty Start Date End Date Ilene Paul MD [address] [address] PCP - General FAMILY PRACTICE 11/12/20 documented as of this encounter
--- OUTSIDE RECORDS SUMMARY | 2024-08-31 06:12 | XMS_ITS | Encounter Summary ---
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 [...] Author Status No 04/30/2021 1:30 AM CDT Renetat Lopez R N Active documented as of [...] Description 12/21/2024 8:20 AM CDT Office Visit [facility] Medical [facility] Family [facility] - [place] [address] [place] [address] Ilene Paul MD [address] [facility] [address] [facility] [place] [address] 03/29/2025 8:00 AM CDT Office Visit [facility] Multispecialty Care - [facility] [address] [place] [address] Jorge Israel MD [address] [place] [address] documented as of this encounter Goals Goal Patient Goal Type Associated Problems Recent Progress Patient-Stated? Author Patient will return to prior living situation and remain independent in ADLs upon discharge from [facility] Bettina Ramirez RN documented as of [...] Total Score: 0 09/09/19 22 7:39 AM CONTRACT DRIVER documented as of this encounter Care Teams Technology Administrator Relationship Specialty Start Date End Date Ilene Paul MD [address] [place] [address] PCP - General FAMILY PRACTICE 11/12/20 documented as of this encounter
--- OUTSIDE RECORDS SUMMARY | 2024-08-31 06:12 | XMS_ITS | Encounter Summary ---
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 Author Patient will return to prior living situation and remain independent in ADLs upon discharge from [facility] Bettina Ramirez RN documented as of this encounter Visit Diagnoses Not on filedocumented in this encounter Additional Health Concerns Assessment Noted Time PHQ-9 Depression Total Score: 0 09/09/19 22 7:39 AM ARCHEOLOGY FACULTY MEMBER documented as of this encounter Care Teams Slot Machine Key Person Relationship Specialty Start Date End Date Ilene Paul MD [address] [address] PCP - General FAMILY PRACTICE 11/12/20 documented as of this encounter
--- OUTSIDE RECORDS SUMMARY | 2024-08-31 06:12 | XMS_ITS | Patient Health Summary ---
Author Organization [facility] Address [address] [facility] [place] [id number] Care Team Providers Care Medical Assistant Name Role Phone Basilio Mao MD Primary Care Provider [phone] Note from [facility],non-owned Affiliates and Associated Physician Practices is amultiple site organization consisting of ambulatory clinics and hospital sitesin [place], [place], [place] and [place]. This disclosure is being madepursuant to the Care Everywhere program and may not contain all information available regarding this patient. Last updated 18.[facility] Active Problems Problem Noted Date Diagnosed Date [...] Comments Blood Pressure 142/84 08/15/2015 12:00 PM HAY STACKER Pulse 98 08/15/2015 12:00 PM HAY STACKER Temperature 36.6 C (97.8 F) 08/15/2015 12:00 PM HAY STACKER Respiratory Rate 16 08/15/2015 12:0 0 PM HAY STACKER Oxygen Saturation 96% 08/15/2015 12: 00 PM HAY STACKER Inhaled Oxygen Concentration - - Weight 106.5 kg (234 lb 11.2 oz) 08/13/2015 9:00 PM HAY STACKER Height 188 cm (6' 2 ) 08/13/2015 9:00 PM HAY STACKER Body Mass Index 30.13 08/13/2015 9:00 PM HAY STACKER Procedures * DERMATOPATHOLOGY(Performed 05/06/2023) Performed for Neoplasm [...] AM CDT) Case Report Dermatopathology Report Case: [id number] Authorizing Provider: Donnie Dyson MD Collected: 05/06/2023 03:33 AM Ordering Location: [facility] DermPath Lab Received: 05/07/2023 11:07 AM [...] purposes. Billing Codes Specimen Charges Stain Charges [id number] 1 3 1:46 PM CDT DERMATOPATHOLOGY LABORATORY Embedded Images 3 1:46 PM CDT DERMATOPATHOLOGY LABORATORY Pathology/Cytolo gy TISSUE SPECIMEN FROM SKIN / Unknown 05/06/2023 3:33 AM CDT 05/07/2023 11:07 AM CDT Donnie Dyson MD LAB - PATHOLOGY/CYTO LOGY ORDERABLES Performing Organization Address [facility]/ZIP Co de Phone Number DERMATOPATHOLOGY LABORATORY [facility] Department of Dermatology [facility] [address] [facility], [address]rd Floor [address] [phone] * CBC W AUTO DIFFERENTIAL (08/15/2015 3:28 AM HAY STACKER) Only the most recent of10 resultswithin the time period is included. Blood specimen (specimen) BLOOD SPECIMEN / Unknown 08/15/2015 3:28 AM HAY STACKER Narrative [facility] - 08/15/2015 4:08 AM HAY STACKER The following orders were created for panel order CBC w Differential. Procedure Abnormality Status --------- ------ CBC WITH DIFFERENTIAL[[id number]] Abnormal Final result Please view results for these tests on the individual orders. Ciera Arias MD LAB - HEMATOLOGY ORD ERABLES Performing Organization Address [facility] Co de Phone Number [facility] [address] * (ABNORMAL) BASIC METABOLIC PANEL (CALCIUM TOTAL) (08/15/2015 3:28 AM HAY STACKER) Only the most recent of5 resultswithin the time period is included. BUN 19 7 - 26 mg/dL [facility] Creatinine 0.9 0.6 - 1.2 mg/dL [facility] Sodium 142 136 - 145 mmol/L [facility] Potassium 3.9 3.5 - 4.5 mmol/L [facility] Chloride 109(H) 98 - 107 mmol/L [facility] CO2 22 22 - 29 mmol/L [facility] Glucose 109 70 - 115 mg/dL [facility] Calcium 9.0 8.4 - 10.2 mg/dL [facility] Anion Gap 15 8 - 18 [facility] BUN/Creatinine Ratio 21 7 - 23 [facility] Osmolality Calculated 282 270 - 300 mOsm/kg [facility] eGFR >60 >60 mL/min/1.7 3 m2 [facility] Blood specimen (specimen) BLOOD SPECIMEN / Unknown 08/15/2015 3:28 AM HAY STACKER 08/15/2015 4:02 AM HAY STACKER Ciera Arias MD LAB - CHEMISTRY ANGELA CHAVIRA [address] [phone] * PHOSPHORUS BLOOD (08/15/2015 3:28 AM HAY STACKER) Only the most recent of8 resultswithin the time period is included. Phosphorus 4.3 2.3 - 4.7 mg/dL [facility] Blood specimen (specimen) BLOOD SPECIMEN / Unknown 08/15/2015 3:28 AM HAY STACKER 08/15/2015 4:02 AM HAY STACKER Ciera Arias MD LAB - CHEMISTRY ANGELA CHAVIRA [address] [phone] * MAGNESIUM BLOOD (08/15/2015 3:28 AM HAY STACKER) Only the most recent of6 resultswithin the time period is included. Magnesium 2.2 1.6 - 2.6 mg/dL [facility] Blood specimen (specimen) BLOOD SPECIMEN / Unknown 08/15/2015 3:28 AM HAY STACKER 08/15/2015 4:02 AM HAY STACKER Ciera Arias MD LAB - CHEMISTRY ANGELA CHAVIRA [address] [phone] * MRI BRAIN WO CONTRAST (08/12/2015 11:13 AM HAY STACKER) Anatomical Region Laterality Modality Head Other Impressions 08/13/2015 9:26 AM HAY STACKER IMPRESSION: 1. Small volume acute ischemic stroke in the left basis pontis without evidence of hemorrhagic conversion. This report was approved by Peter Armstrong on 08/13/2015 7:47 AM . I, Dr. EDWIN FLYNN M.D. have personally reviewed and interpreted this examination/study. This report was electronically signed by EDWIN FLYNN M.D. on 08/13/2015 9:26 AM . Narrative 08/13/2015 9:26 AM HAY STACKER EXAMINATION: Magnetic resonance imaging (MRI) of the [...] ORDERABLES * HEMOGLOBIN A1C (08/12/2015 6:30 AM HAY STACKER) Only the most recent of2 resultswithin the time period is included. Hemoglobin A1c 5.7 4.4 - 6.3 % [facility] Estimated Average Glucose 117 mg/dL [facility] Comment: HbA1c Interpretation: Treatment target values recommended by ADA and other clinical organizations should be used to evaluate metabolic control in patients. Treatment Target Values: Normal : < 5.7% Pre-diabetes: 5.7-6.4% Diabetes: Equal to or greater than 6.5% Reference: [place] [employer] Standards of Care in Diabetes -2014 In patients 70 years and older consider HbA1c target range of 7.0-7.5% Reference: Diabetes Mellitus in Older People: Position Statement on behalf of the International Association of Gerontology and Geriatrics (IAGG), the Diabetes Working Green Party for Older People (EDWPOP), and the International Task Force of Experts in Diabetes. Segun Ramsey, et al. J [place] [employer] Association. 2012 Test results diagnostic [...] BLOOD SPECIMEN / Unknown 08/12/2015 6:30 AM HAY STACKER 08/12/2015 6:34 AM HAY STACKER Ciera Arias MD LAB - CHEMISTRY ANGELA CHAVIRA [facility] Organization Address City/State/ZIP Co de Phone Number [address] [phone] * CT HEAD WO CONTRAST (08/11/2015 5:31 PM HAY STACKER) Only the most recent of2 resultswithin the time period is included. Anatomical Region Laterality Modality Head Other Impressions 08/12/2015 6:54 AM HAY STACKER IMPRESSION: 1. No acute intracranial hemorrhage, significant mass effect, or midline shift. Preliminary results reported by Dr. Guardado on at 5:53 PM. This report was electronically signed by MARTÍN ZULUAGA M.D. on 08/12/2015 6:54 AM . Narrative 08/12/2015 6:54 AM HAY STACKER EXAMINATION: Computed tomography (CT) of the head [...] ANGIO BRAIN AND NECK (08/11/2015 11:25 AM HAY STACKER) Anatomical Region Laterality Modality Head Other Impressions 08/11/2015 12:47 PM HAY STACKER IMPRESSION: 1. No acute intracranial hemorrhage, significant [...] 12:47 PM . Narrative 08/11/2015 12:47 PM HAY STACKER EXAMINATION: Computed tomography (CT) of the head [...] ORDERABLES * TROPONIN I (08/11/2015 12:24 AM HAY STACKER) Only the most recent of2 resultswithin the time period is included. Troponin I <0.010 <0.032 ng/mL [facility] Blood specimen (specimen) BLOOD SPECIMEN / Unknown 08/11/2015 12:24 AM HAY STACKER 08/11/2015 12:27 AM HAY STACKER Ciera Arias MD LAB - CHEMISTRY ANGELA CHAVIRA [facility] Organization Address City/State/ZIP Co de Phone Number [address] [phone] * CK + CKMB PANEL (08/11/2015 12:24 AM HAY STACKER) Only the most recent of2 resultswithin the time period is included. CK Total 51 30 - 200 Units/L [facility] CK-MB 0.8 0.0 - 6.6 ng/mL [facility] Blood specimen (specimen) BLOOD SPECIMEN / Unknown 08/11/2015 12:24 AM HAY STACKER 08/11/2015 12:27 AM HAY STACKER Ciera Arias MD LAB - CHEMISTRY ORDE RABLES Performing Organization Address City/[facility]/ZIP Co de Phone Number [address] [phone] * (ABNORMAL) URINALYSIS W/MICROSCOPIC NO CULTURE (08/10/2015 6:30 PM HAY STACKER) Color UA Yellow Straw, Yellow, Colorless, Light Yellow [facility] Clarity UA Clear Clear [facility] Specific [place] UA 1.012 1.001 - 1.030 [facility] pH UA 6.0 5.0 - 8.0 [facility] Protein UA 70(A) <=20 mg/dL [facility] Glucose UA Negative Negative mg/dL [facility] Ketone UA Negative Negative mg/dL [facility] Bilirubin UA Negative Negative mg/dL [facility] Blood UA Negative Negative [facility] Nitrite UA Negative Negative [facility] Leukocyte Esterase Negative Negative [facility] Urobilinogen UA <2.0 <2.0 mg/dL [facility] RBC UA 14(H) 0 - 8 /HPF [facility] WBC UA 4(H) 0 - 2 /HPF [facility] Squamous Epithelial Cells UA <1 0 - 1 /HPF [facility] Mucus UA Many(A) None /LPF [facility] Urine specimen (specimen) 08/10/2015 6:30 PM HAY STACKER 08/10/2015 6:39 PM HAY STACKER Ciera Arias MD LAB - URINALYSIS ORD ERABLES Performing Organization Address City/[facility]/ZIP Co de Phone Number [address] [phone] * DRUG ABUSE PANEL 10-20+ETHANOL URINE NO CONFIRM (08/10/2015 6:30 PM HAY STACKER) Amphetamines Screen Urine Negative Negative: < 1000 ng/mL [facility] Barbiturates Screen Urine Negative Negative: < 200 ng/mL [facility] Benzodiazepine Screen Urine Negative Negative: < 200 ng/mL [facility] Opiates Urine Negative Negative: < 300 ng/mL [facility] Cocaine Metabolites Urine Negative Negative: < 300 ng/mL [facility] Phencyclidine Screen Urine Negative Negative: < 25 ng/ml [facility] Cannabinoids Screen Urine Negative Negative: <50 ng/mL [facility] Methadone Screen Urine Negative Negative: < 300 ng/mL [facility] Urine specimen (specimen) URINE / Unknown 08/10/2015 6:30 PM HAY STACKER 08/10/2015 6:39 PM HAY STACKER Narrative [facility] - 08/10/2015 6:53 PM HAY STACKER The Urine Toxicology Screening Panel does not screen for Propoxyphene, Meprobamate, Carisoprodol, Trazodone, usyn-xlx-rvhehcy medications and/or volatiles (Acetone, Isopropanol, Methanol or Ethylene Glycol). Ethanol, Salicylate, Acetaminophen, Tricyclic Antidepressants and several therapeutic drugs may be individually assayed in serum or plasma specimen. Toxicology testing by the [facility] is an aid to medical diagnosis and treatment of patients. No documented chain of custody was maintained. Results are intended to be used for clinical purposes only. Ciera Arias MD LAB - URINE CHEMISTR Y ORDERABLES [facility] [address] [place] [address] * VAS BILATERAL VENOUS DUPLEX LE (08/10/2015 3:36 PM HAY STACKER) Anatomical Region Laterality Modality Other Ciera Arias MD VASCULAR LAB ORDERAB LES * HEPATIC FUNCTION PANEL (08/10/2015 2:39 PM HAY STACKER) [facility] Protein Total 6.8 6.0 - 8.3 g/dL [facility] Albumin 3.6 3.4 - 5.0 g/dL [facility] Bilirubin Total 0.4 0.2 - 1.2 mg/dL [facility] Bilirubin Conjugated 0.1 0.0 - 0.5 mg/dL [facility] Bilirubin Unconjugated 0.3 Unconjugated Bilirubin is a calculated value: Reference ranges have not been established. mg/dL [facility] Alkaline Phosphatase 100 40 - 150 Units/L [facility] ALT 23 0 - 55 Units/L [facility] AST 16 5 - 34 Units/L [facility] Albumin/Globulin Ratio 1.1 1.1 - 2.3 [facility] Blood specimen (specimen) BLOOD SPECIMEN / Unknown 08/10/2015 2:39 PM HAY STACKER 08/10/2015 2:42 PM HAY STACKER Ciera Arias MD LAB - CHEMISTRY ANGELA CHAVIRA [facility] Organization Address City/State/[facility] Co de Phone Number [address] [phone] * (ABNORMAL) LIPID PROFILE (08/10/2015 2:39 PM HAY STACKER) Cholesterol Total 193 <200 mg/dL [facility] HDL 37(L) >40 mg/dL [facility] Comment: ATP III Classification of HDL Cholesterol: <40 mg/dL: Considered a major risk factor. >60 mg/dL: Considered a negative risk factor. LDL Calculated 86 <100 mg/dL [facility] Comment: ATP III Classification of LDL Cholesterol: <100 mg/dL: Optimal 100 - 129 mg/dL: Near Optimal/Above Optimal 130 - 159 mg/dL: Borderline High 160 - 189 mg/dL: High >190 mg/dL: Very High Triglycerides 350(H) <150 mg/dL [facility] Comment: ATP III Classification of Triglycerides: <150 mg/dL: Normal 150 - 199 mg/dL: Borderline High 200 - 400 mg/dL: High >500 mg/dL: Very High Blood specimen (specimen) BLOOD SPECIMEN / Unknown 08/10/2015 2:39 PM HAY STACKER 08/10/2015 2:42 PM HAY STACKER Ciera Arias MD LAB - CHEMISTRY ANGELA CHAVIRA [facility] [address] [phone] * ECHO W DOPPLER AND COLOR FLOW (08/10/2015 12:00 AM HAY STACKER) Anatomical Region Laterality Modality Other 08/10/2015 Ciera Arias MD ECHOCARDIOGRAPHY RAD IANT * EKG 12-LEAD (08/10/2015 12:00 AM HAY STACKER) EKG [facility] Comment: Exam Date/Time: Aug 10 2015 [...] ECGs available Confirmed by Susan Musa, Jena ([id number]), assistant editor MIGUEL FRANCOIS ([id number]) on 08/20/2015 1:43:34 PM Referred By: REFERRING NO Confirmed By:Jena Musa M.D. 08/10/2015 Ciera Arias MD ECG ORDERABLES [facility] Care Teams Medical Assistant Relationship Specialty Start Date End Date Basilio Mao MD [address] [facility] [address] [place] [address] PCP - General 08/25/16
--- OUTSIDE RECORDS SUMMARY | 2024-08-31 06:12 | XMS_ITS | Clinical Summary ---
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
--- OUTSIDE RECORDS SUMMARY | 2024-08-31 06:12 | XMS_ITS | Encounter Summary ---
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 [...] Type Department Care Team (Late st [facility] Info) Description 12/21/2024 8:20 AM CDT Office Visit [facility] Family and Sports Medicine - [place] [address] [place] [address] Ilene Paul MD [address] [place] [address] 03/29/2025 8:00 AM CDT Office Visit [facility] Multispecialty Care - [facility] [address] [place] [address] Jorge Israel MD [address] [place] [address] documented as of this encounter Goals Goal Patient Goal Type Associated Problems Recent Progress Patient-Stated? Author Patient will return to prior living situation and remain independent in ADLs upon discharge from [facility] General Bettina Ramirez RN documented as of this encounter Visit Diagnoses Not on filedocumented in this encounter Additional Health Concerns Assessment Noted Time PHQ-9 Depression Total Score: 0 01/01/20 23 9:18 AM CDT documented as of this encounter Care Teams Architectural Intern Relationship Specialty Start Date End Date Ilene Paul MD [address] [address] PCP - General FAMILY PRACTICE 11/12/20 documented as of this encounter
--- OUTSIDE RECORDS SUMMARY | 2024-08-31 06:12 | XMS_ITS | Encounter Summary ---
Author Organization [facility] Address [facility] [place] [address] Care Team Providers Care Family Assistant Name Role Phone Ilene Paul MD Primary Care Provider [phone] Encounter Details Date Type Department Care Team (Late st Contact Info) Description 05/26/2022 Intuity Medical Message Enc [facility] [address] [place] [address] Johnny Hardin MD,PHD Eliquis? 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 [address] [place] [phone] Jorge Israel MD [address] [facility] [place], [place] [address] documented as of this encounter Goals Goal [...] Total Score: 0 09/09/19 22 7:39 AM FIELD CROP HARVEST CONTRACTOR documented as of this encounter Care Teams Family Assistant Relationship Specialty Start Date End Date Ilene Paul MD [address] [facility] [address] [facility] [place] [address] PCP - General FAMILY PRACTICE 11/12/20 documented as of this encounter
--- OUTSIDE RECORDS SUMMARY | 2024-08-31 06:12 | XMS_ITS | Referral Summary ---
Author Organization [facility] Address [address] [place] [address] Care Team Providers Care Fuel Oil Clerk Name Role Phone Basilio Mao MD Primary Care Provider [phone] Source Comments [facility],non-owned Affiliates and Associated Physician Practices is amultiple site organization consisting of ambulatory clinics and hospital sitesin [place], [place], [place] and [place]. This disclosure is being madepursuant to the Care Everywhere program and may not contain all information available regarding this patient. Last updated 18.[facility] Active Problems Problem Noted Date Diagnosed Date [...] Comments Blood Pressure 142/84 08/15/2015 12:00 PM STUMP BLOWER Pulse 98 08/15/2015 12:00 PM STUMP BLOWER Temperature 36.6 C (97.8 F) 08/15/2015 12:00 PM STUMP BLOWER Respiratory Rate 16 08/15/2015 12:0 0 PM STUMP BLOWER Oxygen Saturation 96% 08/15/2015 12: 00 PM STUMP BLOWER Inhaled Oxygen Concentration - - Weight 106.5 kg (234 lb 11.2 oz) 08/13/2015 9:00 PM STUMP BLOWER Height 188 cm (6' 2 ) 08/13/2015 9:00 PM STUMP BLOWER Body Mass Index 30.13 08/13/2015 9:00 PM STUMP BLOWER Plan of Treatment Not on file Procedures Procedure Name Priority Date/Time Associated Diagnosis Comments LIPID PROFILE Routine 08/10/2015 2:39 PM STUMP BLOWER from Last 3 Months or Most Recently Relevant to Health Maintenance Results * (ABNORMAL) LIPID PROFILE (08/10/2015 2:39 PM STUMP BLOWER) Cholesterol Total 193 <200 mg/dL [facility] HDL 37(L) >40 mg/dL [facility] Comment: ATP III Classification of HDL Cholesterol: <40 mg/dL: Considered a major risk factor. >60 mg/dL: Considered a negative risk factor. LDL Calculated 86 <100 mg/dL [facility] Comment: ATP III Classification of LDL Cholesterol: <100 mg/dL: Optimal 100 - 129 mg/dL: Near Optimal/Above Optimal 130 - 159 mg/dL: Borderline High 160 - 189 mg/dL: High >190 mg/dL: Very High Triglycerides 350(H) <150 mg/dL [facility] Comment: ATP III Classification of Triglycerides: <150 mg/dL: Normal 150 - 199 mg/dL: Borderline High 200 - 400 mg/dL: High >500 mg/dL: Very High Blood specimen (specimen) BLOOD SPECIMEN / Unknown 08/10/2015 2:39 PM STUMP BLOWER 08/10/2015 2:42 PM STUMP BLOWER Ciera Arias MD LAB - CHEMISTRY ANGELA CHAVIRA [facility] Organization Address City/State/ZIP Co de Phone Number [address] [phone] from Last 3 Months or Most Recently Relevant to Health Maintenance Care Teams Fuel Oil Clerk Relationship Specialty Start Date End Date Basilio Mao MD [address] [place] [address] [facility] - General 08/25/16
--- OUTSIDE RECORDS SUMMARY | 2024-08-31 06:12 | XMS_ITS ---
Author Organization [facility] Address [address] [address] Care Team Providers Care Supervisor Record Press Name Role Phone Ilene Paul MD Primary Care Provider [phone] Problems Problem Noted Date Diagnosed Date Muscle spasticity 04/07/2024 Hypercoagulable state ([facility]) 09/23/19 24 Type 2 diabetes mellitus wit hout complication, without long-term current use of insulin ([facility]) 09/23/2023 Spinal stenosis of lumbar re 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 06/19/2023 Other intervertebral disc displacement, lumbar r egion 06/19/2023 History of CVA (cerebrovascular accident) 2022 History of prostate cancer 04/01/2023 History of DVT (deep vein thrombosis) 04/01/2023 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 Past Plans Radiation Treatments * No radiation treatments are documented for this patient in [facility]. Treatments may have been administered in another system. Resolved Problems Problem Noted Date Diagnosed Date Resolved Date DVT (deep venous thrombosis) ([facility]) 09/22/2022 04/01/2023 Primary prostate malignancy ([facility]) 04/12/2009/23/2023 Annual physical exam 11/14/2020 021 Cerebrovascular accident (CV A) due to thrombosis ([facility]) 11/14/2020 04/01/2023
--- OUTSIDE RECORDS SUMMARY | 2024-08-31 06:12 | XMS_ITS | Encounter Summary ---
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 Not [...] [facility] [place] [address] [place] [address] Ilene Paul MD [address] [facility] [address] [place] [address] 03/29/2025 8:00 AM CDT Office Visit [facility] - [place] [facility] [address] [facility] [place] [address] Jorge Israel MD [address] [facility] [place] [address] documented as of this encounter Visit Diagnoses Not on filedocumented in this encounter Additional Health Concerns Infection Onset Date Last Indicated Resolved Time COVID-19 Rule Out 04/26/2021 04/26/2021 04/26/2021 7:39 PM CDT Assessment Noted Time PHQ-9 Depression Total Score: 0 02/21/20 10:42 AM CDT documented as of this encounter Care Teams County Bailiff Relationship Specialty Start Date End Date Ilene Paul MD [address] [facility] [address] [place] [address] PCP - General FAMILY PRACTICE 11/12/20 documented as of this encounter
--- OUTSIDE RECORDS SUMMARY | 2024-08-31 06:12 | XMS_ITS | Encounter Summary ---
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 file Not [...] Description 12/21/2024 8:20 AM CDT Office Visit [facility] Family and Sports Medicine - [place] [address] [place] [address] Ilene Paul MD [address] [place] [address] 03/29/2025 8:00 AM CDT Office Visit [facility] Mult[facility]pecialty Care - [facility] [address] [place] [phone] Jorge Israel MD [address] [place] [address] documented as of this encounter Results * CORONAVIRUS (COVID 19) (04/26/2021 9:30 AM CDT) SPEC DESCRIPTION NASAL 04/26/20 11:36 AM CDT [facility] CORONAVIRUS SARS COV 2 PCR (RESP) NEGATIVE NEGATIVE 04/26/2021 7:38 PM CDT [facility] Comment: THE SARS-CoV-2 TEST HAS BEEN AUTHORIZED BY THE FDA UNDER AN EUA FOR USE BY AUTHORIZED LABORATORIES. PERFORMED BY NUCLEIC ACID AMPLIFICATION PCR FIRST TEST NO 04/26/2021 11:36 AM CDT [facility] EMPLOYED IN HEALTHCARE NO 04/26/2021 11:36 AM CDT [facility] SYMPTOMATIC DEFINED BY CDC NO 04/26/2021 11:36 AM CDT [facility] HOSPITALIZATION STATUS NO 04/26/2021 11:36 AM CDT [facility] PATIENT IN ICU NO 04/26/2021 11:36 AM CDT [facility] RESIDENT OF CONGREGATE CARE NO 04/26/2021 11:36 AM CDT [facility] NASAL STRUCTURE / Unknown 04/26/2021 9:30 AM CDT Chacho Herman MD MICROBIOLOGY - GENERAL ORDERABLE S Final Result [facility] [address] [place] [address], [place] [phone] [facility] [address] [place] [address], [place] [phone] documented in this encounter Visit Diagnoses Diagnosis Preop examination- Primary Preoperative examination, unspecified documented in this encounter Additional Health Concerns Infection Onset Date Last Indicated Resolved Time COVID-19 Rule Out 04/26/2021 04/26/2021 04/26/2021 7:39 PM CDT Assessment Noted Time PHQ-9 Depression Total Score: 0 04/04/20 7:54 AM CDT documented as of this encounter Care Teams Therapeutic Dietitian Relationship Specialty Start Date End Date Ilene Paul MD [address] [facility] [address] [place] [address] PCP - General FAMILY PRACTICE 11/12/20 documented as of this encounter
--- OUTSIDE RECORDS SUMMARY | 2024-08-31 06:12 | XMS_ITS | Encounter Summary ---
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 [...] on: 08/30/2024 08:56 AM Modules accepted: Orders ARCH PHYSICIAN documented in this encounter Plan of Treatment Upcoming Encounters Date Type Department Care Team (Sue Contact Info) Description 12/21/2024 8:20 AM CDT Office Visit [facility] Family and Sports Medicine - [place] [address] [place] [address] Ilene Paul MD [address] [place] [address] 03/29/2025 8:00 AM CDT Office Visit [facility] Multispecialty Care - [facility] [address] [facility] [place] [address] Jorge Israel MD [address] [facility] [address] [place] [address] documented as of this encounter Goals Goal [...] Total Score: 0 09/09/19 22 7:39 AM RESEARCH PHYSICIAN documented as of this encounter Care Teams Bulldozer Mechanic Relationship Specialty Start Date End Date Ilene Paul MD [address] [place] [address] PCP - General FAMILY PRACTICE 11/12/20 documented as of this encounter
--- NOTE | 2024-08-31 06:46 | PC.NURSE ---
ok to give water per
--- NOTE | 2024-08-31 06:55 | P.HP_ITS ---
H&P: HPI History of Present Illness Date/Time: 08/31/24 06:55 Chief Complaint: Hematuria Narrative: The patient is status post TURBT yesterday by Dr. Zamora. He was discharged with an indwelling 3 way Torres catheter after brief period of continuous irrigation in PACU. Presents to the emergency department with complaints of hematuria and poorly draining catheter. CT scan the and pelvis shows a decompressed bladder with a Torres catheter in place. When I saw in the emergency department early this morning his urine was perfectly clear and his catheter was draining freely. Review of Systems Review of Systems: All systems reviewed & are unremarkable except as noted in HPI and below PMFSH Past Medical History Medical History (Updated 08/31/24 @ 06:57 by Héctor Samuel MD) Cerebrovascular disease Family History Family History Other No problems noted. Father No problems noted. Mother Diabetes mellitus Other No problems noted. Father Patient's father is in good health Sibling Patient's sister is in good health Patient's brother is in good health Mother Family history of diabetes mellitus in first degree relative Diabetes mellitus Other Hypertension Social History Social History (System 02/03/20 @ 09:25 by Roxi Trejo) Smoking status: Never smoker Alcohol intake: never Living arrangements: with family Additional living arrangements comments: Spiritual care concerns: No Meds Home Medications and Allergies Home Medications ?Medication ?Instructions ?Recorded ?Confirmed ?Type atorvastatin 40 mg tablet 40 mg PO DAILY #90 tabs 02/16/20 08/30/24 Rx aspirin 81 mg tablet,delayed 81 mg PO DAILY 08/22/24 08/30/24 History release (Adult Aspirin Regimen) cholecalciferol (vitamin D3) 1,250 1,250 mcg PO WEEKLY 08/22/24 08/30/24 History mcg (50,000 unit) capsule dapagliflozin propanediol 10 mg 10 mg PO DAILY 08/22/24 08/30/24 History tablet (Farxiga) ferrous sulfate 325 mg (65 mg 325 mg PO DAILY 08/22/24 08/30/24 History iron) tablet (FeroSul) lisinopril 10 1 tablet PO BID 08/22/24 08/30/24 History mg-hydrochlorothiazide 12.5 mg tablet metformin 500 mg tablet 500 mg PO HS 08/22/24 08/30/24 History omeprazole 20 mg capsule,delayed 20 mg PO BID 08/22/24 08/30/24 History release sulfamethoxazole 800 1 tablet PO Q12H 08/22/24 08/30/24 History mg-trimethoprim 160 mg tablet vilazodone 10 mg tablet 10 mg PO QAM 08/22/24 08/30/24 History oxybutynin chloride 5 mg tablet 5 mg PO BID PRN bladder spasms #20 08/30/24 Rx tabs sulfamethoxazole 800 1 tablet PO Q12H #6 tabs 08/30/24 Rx mg-trimethoprim 160 mg tablet (Bactrim DS) tramadol 50 mg tablet 50 mg PO Q6H PRN pain #20 tabs 08/30/24 Rx Allergies Allergy/AdvReac Type Severity Reaction Status Date / Time No Known Allergies Allergy Unverified 08/30/24 08:53 Vital Signs Vital Signs - 24 hr 08/31/24 02:49 08/31/24 02:51 08/31/24 03:34 Temperature 98.2 F 98.6 F Pulse Rate 122 H 91 92 Respiratory Rate 17 13 22 H Blood Pressure 150/89 H 123/84 Pulse Oximetry 96 93 92 Oxygen Delivery Room Air Room Air 08/31/24 03:45 08/31/24 03:46 08/31/24 03:47 Temperature Pulse Rate 86 89 87 Respiratory Rate 21 H 22 H 21 H Blood Pressure 109/68 Pulse Oximetry 92 93 92 Oxygen Delivery 08/31/24 04:00 08/31/24 04:01 08/31/24 04:15 Temperature Pulse Rate 81 85 Respiratory Rate 23 H 23 H Blood Pressure 109/68 Pulse Oximetry 91 91 91 Oxygen Delivery 08/31/24 04:16 08/31/24 04:45 08/31/24 04:55 Temperature Pulse Rate 82 84 Respiratory Rate 18 17 Blood Pressure 113/68 110/66 Pulse Oximetry 92 96 97 Oxygen Delivery 08/31/24 05:22 08/31/24 05:30 Temperature Pulse Rate 87 88 Respiratory Rate 21 H 24 H Blood Pressure Pulse Oximetry 92 92 Oxygen Delivery Exam Const: General: no acute distress Resp: Effort & Inspection: normal respiratory effort GI: Inspection: non-distended GI Palp: No abdominal tenderness and No Guarding due to palpation present (GI) Auscultation: normal bowel sounds Urinary Catheter: Urinary Catheter: patent and draining and urine clear H&P: Results Labs Labs: Short CBC 08/31/24 Range/Units 05:02 WBC 15.2 H (4.5-10.0) K/mm3 Hgb 13.4 L (14.0-18.0) g/dL Hct 41.3 L (42.0-52.0) % Plt Count 289 (150-375) k/mm3 BMP 08/31/24 05:02 Sodium 137 Potassium 4.2 Chloride 101 Carbon Dioxide 24 BUN 21 H Creatinine 1.04 Glucose 113 H Calcium 9.3 Liver Function 08/31/24 Range/Units 05:02 Total Bilirubin 0.9 (0.2-1.3) mg/dL AST 22 (17-59) U/L ALT 27 (6-50) U/L Alkaline Phosphatase 102 (38-126) U/L Albumin 3.8 (3.5-5.1) g/dL Assessment and Plan Assessment and plan (1) Gross hematuria: Code(s): R31.0 - Gross hematuria Status: Acute Assessment and Plan: * Intermittent scant hematuria and poorly draining catheter secondary to bladder spasms * Patient is already been admitted for observation. Will hold CBI at this time is his urine is perfectly clear. Will give Levsin for bladder spasms.
[2024-08-31] MEDS: HYOSCYAMINE SULFATE 0.125 MG TABLET SUBLINGUAL ×3 (08:04→20:05)
--- NOTE | 2024-08-31 10:22 | ADMGEN ---
This patient, Portillo Lynch, was admitted to 3 [facility] Surg Room 306-02. Patient/family oriented to hospital policies and general routines including ID bracelet, bed and alarms, visiting hours, pain management, procedures, bathroom and other care routines, personal items, smoking policy, room service/diet, and visiting hours. Information on how to activate the Rapid Response Team has been discussed. Patient/Family are encouraged to report perceived risks to care and to ask questions if they do not understand what they are told or what they should do.
[2024-08-31 16:33] LABS: Glucose Point of Care 104 mg/dl (65-105)
--- NOTE | 2024-08-31 22:37 | PC.NURSE ---
pt experiencing severe bladder spasms despite taking prn medication. pt asked for catheter to be removed. it is ordered to be removed at 0600 however per pt's request it has been removed at 2200. education and urinal provided
[2024-09-01 05:21] VITALS: BP 113/73; PULSE 75; RESP 16; TEMP 36.4; O2SAT 97
--- NOTE | 2024-09-02 08:46 | P.DS_ITS ---
DS: Admitting Diagnosis Discharge Date 09/01/24 Admitting Diagnosis hematuria DS: Summary Hospital Course Hospital Course: Patient was admitted 1 day status post TURBT by Dr. Zamora. He was seen in the emergency department with hematuria which I think was secondary to bladder spasms. He was watched overnight. The following morning his catheter was removed and he was discharged voiding very well. He had no significant hematuria during the course of this admission Time Spent with Patient Time attestation: Total time spent providing and/or coordinating discharge services: Discharge Plan Discharge Attending physician on discharge: Pradeep Zamora Consulting providers: Amos Adkins Discharging Clinician: Héctor Samuel Patient Disposition: Home, Self-Care Activity: unlimited Diet: as tolerated Patient Instructions: Antibiotic Form Patient Language: Korean Stand Alone Forms: General Discharge Information Follow-up/Referrals: Héctor Samuel MD [Physician] - (Keep any appointments) Discharge Medications: Continued dapagliflozin propanediol [Farxiga] 10 mg tablet 10 mg PO DAILY ferrous sulfate [FeroSul] 325 mg (65 mg iron) tablet 325 mg PO DAILY lisinopril-hydrochlorothiazide 10-12.5 mg tablet 1 tablet PO BID metformin 500 mg tablet 500 mg PO HS omeprazole 20 mg capsule,delayed release(DR/EC) 20 mg PO BID vilazodone 10 mg tablet 10 mg PO QAM cholecalciferol (vitamin D3) 1,250 mcg (50,000 unit) capsule 1,250 mcg PO WEEKLY Patient Comments: TUESDAYS sulfamethoxazole-trimethoprim 800-160 mg tablet 1 tablet PO Q12H sulfamethoxazole-trimethoprim [Bactrim DS] 800-160 mg tablet 1 tablet PO Q12H Qty: 6 0RF tramadol 50 mg tablet 50 mg PO Q6H PRN (Reason: pain) Qty: 20 0RF oxybutynin chloride 5 mg tablet 5 mg PO BID PRN (Reason: bladder spasms) Qty: 20 0RF Rx Instructions: Take as needed for bladder spasms atorvastatin 40 mg tablet 40 mg PO DAILY Qty: 90 1RF Held aspirin [Adult Aspirin Regimen] 81 mg tablet,delayed release (DR/EC) 81 mg PO DAILY Hold Instructions: Resume on 09/03/24. Date of admission: 08/31/24 05:33 Primary Care Provider: Humberto,Ilene Brown Admitting Provider: Pradeep Zamora Attending physician on admission: Héctor Samuel Condition: Stable
== END 2024-09-01 11:20 | disposition home or self-care (01) ==
LOC: ANHED 03:07 → ANH3MEDSUR 07:21
PROVIDERS: Admitting Provider Urology; Emergency Provider Student in an Organized Health Care Education/Training Program; PCP Family Medicine Sports Medicine; Visit Provider Urology
DX: R31.0 Gross hematuria (principal); N32.89 Other specified disorders of bladder; Z97.8 Presence of other specified devices; Z98.890 Other specified postprocedural states; D64.9 Anemia, unspecified; D72.829 Elevated white blood cell count, unspecified; I67.9 Cerebrovascular disease, unspecified; Z79.82 Long term (current) use of aspirin; Z79.84 Long term (current) use of oral hypoglycemic drugs; Z79.899 Other long term (current) drug therapy
CPT/HCPCS: 36415; 74176; 80053; 82948; 85025; 85610; 85730; 96374; 96375; 96376; 99285; A9270; G0378; J2270

== ENCOUNTER 2025-02-21 13:27 | Outpatient (CLI) | payer OTHER, SELFPAY ==
--- NOTE | ~2025-02-21 | PE_ITS ---
EXAMINATION: PET_PETPSMAST_PT DATE: 02/21/2025 15:36 INDICATION: Prostate cancer TECHNIQUE: 5.156 mCi of Illucix Ga-68([id number]) was administered i.v. Low dose computed nicci graphy (CT) images were acquired from the base of the brain to the base of the brain to the proximal thighs for attenuation correction and anatomic localization. Positron emission tomography (PET) image s were acquired in the same distribution beginning 61 minutes after injection. Images including fused PET/CT images were reconstructed in axial, coronal, and sagittal planes. Automated exposure control technique was employed. The dose-length product was 1302.14mGy-cm. COMPARISON: None FINDINGS: Head/neck: Typical pattern of symmetric physiologic increased activity in the lacrimal, parotid and submandibula r glands as well as along the mucosa of the nasal and oral cavities, pharynx and hypopharynx. No path ologically enlarged cervical lymphadenopathy or suspicious foci of increased uptake in the visualized head or neck. Chest: Mild dependent atelectasis in both lungs. No suspicious pulmonary nodules, pneumonia or pleural effus ion. Heart size is normal. Atherosclerotic coronary artery calcification. No pericardial effusion. Ca lcified mediastinal lymph nodes consistent with old granulomatous disease. No pathologically enlarged or PSMA avid thoracic lymphadenopathy. Abdomen/pelvis/proximal thighs: Physiologic renal accumulation and excretion of activity in the kidneys, bladder and along portions o f ureters. There are photopenic defects associated with bilateral low-attenuation renal cysts the lar gest on the left measuring 5.2 cm. Status post prostatectomy with no evident nodular soft tissue dens ities at the prostatectomy bed to suggest residual/locally recurrent disease. Assessment for abnormal soft tissue PSMA activity is limited at this location due to the intense excreted urine activity in the bladder. Normal degree and slightly heterogenous pattern of increased uptake throughout the liver and spleen without radiologic correlate or dominant PSMA avid lesion. The gallbladder, pancreas and bilateral adrenal glands are normal. Moderate uptake scattered throughout the bowels with typical duo denal and proximal jejunal predominance and without radiologic correlate, also likely physiologic. Th ere is mild colonic diverticulosis with a sigmoid predominance. There is no adjacent inflammatory ch gagandeep to suggest diverticulitis. Normal appendix. No other abnormal foci of increased soft tissue upta ke or pathologically enlarged lymphadenopathy in the abdomen, pelvis or proximal thighs. Musculoskeletal: There is a single small focus of mild uptake with maximal SUV of 3.0 at the right lesser trochanter w ith suggestion of subtle thickening of the anterior cortex at this location which is concerning for m etastatic disease. No other suspicious lytic, blastic or abnormally PSMA avid bone lesions. IMPRESSION: 1. Single focus of concerning increased uptake at the right lesser trochanter which is suspicious for early osseous metastatic disease. No other lesions suspicious for metastatic disease. Reviewed, dictated and finalized at location A. IMPRESSION: 1. Single focus of concerning increased uptake at the right lesser trochanter w hich is suspicious for early osseous metastatic disease. No other lesions suspi cious for metastatic disease.
--- OUTSIDE RECORDS SUMMARY | 2025-02-21 13:35 | XMS_ITS | Encounter Summary ---
Author Organization [facility] Address [address] [place] [address] Care Team Providers Care Sternman Name Role Phone Basilio Mao MD Primary Care Provider [phone] Encounter Details Date Type Department Care Team (Late st Contact Info) Description 09/06/2024 Lab Requisition [facility] - Pathology Lab [address] [place] [address] Greg Vick MD [address] [address] Illness, unspecified Social History Tobacco Use Types Packs/Day Years Used Date Smoking Tobacco: Never Alcohol Use Standard Drinks/Week Comments No 0 (1 standard drink = 0.6 oz pur e alcohol) Sex and Gender Information Value Date Recorded Sex Assigned at Not on file Legal Sex Male 6:04 PM MOBILE DEVICE ENGINEER Gender Identity Not on file Sexual Orientation Not on file documented as of this encounter Plan of Treatment Not on file documented as of this encounter Procedures Procedure Name Priority Date/Time Associated Diagnosis Comments PATHOLOGY TISSUE Routine 08/30/2024 10:4 2 AM MOBILE DEVICE ENGINEER Illness, unspecified documented in this encounter Results * PATHOLOGY TISSUE (08/30/2024 10:42 AM MOBILE DEVICE ENGINEER) Case Report Surgical Pathology Report Case: [id number] Authorizing Provider: Greg Vick MD Collected: 08/30/2024 10:42 AM Ordering Location: [facility] - Received: 09/06/2024 03:31 PM Pathology Lab Pathologist: Nayla Harding MD Specimens: A) - Bladder Resect Part B) - Bladder Resect Part 09/09/2024 2:37 PM MOBILE DEVICE ENGINEER [facility] Final Diagnosis MATERIAL RECEIVED FROM [facility] [place] (OSC [id number], 08/30/24) Bladder, tumor, transurethral resection (A) - High-grade urothelial carcinoma with extensive glandular differentiation, invading lamina propria, with focal associated surface urothelial carcinoma in situ - Focal muscularis propria present, uninvolved Bladder, tumor base, transurethral resection (B) - High-grade urothelial carcinoma - Focal muscularis propria present, uninvolved 09/09/2024 2:37 PM [facility] at 1437 MOBILE DEVICE ENGINEER Microscopic Description and Comment Microscopic examination substantiates the above diagnosis. This case is reviewed for primary diagnosis at the request of Dr. Sandra Vick at [facility]. Histologic sections of the bladder tumor specimens show urothelial carcinoma. In part A, there is prominent glandular differentiation. The patient's history of high-grade prostate adenocarcinoma is noted. Immunostains (controls adequate, performed at [facility] pathology) were performed to further evaluate the tumor cells, which are reactive for GATA3 (in the elements with urothelial morphology) and CDX2 (diffusely). The tumor cells are negative for NKX3.1, and beta-catenin shows no aberrant reactivity. The morphologic and immunophenotypic features support the diagnosis. 09/09/2024 2:37 PM [facility] Clinical History The patient is a 69-year-old man with a 5 cm mass at the bladder dome. Operative procedure: transurethral resection of bladder tumor. 09/09/2024 2:37 PM [facility] Materials Received Received are 21 slide(s) and 2 block(s) labeled [id number] along with a copy of the outside pathology report. [place] [address]. All original materials are returned to the referring institution, along with a copy of our final report. 09/09/2024 2:37 PM [facility] Pathologist Location at [facility] 09/09/2024 2:37 PM [facility] Disclaimer The performance characteristics of all immunohistochemical and indirect immunofluorescence stains (if any) cited in this report were determined by the Histopathology Laboratory of [facility]. Some of these tests were developed by our own laboratory and have not been cleared or approved by the US Food and Drug Administration. The FDA does not require this test to go through premarket FDA review. These tests are used for clinical purposes. They should not be regarded as investigational or for research. This laboratory is certified under the Clinical Laboratory Improvement Amendments (CLIA) as qualified to perform high complexity clinical laboratory testing. This case has been personally reviewed and interpreted by the attending (teaching) pathologist. 09/09/2024 2:37 PM MOBILE DEVICE ENGINEER [facility] Embedded Images 09/09/2024 2:37 PM MOBILE DEVICE ENGINEER [facility] Pathology/Cytology SPECIMEN FROM URINARY BLADDER OBTAINED BY PARTIAL CYSTECTOMY / Unknown 08/30/2024 10:42 AM MOBILE DEVICE ENGINEER 09/06/2024 3:31 PM MOBILE DEVICE ENGINEER Miscellaneous samples (specimen) SPECIMEN FROM URINARY BLADDER OBTAINED BY PARTIAL CYSTECTOMY / Unknown 08/30/2024 10:42 AM MOBILE DEVICE ENGINEER 09/06/2024 3:31 PM MOBILE DEVICE ENGINEER Greg Vick MD LAB - PATHOLOGY/CYTOLOGY ORDERAB LES Final Result Performing Organization Address City/State/[facility] Co de Phone Number [facility] [address] [phone] documented in this encounter Visit Diagnoses Diagnosis Illness, unspecified documented in this encounter Care Teams Sternman Relationship Specialty Start Date End Date Basilio Mao MD [address] [facility] [address] [place] [address] PCP - General 08/25/16 documented as of this encounter
--- OUTSIDE RECORDS SUMMARY | 2025-02-21 13:35 | XMS_ITS | Clinical Summary ---
Author Organization [facility] Address [address] [place] [address] Care Team Providers Care Gas Technician Name Role Phone Basilio Mao MD Primary Care Provider [phone] Source Comments [facility],non-owned Affiliates and Associated Physician Practices is amultiple site organization consisting of ambulatory clinics and hospital sitesin [place], [place], [place] and [place]. This disclosure is being madepursuant to the Care Everywhere program and may not contain all information available regarding this patient. Last updated 18.[facility] Active Problems Problem Noted Date Diagnosed Date Cerebral infarction 08/10/2015 Immunizations Immunization Administration Dates Next Due FLU VACCINE TRI [...] on file Legal Sex Male 6:04 PM NEURORADIOLOGIST Gender Identity Not on file Sexual Orientation Not on file Last Filed Vital Signs Vital Sign Reading Time Taken Comments Blood Pressure 142/84 08/15/2015 12:00 PM NEURORADIOLOGIST Pulse 98 08/15/2015 12:00 PM NEURORADIOLOGIST Temperature 36.6 C (97.8 F) 08/15/2015 12:00 PM NEURORADIOLOGIST Respiratory Rate 16 08/15/2015 12:0 0 PM NEURORADIOLOGIST Oxygen Saturation 96% 08/15/2015 12: 00 PM NEURORADIOLOGIST Inhaled Oxygen Concentration - - Weight 106.5 kg (234 lb 11.2 oz) 08/13/2015 9:00 PM NEURORADIOLOGIST Height 188 cm (6' 2) 08/13/2015 9:00 PM NEURORADIOLOGIST Body Mass Index 30.13 08/13/2015 9:00 PM NEURORADIOLOGIST Plan of Treatment Health Maintenance Due Date Last Done Comments COLOGUARD (AGES 45-75) - COL ON CA SCREENING 1956 COLON MONITORING 1956 COLONOSCOPY - COLON CA SCREENING 1956 CT COLONOGRAPHY - COLON CA SCREENING 1955 Colorectal Cancer Screening 1956 FIT - COLON CA SCREENING 1956 FLEX SIG - COLON CA SCREENING 1955 MEDICARE AWV 12 MONTHS 1956 DTAP/TDAP/TD VACCINES (1 - Tdap) 1975 PNEUMOCOCCAL VACCINE 50+ (1 of 1 - PCV) 2006 ZOSTER VACCINE (1 of 2) 2006 COVID-19 VACCINE (1 - 2023-2 5 season) 2024 DEPRESSION SCREENING 07/20/2024 INFLUENZA VACCINE (#1) 2025 6, 07/28/2012 LIPID TESTING 06/14/2029 06/14/2024, 08/10/2015 Respiratory Syncytial Virus (RSV) Vaccine Pt: or over 60 yrs (1 - 1-dose 75+ series) 2031 HEPATITIS C SCREENING Completed 07/01/2023 HEPATITIS B VACCINE Aged Out No longe r eligible based on patient's age to complete this topic HIB VACCINE Aged Out No longer eligi ble based on patient's age to complete this topic HPV VACCINE Aged Out No longer eligi ble based on patient's age to complete this topic MENINGOCOCCAL (Group B) VACCINE SHARED DECISION-MAKING Aged Out No longer eligible based on patient's age to complete this topic MENINGOCOCCAL GROUPS A/C/Y/W VACCINE Aged Out No longer eligible b ased on patient's age to complete this topic Procedures Procedure Name Priority Date/Time Associated Diagnosis Comments LIPID PROFILE Routine 08/10/2015 2:39 PM NEURORADIOLOGIST from Last 3 Months or Most Recently Relevant to Health Maintenance Results * (ABNORMAL) LIPID PROFILE (08/10/2015 2:39 PM NEURORADIOLOGIST) Cholesterol Total 193 <200 mg/dL [facility] HDL 37(L) >40 mg/dL [facility] Comment: ATP III Classification of HDL Cholesterol: <40 mg/dL: Considered a major risk factor. >60 mg/dL: Considered a negative risk factor. LDL Calculated 86 <100 mg/dL [facility] Comment: ATP III Classification of LDL Cholesterol: <100 mg/dL: Optimal 100 - 129 mg/dL: Near Optimal/Above Optimal 130 - 159 mg/dL: Borderline High 160 - 189 mg/dL: High >190 mg/dL: Very High Triglycerides 350(H) <150 mg/dL [facility] Comment: ATP III Classification of Triglycerides: <150 mg/dL: Normal 150 - 199 mg/dL: Borderline High 200 - 400 mg/dL: High >500 mg/dL: Very High Blood specimen (specimen) BLOOD SPECIMEN / Unknown 08/10/2015 2:39 PM NEURORADIOLOGIST 08/10/2015 2:42 PM NEURORADIOLOGIST Ciera Arias MD LAB - CHEMISTRY ORDERABLES Rosana l Result [address] [phone] from Last 3 Months or Most Recently Relevant to Health Maintenance Insurance [facility] MEDICARE Care Teams Gas Technician Relationship Specialty Start Date End Date Basilio Mao MD [address] [place] [address] [place] [address] PCP - General 08/25/16
--- OUTSIDE RECORDS SUMMARY | 2025-02-21 13:35 | XMS_ITS | Encounter Summary ---
Author Organization [facility] Address [facility] [place] [address] Care Team Providers Care Road Hogger Operator Name Role Phone Ilene Paul MD Primary Care Provider [phone] Encounter Details Date Type Department Care Team (Late st Contact Info) Description 03/18/2021 [employer] Message Enc [facility] Medical Group Multispecialty Care - [facility] [address], [address] [place] [phone] Chacho Herman MD Other Social History Tobacco [...] Information Value Date Recorded Sex Assigned at Male 12/21/2024 8:35 AM CDT Legal Sex Male 3:58 PM CDT Gender Identity Not on file Sexual Orientation Not on file 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 No / Unsure 02/19/2021 12:28 PM CDT documented as of this encounter Plan of Treatment Upcoming Encounters Date Type Department Care Team (Late st Contact Info) Description 03/29/2025 8:00 AM CDT Office Visit [facility] Multispecialty Care - [facility] [address] [place] [address] Jorge Israel MD [address] [facility] [address] [place] [address] 04/05/2025 8:30 AM CDT Appointment [facility] Non Invasive Cardiology [address] [facility] [place] [address] Joe Greco MD [address] [place] [address] 05/08/2025 2:15 PM CDT Office Visit [facility] [address] [place] [address] Joe Greco MD [address] [place] [address] 06/21/2025 8:00 AM MILLINERY TEACHER Office Visit [facility] Medical [facility] Family and Sports Medicine - [place] [address] [place] [phone] Ilene Paul MD [address] [facility] [address] [place] [address] documented as of this encounter Visit Diagnoses Not on filedocumented in this encounter Additional Health Concerns Infection Onset Date Last Indicated Resolved Time COVID-19 Rule Out 04/26/2021 04/26/2021 04/26/2021 7:39 PM CDT Assessment Noted Time PHQ-9 Depression Total Score: 0 02/21/20 10:42 AM CDT documented as of this encounter Care Teams Road Hogger Operator Relationship Specialty Start Date End Date Ilene Paul MD [address] [id number] PCP - General FAMILY PRACTICE 11/12/20 documented as of this encounter
--- OUTSIDE RECORDS SUMMARY | 2025-02-21 13:35 | XMS_ITS | Encounter Summary ---
Author Organization [facility] Address [address] [place] [address] Care Team Providers Care Anvil Seating Press Operator Name Role Phone Ilene Paul MD Primary Care Provider [phone] Encounter Details Date Type Department Care Team (Late st Contact Info) Description 01/29/2023 [employer] 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 Question Answer Date of Assessment Author Status Little interest or pleasure in doing things Not at all 01/29/2023 8:07 AM CDT Sindy Preston RN Active Feeling down, depressed, or hopeless Not at all 01/29/2023 8:07 AM CDT Sindy Preston RN Activ e Patient Health Questionnaire-2 Score 0 01/29/2023 8:07 AM CDT Sindy Preston RN Active documented as of this encounter Mental [...] Description 03/29/2025 8:00 AM CDT Office Visit [facility] Medical Group Multispecialty Care - [address] [place] [address] Jorge Israel MD [address] [facility] [address] [place] [address] 04/05/2025 8:30 AM CDT Appointment [place] [facility] Cardiology [address] [facility] [address] [facility] [place] [address] Joe Greco MD [address] [place] [place] [address] 05/08/2025 2:15 PM CDT Office Visit [facility] [address] [place] [address] Joe Greco MD [address] [place] [address] 06/21/2025 8:00 AM REPAIRER SHOE STICKS Office Visit [facility] Medical Group Family and Sports Medicine - [place] [address] [place] [address] Ilene Paul MD [address] [address] documented as of this encounter Goals Goal [...] documented as of this encounter Care Teams Anvil Seating Press Operator Relationship Specialty Start Date End Date Ilene Paul MD [address] [facility] [address] [place] [address] PCP - General FAMILY PRACTICE 11/12/20 documented as of this encounter
--- OUTSIDE RECORDS SUMMARY | 2025-02-21 13:35 | XMS_ITS | Encounter Summary ---
Author Organization [facility] Address [address] [place] [address] Care Team Providers Care Residential Advisor Name Role Phone Basilio Mao MD Primary Care Provider [phone] Encounter Details Date Type Department Care Team (Late st Contact Info) Description 05/06/2023 Lab Requisition [facility] - DermPath Lab [address] [place] [id number] Donnie Dyson MD [facility] DERMATOLOGY [address] [place] [phone] Neoplasm of uncertain behavior of skin Social History Tobacco Use Types Packs/Day Years Used Date Smoking Tobacco: Never Alcohol Use Standard Drinks/Week Comments No 0 (1 standard drink = 0.6 oz pur e alcohol) Sex and Gender Information Value Date Recorded Sex Assigned at Not on file 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 Sex Male 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 Gender Identity Not on file Sexual Orientation Not on file documented as of this encounter Plan of Treatment Not on file documented as of this encounter Procedures Procedure Name Priority Date/Time Associated Diagnosis Comments DERMATOPATHOLOGY Routine 05/06/2023 3:33 AM CDT Neoplasm of uncertain behavior of skin documented in this encounter Results * DERMATOPATHOLOGY (05/06/2023 3:33 AM CDT) Case Report Dermatopathology Report Case: [id number] Authorizing Provider: Donnie Dyson MD Collected: 05/06/2023 03:33 AM Ordering Location: [facility] DermPath Lab Received: 05/07/2023 11:07 AM Pathologist: Lorena Vee MD Specimen: Skin, right cheek 1:46 PM CDT DERMATOPATHOLOGY LABORATORY Final Diagnosis Specimen A. SKIN, right cheek: ACTINIC KERATOSIS WITH FOLLICULAR EXTENSION (L57.0) 3 1:46 PM CDT DERMATOPATHOLOGY LABORATORY at 1346 CDT Clinical History Squamous Cell Carcinoma 3 1:46 [...] characteristic determined by the Dermatopathology Laboratory at [facility], directed by Dr. oLre Vee. These tests need not be, and therefore are not, approved by the [place] Food and Drug Administration. The tests are used for clinical purposes. Billing Codes Specimen Charges Stain Charges 66513 1 1:46 PM CDT DERMATOPATHOLOGY LABORATORY Embedded Images 3 1:46 PM CDT DERMATOPATHOLOGY LABORATORY Pathology/Cytolo gy TISSUE SPECIMEN FROM SKIN / Unknown 05/06/2023 3:33 AM CDT 05/07/2023 11:07 AM CDT us Donnie Dyson MD LAB - PATHOLOGY/CYTOLOGY ANGELA CHAVIRA Final Result DERMATOPATHOLOGY LABORATORY [facility] - Department of Dermatology [facility] Medicine [address] [place] [address], [address] [phone] documented in this encounter Visit Diagnoses Diagnosis Neoplasm of uncertain behavior of skin documented in this encounter Care Teams Residential Advisor Relationship Specialty Start Date End Date Basilio Mao MD [address] [facility] [address] [place] [address] PCP - General 08/25/16 documented as of this encounter
--- OUTSIDE RECORDS SUMMARY | 2025-02-21 13:35 | XMS_ITS | Encounter Summary ---
Author Organization [facility] Address [facility] [place] [address] Care Team Providers Care Clinician Oncology Name Role Phone Ilene Paul MD Primary Care Provider [phone] Encounter Details Date Type Department Care Team (Late st Contact Info) Description 10/14/2023 [facility] Message [facility] Business Office [address] [place] [address] [facility] Provider Action Needed Social History Tobacco [...] Description 03/29/2025 8:00 AM CDT Office Visit [facility] Medical Group Multispecialty Care - [facility] [address] [facility] [place] [phone] Jorge Israel MD [address] [facility] [address] [place] [address] 04/05/2025 8:30 AM CDT Appointment [facility] Non Invasive Cardiology [address] [facility] [place] [address] Joe Greco MD [address] [facility] [place] [address] 05/08/2025 2:15 PM CDT Office Visit [facility] [facility] [address] [place] [address] Joe Greco MD [address] [facility] [place] [address] 06/21/2025 8:00 AM CUTTER BRAKE LINING Office Visit [facility] Medical Group Family and Sports Medicine - [place] [address] [place] [address] Ilene Paul MD [address] [facility] [address] [place] [address] documented as of this encounter Goals Goal [...] documented as of this encounter Care Teams Clinician Oncology Relationship Specialty Start Date End Date Ilene Paul MD [address] [address] PCP - General FAMILY PRACTICE 11/12/20 documented as of this encounter
--- OUTSIDE RECORDS SUMMARY | 2025-02-21 13:36 | XMS_ITS | Encounter Summary ---
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 [address] [facility] [address] [place] [phone] Jorge Israel MD [address] [facility] [address] [place], [place] [address] 04/05/2025 8:30 AM CDT Appointment [facility] Non Invasive Cardiology ONE [facility] [address] [place] [address] Joe Greco MD Three [facility] [place] [address] 05/08/2025 2:15 PM CDT Office Visit [facility] [address] [place] [address] Joe Greco MD Three [facility] [place] [address] 06/21/2025 8:00 AM AIRCRAFT PART ASSEMBLER Office Visit [facility] Medical Group Family and Sports Medicine - [place] [address] [place] [address] Ilene Paul MD [address] [address] documented as of this encounter Goals Goal [...] Total Score: 0 09/09/19 22 7:39 AM AIRCRAFT PART ASSEMBLER documented as of this encounter Care Teams Registered Associate Relationship Specialty Start Date End Date Ilene Paul MD [address] [facility] [address] [place] [address] PCP - General FAMILY PRACTICE 11/12/20 documented as of this encounter
--- OUTSIDE RECORDS SUMMARY | 2025-02-21 13:36 | XMS_ITS | Encounter Summary ---
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 [address] [place] [address] Jorge Isarel MD 3 [facility] [address] [place] [address] 04/05/2025 8:30 AM CDT Appointment [facility] Non Invasive Cardiology ONE [facility] [place] [address] Joe Greco MD Three [facility] [address] [place] [address] 05/08/2025 2:15 PM CDT Office Visit [facility] [address] [place] [address] Joe Greco MD Three [address] [place] [address] 06/21/2025 8:00 AM BUILD MASTER Office Visit [facility] Medical Group Family and Sports Medicine - [place] [address] [place] [address] Ilene Paul MD [address] [address] documented as of this encounter Goals Goal [...] documented as of this encounter Care Teams Tile Classifier Relationship Specialty Start Date End Date Ilene Paul MD [address] [facility] [address] [place] [address] PCP - General FAMILY PRACTICE 11/12/20 documented as of this encounter
--- OUTSIDE RECORDS SUMMARY | 2025-02-21 13:36 | XMS_ITS | Clinical Summary ---
Author Organization [facility] Address [address] [place] [address] Care Team Providers Care Construction Checker Name Role Phone Ilene Paul MD Primary Care Provider [phone] Allergies No known active allergies Medications dapagliflozin (FARXIGA) 10 MG tabletIndication s:Mixed hyperlipidemia,T ype 2 diabetes mellitus without complication, without long-term current use of insulin ([facility] HHS/HCC) Take 1 tablet (10 mg total) by mouth daily. 90 tablet 3 01/01/20 23 Active sertraline (ZOLOFT) 25 MG tabletIndication s:Anxiety and depression Take 1 tablet (25 mg total) by mouth daily. 90 tablet 3 06/22/20 24 025 Active omeprazole (PRILOSEC) 40 MG capsuleIndicatio ns:Gastroesophag eal reflux disease without esophagitis Take 1 capsule (40 mg total) by mouth daily. 30 capsule 11 09/20/19 25 Active vilazodone (VIIBRYD) 10 MG tabletIndication s:Anxiety Take 1 tablet by mouth once daily with food 90 tablet 10/04/19 25 Active ferrous gluconate (FERGON) 324 (37.5 Fe) MG tabletIndication s:Iron deficiency anemia, unspecified iron deficiency anemia type Take 1 tablet (325 mg total) by mouth daily with breakfast. 100 tablet 3 12/22/19 25 Active metFORMIN (GLUCOPHAGE) 500 MG tabletIndication s:Mixed hyperlipidemia,T ype 2 diabetes mellitus without complication, without long-term current use of insulin (CMS/HCC HHS/HCC) TAKE 1 TABLET BY MOUTH ONCE DAILY WITH EVENING MEAL 90 tablet 01/10/20 25 Active lisinopril-hydro CHLOROthiazide (ZESTORETIC) 10-12.5 MG tabletIndication s:Primary hypertension Take 1 tablet by mouth twice daily 60 tablet 01/26/20 25 Active vitamin D3 (CHOLECALCIFEROL ) 1.25 mg capsuleIndicatio ns:Annual physical exam Take 1 capsule by mouth once a week 12 capsule 02/07/20 25 Active atorvastatin (LIPITOR) 40 MG tabletIndication s:Gastroesophage al reflux disease without esophagitis,Ingrid al physical exam,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, unspecified blood vessel laterality ([facility]) TAKE 1 TABLET BY MOUTH NIGHTLY AT BEDTIME 90 tablet 11/19/19 25 025 Discontinued lisinopril-hydro CHLOROthiazide (ZESTORETIC) 10-12.5 MG tabletIndication s:Primary hypertension Take 1 tablet by mouth twice daily 60 tablet 12/28/19 25 025 Discontinued Active Problems Problem Noted Date Diagnosed Date Malignant neoplasm of urinar y bladder, unspecified site ([facility]) 02/15/2025 Muscle spasticity 04/07/2024 Hypercoagulable state ([facility]) 09/23/2023 Type 2 diabetes mellitus wit hout complication, without long-term current use of insulin (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) 10/09/2022 Hemiplegia and hemiparesis f 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 ([facility]) 07/28/2022 Status post prostatectomy 04/30/2021 Hypertension Hyperlipidemia GERD (gastroesophageal reflux disease) Overview (05/02/2021): No date...40 years now Obesity Resolved Problems Problem Noted Date Diagnosed Date Resolved Date DVT (deep venous thrombosis) ([facility]) 09/22/2022 04/01/2023 Primary prostate malignancy ([facility]) 04/12/20 21 09/23/2023 Gastroesophageal reflux dise ase without esophagitis 11/14/2020 12/21/2024 Annual physical exam 11/14/2020 021 Cerebrovascular accident (CV A) due to thrombosis ([facility]) 11/14/2020 04/01/2023 Encounters Date Type Department Care Team Description 02/15/2025 8:40 AM CDT Office Visit [facility] Medicine - [place] [address] [place] [address] Ilene Paul MD Follow Up (Discuss orthotics. Right foot rolls to outside. Prominent veins in lower legs.) 02/15/2025 Telephone [facility] Multispecialty Care - [facility] [address] [facility] [place] [address] Jorge Israel MD Information 02/15/2025 Travel 02/10/2025 Telephone [facility] [place] [address] [place] [address] Ilene Paul MD Other 01/05/2025 Orders Only [place] [phone] Ilene Paul MD 12/21/2024 8:20 AM CDT Office Visit [place] [address] Ilene Paul MD Enhanced Encounter (Enhanced encounter) 12/21/2024 Travel 12/14/2024 Orders Only [place] [address] Ilene Paul MD 12/07/2024 Scan [employer] [facility] Scanned, [facility] 11/29/2024 Telephone [place] [address] Ilene Paul MD Referral 11/28/2024 [place] [address] Joe Greco MD Schedule Test; Appointment Request from Last 3 Months Immunizations Immunization Administration Dates Next Due Dtap (Generic) 11/14/2020 [...] Date Recorded Patient Health Questionnaire-2 Score 1 12/21/2024 Sex and Gender Information Value Date Recorded Sex Assigned at Male 12/21/2024 8:35 AM CDT Legal Sex Male 3:58 PM CDT Gender Identity Not on file Sexual Orientation Not on file 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 Not on file Not on file Last Filed Vital Signs Vital Sign Reading Time Taken Comments Blood Pressure 114/79 02/15/2025 9:03 AM CDT Pulse 81 02/15/2025 9:03 AM CDT Temperature 36.7 C (98 F) 02/15/2025 9:03 AM CDT Respiratory Rate 16 02/15/2025 9:03 AM CDT Oxygen Saturation 96% 02/15/2025 9:03 AM CDT Inhaled Oxygen Concentration - - Weight 112.6 kg (248 lb 3.2 oz) 02/15/2025 9:03 AM CDT Height 188 cm (6' 2) 02/15/2025 9:03 AM CDT Body Mass Index 31.87 02/15/2025 9:03 AM CDT Plan of Treatment Upcoming Encounters Date Type Department Care Team (Late st Contact Info) Description 03/29/2025 8:00 AM CDT Office Visit [facility] Medical Group Multispecialty Care - [facility] [address] [facility] [place] [phone] Jorge Israel MD 3 [facility] [address] [place] [address] 04/05/2025 8:30 AM CDT Appointment [facility] Non [place] [address] Joe Greco MD Three [facility] [address] [place] [address] 05/08/2025 2:15 PM CDT Office Visit [facility] [facility] [address] [place] [address] Joe Greco MD [address] [facility] [address] [place] [address] 06/21/2025 8:00 AM AIRCRAFT ENGINE DISMANTLER Office Visit [facility] Medical Group Family and Sports Medicine - [place] [address] [place] [address] Ilene Paul MD [address] [place], [place] [id number] Health Maintenance Due Date Last Done Comments Diabetes: Retinopathy Eye Exam 1974 Pneumococcal Vaccine: 50+ Years (1 of 2 - PCV) 1975 RSV Immunization or 60+ Years (1 - Risk 60-74 years 1-dose series) 2016 Hemoglobin A1C 03/14/2025 12/14/2024, 05/21, 12/16/2023, Additional history exists Kidney Health Evaluation 06/14/2025 06/14/2024 COVID-19 Vaccine ( - season) 2025 Postponed from 03/20/2024 (Patient Refused) Zoster Vaccines (1 of 2) 06/22/2025 Pos tponed from 2006 (Going to Outside Clinic) Lipid Panel 12/14/2025 12/14/2024, 05/21, 12/16/2023, Additional history exists Annual Medicare Wellness Visit 12/22/2025 12/21/2024 Colorectal Cancer Screening Colonoscopy (10 Years) 08/21/2026 08/21/2016 DTaP, Tdap and Td Vaccines (2 - Tdap) 11/14/2030 11/14/2020 AAA SCREENING Completed 05/01/2021, 04/29/2021 Hepatitis C Completed 07/01/2023 PHQ-2 (Physician [place]) Completed 12/21/2024 Meningococcal B Vaccine Aged Out No l [...] remain independent in ADLs upon discharge from [facility] General Bettina Ramirez RN Procedures Procedure Name Priority Date/Time Associated Diagnosis Comments HEMOGLOBIN, GLYCOSYLATED Routine 8:45 AM CDT THYROID STIM HORMONE TSH Routine 8:45 AM CDT THYROXINE, FREE (FT4) Routine 12/14/2024 8:45 AM CDT TRIIODOTHYRONINE TOTAL , TT-3 Routine 12/14/2024 8:45 AM CDT C-REACTIVE PROTEIN Routine 12/14/2024 8: 45 AM CDT CBC W/DIFF AUTOMATED Routine 12/14/2024 8:45 AM CDT COMPREHENSIVE METABOLIC PANEL Routine 12/14/2024 8:45 AM CDT LIPID PANEL Routine 12/14/2024 8:45 AM CDT HEPATITIS C ANTIBODY Routine 07/01/2023 9:28 AM AIRCRAFT ENGINE DISMANTLER Primary hypertension History of CVA (cerebrovascular accident) History of prostate cancer CT ABD+PEL W CON STAT 05/01/2021 6:52 PM CDT COLONOSCOPY GENERIC (SCAN ORDER) Routine 08/21/2016 12:00 AM AIRCRAFT ENGINE DISMANTLER from Last 3 Months or Most Recently Relevant to Health Maintenance Results * (ABNORMAL) HEMOGLOBIN, GLYCOSYLATED (12/14/2024 8:45 AM CDT) HGB A1C 6.5(H) <5.7 % of total Hgb [facility] [place] Comment: For someone without known diabetes, [...] A1c for diagnosis of diabetes for children. 12/14/2024 8:45 AM CDT 12/14/2024 8:47 AM CDT Narrative Resulting Agency Comment Performing Organization Information: Site ID: [id number] [facility]: [facility] Address: [address] [place] [address] Director: Joselyn Tyson Ilene Paul MD LABORATORY Final Result Performing Organization Address City/[facility]/ZIP Co de Phone Number [employer] - MAGDY [address] [address], * TRIIODOTHYRONINE TOTAL , TT-3 (12/14/2024 8:45 AM CDT) Pathologist [facility] T3 TOTAL 101 76 - 181 ng/dL [facility] 12/14/2024 8:45 AM CDT 12/14/2024 8:47 AM CDT Narrative Resulting Agency Comment Performing Organization Information: Site ID: [id number] Name: Project ManagerCaroline Address: [address] [place] [address] Director: Joselyn Tyson MD Ilene Paul MD LABORATORY Final Result Performing Organization Address City/[facility]/ZIP Co de Phone Number [employer] Sarah MAGDY BERNARDA [facility] [address] [place] [address], * (ABNORMAL) COMPREHENSIVE METABOLIC PANEL (12/14/2024 8:45 AM CDT) GLUCOSE 137(H) 65 - 99 mg/dL [facility] Comment: Fasting reference interval For someone without known diabetes, a glucose value >125 mg/dL indicates that they may have diabetes and this should be confirmed with a follow-up test. BUN 17 7 - 25 mg/dL [facility] CREATININE S/P/B 1.07 0.70 - 1.35 mg/dL [facility] GFR ESTIMATE 76 > OR = 60 mL/min/1. 73m2 [facility] BUN CREATININE RATIO SEE NOTE: (calc) [facility] DIAGNOSTICS [facility] Comment: Not Reported: BUN and Creatinine are within reference range. SODIUM S/P/B 140 135 - 146 mmol/L [facility] POTASSIUM S/P/B 4.3 3.5 - 5.3 mmol/L [facility] CHLORIDE S/P/B 103 98 - 110 mmol/L [facility] CO2 26 20 - 32 mmol/L [facility] CALCIUM S/P/B 9.3 8.6 - 10.3 mg/dL [facility] TOTAL PROTEIN S/P/B 6.7 6.1 - 8.1 g/dL [facility] DIAGNOSTICS [facility] ALBUMIN S/P/B 4.1 3.6 - 5.1 g/dL [facility] GLOBULIN 2.6 1.9 - 3.7 g/dL (calc) [facility] ALBUMIN/GLOBULI N RATIO 1.6 1.0 - 2.5 (calc) [facility] BILIRUBIN TOTAL S/P/B 0.6 0.2 - 1.2 mg/dL [facility] ALKALINE PHOSPHATASE S/P/B 109 35 - 144 U/L [facility] AST 14 10 - 35 U/L [facility] ALT 19 9 - 46 U/L [facility] 12/14/2024 8:45 AM CDT 12/14/2024 8:47 AM CDT Narrative Resulting Agency Comment Performing Organization Information: Site ID: [id number] Name: Project ManagerCaroline Address: [address] [address] Director: Joselyn Tyson MD Ilene Paul MD LABORATORY Final Result Performing Organization Address City/[facility]/ZIP Co de Phone Number JOÃO MENCHACA [employer] [place] [address] [address], * (ABNORMAL) LIPID PANEL (12/14/2024 8:45 AM CDT) CHOLESTEROL 107 <200 mg/dL [facility] HDL 40 > OR = 40 mg/dL [facility] TRIGLYCERIDES 207(H) <150 mg/dL [facility] Comment: If a non-fasting specimen was collected, consider repeat triglyceride testing on a fasting specimen if clinically indicated. Sundar et al. J. of Clin. Lipidol. 2015;9:129-169. LDL (CALCULATED) 40 mg/dL (calc) [facility] Comment: Reference range: <100 Desirable range <100 mg/dL for primary prevention; <70 mg/dL for patients with CHD or diabetic patients with > or = 2 CHD risk factors. LDL-C is now calculated using the Martín-Mae calculation, which is a validated novel method providing better accuracy than the Friedewald equation in the estimation of LDL-C. Martín PRASAD et al. PANCHITO. 2013;310(19): 3742-8004 (http://education.[employer]/faq/WPQ661) CHOL/HDL RATIO 2.7 <5.0 (calc) [facility] NON HDL CHOLESTEROL 67 <130 mg/dL (calc) [facility] Comment: For patients with diabetes plus 1 major ASCVD risk factor, treating to a non-HDL-C goal of <100 mg/dL (LDL-C of <70 mg/dL) is considered a therapeutic option. 12/14/2024 8:45 AM CDT 12/14/2024 8:47 AM CDT Narrative Resulting Agency Comment Performing Organization Information: Site ID: [id number] Name: João Padron Address: [address] [place] [address] Director: Joselyn Tyson MD Ilene Paul MD LABORATORY Final Result Performing Organization Address City/[facility]/ZIP Co de Phone Number JOÃO MENCHACA [employer] [facility] [id number] [place] [address], * C-REACTIVE PROTEIN (12/14/2024 8:45 AM CDT) [facility] C-REACTIVE PROTEIN 4.1 <8.0 mg/L [facility] 12/14/2024 8:45 AM CDT 12/14/2024 8:47 AM CDT Narrative Resulting Agency Comment Performing Organization Information: Site ID: [id number] Name: João PadillaCaroline Address: [address] [place] [phone] Director: Joselyn Tyson MD Ilene Paul MD LABORATORY Final Result JOÃO MENCHACA [address] [address], * CBC W/DIFF AUTOMATED (12/14/2024 8:45 AM CDT) [facility] WBC 8.2 3.8 - 10.8 Thousand/u L [employer] RBC 4.70 4.20 - 5.80 Million/uL [facility] HGB 13.7 13.2 - 17.1 g/dL [facility] HCT 42.1 38.5 - 50.0 % [facility] MCV 89.6 80.0 - 100.0 fL [facility] MCH 29.1 27.0 - 33.[address] [facility] MCHC 32.5 32.0 - 36.0 g/dL [facility] Comment: For adults, a slight decrease in the calculated MCHC value (in the range of 30 to 32 g/dL) is most likely not clinically significant; however, it should be interpreted with caution in correlation with other red cell parameters and the patient's clinical condition. RDW 13.7 11.0 - 15.0 % [facility] PLT 305 140 - 400 Thousand/u L [facility] MPV 9.9 7.5 - 12.5 fL [facility] [place] ABS. NEUTROPHILS 5,683 1,500 - 7,800 cells/uL [facility] [place] ABS. LYMPHOCYTES 1,730 850 - 3,900 cells/uL [facility] [place] ABS. MONOCYTES 566 200 - 950 cells/uL [facility] [place] ABS. EOSINOPHILS 180 15 - 500 cells/uL [facility] [place] ABS. BASOPHILS 41 0 - 200 cells/uL [facility] SEG NEUTROPHILS 69.3 % [facility] LYMPHOCYTES 21.1 % [facility] MONOCYTES 6.9 % [facility] EOSINOPHILS 2.2 % [facility] BASOPHILS 0.5 % [facility] 12/14/2024 8:45 AM CDT 12/14/2024 8:47 AM CDT Narrative Resulting Agency Comment Performing Organization Information: Site ID: [id number] Name: [facility] Address: [address] [place] [phone] Director: Joselyn Tyson MD Ilene Paul MD LABORATORY Final Result Performing Organization Address City/[facility] Co de Phone Number [facility] [employer] [address] * THYROXINE, FREE (FT4) (12/14/2024 8:45 AM CDT) FREE T4 1.1 0.8 - 1.8 ng/dL [facility] 12/14/2024 8:45 AM CDT 12/14/2024 8:47 AM CDT Narrative Resulting Agency Comment Performing Organization Information: Site ID: [id number] Name: [facility] Address: [address] [place] [phone] Director: Joselyn Tyson MD Ilene Paul MD LABORATORY Final Result Performing Organization Address City/[facility]/ZIP Co de Phone Number [facility] [employer] [address] * THYROID STIM HORMONE TSH (12/14/2024 8:45 AM CDT) TSH 2.80 0.40 - 4.50 mIU/L [facility] 12/14/2024 8:45 AM CDT 12/14/2024 8:47 AM CDT Narrative Resulting Agency Comment Performing Organization Information: Site ID: [id number] Name: João Padron Address: [address] [address] Director: Joselyn Tyson MD Ilene Paul MD LABORATORY Final Result JOÃO MENCHACA [employer] [facility] [address] [place] [address], [place] * HEPATITIS C ANTIBODY (07/01/2023 9:28 AM AIRCRAFT ENGINE DISMANTLER) HEPATITIS C AB NON-REACTI VE NON-REACT SHAZIA 07/01/2023 7:43 PM AIRCRAFT ENGINE DISMANTLER [facility] Comment: ANTIBODIES TO HCV NOT DETECTED. DOES NOT EXCLUDE THE POSSIBILITY OF EXPOSURE TO HCV. 07/01/2023 9:28 AM AIRCRAFT ENGINE DISMANTLER Ilene Paul MD LABORATORY Final Result Performing Organization Address City/[facility] Co de Phone Number [facility] [address] [place] [address], [phone] * CT ABD+PEL W CON (05/01/2021 6:52 [...] Final Result * COLONOSCOPY (08/21/2016 12:00 AM AIRCRAFT ENGINE DISMANTLER) 08/21/2016 [facility] Scanned SCANNING Final Resul t Performing Organization Address City/State/[facility] Co de Phone Number HS-ASHLEY MENDOZA from Last 3 Months or Most Recently Relevant to Health Maintenance Insurance [employer] Advance Directives * Full Code (Latest Code Status on File) Date Activated Date Inactivated Comments 04/29/2021 10:08 PM 05/03/2021 2:58 PM Care Teams Construction Checker Relationship Specialty Start Date End Date Ilene Paul MD [address] [address] PCP - General FAMILY PRACTICE 11/12/20
--- OUTSIDE RECORDS SUMMARY | 2025-02-21 13:36 | XMS_ITS | Encounter Summary ---
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 [...] Description 03/29/2025 8:00 AM CDT Office Visit [facility] Medical Group [facility]ty Care - [facility] 3 [facility] [address] [place] [address] Jorge Israel MD 3 [facility] [address] [place] [address] 04/05/2025 8:30 AM CDT Appointment [facility] Non Invasive Cardiology [address] [facility] [address] Joe Greco MD Three [facility] [address] [place] [address] 05/08/2025 2:15 PM CDT Office Visit [facility] [place] [address] Joe Greco MD Three [facility] [address] [place] [address] 06/21/2025 8:00 AM ASBESTOS CEMENT SHEET SUPERVISOR Office Visit [facility] Medical Group Family and Sports Medicine - [place] [address] [place] [address] Ilene Paul MD [address]70 [facility] [address] [place] [address] documented as of this encounter Goals Goal [...] Total Score: 0 09/09/19 22 7:39 AM ASBESTOS CEMENT SHEET SUPERVISOR documented as of this encounter Care Teams Assembler Corncob Pipes Relationship Specialty Start Date End Date Ilene Paul MD [address] [address] PCP - General FAMILY PRACTICE 11/12/20 documented as of this encounter
--- OUTSIDE RECORDS SUMMARY | 2025-02-21 13:36 | XMS_ITS | Encounter Summary ---
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 No / Unsure 04/29/2021 5:24 AM CDT documented as of this encounter Functional Status * Calculated C-SSRS Risk Score (Lifetime/Recent) Answer Date of Assessment Author Status No Risk Indicated 04/29/2021 6:15 AM CDT Valeri Emmanuel RN Active * [place] Suicide Severity Rating Scale (Screener/Recent Self-Report) Question Answer Date of Assessment Author Status 1. Wish to be (Past 1 Month) No 04/29/2021 6:15 AM CDT Valeri Emmanuel RN Activ e 2. Non-Specific Active Suicidal Thoughts (Past 1 Month) No 04/29/2021 6:15 AM CDT Valeri Emmanuel RN Activ e 3. Active Suicidal Ideation with any Methods (Not Plan) Without Intent to Act (Past 1 Month) No 04/29/2021 6:15 AM CDT Valeri Emmanuel RN Activ e 4. Active Suicidal Ideation with Some Intent to Act, Without Specific Plan (Past 1 Month) No 04/29/2021 6:15 AM CDT Valeri Emmanuel RN Activ e 5. Active Suicidal Ideation with Specific Plan and Intent (Past 1 Month) No 04/29/2021 6:15 AM CDT Valeri Emmanuel RN Active 6. Suicidal Behavior (Lifetime) No 04/29/2021 6:15 AM CDT Valeri Emmanuel RN Activ e documented as of this encounter Plan of Treatment Upcoming Encounters Date Type Department Care Team (Late st Contact Info) Description 03/29/2025 8:00 AM CDT Office Visit [facility] Mult[facility]pecialty Care - [facility] 3 [facility] [place] [phone] Jorge Israel MD 3 [facility] [address] [place] [address] 04/05/2025 8:30 AM CDT Appointment [facility] [place] [address] Joe Greco MD [address] [place] [address] 05/08/2025 2:15 PM CDT Office Visit [facility] [address] [place] [address] Joe Greco MD Three [address] [place] [address] 06/21/2025 8:00 AM PROJECT CONTROLLER Office Visit [facility] Medical Group Family and Sports Medicine - [place] [address] [place] [address] Ilene Paul MD [address] [place], [place] [phone] documented as of this encounter Results * CORONAVIRUS (COVID 19) (04/26/2021 9:30 AM CDT) SPEC DESCRIPTION NASAL 04/26/20 21 11:[address] [facility] CORONAVIRUS SARS COV 2 PCR (RESP) NEGATIVE NEGATIVE 04/26/2021 7:38 PM CDT [facility] Comment: THE SARS-CoV-2 TEST HAS BEEN AUTHORIZED BY THE FDA UNDER AN EUA FOR USE BY AUTHORIZED LABORATORIES. PERFORMED BY NUCLEIC ACID AMPLIFICATION PCR FIRST TEST NO 04/26/2021 11:[address] [facility] EMPLOYED IN HEALTHCARE NO 04/26/2021 11:[address] [facility] SYMPTOMATIC DEFINED BY CDC NO 04/26/2021 11:[address] [facility] HOSPITALIZATION STATUS NO 04/26/2021 11:[address] [facility] PATIENT IN ICU NO 04/26/2021 11:[address] [facility] RESIDENT OF [facility] NO 04/26/2021 11:36 AM CDT [facility] NASAL STRUCTURE / Unknown 04/26/2021 9:30 AM CDT us Chacho Herman MD MICROBIOLOGY - GENERAL ORDERABLE S Final Result [facility] [address] [place] [address], [place] [phone] [facility] [address] [place] [address], documented in this encounter Visit Diagnoses Diagnosis Preop examination- Primary Preoperative examination, unspecified documented in this encounter Additional Health Concerns Infection Onset Date Last Indicated Resolved Time COVID-19 Rule Out 04/26/2021 04/26/2021 04/26/2021 7:39 PM CDT Assessment Noted Time PHQ-9 Depression Total Score: 0 04/04/20 7:54 AM CDT documented as of this encounter Care Teams Pump Servicer Supervisor Relationship Specialty Start Date End Date Ilene Paul MD [address] [facility] [address] [place] [address] PCP - General FAMILY PRACTICE 11/12/20 documented as of this encounter
--- OUTSIDE RECORDS SUMMARY | 2025-02-21 13:36 | XMS_ITS | Clinical Summary ---
Author Organization 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 Gender Identity Not on file Sexual Orientation [...] 7:56 AM CDT Height 188 cm (6' 2) 02/17/2024 7:56 AM CDT Body Mass Index 32.6 02/17/2024 7:56 AM CDT Plan of Treatment Health Maintenance Due Date Last Done Comments SARS-COV-2 Immunization (#1) 1961 Pneumococcal Immunization (5 0+ years) (1 of 2 - PCV) 1975 Zoster Immunization (1 of 2) 1975 Cologuard 2001 Immunochemical Fecal Occult Blood 2001 PSA Discussion 2011 Respiratory Syncytial Virus (RSV) Immunization (Adult) (1 - Risk 60-74 years 1-dose series) 2016 Influenza Immunization (#1) 03/20/202507/21, 07/28/2012 Colonoscopy 08/21/2026 08/21/2016 Colorectal Cancer Screening 08/21/2026 DTaP/Tdap/Td Immunization Discontinued 11/14/2020 Hepatitis C Virus (HCV) Screening Completed 07/01/2023 Hepatitis B Immunization Aged Out No longer eligible based on patient's age to complete this topic Human Papillomavirus (HPV) Immunization Aged Out No longer eligible based on patient's age to complete this topic Meningococcal Immunization (ACWY) Aged Out No longer eligible based on patient's age to complete this topic Rotavirus Immunization Aged Out No lo nger eligible based on patient's age to complete this topic Insurance MEDICARE C E[employer] Care Teams Director Records Management Relationship Specialty Start Date End Date Ilene Paul MD [address] [place] [address] PCP - General Family Medicine 09/05/22
--- OUTSIDE RECORDS SUMMARY | 2025-02-21 13:36 | XMS_ITS | Encounter Summary ---
Author Organization [facility] Address [facility] [place] [address] Care Team Providers Care Milk Pasteurizer Name Role Phone Ilene Paul MD Primary Care Provider [phone] Encounter Details Date Type Department Care Team (Late st Contact Info) Description 05/26/2022 [employer] Message [facility] [address] [place] [address] Johnny Hardin MD,PHD Eliquis? 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 file [...] we will need to go to coumadin ING ENGINEER documented in this encounter Plan of Treatment Upcoming Encounters Date Type Department Care Team (Late st Contact Info) Description 03/29/2025 8:00 AM CDT Office Visit [facility] Medical Group Multispecialty Care - [facility] [address] [facility] [place] [phone] Jorge Israel MD 3 [facility] [address] [place] [address] 04/05/2025 8:30 AM CDT Appointment [facility] [address] [facility] [place] [address] Joe Greco MD [address] [place] [address] 05/08/2025 2:15 PM CDT Office Visit [facility] [address] [place] [address] Joe Greco MD [address] [place] [address] 06/21/2025 8:00 AM IMAGING ENGINEER Office Visit [facility] Medical Group Family and Sports Medicine - [place] [address] [place] [address] Ilene Paul MD [address] [place] [address] documented as of this encounter Goals Goal [...] Total Score: 0 09/09/19 22 7:39 AM IMAGING ENGINEER documented as of this encounter Care Teams Milk Pasteurizer Relationship Specialty Start Date End Date Ilene Paul MD [address] [place] [address] PCP - General FAMILY PRACTICE 11/12/20 documented as of this encounter
--- OUTSIDE RECORDS SUMMARY | 2025-02-21 13:36 | XMS_ITS | Encounter Summary ---
Author Organization [facility] Address [facility] [place] [address] Care Team Providers Care Secondary School Teacher Name Role Phone Ilene Paul MD Primary Care Provider [phone] Encounter Details Date Type Department Care Team (Late st Contact Info) Description 04/12/2024 [employer] Message Enc [facility] Medical Group Multispecialty Care - [facility] 3 [facility], [address] [place] [phone] [employer], [facility] Provider Appt Social History Tobacco [...] 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 Not [...] Description 03/29/2025 8:00 AM CDT Office Visit [facility] Medical Group Multispecialty Care - [facility] 3 [facility] [address] [place] [address] Jorge Israel MD 3 [facility] [address] [place] [address] 04/05/2025 8:30 AM CDT Appointment [facility] Non Invasive Cardiology ONE [facility] [address] Joe Greco MD Three [facility] [address] [place] [address] 05/08/2025 2:15 PM CDT Office Visit [facility] [address] [place] [address] Joe Greco MD Three [facility] [address] [place] [address] 06/21/2025 8:00 AM TRAFFIC RATE ANALYST Office Visit [facility] Medical Group Family and Sports Medicine - [place] [address] [place] [address] Ilene Paul MD [address] [address] documented as of this encounter Goals Goal [...] documented as of this encounter Care Teams Secondary School Teacher Relationship Specialty Start Date End Date Ilene Paul MD [address] [address] PCP - General FAMILY PRACTICE 11/12/20 documented as of this encounter
--- OUTSIDE RECORDS SUMMARY | 2025-02-21 13:36 | XMS_ITS | Encounter Summary ---
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 3 [facility] [address] [place] [address] Jorge Israel MD 3 [facility] [address] [place] [address] 04/05/2025 8:30 AM CDT Appointment [place]iology [place] [address] Joe Greco MD Three [facility] [place] [address] 05/08/2025 2:15 PM CDT Office Visit [facility] [address] [place] [address] Joe Greco MD [address] [place] [address] 06/21/2025 8:00 AM HOME ECONOMICS EXPERT Office Visit [facility] Medical Group Family and Sports Medicine - [place] [address] [place] [address] lIene Paul MD [address] [address] documented as of this encounter Goals Goal [...] Total Score: 0 09/09/19 22 7:39 AM HOME ECONOMICS EXPERT documented as of this encounter Care Teams Vp Relationship Specialty Start Date End Date Ilene Paul MD [address] [address] PCP - General FAMILY PRACTICE 11/12/20 documented as of this encounter
--- OUTSIDE RECORDS SUMMARY | 2025-02-21 13:36 | XMS_ITS | Encounter Summary ---
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 [...] Description 03/29/2025 8:00 AM CDT Office Visit [facility] Medical Group Mult[facility]pec[facility] Care - [facility] [address] [facility] [place] [phone] Jorge Israel MD 3 [facility] [address] [place] [address] 04/05/2025 8:30 AM CDT Appointment [facility] Non Invasive Cardiology ONE [facility] [place] [address] Joe Greco MD Three [facility] [address] [place] [address] 05/08/2025 2:15 PM CDT Office Visit [facility] [address] [place] [address] Joe Greco MD Three [facility] [address] [place] [address] 06/21/2025 8:00 AM TENNIS DIRECTOR Office Visit [facility] Medical Group Family and Sports Medicine - [place] [address] [place] [address] Ilene Paul MD [address]70 [facility] [address] [place], [place] [phone] documented as of this encounter Goals Goal [...] Total Score: 0 09/09/19 22 7:39 AM TENNIS DIRECTOR documented as of this encounter Care Teams Blind Teacher Relationship Specialty Start Date End Date Ilene Paul MD [address] [place] [place] [address] [place] [address] PCP - General FAMILY PRACTICE 11/12/20 documented as of this encounter
--- OUTSIDE RECORDS SUMMARY | 2025-02-21 13:36 | XMS_ITS ---
Author Organization [facility] Address [address] [place] [address] Care Team Providers Care Service Clerk Name Role Phone Ilene Paul MD Primary Care Provider [phone] Problems Problem Noted Date Diagnosed Date Malignant neoplasm of urinar y bladder, unspecified site ([facility]) 02/15/2025 Muscle spasticity 04/07/2024 Hypercoagulable state ([facility]) 09/23/2023 Type 2 diabetes mellitus wit hout complication, without long-term current use of insulin (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) 10/09/2022 Hemiplegia and hemiparesis f 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 ([facility]) 07/28/2022 Status post prostatectomy 04/30/2021 Hypertension Hyperlipidemia GERD (gastroesophageal reflux disease) Overview (05/02/2021): No date...40 years now Obesity Current Treatment and Therapy Plans No current plan information found. Past Treatment and Therapy Plans Resolved Problems Problem Noted Date Diagnosed Date Resolved Date DVT (deep venous thrombosis) ([facility]) 09/22/2022 04/01/2023 Primary prostate malignancy (CMS/HCC HHS/HCC) 04/12/20 21 09/23/2023 Gastroesophageal reflux dise ase without esophagitis 11/14/2020 12/21/2024 Annual physical exam 11/14/2020 021 Cerebrovascular accident (CV A) due to thrombosis (CMS/HCC HHS/HCC) 11/14/2020 04/01/2023
== END 2025-02-21 13:28 | disposition home or self-care (01) ==
PROVIDERS: PCP Family Medicine Sports Medicine; Visit Provider Urology
DX: C61 Malignant neoplasm of prostate (principal)
CPT/HCPCS: 78815; A9596

== ENCOUNTER 2025-04-21 08:15 | Outpatient (CLI) | payer OTHER, SELFPAY ==
--- NOTE | ~2025-04-21 | DEXA_ITS ---
Bone Density Report Name: PATRICIA LAU Age: 69 Sex: Male Ethnicity: White Date of : 1955 Indication: height loss; cancer; Referring Provider: VALERIE ROE Study: Bone densitometry was performed. Exam Date: April 21, 2025 Accession number: [id number] Bone Density: Region BMD T-score Z-score Classification AP Spine(L1-L4) 1.193 0.9 1.8 Normal Femoral Neck (Left) 0.852 -0.6 0.6 Normal Total Hip (Left) 1.037 0.0 0.6 Normal Femoral Neck (Right) 0.892 -0.3 0.9 Normal Total Hip (Right) 1.031 0.0 0.6 Normal Total Hip Mean 1.034 0.0 0.6 Normal World Health Organization criteria for BMD impression classify patients as: Normal (T-score at or above -1.0), Osteopenia (T-score between -1.0 and -2.5), or Osteoporosis (T-score at or below -2.5). 10-year Fracture Risk: FRAX not reported because: All T-scores for Spine Total, Hip Total, Femoral Neck at or above -1.0 Clinical Information Provided by Patient: Has used the following medications: Vitamin D Has the following medical conditions: Cancer Patient maximum height was 74 Drinks caffeinated beverages Impression: The patient has normal bone mass. Discussion: BONE DENSITY IS ABOVE THE MINIMUM DESIRABLE LEVEL AT ALL SKELETAL SITES TESTED. This patient?s bone mineral density is above the minimum desirable level (T-score -1.0 or better) at all sites measured. The patient should follow a healthful lifestyle (good nutrition with adequate calcium and vitamin D, and appropriate weight-bearing exercise). Follow-Up: Consider repeating this study in 5 years or sooner if there is some new clinical indication. Reported by: TONY on 04/21/2025 8:45:00 AM. Reviewed, dictated and finalized at location A.
== END 2025-04-21 08:16 | disposition home or self-care (01) ==
LOC: MICIMG 08:16
PROVIDERS: PCP Family Medicine Sports Medicine; Visit Provider Urology
DX: M81.0 Age-related osteoporosis without current pathological fracture (principal)
CPT/HCPCS: 77080

== ENCOUNTER 2025-06-11 08:34 | Outpatient (CLI) | payer OTHER, SELFPAY ==
--- NOTE | ~2025-06-11 | MR_ITS ---
EXAMINATION: MR pelvis wo/w con DATE: 06/11/2025 10:37 INDICATION: Malignant neoplasm of prostate. TECHNIQUE: Magnetic resonance imaging (MRI) of the pelvis was performed without and with 20 mL MultiHance intravenous contrast. COMPARISON: PET/CT 02/21/25 FINDINGS: There are changes of prostatectomy. There are no dilated loops of bowel. There is diverticulosis of the colon without evidence of diverticulitis. There are no pathologically enlarged lymph nodes. There is no ascites. There is prominent fat in the inguinal canals that may be hernias. There is a small focus of contrast enhancement in the right lesser trochanter. IMPRESSION: 1. Small focus of contrast enhancement in the right lesser trochanter which demonstrated increased activity on the prior PET/CT, consistent with metastatic disease. Reviewed, dictated and finalized at location E. ORT TEAM MEMBER IMPRESSION: 1. Small focus of contrast enhancement in the right lesser trochanter which dem onstrated increased activity on the prior PET/CT, consistent with metastatic di sease.
== END 2025-06-11 08:35 | disposition home or self-care (01) ==
PROVIDERS: PCP Family Medicine Sports Medicine; Visit Provider Radiology Radiation Oncology
DX: C61 Malignant neoplasm of prostate (principal)
CPT/HCPCS: 72197; A9577